=== PATIENT | male | born 1950 | race Caucasian/White ===

== ENCOUNTER 2018-07-04 01:05 | Outpatient (CLI) | payer MEDICARE ==
[2018-07-04] VITALS (7 sets, daily range): BP systolic 96–116; BP diastolic 58–81; Ht 172.7 cm; Wt 90.7 kg
[~2018-07-04] VITALS: Ht 172.7 cm; Wt 90.7 kg
--- NOTE | ~2018-07-04 | DS ---
PATIENT:CHEL CULLEN :54 MEDICAL RECORD: [id number] DISCHARGE SUMMARY ADMISSION DATE: 07/04/18 DISCHARGE DATE: DATE OF ADMISSION: 07/04/2018. DATE OF DISCHARGE: 07/05/2018. ADMISSION DIAGNOSES: His automatic defibrillator went off 6-7 times with history of CHF, coronary artery disease, and arrhythmias. HOSPITAL COURSE: The patient presented to the Emergency Room. Cardiology consulted. Upon review of his EKG and findings, underwent cardiac catheterization with stent placement. With his arrhythmias, he was monitored overnight, maintained in sinus rhythm, cleared for discharge by cardiology. The patient was discharged to home in significantly improved condition. DISCHARGE MEDICATIONS: Per med rec. PHYSICAL EXAMINATION: VITAL SIGNS: On discharge, temperature 97.7, blood pressure is 121/83, heart rate 81, respirations 20, O2 sats 95% room air. GENERAL: Alert and oriented, no present distress. Anxious to go home. HEART: Regular rate and rhythm. LUNGS: Clear. ABDOMEN: Soft. EXTREMITIES: Present times 4. NEUROLOGIC: Intact. SKIN: Warm and dry. No rash. DISCHARGE INSTRUCTIONS: The patient will follow up with Dr. Velez in 10 days. Will follow up with cardiology. See chart for further details. TRANSINT:[id number] Voice Confirmation ID: [id number] DOCUMENT ID: [id number] AWILDA WAGNER DO at 1614 CC: [id number] DICTATION DATE: 07/05/18 1006 POLICE CAPTAIN SENIOR: 07/05/18 1023 ADM IN [id number] [place] [address]
--- NOTE | ~2018-07-04 | HEMODYNAMI ---
PATIENT:CHEL CULLEN MEDICAL RECORD: [id number] : 54 LOCATION:[facility] D.2116 ADMISSION DATE: 07/04/18 Generatedon:07/04/201810:54 Patient name: CHEL CULLEN Patient #: [id number] SSN: : 1950 Date of study: 07/04/2018 Page: Of Hemodynamic Procedure Report Patient Data Patient Demographics Procedure consent was obtained First Name: CHEL Gender: Male Last Name: SUBHASH : 1950 Patient #: [id number] Age: 67 year(s) Race: Unknown Additional ID: [id number] Contact details [address]: [address] [place] [address] State: [place] City: [place] Zip code: [address] Past Medical History Allergies Allergen Reaction Date Comments Reported Other allergy 07/04/2018 spironolactone, ipratropium Admission Admission Data Admission Date: 07/04/2018 Admission Time: 4:31 Admit Source: Other Room #: D.2116 Lab Results Lab Result Date: 07/04/2018 Lab Result Time: 2:42 Biochemistry Name Units Result Min Max BUN mg/dl 15 --(--*-)-- 7 18 Creatinine mg/dl 1.5 --(----)-* 0.6 1.3 CBC Name Units Result Min Max Hematocrit % 45.2 --(-*--)-- 42 54 Hemoglobin g/dl 16.1 --(--*-)-- 13.5 17.5 Procedure Procedure Types Cath Procedure Diagnostic Procedure LHC LHC w/Coronaries w/Grafts Sedation Charges Moderate Sedation up to 30 minutes PCI Procedure Coronary Stent Coronary Stent Initial Procedure Description Procedure Date Procedure Date: 07/04/2018 Procedure Start Time: 10:07 Procedure End Time: 10:42 Procedure Staff Name Function Reji Li MD Performing Physician Rosemary Paul RT Monitor Aaron Hernandez RN Nurse Bailee Drew RN Nurse Khurram Copeland RT Scrub Ariel Samano RT [employer] Procedure Data Cath Procedure Fluoroscopy Diagnostic fluoroscopy Total fluoroscopy Time: 6.5 time: 6.5 min min Diagnostic fluoroscopy Total fluoroscopy dose: dose: 1331 mGy 1331 mGy Contrast Material Contrast Material Type Amount (ml) Isovue 300 141 Entry Location Entry Primary Successful Side Size Upsize Upsize Entry Closure Succes sful Closure Location (Fr) 1 (Fr) 2 (Fr) Remarks Device Remarks Femoral Right 5 Fr 6 Fr Exoseal artery Short Estimated blood loss: 10 ml Diagnostic catheters Device Type Used For End Catheter Placement MULTIPACK JL 4.0 5Fr Procedure catheter DIAGNOSTIC AR MOD 5Fr Procedure Catheter ([id number]) DIAGNOSTIC IM 5Fr catheter ([id number]) MULTIPACK Pigtail 5 Fr Procedure catheter MULTIPACK 3DRC 5Fr Procedure catheter Procedure Complications No complications Procedure Medications Medication Administration Route Dosage 0.9% NaCl I.V. 100 ml/hr Oxygen etCO2 Nasal cannula 2 l/min Heparin Flush Bag added to field 2 bags (1000units/500ml NS) Lidocaine 2% added to field 20 Versed I.V. 1 mg Fentanyl I.V. 50 mcg Fentanyl I.V. 50 mcg Heparin Bolus I.V. 9000 units Hemodynamics Rest HGB: 16.1 (g/dl) Heart Rate: 95 (bpm) Pressure Samples Time Site Value (mmHg) Purpose Heart Use Rate(bpm) 10:21 LV 127/12,16 Snapshot 97 10:23 AO 114/75(91) Pullback 93 10:23 LV 117/15,21 Pullback 93 Gradients Valve Time Site 1 Site 2 Mean SEP/DFP Peak To Heart Use (mmHg) (sec/min) Peak Rate (mmHg) (bpm) Aortic 10:22 LV AO 95 Aortic 10:23 LV AO 92 Aortic 10:23 LV AO 6 18 3 93 117/15,21 114/75(91) Calculations Valve P-P Mean Valve Index Valve Source Name Gradient Area Flow (cm2) Aortic 3 6 3 6 Snapshots Pre Cath Intra NCS Post Cath Vital Signs Time Heart Resp SPO2 etCO2 NIBP (mmHg) Rhythm Pain Sedation Rate (ipm) (%) (mmHg) Status Level (bpm) 9:58:52 96 20 93 3.7 132/86(106) Paced 0 (11) 10(A) , No pain 10:03:30 94 19 91 28.6 117/79(92) Paced 0 (11) 10(A) , No pain 10:08:05 85 22 91 30.1 118/82(97) Paced 0 (11) 9(A) , No pain 10:12:39 93 20 93 31.6 126/83(100) Paced 0 (11) 9(A) , No pain 10:17:13 93 19 91 32.4 127/84(99) Paced 0 (11) 9(A) , No pain 10:21:52 94 17 93 29.3 127/79(101) Paced 0 (11) 9(A) , No pain 10:26:31 94 19 92 31.6 124/76(92) Paced 0 (11) 9(A) , No pain 10:31:05 97 20 91 30.1 122/77(94) Paced 0 (11) 9(A) , No pain 10:35:39 84 21 92 30.1 123/78(95) Paced 0 (11) 10(A) , No pain 10:40:14 96 22 92 30.1 129/83(99) Paced 0 (11) 10(A) , No pain Medications Time Medication Route Dose Verified Delivered Reason Notes Effectiveness by by 9:57:32 0.9% NaCl I.V. 100 Reji Bailee used for ml/hr Guillermo Drew forensics team director 9:57:42 Oxygen etCO2 2 Reji Bailee used for Nasal l/min Guillermo Drew procedure cannula RN 9:57:51 Heparin Flush added 2 Reji Bailee used for Bag to bags Guillermo reina (1000units/500ml field RN NS) 9:58:02 Lidocaine 2% added 20ml Reji Bailee used for to vial Guillermo Drew procedure field RN 10:00:50 Versed I.V. 1 mg Reji Buffie for sedation Guillermo Hernandez RN 10:00:56 Fentanyl I.V. 50 Reji Buffie for sedation mcg Guillermo Hernandez RN 10:07:39 Fentanyl I.V. 50 Reji Buffie for sedation mcg Guillermo Hernandez RN 10:32:48 Heparin Bolus I.V. 9000 Reji Bailee for units Guillermo Drew anticoagulation patent litigation associate Log Time Note 9:38:59 Informed consent obtained and on chart 9:39:03 Admit Source: Other 9:39:41 Diagnostic Cath status Elective 9:39:46 Ariel Samano RT(R) sent for patient. Start room use. 9:41:05 Time tracking: Regular hours (M-F 7:00 - 5:00) 9:41:16 Plan of Care:Hemodynamics will remain stable., Cardiac rhythm will remain stable., Comfort level will be maintained., Respiratory function will remain adequate., Patient/ family verbilizes understanding of procedure., Procedure tolerated without complication., Recovers from procedure without complications.. 9:42:28 H&P Date Dictated: 07/04/2018 Within 30 days and on chart.. 9:43:12 Lab Result : Hemoglobin 16.1 g/dl 9:43:12 Lab Result : Hematocrit 45.2 % 9:43:12 Lab Result : BUN 15 mg/dl 9:43:12 Lab Result : Creatinine 1.5 mg/dl 9:50:24 Patient received from Med II to CCL 1 Alert and oriented. Tansferred to table in Supine position. 9:50:28 Warm blankets applied, and bhavani hugger turned on for patient comfort. 9:50:28 Correct patient and procedure confirmed by team. 9:50:29 ECG and BP/O2 sat monitors applied to patient. 9:50:30 Pre-procedure instructions explained to patient. 9:50:30 Pre-op teaching completed and patient verbalized understanding. 9:50:39 Family in patients room. 9:50:41 Patient NPO since Midnight. 9:51:04 Patient allergic to Other allergyspironolactone, ipratropium 9:51:11 IV patent on arrival in left antecubital with 0.9% NaCl at O. 9:57:32 0.9% NaCl 100 ml/hr I.V. was administered by Bailee Drew RN; used for procedure; 9:57:42 Oxygen 2 l/min etCO2 Nasal cannula was administered by Bailee Drew RN; used for procedure; 9:57:51 Heparin Flush Bag (1000units/500ml NS) 2 bags added to field was administered by Bailee Drew RN; used for procedure; 9:58:02 Lidocaine 2% 20ml vial added to field was administered by Bailee Drew RN; used for procedure; 9:58:07 Vital chart was started 9:59:10 Baseline sample Acquired. 9:59:21 Rhythm: paced 9:59:22 Full Disclosure recording started 9:59:56 Is patient on blood thinner?Yes 10:00:00 ACC The patient was administered the following blood thiners within the last 24 hours: ACCPlavix 10:00:01 Is the patient allergic to Iodine/contrast media? No. 10:00:02 Patient diabetic? Yes. 10:00:03 If diabetic: On Metformin? No 10:00:06 Previous problem with sedation/anesthesia? No ? 10:00:06 Snore? Yes 10:00:07 Sleep apnea? Yes 10:00:08 Deviated septum? No 10:00:09 Opens mouth fully? Yes 10:00:09 Sticks out tongue? Yes 10:00:11 Airway obstruction? No ? 10:00:14 Dentures? Yes OUT 10:00:17 Pre procedure: right dorsailis pedis pulse 2+ Normal; easily identifiable; not easily obliterated 10:00:19 Patient pain scale 0/10 ?. 10:00:21 Lab results completed and on chart. 10:00:23 Right groin area was prepped with chlora-prep and draped in sterile fashion 10:00:24 Alarms reviewed by R. N. 10:00:25 Sharps counted by scrub and verified by R.N. 10:00:27 --------ALL STOP TIME OUT------ 10:00:27 Final Timeout: patient, procedure, and site verified with staff and physician. All members of the team are in agreement. 10:00:29 Right groin site verified by team. 10:00:32 Physical assessment completed. ASA score P 2 - A patient with mild systemic disease as per Reji Li MD. 10:00:35 Sedation plan: IV Moderate Sedation Medication:Versed, Fentanyl 10:00:44 Use device set Femoral Dx 10:00:46 ACIST Syringe (92149) opened to sterile field. 10:00:47 Bag Decanter (2002S) opened to sterile field. 10:00:48 ACIST Hand Control (89000) opened to sterile field. 10:00:49 ACIST Manifold (85293) opened to sterile field. 10:00:50 Versed 1 mg I.V. was administered by Aaron Hernandez RN; for sedation; 10:00:50 Tegaderm 4 x 4 (1626W) opened to sterile field. 10:00:51 Medline Cath Pack ([id number]) opened to sterile field. 10:00:52 DIAGNOSTIC WIRE .035 260cm J wire (533759) opened to sterile field. 10:00:53 DIAGNOSTIC Multipack 5Fr catheter set (OZ6414) opened to sterile field. 10:00:55 SHEATH Prelude 5Fr 0.035 (EFT-9Q-87-035) opened to sterile field. 10:00:56 Fentanyl 50 mcg I.V. was administered by Aaron Hernandez RN; for sedation; 10:06:52 Zero performed for pressure channel P1 10:07:26 Procedure started. 10:07:39 Fentanyl 50 mcg I.V. was administered by Aaron Hernandez RN; for sedation; 10:07:39 Local anesthetic to right femoral artery with Lidocaine 2% by Reji Li MD.INITIAL ACCESS ONLY 10:09:51 A 5 Fr sheath was inserted into the Right Femoral artery 10:10:38 A MULTIPACK JL 4.0 5Fr catheter was advanced over the wire and used for Procedure. 10:12:49 LCA angiography performed. 10:12:56 Catheter exchanged over wire. 10:14:01 A DIAGNOSTIC AR MOD 5Fr Catheter ([id number]) was advanced over the wire and used for Procedure. 10:14:37 RCA angiography performed. 10:14:54 SVG to RCA occluded. 10:15:22 SVG to Circ angiography performed. 10:16:56 Catheter exchanged over wire. 10:17:59 A DIAGNOSTIC IM 5Fr catheter ([id number]) was advanced over the wire and used for . 10:19:09 TESFAYE to LAD angiography performed. 10:19:31 Catheter exchanged over wire. 10:20:08 A MULTIPACK Pigtail 5 Fr catheter was advanced over the wire and used for Procedure. 10:20:25 STOPCOCK 3-Way Large Bore (Q01073) opened to sterile field. 10:20:36 LV gram done using BASHIR 10:20:38 Injector settings: Ml/sec: 10, Volume: 20, 10:21:21 LV hemodynamics recorded. 10:21:42 EF : 15 % 10:23:23 Catheter exchanged over wire. 10:23:51 A MULTIPACK 3DRC 5Fr catheter was advanced over the wire and used for Procedure. 10:27:33 RCA angiography performed. 10:27:37 Catheter exchanged over wire. 10:28:08 SHEATH 6FR [place] (SJS896) opened to sterile field. 10:28:08 BMW 300cm [place] 2 J wire ([id number]) opened to sterile field. 10:28:09 INFLATOR Merit BasixCompak (HI0408) opened to sterile field. 10:28:09 TUBING High Pressure Extension Tubing (Guillermo) ([id number]) opened to sterile field. 10:28:28 Sheath upsized to a 6 Fr Short. 10:29:10 GUIDE 6FR XBLAD 3.5 catheter ([id number]) opened to sterile field. 10:30:40 6 Fr XBLAD 3.5 guide catheter was inserted over the wire 10:32:48 Heparin Bolus 9000 units I.V. was administered by Bailee Drew RN; for anticoagulation; 10:33:30 BMW 300 wire advanced. 10:34:34 Wire advanced across lesion. 10:38:02 Place stent Inflation Number: 1 A INTEGRITY OTW 3.5 X 30 stent ([id number]) was prepped and advanced across the Prox CX. The stent was deployed at 14 UDAY for 0:10 (min:sec). 10:38:36 Stent catheter was removed intact over wire. 10:38:37 Wire removed. 10:38:37 Guide catheter removed. 10:39:03 EXOSEAL 6Fr (EX600) opened to sterile field. 10:40:45 Sheath removed intact; hemostasis achieved with Exoseal to the Right Femoral artery. 10:40:48 Procedure ended.(Physican Out) 10:40:59 Fluoroscopy time 06.50 minutes. 10:41:02 Fluoroscopy dose: 1331 mGy 10:41:02 Flurop Dose total: 1331 10:41:05 Contrast amount:Isovue 300 141ml. 10:41:07 Sharps counted by scrub and verified by R.N. 10:41:10 Post-op/insertion site Right Femoral artery dressed using a 4 x 4 and Tegaderm. 10:41:13 Post-procedure physical assessment completed. ASA score P 2 - A patient with mild systemic disease as per Reji Li MD. 10:41:15 Post procedure rhythm: paced 10:41:17 Estimated blood loss: 10 ml 10:41:19 Post procedure instruction explained to patient.Patient verbalizes understanding. 10:41:20 Patient needs reinforcement of post procedure teaching. 10:41:54 Procedure type changed to Cath procedure, Diagnostic procedure, LHC, LHC w/Coronaries w/Grafts, Sedation Charges, Moderate Sedation up to 30 minutes, PCI procedure, Coronary Stent, Coronary Stent Initial 10:42:23 Procedure and supply charges have been captured, reviewed, submitted and are correct. 10:42:26 Procedure Complication : No complications 10:42:28 Vital chart was stopped 10:42:28 See physician's report for complete and final results. 10:42:30 Report given to Med II. 10:42:33 Patient transfered to Med II with Bed. 10:42:35 Procedure ended. 10:42:35 Full Disclosure recording stopped 10:42:40 End room use (Document Last) 10:53:21 FEMSTOP Gold (W30050) opened to sterile field. 10:54:00 Femstop placed over the right femoral artery at 150\ mmHg. Hemostasis achieved. Intervention Summary Intervention Notes Time ActionType Lesion and Equipment Action# Pressure Duration Attributes Used 10:38:02 Place stent Prox CX INTEGRITY 1 14 00:10 OTW 3.5 X 30 stent ([id number]) Device Usage Item Name Manufacture Quantity Catalog Number Hospital Part Current M inimal Lot# / Charge Number Stock Stock Serial# Code ACIST Syringe Acist 1 05220 431292 104188 689938 2 0 (86138) Medical Systems Inc Bag Decanter Microtek 1 2001S 119393 27119 489824 5 () Medical Inc. ACIST Hand Acist 1 48676 567451 984682 194057 5 Control (14573) [employer] Systems Inc ACIST Manifold Acist 1 72210 062209 570214 431572 5 (74179) Medical Systems Inc Tegaderm 4 x 4 3M 1 1626W 314631 321297 260189 5 (1626W) Medline Cath Cardinal 1 [id number] 582028 21273 365899 5 Playdemic ([id number]) DIAGNOSTIC WIRE [facility] [place] 1 114583 393568 789725 426722 3 0 .035 260cm J wire (002702) DIAGNOSTIC Cardinal 1 LW4926 658308 64335 481687 3 0 Multipack 5Fr Health catheter set (SV8875) SHEATH Prelude Merit 1 ZOE-2X-01-035 575111 157626 183174 5 5Fr 0.035 Medical (XDP-1N-82-035) MULTIPACK JL Cardinal 1 050253 5 4.0 5Fr Health catheter DIAGNOSTIC AR Cardinal 1 [id number] 390233 506293 136166 1 5 MOD 5Fr Health Catheter (612660A) DIAGNOSTIC IM Cardinal 1 [id number] 749478 803787 266038 5 5Fr catheter Health (742822W) MULTIPACK Cardinal 1 158408 5 Pigtail 5 Fr Health catheter STOPCOCK 3-Way Cook Medical 1 J48454 959429 4107 861400 5 Large Bore (H55160) MULTIPACK 3DRC Cardinal 1 368061 5 5Fr catheter Health SHEATH 6FR Terumo 1 FLX931 552155 449541 916820 4 0 [place] (TYD914) BMW 300cm Bearden 1 [id number] 513285 796153 092475 5 [place] 2 J Vascular wire (1304167S) INFLATOR Merit Merit 1 UC3121 905758 117909 417476 1 5 BasixCompak Medical (BE2399) TUBING High Merit 1 BG1990R 571812 84013 432994 1 0 Pressure Medical Extension Tubing (Li) (SJ2489W) GUIDE 6FR XBLAD Cardinal 1 [id number] 023809 885095 397094 1 0 3.5 catheter Health (69914970) INTEGRITY OTW Medtronic 1 [id number] 755839 954581 6 [id number] 3.5 X 30 stent ([id number]) EXOSEAL 6Fr Cardinal 1 EX600 351842 821452 063045 1 0 (EX600) Health FEMSTOP Gold [facility] [place] 1 T24537 257591 008948 641902 5 (I28983) Signature Audit [place] Stage Time Signature Unsigned Intra-Procedure 07/04/2018 Rosemary Paul 10:54:37 AM RT(R) Signatures Monitor : Rosemary Paul Signature : RT Date : Time : [facility] [address] [place] [address]
[2018-07-04] MEDS ORDERED: SYMBICORT 16010.2 GM (01:15)
[2018-07-04] MEDS ORDERED: ALBUTEROL SULF8.5 GM (01:15)
[2018-07-04] MEDS ORDERED: MEXITIL 150 MG150 MG PO (01:16)
[2018-07-04] MEDS ORDERED: TRELEGY ELLIPTA (01:21)
[2018-07-04] MEDS ORDERED: RANEXA500 MG PO (01:21)
[2018-07-04] MEDS ORDERED: PROTONIX40 MG PO (01:22)
[2018-07-04] MEDS ORDERED: LIPITOR80 MG PO (01:22)
[2018-07-04] MEDS ORDERED: ENTRESTO 24 MG1 EACH PO (01:22)
[2018-07-04] MEDS ORDERED: PLAVIX75 MG PO (01:22)
[2018-07-04] MEDS ORDERED: DESERYL50 M2 PO (01:23)
[2018-07-04] MEDS ORDERED: DEMADEX20 MG PO (01:23)
[2018-07-04] MEDS ORDERED: KLOR-CON M2020 MEQ PO (01:23)
[2018-07-04] MEDS ORDERED: FENOFIBRATE160 MG PO (01:24)
[2018-07-04] MEDS ORDERED: TOPROL XL25 MG PO (01:24)
[2018-07-04] MEDS ORDERED: PROSCAR5 MG PO (01:24)
[2018-07-04 02:58] LABS: BASOPHILS 0.3 % (0-2); EOSINOPHILS 1.3 % (0-7); HEMATOCRIT 45.2 % (42.0-54.0); HEMOGLOBIN 16.1 g/dL (13.5-17.5); IMMATURE GRANULOCYTES 0.4 % (0-5); LYMPHOCYTES 6.7 % (15-50); MCH 28.4 pg (26.0-34.0); MCHC 35.6 g/dL (31.0-37.0); MCV 79.7 fL (80.0-100.0); MEAN PLATELET VOLUME 9.4 fL (7.4-10.4); MONOCYTES 5.3 % (2-11); PLATELET COUNT 138 10x3/uL (130-400); RBC 5.67 10x6/uL (4.20-6.10); RDW 15.6 % (11.5-14.5); WBC 11.5 10x3/uL (4.8-10.8)
[2018-07-04 03:09] LABS: APTT 24.8 SECONDS (22.8-39.4); PROTIME 13.8 SECONDS (11.6-15.0)
[2018-07-04 03:12] LABS: ALBUMIN 3.6 g/dL (3.4-5.0); ALKALINE PHOSPHATASE 77 U/L (46-116); ALT (SGPT) 27 U/L (10-68); BILIRUBIN - TOTAL 0.51 mg/dL (0.2-1.3); CALC OSMOLALITY 281 mosm/kg (275-300); CALCIUM 9.3 mg/dL (8.5-10.1); CHLORIDE - SERUM 101 mmol/L (98-107); CREATININE - SERUM 1.5 mg/dL (0.6-1.3); GLUCOSE 152 mg/dL (74-106); POTASSIUM - SERUM 3.5 mmol/L (3.5-5.1); PROTEIN - SERUM 7.7 g/dL (6.4-8.2); SODIUM 139 mmol/L (136-145); UREA NITROGEN 15 mg/dL (7-18); eGFR NON AFRICAN AMERICAN 50 mL/min (90-120)
[2018-07-04 03:17] LABS: D-DIMER-QUANTITATIVE < 0.27 ug/mLFEU (0.20-0.54)
[2018-07-04 03:30] LABS: CKMB 2.8 U/L (0.0-3.6); CREATINE KINASE 128 UL (21-232); MAGNESIUM - SERUM 2.2 mg/dL (1.8-2.4)
[2018-07-04 03:32] LABS: TROPONIN-I 0.871 ng/mL (0.000-0.060)
[2018-07-04] MEDS ORDERED: MAG-OXIDE400 MG PO (05:16)
[2018-07-04] MEDS ORDERED: CENTRUM MEN'S1 EACH PO (05:16)
[2018-07-04] MEDS ORDERED: FERROUS SULFAT325 MG PO (05:17)
[2018-07-04] MEDS ORDERED: HUMALOG 30100 UNITS/ SC (05:51)
[2018-07-04 08:37] LABS: BASOPHILS 0.5 % (0-2); EOSINOPHILS 2.3 % (0-7); HEMATOCRIT 44.9 % (42.0-54.0); HEMOGLOBIN 15.8 g/dL (13.5-17.5); IMMATURE GRANULOCYTES 0.4 % (0-5); LYMPHOCYTES 13.7 % (15-50); MCH 28.2 pg (26.0-34.0); MCHC 35.2 g/dL (31.0-37.0); MEAN PLATELET VOLUME 9.7 fL (7.4-10.4); MONOCYTES 8.3 % (2-11); NEUTROPHILS 74.8 % (40-80); PLATELET COUNT 133 10x3/uL (130-400); RBC 5.61 10x6/uL (4.20-6.10); RDW 15.9 % (11.5-14.5)
[2018-07-04 09:01] LABS: WBC 8.4 10x3/uL (4.8-10.8)
[2018-07-04 09:07] LABS: CALCIUM 9.8 mg/dL (8.5-10.1); CARBON DIOXIDE 29.8 mmol/L (21.0-32.0); CREATININE - SERUM 1.5 mg/dL (0.6-1.3); POTASSIUM - SERUM 3.8 mmol/L (3.5-5.1); TROPONIN-I 1.668 ng/mL (0.000-0.060)
[2018-07-04 16:32] LABS: CKMB 2.6 U/L (0.0-3.6); CREATINE KINASE 214 UL (21-232)
[2018-07-04 16:35] LABS: TROPONIN-I 1.935 ng/mL (0.000-0.060)
[2018-07-04 20:46] LABS: CKMB 3.5 U/L (0.0-3.6); CREATINE KINASE 208 UL (21-232)
[2018-07-05] VITALS: BP 91/61
[2018-07-05 04:00] VITALS: BP 172/105
[2018-07-05 04:51] LABS: BASOPHILS 0.5 % (0-2); EOSINOPHILS 4.2 % (0-7); HEMATOCRIT 43.2 % (42.0-54.0); HEMOGLOBIN 14.9 g/dL (13.5-17.5); IMMATURE GRANULOCYTES 0.1 % (0-5); LYMPHOCYTES 23.7 % (15-50); MCH 28.1 pg (26.0-34.0); MCHC 34.5 g/dL (31.0-37.0); MCV 81.4 fL (80.0-100.0); MEAN PLATELET VOLUME 9.2 fL (7.4-10.4); MONOCYTES 8.5 % (2-11); PLATELET COUNT 147 10x3/uL (130-400); RBC 5.31 10x6/uL (4.20-6.10); RDW 16.3 % (11.5-14.5); WBC 7.3 10x3/uL (4.8-10.8)
[2018-07-05 05:30] LABS: ALBUMIN 3.1 g/dL (3.4-5.0); BILIRUBIN - TOTAL 0.32 mg/dL (0.2-1.3); CALCIUM 8.7 mg/dL (8.5-10.1); CARBON DIOXIDE 29.2 mmol/L (21.0-32.0); CREATININE - SERUM 1.5 mg/dL (0.6-1.3); MAGNESIUM - SERUM 2.4 mg/dL (1.8-2.4); PHOSPHOROUS 3.2 mg/dL (2.5-4.9); POTASSIUM - SERUM 4.2 mmol/L (3.5-5.1); PROTEIN - SERUM 6.8 g/dL (6.4-8.2); THYROID STIMULATING HORMONE 1.34 uIU/mL (0.36-3.74)
[2018-07-05 07:50] VITALS: BP 121/83
[2018-07-05 11:23] VITALS: BP 114/78
== END 2018-07-05 17:16 | disposition home or self-care (01) ==
LOC: OBSVTIME → D.OPS 01:05 → D.ER 01:05 → D.M2 04:31 → OBSVTIME 04:31 → D.ER 04:31 → D.M2 04:31 → D.ER 04:52 → EDSTATUS 11:30 → D.M2 07-05 17:16 → D.OPS 07-05 17:16
PROVIDERS: Family Medicine; Internal Medicine Cardiovascular Disease
DX: I25.10 Atherosclerotic heart disease of native coronary artery without angina pectoris (principal); I50.9 Heart failure, unspecified; I25.5 Ischemic cardiomyopathy; I47.2 Ventricular tachycardia; E11.40 Type 2 diabetes mellitus with diabetic neuropathy, unspecified; J44.9 Chronic obstructive pulmonary disease, unspecified; I48.0 Paroxysmal atrial fibrillation; F32.9 Major depressive disorder, single episode, unspecified; Z87.891 Personal history of nicotine dependence; Z95.810 Presence of automatic (implantable) cardiac defibrillator

== ENCOUNTER 2018-07-10 23:40 | Observation (INO) | payer MEDICARE ==
[~2018-07-10] VITALS: Ht 172.7 cm; Wt 91.6 kg
--- NOTE | ~2018-07-10 | HP ---
PATIENT: CARLOS ANG MEDICAL RECORD: [id number] ACCOUNT: [id number] LOCATION:[address] : 54 ADMISSION DATE: 07/11/18 PCP: No PCP HISTORY AND PHYSICAL EXAMINATION DIAGNOSES: 1. Ischemic cardiomyopathy. 2. Ventricular tachycardia. 3. ICD discharge. 4. Congestive heart failure, chronic systolic dysfunction. 5. Coronary artery disease. 6. Recent PTCA and stent. 7. Status post coronary bypass graft surgery. 8. Smoking history. 9. Chronic obstructive pulmonary disease. HISTORY OF PRESENT ILLNESS: Mr. Ang has a history of ischemic cardiomyopathy, recently had multiple ICD discharges, underwent PTCA and stent of the mashpee circumflex that had a closed graft to this. He did well until last night, had another ICD discharge. His troponin is elevated. He was placed on Cordarone. He has had no further ICD discharges. He was previously on Toprol and mexiletine. REVIEW OF SYSTEMS: The patient reports easy bruising but reports no swollen glands. The patient reports no fever, no night sweats, no significant weight gain, no significant weight loss. No significant exercise tolerance. The patient reports no dry eyes, no irritation, no vision change. Patient reports no difficulty hearing and no ear pain. Patient reports no frequent nose bleeds or nose and sinus problems. Patient reports on arm pain on exertion. No shortness of breath while lying down. No history of heart murmur. Patient reports no cough, no wheezing or coughing up blood. Patient reports no abdominal pain, no vomiting. Normal appetite. No diarrhea and not vomiting blood. No nausea and no constipation. Patient reports no incontinence. No difficulty urinating. No hematuria. No increased frequency. Patient reports no muscle aches. No weakness, no arthralgias, no back pain. No swelling of the extremities. Patient reports no abnormal mole, no jaundice, no rashes. Reports no loss of consciousness. No weakness and no numbness. No seizures, dizziness, or headaches. The patient reports no depression, no sleep disturbance, feeling safe in a relationship and no alcohol abuse. Patient reports on fatigue. Reports no runny nose or sinus pressure. No itching, no hives, and no frequent sneezing. PHYSICAL EXAMINATION: GENERAL APPEARANCE: Well-nourished, well-developed, appears stated age. Level of distress, comfortable. PSYCHIATRIC: Mental status, alert, normal affect. Orientation, oriented to time, place and person. EYES: Lids and conjunctiva, noninjected. No discharge, no pallor. ENT: Lips, teeth, gums, normal dentition. Oropharynx, no cyanosis, no pallor. NECK: Carotid arteries, bilateral normal upstroke, no bruits, no thrills. JUGULAR VEINS: No jugular venous pressure or distention. CERVICAL LYMPH NODES: Nontender, nonenlarged. THYROID: Not enlarged. Nontender. No nodules. LUNGS: Respiratory effort, unlabored. CHEST: Normal curvature. No thoracic deformity. No chest wall tenderness. HISTORY AND PHYSICAL [id number] SUBHASH,CARLOS Percussion, resonant. Auscultation, clear. No wheezes, no rales, no rhonchi. CARDIOVASCULAR: Precordial exam, nondisplaced. No heaves or pericardial thrills. Rate and rhythm, regular. Heart sounds, normal S1, normal S2. No S3, no gallop, no rub. Systolic murmur, not heard. Diastolic murmur, not heard. EXTREMITIES: No cyanosis, no edema. Peripheral pulses, full and equal in all extremities, except as noted. No bruits appreciated. ABDOMEN: Soft, nondistended. Normal aorta. No bruit. Nontender. No masses. Liver, nontender, no hepatomegaly. Spleen, nontender, no splenomegaly. MUSCULOSKELETAL: No joint tenderness. No joint swelling. No erythema. NEUROLOGICAL: Normal gait, normal strength, normal tone. SKIN: Warm and dry. OVERALL IMPRESSION: ICD discharge with elevated troponin. We will relook to ensure patency of the previously placed stent. He has responded to Cordarone. We will discontinue the mexiletine and Toprol and place him on Cordarone for his antiarrhythmic as well. TRANSINT:[id number] Voice Confirmation ID: [id number] DOCUMENT ID: [id number] CHANTALE STRICKLAND MD at 0924 CC: [id number] DICTATION DATE: 07/11/18836 TELEPHONE AD TAKER: 07/11/18845 DIS IN 07/12/18 [id number] [place] [address]
--- NOTE | ~2018-07-10 | HEMODYNAMI ---
PATIENT:CARLOS CULLEN MEDICAL RECORD: [id number] : 54 [facility] ADMISSION DATE: 07/11/18 Generatedon:07/11/201815:50 Patient name: CARLOS CULLEN Patient #: [id number] SSN: DO B: 1950 Date of study: 07/11/2018 Page: Of Hemodynamic Procedure Report Patient Data Patient Demographics Procedure consent was obtained First Name: CARLOS Gender: Male Last Name: SUBHASH : 1950 Patient #: [id number] Age: 67 year(s) Race: Unknown Additional ID: [id number] Contact details Address: [address] [place] [address] State: [place] City: [place] Zip code: [address] Past Medical History Allergies Allergen Reaction Date Comments Reported Other allergy 07/04/2018 spironolactone, ipratropium Other allergy 07/11/2018 Spironolactone, IPRATROPIUM Admission Admission Data Admission Date: 07/11/2018 Admission Time: 2:53 Admit Source: Other Room #: D.2119 Lab Results Lab Result Date: 07/11/2018 Lab Result Time: 0:00 Biochemistry Name Units Result Min Max BUN mg/dl 15 --(--*-)-- 7 18 Creatinine mg/dl 1.3 --(---*)-- 0.6 1.3 CBC Name Units Result Min Max Hemoglobin g/dl 14.6 --(-*--)-- 13.5 17.5 Procedure Procedure Types Cath Procedure Diagnostic Procedure LHC LHC w/Coronaries w/Grafts Procedure Description Procedure Date Procedure Date: 07/11/2018 Procedure Start Time: 15:35 Procedure End Time: 15:46 Procedure Staff Name Function Dereje Sanders MD Performing Physician Rosemary Paul RT Monitor Khurram Copeland RT Scrub Aaron Hernandez RN Nurse Bailee Drew RN Nurse Ariel Samano RT Auto Air Conditioning Installer Procedure Data Cath Procedure Fluoroscopy Diagnostic fluoroscopy Total fluoroscopy Time: 1 time: 1 min min Diagnostic fluoroscopy Total fluoroscopy dose: 252 dose: 252 mGy mGy Contrast Material Contrast Material Type Amount (ml) Isovue 300 44 Entry Location Entry Primary Successful Side Size Upsize Upsize Entry Closure Succes sful Closure Location (Fr) 1 (Fr) 2 (Fr) Remarks Device Remarks Femoral Right 5 Fr Exoseal artery Estimated blood loss: 5 ml Diagnostic catheters Device Type Used For End Catheter Placement MULTIPACK Pigtail 5 Fr Procedure catheter MULTIPACK JL 4.0 5Fr Procedure catheter MULTIPACK 3DRC 5Fr Procedure catheter DIAGNOSTIC AR2 MOD 5 Fr Procedure catheter ([id number]) Procedure Complications No complications Procedure Medications Medication Administration Route Dosage Versed I.V. 1 mg Fentanyl I.V. 50 mcg Lidocaine 2% added to field 20 Heparin Flush Bag added to field 2 bags (1000units/500ml NS) 0.9% NaCl I.V. 100 ml/hr Versed I.V. 1 mg Fentanyl I.V. 50 mcg Oxygen etCO2 Nasal cannula 2 l/min Versed I.V. 0.5 mg Fentanyl I.V. 25 mcg Hemodynamics Rest HGB: 14.6 (g/dl) Heart Rate: 80 (bpm) Snapshots Pre Cath Intra NCS Post Cath Vital Signs Time Heart Resp SPO2 etCO2 NIBP Rhythm Pain Sedation Rate (ipm) (%) (mmHg) (mmHg) Status Level (bpm) 15:16:16 81 25 93 27.8 101/69(88) Paced 0 (11) 10(A) , No pain 15:20:22 65 22 94 27.8 98/71(80) Paced 0 (11) 10(A) , No pain 15:24:26 78 14 92 42 101/70(77) Paced 0 (11) 10(A) , No pain 15:28:32 81 22 93 23.3 95/69(75) Paced 0 (11) 10(A) , No pain 15:32:37 80 20 94 18.8 91/63(76) Paced 0 (11) 10(A) , No pain 15:36:39 79 16 94 21 95/67(80) Paced 0 (11) 10(A) , No pain 15:40:43 80 17 92 18 89/67(80) Paced 0 (11) 9(A) , No pain 15:44:47 79 20 93 10.5 92/62(78) Paced 0 (11) 9(A) , No pain 15:48:52 79 15 93 31.5 99/70(84) Paced 0 (11) 10(A) , No pain Medications Time Medication Route Dose Verified Delivered Reason Notes Eff ectiveness by by 15:16:50 Oxygen etCO2 2 Dereje Buffie used for Nasal l/min Marilyn Hernandez RN procedure cannula 15:34:31 Versed I.V. 1 mg Dereje Buffie for Marilyn Hernandez RN sedation 15:34:36 Fentanyl I.V. 50 Dereje Buffie for mcg Marilyn Hernandez RN sedation 15:38:24 Lidocaine 2% added 20ml Dereje Dereje for local to vial Marilyn Sanders MD anesthetic field 15:38:31 Heparin Flush added 2 Dereje Dereje used for Bag to bags Marilyn Sanders MD procedure (1000units/500ml field NS) 15:38:43 Versed I.V. 1 mg Dereje Buffie for Marilyn Hernandez RN sedation 15:38:47 Fentanyl I.V. 50 Dereje Guyie for mcg Marilyn Hernandez RN sedation 15:38:47 0.9% NaCl I.V. 100 Dereje Buffie Per ml/hr Marilyn Hernandez RN physician 15:41:13 Versed I.V. 0.5 Dereje Buffie for mg Marilyn Hernandez RN sedation 15:41:19 Fentanyl I.V. 25 Dereje Buffie for mcg Marilyn Hernandez RN sedation Procedure Log Time Note 14:40:15 Ariel Samano RT(R) sent for patient. Start room use. 15:00:49 Informed consent obtained and on chart 15:00:53 Admit Source: Other 15:01:13 Diagnostic Cath status Elective 15:01:32 Time tracking: Regular hours (M-F 7:00 - 5:00) 15:01:35 Plan of Care:Hemodynamics will remain stable., Cardiac rhythm will remain stable., Comfort level will be maintained., Respiratory function will remain adequate., Patient/ family verbilizes understanding of procedure., Procedure tolerated without complication., Recovers from procedure without complications.. 15:01:48 H&P Date Dictated: 07/10/2018 Within 30 days and on chart.. 15:02:00 Procedure type changed to Cath procedure, Diagnostic procedure, LHC, LHC w/Coronaries w/Grafts 15:09:08 Patient received from Med II to CCL 1 Alert and oriented. Tansferred to table in Supine position. 15:09:09 Warm blankets applied, and bhavani hugger turned on for patient comfort. 15:09:09 Correct patient and procedure confirmed by team. 15:09:10 ECG and BP/O2 sat monitors applied to patient. 15:09:11 Pre-procedure instructions explained to patient. 15::12 Pre-op teaching completed and patient verbalized understanding. 15:09:12 Family in patients room. 15:09:14 Patient NPO since Midnight. 15:15:12 Vital chart was started 15:16:50 Oxygen 2 l/min etCO2 Nasal cannula was administered by Aaron Hernandez RN; used for procedure; 15:22:37 Baseline sample Acquired. 15::42 Rhythm: paced 15:22:43 Full Disclosure recording started 15:23:23 Patient allergic to Other allergySpironolactone, IPRATROPIUM 15:23:27 Is patient on blood thinner?Yes 15:23:29 ACC The patient was administered the following blood thiners within the last 24 hours: ACCPlavix 15:23:32 Patient diabetic? No. 15:23:35 Previous problem with sedation/anesthesia? No ? 15:23:37 Snore? Yes 15:23:38 Sleep apnea? Yes 15:23:40 Deviated septum? No 15:23:40 Opens mouth fully? Yes 15:23:41 Sticks out tongue? Yes 15:23:43 Airway obstruction? No ? 15:23:50 Dentures? No OUT 15:24:01 Pre procedure: right dorsailis pedis pulse 2+ Normal; easily identifiable; not easily obliterated 15:24:04 Patient pain scale 0/10 ?. 15:24:38 IV patent on arrival in right antecubital with 0.9% NaCl at [facility]. 15:25:25 Lab Result : BUN 15 mg/dl 15:25:25 Lab Result : Creatinine 1.3 mg/dl 15:25:25 Lab Result : Hemoglobin 14.6 g/dl 15:25:28 Lab results completed and on chart. 15:25:32 Right groin area was prepped with chlora-prep and draped in sterile fashion 15:25:32 Alarms reviewed by R. N. 15:25:33 Sharps counted by scrub and verified by R.N. 15:25:36 Use device set Femoral Dx 15:25:37 ACIST Syringe (69612) opened to sterile field. 15:25:38 Bag Decanter (2002S) opened to sterile field. 15:25:42 ACIST Hand Control (95050) opened to sterile field. 15:25:43 ACIST Manifold (25712) opened to sterile field. 15:26:40 Tegaderm 4 x 4 (1626W) opened to sterile field. 15:26:51 Medline Cath Pack ([id number]) opened to sterile field. 15:26:52 DIAGNOSTIC WIRE .035 260cm J wire (522805) opened to sterile field. 15:26:53 DIAGNOSTIC Multipack 5Fr catheter set (MG0344) opened to sterile field. 15:26:55 SHEATH Prelude 5Fr 0.035 (VLS-0J-75-035) opened to sterile field. 15:33:26 Physician arrived 15:33: --------ALL STOP TIME OUT------ 15:33:27 Final Timeout: patient, procedure, and site verified with staff and physician. All members of the team are in agreement. 15:33:31 Right groin site verified by team. 15:33:55 Physical assessment completed. ASA score P 2 - A patient with mild systemic disease as per Dereje Sanders MD. 15:34:01 Sedation plan: IV Moderate Sedation Medication:Versed, Fentanyl 15:34:28 Zero performed for pressure channel P1 15:34:31 Versed 1 mg I.V. was administered by Aaron Hernandez RN; for sedation; 15:34:36 Fentanyl 50 mcg I.V. was administered by Aaron Hernandez RN; for sedation; 15:35:44 Procedure started. 15:35:49 Local anesthetic to right femoral artery with Lidocaine 2% by Dereje Sanders MD.INITIAL ACCESS ONLY 15:36:49 A 5 Fr sheath was inserted into the Right Femoral artery 15:37:32 A MULTIPACK Pigtail 5 Fr catheter was advanced over the wire and used for Procedure. 15:38:03 LV gram done using BASHIR 15:38:05 Injector settings: Ml/sec: 10, Volume: 20, 15:38:24 Lidocaine 2% 20ml vial added to field was administered by Dereje Sandres MD; for local anesthetic; 15:38:31 Heparin Flush Bag (1000units/500ml NS) 2 bags added to field was administered by Dereje Sanders MD; used for procedure; 15:38:36 EF : 15 % 15:38:38 Catheter removed. 15:38:43 Versed 1 mg I.V. was administered by Aaron Hernandez RN; for sedation; 15:38:47 Fentanyl 50 mcg I.V. was administered by Aaron Hernandez RN; for sedation; 15:38:47 0.9% NaCl 100 ml/hr I.V. was administered by Aaron Hernandez RN; Per physician; 15:38:55 A MULTIPACK JL 4.0 5Fr catheter was advanced over the wire and used for Procedure. 15:39:44 LCA angiography performed. 15:39:56 Catheter removed. 15:40:22 A MULTIPACK 3DRC 5Fr catheter was advanced over the wire and used for Procedure. 15:40:52 TESFAYE to LAD angiography performed. 15:40:58 Catheter removed. 15:41:13 Versed 0.5 mg I.V. was administered by Aaron Hernandez RN; for sedation; 15:41:18 A DIAGNOSTIC AR2 MOD 5 Fr catheter ([id number]) was advanced over the wire and used for Procedure. 15:41:19 Fentanyl 25 mcg I.V. was administered by Aaron Henrandez RN; for sedation; 15:42:12 SVG to LAD angiography performed. 15:42:19 Catheter removed. 15:42:23 EXOSEAL 5Fr (EX500) opened to sterile field. 15:42:36 Sheath removed intact; hemostasis achieved with Exoseal to the Right Femoral artery. 15:43:05 Procedure ended.(Physican Out) 15:45:09 Fluoroscopy time 01.00 minutes. 15:45:13 Flurop Dose total: 252 15:45:13 Fluoroscopy dose: 252 mGy 15:45:16 Contrast amount:Isovue 300 44ml. 15:45:18 Sharps counted by scrub and verified by R.N. 15:45:20 Post-op/insertion site Right Femoral artery dressed using a 4 x 4 and Tegaderm. 15:45:25 Post right femoral artery:stable, soft, clean and dry 15:45:43 Post-procedure physical assessment completed. ASA score P 2 - A patient with mild systemic disease as per Dereje Sanders MD. 15:45:45 Post procedure rhythm: paced 15:45:48 Estimated blood loss: 5 ml 15:45:49 Post procedure instruction explained to patient.Patient verbalizes understanding. 15:45:49 Patient needs reinforcement of post procedure teaching. 15:46:18 Procedure and supply charges have been captured, reviewed, submitted and are correct. 15:46:23 Procedure Complication : No complications 15:46:25 Vital chart was stopped 15:46:26 See physician's report for complete and final results. 15:46:28 Report given to PCU. 15:46:31 Patient transfered to PCU with Bed. 15:46:32 Procedure ended. 15:46:32 Full Disclosure recording stopped 15:46:35 End room use (Document Last) 15:48:01 Vital chart was started 15:50:03 Vital chart was stopped Device Usage Item Name Manufacture Quantity Catalog Number Hospital Part Current M inimal Lot# / Charge Number Stock Stock Serial# Code ACIST Syringe Acist 1 41715 [id number] 593528 509852 2 0 (79916) [employer] Inc Bag Decanter Microtek 1 2002S 893903 53167 642936 5 (2001S) Medical Inc. ACIST Hand Acist 1 16282 735788 491233 316058 5 Control (28552) Medical Systems Inc ACIST Manifold Acist 1 14977 484877 746497 300738 5 (95880) Medical Systems Inc Tegaderm 4 x 4 3M 1 1626W 628962 333629 284378 5 (1626W) Medline Cath Cardinal 1 [id number] 679717 92509 136569 5 Pack Health ([id number]) DIAGNOSTIC WIRE [facility] [place] 1 928673 548691 157670 464855 3 0 .035 260cm J wire (541175) DIAGNOSTIC Cardinal 1 CG9903 954048 79637 654173 3 0 Multipack 5Fr Health catheter set (CN8041) SHEATH Prelude Merit 1 YUN-7A-99-035 986648 736818 141743 5 5Fr 0.035 Medical (GAP-9R-84-035) MULTIPACK Cardinal 1 [id number] 5 Pigtail 5 Fr Health catheter MULTIPACK JL Cardinal 1 [id number] 5 4.0 5Fr Health catheter MULTIPACK 3DRC Cardinal 1 181847 5 5Fr catheter Health DIAGNOSTIC AR2 Cardinal 1 [id number] 628361 531715 340181 2 0 MOD 5 Fr Health catheter ([id number]) EXOSEAL 5Fr Cardinal 1 EX500 092257 074939 456154 1 0 (EX500) Health Signature Audit Wallace Stage Time Signature Unsigned Intra-Procedure 07/11/2018 Rosemary Paul 3:50:00 PM RT(R) Signatures Monitor : Rosemary Paul Signature : RT Date : Time : [address] [address]
--- NOTE | ~2018-07-10 | OP ---
PATIENT NAME: CARLOS CULLEN MEDICAL RECORD: [id number] :54 LOCATION:D.M2 D.2119 ADMISSION DATE:07/11/18 SURGEON: CHANTALE TSRICKLAND MD DATE OF OPERATION: 07/11/2018 DATE OF SERVICE: 07/11/2018 PROCEDURES: 1. Left heart catheterization. 2. Selective coronary angiography. 3. Vein graft angiography. 4. TESFAYE angiography. 5. Left ventriculogram. INDICATION: Ventricular tachycardia, elevated troponin, coronary artery disease, cardiomyopathy. PROCEDURE IN DETAIL: After informed consent was obtained and after a detailed explanation of risks, benefits as well as alternative therapies, the patient elected to proceed with angiogram and angioplasty. The right femoral area was prepped and draped in normal sterile fashion. Right femoral artery was cannulated via modified Seldinger technique with placement of 6-Spanish sheath. All catheters exchanged through this sheath. FINDINGS: The left ventriculogram was performed in standard 30-degree BASHIR view reveals global hypokinesis throughout all segments. Overall ejection fraction estimated at 15%. SELECTIVE CORONARY ANGIOGRAPHY: 1. Left main is with no significant angiographic disease. 2. Left anterior descending is totally occluded. 3. Vein graft to the distal LAD is widely patent. Distal LAD is widely patent. 4. Left circumflex has a previously placed stent. This is widely patent. 5. Right coronary is totally occluded. Vein graft to the right coronary is totally occluded. OVERALL IMPRESSION: Wide patency of the previously placed stent and vein graft to the left anterior descending, unchanged from previous angiography. Continue medical management of the ventricular tachycardia. TRANSINT:[id number] Voice Confirmation ID: [id number] DOCUMENT ID: [id number] CHANTALE STRICKLAND MD at 0924 CC: [id number] DICTATION DATE: 07/11/18 1547 NUT FORMER: 07/11/18 1607 DIS IN 07/12/18 [place] [address]
--- NOTE | ~2018-07-10 | MORECARE ---
CASE MANAGEMENT DISCHARGE SUMMARY PATIENT: CARLOS CULLEN UNIT: [id number] ADM DATE: 07/11/18 AGE: 67 : 54 SEX: M ROOM/BED: D.2119 AUTHOR: JOSHUA FRANKLIN PHYSICIAN: REFERRING PHYSICIAN: CHANTALE STRICKLAND MD DATE OF SERVICE: 07/15/18 Discharge Plan Patient Name: CARLOS CULLEN Facility: [facility]:[place] : 1950 Planned Disposition: Home Anticipated Discharge Date: 07/12/18 Discharge Date: 07/12/2018 Expected LOS: 1 Initial Reviewer: [email or web address] Initial Review Date: 07/15/2018 Generated: 07/15/18 9:50 am Coverage Notice Reviewer: [email or web address] Boaz Sapp Notice Issued Date-Time: 07/11/2018 14:05 Notice Type: Medicare Outpatient Observation Notice Notice Delivered To: Patient Relationship to Patient: Self Charge Attendant Name: Delivery Method: HAND - Hand Delivered Stefani Days: Prior Verbal Notification: Recipient Understood Notice: Yes Recipient Signature: Yes Med Rec Note Co-signed by Attending: Coverage Notice Comment: Patient Name: CARLOS CULLEN Page [phone] at 0850 All edits/amendments must be made on the electronic document DICTATION DATE: 07/15/18 0850 MOTOR VEHICLE FIELD REPRESENTATIVE: BEAN 07/15/18 0850 RPT#: [id number] DC DATE:07/12/18 STATUS: DIS IN [facility] [address] [place] [address] END OF REPORT
--- NOTE | ~2018-07-10 | DS ---
PATIENT:CARLOS ANG :54 MEDICAL RECORD: [id number] DISCHARGE SUMMARY ADMISSION DATE: 07/11/18 DISCHARGE DATE: 07/12/18 DATE OF DISCHARGE: 07/12/2018 DISCHARGE DIAGNOSES: 1. Ventricular tachycardia. 2. Implantable cardioverter-defibrillator. 3. Ischemic cardiomyopathy. 4. Coronary artery disease. 5. Congestive heart failure, chronic systolic dysfunction. HOSPITAL COURSE: Mr. Ang presents after an ICD discharge, underwent cardiac catheterization revealing no significant new coronary artery disease, was previously on mexiletine and metoprolol. He was changed to Cordarone. He had no further ventricular tachycardia, discharged home on Cordarone 200 mg b.i.d. Follow up with [facility] within a month. TRANSINT:[id number] Voice Confirmation ID: [id number] DOCUMENT ID: [id number] CHANTALE STRICKLAND MD at 0924 CC: [id number] DICTATION DATE: 07/12/18 0945 RN MED SURG: 07/12/18 2159 DIS IN 07/12/18 [place] [address] [place] [address]
[~2018-07-10 23:40] MED LIST: ALBUTEROL SULF8.5 GM; CENTRUM MEN'S1 EACH PO; DEMADEX20 MG PO; DESERYL50 M2 PO; ENTRESTO 24 MG1 EACH PO; FENOFIBRATE160 MG PO; FERROUS SULFAT325 MG PO; HUMALOG 30100 UNITS/ SC; KLOR-CON M2020 MEQ PO; LIPITOR80 MG PO; MAG-OXIDE400 MG PO; MEXITIL 150 MG150 MG PO; PLAVIX75 MG PO; PROSCAR5 MG PO; PROTONIX40 MG PO; RANEXA500 MG PO; SYMBICORT 16010.2 GM; TOPROL XL25 MG PO; TRELEGY ELLIPTA
[2018-07-11] VITALS (7 sets, daily range): BP systolic 98–119; BP diastolic 63–83
[2018-07-11 01:01] LABS: BASOPHILS 0.5 % (0-2); EOSINOPHILS 2.7 % (0-7); HEMATOCRIT 44.6 % (42.0-54.0); HEMOGLOBIN 15.6 g/dL (13.5-17.5); IMMATURE GRANULOCYTES 0.3 % (0-5); LYMPHOCYTES 17.7 % (15-50); MCH 28.2 pg (26.0-34.0); MCV 80.7 fL (80.0-100.0); MEAN PLATELET VOLUME 8.7 fL (7.4-10.4); MONOCYTES 8.8 % (2-11); PLATELET COUNT 143 10x3/uL (130-400); RBC 5.53 10x6/uL (4.20-6.10); RDW 16.6 % (11.5-14.5); WBC 6.6 10x3/uL (4.8-10.8)
[2018-07-11 01:10] LABS: INR 1.03 (0.85-1.17); PROTIME 13.1 SECONDS (11.6-15.0)
[2018-07-11 01:12] LABS: D-DIMER-QUANTITATIVE < 0.27 ug/mLFEU (0.20-0.54)
[2018-07-11 01:14] LABS: ALBUMIN 3.7 g/dL (3.4-5.0); ALKALINE PHOSPHATASE 87 U/L (46-116); ALT (SGPT) 32 U/L (10-68); BILIRUBIN - TOTAL 0.33 mg/dL (0.2-1.3); CALC OSMOLALITY 291 mosm/kg (275-300); CALCIUM 9.4 mg/dL (8.5-10.1); CARBON DIOXIDE 29.8 mmol/L (21.0-32.0); CHLORIDE - SERUM 100 mmol/L (98-107); CREATININE - SERUM 1.3 mg/dL (0.6-1.3); POTASSIUM - SERUM 3.6 mmol/L (3.5-5.1); PROTEIN - SERUM 7.8 g/dL (6.4-8.2); SODIUM 140 mmol/L (136-145); UREA NITROGEN 16 mg/dL (7-18); eGFR NON AFRICAN AMERICAN 59 mL/min (90-120)
[2018-07-11 01:15] LABS: GLUCOSE 308 mg/dL (74-106)
[2018-07-11 01:29] LABS: CKMB 2.1 U/L (0.0-3.6); CREATINE KINASE 86 UL (21-232); MAGNESIUM - SERUM 2.1 mg/dL (1.8-2.4)
[2018-07-11 01:33] LABS: TROPONIN-I 1.229 ng/mL (0.000-0.060)
[2018-07-11 06:53] LABS: BASOPHILS 0.4 % (0-2); EOSINOPHILS 3.7 % (0-7); HEMATOCRIT 42.5 % (42.0-54.0); HEMOGLOBIN 14.6 g/dL (13.5-17.5); IMMATURE GRANULOCYTES 0.3 % (0-5); LYMPHOCYTES 24.5 % (15-50); MCH 27.8 pg (26.0-34.0); MCHC 34.4 g/dL (31.0-37.0); MCV 80.8 fL (80.0-100.0); MEAN PLATELET VOLUME 9.1 fL (7.4-10.4); MONOCYTES 7.8 % (2-11); NEUTROPHILS 63.3 % (40-80); PLATELET COUNT 154 10x3/uL (130-400); RBC 5.26 10x6/uL (4.20-6.10); RDW 16.6 % (11.5-14.5); WBC 6.8 10x3/uL (4.8-10.8)
[2018-07-11 07:29] LABS: ANION GAP 12.8 mmol/L (8-16); CALCIUM 9.5 mg/dL (8.5-10.1); CARBON DIOXIDE 26.9 mmol/L (21.0-32.0); CREATININE - SERUM 1.3 mg/dL (0.6-1.3)
[2018-07-11 07:30] LABS: POTASSIUM - SERUM 3.7 mmol/L (3.5-5.1); TROPONIN-I 1.162 ng/mL (0.000-0.060)
[2018-07-12 02:38] VITALS: BP 138/87
[2018-07-12 06:07] VITALS: BP 99/69
[2018-07-12 08:00] VITALS: BP 100/63; BP 118/61
[2018-07-12] MEDS ORDERED: PACERONE200 MG PO (10:49)
[2018-07-12 10:54] VITALS: Ht 172.7 cm; Wt 91.6 kg
== END 2018-07-12 18:10 | disposition home or self-care (01) ==
LOC: D.ER 23:40 → D.M2 07-11 02:53 → OBSVTIME 07-11 02:53 → D.M2 07-12 18:10
PROVIDERS: Family Medicine
DX: I47.2 Ventricular tachycardia (principal); I25.10 Atherosclerotic heart disease of native coronary artery without angina pectoris; Z95.1 Presence of aortocoronary bypass graft; Z95.5 Presence of coronary angioplasty implant and graft; Z87.891 Personal history of nicotine dependence; I25.5 Ischemic cardiomyopathy; J44.9 Chronic obstructive pulmonary disease, unspecified; I50.22 Chronic systolic (congestive) heart failure; R79.89 Other specified abnormal findings of blood chemistry

== ENCOUNTER → 2018-07-24 13:46 | Outpatient (CLI) | payer MEDICARE ==
[2018-07-12 10:54] VITALS: BMI 30.7
[~2018-07-24 13:46] MED LIST changes: +AMIODARONE HCL200 MG PO; +COREG6.25 MG PO; +PACERONE200 MG PO
== END | disposition home or self-care (01) ==
LOC: D.RT 13:46
DX: J44.9 Chronic obstructive pulmonary disease, unspecified (principal)

== ENCOUNTER 2018-07-26 07:41 | Inpatient (IN) | payer MEDICARE ==
[~2018-07-26] VITALS: Ht 172.7 cm; Wt 89.2 kg
--- NOTE | ~2018-07-26 | MORECARE ---
CASE MANAGEMENT DISCHARGE SUMMARY PATIENT: CARLOS CULLEN UNIT: [id number] ADM DATE: 07/27/18 AGE: 67 : 54 SEX: M ROOM/BED: D.2116 AUTHOR: JOSHUA FRANKLIN PHYSICIAN: REFERRING PHYSICIAN: LIZETH JOSHI DO DATE OF SERVICE: 07/30/18 Discharge Plan Patient Name: CARLOS CULLEN Facility: [facility]:[place] : 1950 Planned Disposition: Home Anticipated Discharge Date: 07/30/18 Discharge Date: Expected LOS: 3 Initial Reviewer: [email or web address] Initial Review Date: 07/26/2018 Generated: 07/30/18 10:09 am Comments DCP- Discharge Planning Updated by [email or web address]: Sherif Green on 07/30/18 8:[address] Patient Name: CARLOS CULLEN Encounter No: [id number] : 1950 Primary Insurance: MEDICARE A & B Anticipated DC Date: 07-30-2018 Planned Disposition: Home DCP follow-up note: CM RECEIVED DISCHARGE ORDER, MET WITH PT IN ROOM TO DISCUSS DISCHARGE NEEDS AND PLANNING. CM DISCUSSED AVAILABILITY OF HOME HEALTH, REHAB SERVICES AND MEDICAL EQUIPMENT. CM REVIEWED MEDICAL CHART, THE DOCTOR LEFT NO ORDERS FOR HOME SERVICES, PT HAS NO CORRECTION NEEDS THAT CM IDENTIFIED. PT DENIES DISCHARGE NEEDS AT THIS TIME, PT REPORTS HAVING NO TROUBLE WITH AMBULATION OR BALANCE, NEEDS NO WOUND CARE, HAS NO PROBLEMS WITH KEEPING UP WITH MEDICATIONS; PT REPORTS HAVING FOLLOW UP APPOINTMENTS WITH DR. CAMACHO, DR. GANDHI WELL THE NEW APPOINTMENTS BEING MADE TODAY WITH DR. STRICKLAND AND DR. JOSHI. FAMILY TO TRANSPORT HOME AT DISCHARGE AND IT MAY BE LATER THIS AFTERNOON WHEN ONE OF HIS CHILDREN GET OFF FROM WORK. IMPORTANT MESSAGE FROM MEDICARE PROVIDED AND EXPLAINED. GRADES 1 THRU 6 VISITING TEACHER NURSE NOTIFIED. Sherif Green, CASE MANAGEMENT DCP- Discharge Planning Updated by [email or web address]: Elsi Brody on 07/28/18 6:[address] 1800 CM MET WITH THE PATIENT AT THE BEDSIDE. HE WAS SITTING OOB IN HIS CHAIR. HE LIVES WITH HIS SON, CARLOS CULLEN II AND HIS DAUGHTER IN LAW, LESLI CULLEN. THERE ARE NO STEPS TO ENTER THE HOUSE BUT HE DESCENDS 12 STEPS TO GO TO HIS BEDROOM. HE HAS HOME OXYGEN AND BIPAP WITH [facility]. PRIMARY MD - DR JOSHI PULMONARY- DR GANDHI CARDIOLOGY DR CAMACHO, [facility] AND DR CEE AT [facility] GI - DR [facility]- [facility] HIS DTR IN LAW IS EMERGENCY CONTACT SHE WORKS CLOSE AT GI OFFICE NEAR [place]. CONTACT PHONE # [phone]. HIS SON WORKS IN [employer] AND LEAVES EARLY IN AM. DISCUSSED PERSONAL EMERGENCY CALL SYSTEM. HE AND HIS SON HAVE DISCUSSED AND ARE INTERESTED. HE IS NOT RECEIVING HOME HEALTH BUT FEELS AT DISCHARGE IT MAY BE A GOOD IDEA! REPORTS HE HAD A STENT PLACED 3 WEEKS AGO. HE STATES HE ONLY HAS 10% ? EF. STATES HE HAD BEEN ON A HEART TRANSPLANT LIST PRIOR TO RELOCATING TO [place] March OF THIS YEAR. PATIENT'S FAMILY WILL PROVIDE TRANSPORTATION TO HOME AT DISCHARGE. CM ADVISED WHEN HE IS READY FOR DISCHARGE CM WILL VISIT TO DISCUSS DISCHARGE NEEDS. EMERGENCY CALL SYSTEM AND HOME HEALTH NOTED. HE HAS HAD RECENT MEDICATION CHANGES AND CHANGES W/ HIS PACEMAKER. PATIENT HAD PACEMAKER AND DEFIBRILLATOR. CM TO FOLLOW TO ASSIST IS APPROPRIATE. FEELS HE MAYBE DISCHARGED ON SUNDAY. DCPIA - Discharge Planning Initial Assessment Updated by [email or web address]: Elsi Brody on 07/28/18 6:55 pm * Is the patient Alert and Oriented? Yes * How many steps to enter\exit or inside your home? none * PCP DR JOSHI * Pharmacy [facility] * Preadmission Environment Home with Family * ADLs Independent * Equipment BIPAP * Other Equipment BIPAP, OXYGEN AT NIGHT AT 3/L WITH BIPAP * List name and contact numbers for known caregivers / representatives who currently or will assist patient after discharge: LESLI CULLEN- DTR IN LAW- [phone] * Verbal permission to speak to the caregivers and representatives has been obtained from the patient. No * Community resources currently utilized None * Please name any agencies selected above. N/A * Additional services required to return to the preadmission environment? Yes * Can the patient safely return to the preadmission environment? Yes * Has this patient been hospitalized within the prior 30 days at any hospital? Yes Coverage Notice Reviewer: [email or web address] - Dagmar Raymond Notice Issued Date-Time: 07/27/2018 10:00 Notice Type: Medicare Outpatient Observation Notice Notice Delivered To: Patient Relationship to Patient: Self Appliance Service Technician Name: Delivery Method: HAND - Hand Delivered Stefani Days: Prior Verbal Notification: Recipient Understood Notice: Yes Recipient Signature: Yes Med Rec Note Co-signed by Attending: Coverage Notice Comment: Reviewer: [email or web address] - Sherif Green Notice Issued Date-Time: 07/30/2018 8:45 Notice Type: IM Discharge Notice Notice Delivered To: Patient Relationship to Patient: Appliance Service Technician Name: Delivery Method: HAND - Hand Delivered Stefani Days: Prior Verbal Notification: Recipient Understood Notice: Yes Recipient Signature: Yes Med Rec Note Co-signed by Attending: Coverage Notice Comment: Last DP export: 07/28/18 6:16 Patient Name: CARLOS CULLEN Page [phone] at 0910 All edits/amendments must be made on the electronic document DICTATION DATE: 07/30/18908 SENIOR STAFF ACCOUNTANT: BEAN 07/30/18908 RPT#: [id number] DC DATE: STATUS: ADM IN [facility] [address] [place] [address] END OF REPORT
--- NOTE | ~2018-07-26 | MORECARE ---
CASE MANAGEMENT DISCHARGE SUMMARY PATIENT: CARLOS CULLEN UNIT: [id number] ADM DATE: 07/27/18 AGE: 67 : 52 SEX: M ROOM/BED: D.2116 AUTHOR: NOEMI,DOC PHYSICIAN: REFERRING PHYSICIAN: LIZETH JOSHI DO DATE OF SERVICE: 07/28/18 Discharge Plan Patient Name: CARLOS CULLEN Facility: [facility]:[place] : 1950 Planned Disposition: Home Health Service Anticipated Discharge Date: Discharge Date: Expected LOS: Initial Reviewer: [email or web address] Initial Review Date: 07/26/2018 Generated: 07/28/18 8:16 pm Comments DCP- Discharge Planning Updated by [id number]: Elsi Brody on 07/28/18 6:[address] 1800 CM MET WITH THE PATIENT AT THE BEDSIDE. HE WAS SITTING OOB IN HIS CHAIR. HE LIVES WITH HIS SON, CARLOS CULLEN II AND HIS DAUGHTER IN LAW, LESLI CULLEN. THERE ARE NO STEPS TO ENTER THE HOUSE BUT HE DESCENDS 12 STEPS TO GO TO HIS BEDROOM. HE HAS HOME OXYGEN AND BIPAP WITH [facility]. PRIMARY MD - DR JOSHI PULMONARY- DR GANDHI CARDIOLOGY DR CAMACHO[facility] AND DR CEE AT [facility] - [facility]- [facility] HIS DTR IN LAW IS EMERGENCY CONTACT SHE WORKS CLOSE AT GI OFFICE [place]. CONTACT PHONE # [phone]. HIS SON WORKS IN [place] AND LEAVES EARLY IN AM. DISCUSSED PERSONAL EMERGENCY CALL SYSTEM. HE AND HIS SON HAVE DISCUSSED AND ARE INTERESTED. HE IS NOT RECEIVING HOME HEALTH BUT FEELS AT DISCHARGE IT MAY BE A GOOD IDEA! REPORTS HE HAD A STENT PLACED 3 WEEKS AGO. HE STATES HE ONLY HAS 10% ? EF. STATES HE HAD BEEN ON A HEART TRANSPLANT LIST [facility] PATIENT'S FAMILY WILL PROVIDE TRANSPORTATION TO HOME AT DISCHARGE. CM ADVISED WHEN HE IS READY FOR DISCHARGE CM WILL VISIT TO DISCUSS DISCHARGE NEEDS. EMERGENCY CALL SYSTEM AND HOME HEALTH NOTED. HE HAS HAD RECENT MEDICATION CHANGES AND CHANGES W/ HIS PACEMAKER. PATIENT HAD PACEMAKER AND DEFIBRILLATOR. CM TO FOLLOW TO ASSIST IS APPROPRIATE. FEELS HE MAYBE DISCHARGED ON SUNDAY. DCPIA - Discharge Planning Initial Assessment Updated by [id number]: Elsi Brody on 07/28/18 6:55 pm * Is the patient Alert and Oriented? Yes * How many steps to enter\exit or inside your home? none * PCP DR JOSHI * Pharmacy [facility] * Preadmission Environment Home with Family * ADLs Independent * Equipment BIPAP * Other Equipment BIPAP, OXYGEN AT NIGHT AT 3/L WITH BIPAP * List name and contact numbers for known caregivers / representatives who currently or will assist patient after discharge: LESLI CULLEN- DTR IN LAW- [phone] * Verbal permission to speak to the caregivers and representatives has been obtained from the patient. No * Community resources currently utilized None * Please name any agencies selected above. N/A * Additional services required to return to the preadmission environment? Yes * Can the patient safely return to the preadmission environment? Yes * Has this patient been hospitalized within the prior 30 days at any hospital? Yes Coverage Notice Reviewer: [email or web address] Boaz Raymond Notice Issued Date-Time: 07/27/2018 10:00 Notice Type: Medicare Outpatient Observation Notice Notice Delivered To: Patient Relationship to Patient: Self Durability Engineer Name: Delivery Method: HAND - Hand Delivered Stefani Days: Prior Verbal Notification: Recipient Understood Notice: Yes Recipient Signature: Yes Med Rec Note Co-signed by Attending: Coverage Notice Comment: Last DP export: 07/28/18 5:58 Patient Name: CARLOS CULLEN Page 36011 at 1916 All edits/amendments must be made on the electronic document DICTATION DATE: 07/28/181915 COMPUTER REPAIR ENGINEER: BEAN 07/28/181915 RPT#: [id number] DC DATE: STATUS: ADM IN [facility] [address] [facility] [place] [address] END OF REPORT
--- NOTE | ~2018-07-26 | MORECARE ---
CASE MANAGEMENT DISCHARGE SUMMARY PATIENT: CARLOS CULLEN UNIT: [id number] ADM DATE: 07/27/18 AGE: 67 : 52 SEX: M ROOM/BED: D.2116 AUTHOR: JOSHUA FRANKLIN PHYSICIAN: REFERRING PHYSICIAN: LIZETH JOSHI DO DATE OF SERVICE: 07/28/18 Discharge Plan Patient Name: CARLOS CULLEN Facility: [facility]:[place] : 1950 Planned Disposition: Home Health Service Anticipated Discharge Date: Discharge Date: Expected LOS: Initial Reviewer: [email or web address] Initial Review Date: 07/26/2018 Generated: 07/28/18 7:58 pm DCPIA - Discharge Planning Initial Assessment Updated by [email or web address]: Elsi Brody on 07/28/18 6:55 pm * Is the patient Alert and Oriented? Yes * How many steps to enter\exit or inside your home? none * PCP DR JOSHI * Pharmacy [facility] * Preadmission Environment Home with Family * ADLs Independent * Equipment BIPAP * Other Equipment BIPAP, OXYGEN AT NIGHT AT 3/L WITH BIPAP * List name and contact numbers for known caregivers / representatives who currently or will assist patient after discharge: LESLI CULLEN- DTR IN LAW- [phone] * Verbal permission to speak to the caregivers and representatives has been obtained from the patient. No * Community resources currently utilized None * Please name any agencies selected above. N/A * Additional services required to return to the preadmission environment? Yes * Can the patient safely return to the preadmission environment? Yes * Has this patient been hospitalized within the prior 30 days at any hospital? Yes Coverage Notice Reviewer: [id number] Boaz Raymond Notice Issued Date-Time: 07/27/2018 10:00 Notice Type: Medicare Outpatient Observation Notice Notice Delivered To: Patient Relationship to Patient: Self Clinical Nursing Intern Name: Delivery Method: HAND - Hand Delivered Stefani Days: Prior Verbal Notification: Recipient Understood Notice: Yes Recipient Signature: Yes Med Rec Note Co-signed by Attending: Coverage Notice Comment: Patient Name: CARLOS CULLEN Page 33413 at 1858 All edits/amendments must be made on the electronic document DICTATION DATE: 07/28/181856 CHEMICAL TANK WORKER: BEAN 07/28/181856 RPT#: [id number] DC DATE: STATUS: ADM IN [facility] [address] [place] [address] END OF REPORT
--- NOTE | ~2018-07-26 | CN ---
PATIENT NAME:CARLOS CULLEN MEDICAL RECORD: [id number] : 54 LOCATION:D. D.2116 ADMIT DATE: 07/26/18 ACCOUNT: [id number] CONSULTING PHYSICIAN: CHANTALE STRICKLAND MD REFERRING PHYSICIAN: LIZETH JOSHI DO DATE OF CONSULTATION: 07/26/2018 CARDIOLOGY CONSULTATION DIAGNOSES: 1. Tachycardia. 2. Palpitations. 3. Coronary artery disease. 4. Previous bypass surgery. 5. Recent PTCA and stent. 6. Cardiomyopathy. 7. Insulin-dependent diabetes. 8. Sick sinus syndrome. 9. Status post pacemaker. HISTORY OF PRESENT ILLNESS: This is a gentleman, who presents with palpitations. He is found to have a heart rate in the 120s. He was recently placed on Cordarone, and his metoprolol was discontinued. It appears to be a sinus tachycardia in the 120s. His Cordarone is 200 mg b.i.d. He is on no other AV blocking medications. Previously, he was on metoprolol. He is as well on Entresto, Aldactone, and Demadex. PHYSICAL EXAMINATION: GENERAL APPEARANCE: Well-nourished, well-developed, appears stated age. Level of distress, comfortable. PSYCHIATRIC: Mental status, alert, normal affect. Orientation, oriented to time, place and person. EYES: Lids and conjunctiva, noninjected. No discharge, no pallor. ENT: Lips, teeth, gums, normal dentition. Oropharynx, no cyanosis, no pallor. NECK: Carotid arteries, bilateral normal upstroke, no bruits, no thrills. JUGULAR VEINS: No jugular venous pressure or distention. CERVICAL LYMPH NODES: Nontender, nonenlarged. THYROID: Not enlarged. Nontender. No nodules. LUNGS: Respiratory effort, unlabored. CHEST: Normal curvature. No thoracic deformity. No chest wall tenderness. Percussion, resonant. Auscultation, clear. No wheezes, no rales, no rhonchi. CARDIOVASCULAR: Precordial exam, nondisplaced. No heaves or pericardial thrills. Rate and rhythm, regular. Heart sounds, normal S1, normal S2. No S3, no gallop, no rub. Systolic murmur, not heard. Diastolic murmur, not heard. EXTREMITIES: No cyanosis, no edema. Peripheral pulses, full and equal in all extremities, except as noted. No bruits appreciated. ABDOMEN: Soft, nondistended. Normal aorta. No bruit. Nontender. No masses. Liver, nontender, no hepatomegaly. Spleen, nontender, no splenomegaly. MUSCULOSKELETAL: No joint tenderness. No joint swelling. No erythema. NEUROLOGICAL: Normal gait, normal strength, normal tone. SKIN: Warm and dry. OVERALL IMPRESSION: Tachycardia that appears sinus tachycardia. We will have the pacemaker interrogated to confirm this. Would place the Cordarone on hold, decreasing this to 200 mg every day and would add a beta-madelyn, most likely CONSULT REPORT [id number] CARLOS CULLEN. We will hold the Entresto now to see how his blood pressure does with the Coreg. Further care depends upon the results with this. TRANSINT:[id number] Voice Confirmation ID: [id number] DOCUMENT ID: [id number] CHANTALE STRICKLAND MD at 1914 CC: [id number] DICTATION DATE: 07/26/18913 RETAIL PHARMACIST: 07/26/18920 ADM IN [facility] [address] [place] [id number]
--- NOTE | ~2018-07-26 | HP ---
PATIENT: CARLOS CULLEN MEDICAL RECORD: [id number] ACCOUNT: [id number] LOCATION:[address] : [birth year] ADMISSION DATE: 07/26/18 PCP: LIZETH JOSHI DO HISTORY AND PHYSICAL EXAMINATION HISTORY OF PRESENT ILLNESS: A 67-year-old male who presents to the Emergency Room with rapid heart rate. PAST MEDICAL HISTORY: He denies chest pain, denies shortness of breath, was concerned with his past history of heart rate in the 130s. PAST MEDICAL HISTORY: Significant for previous CA, pacemaker defibrillator, prior stents, angioplasty, coronary artery bypass graft, atrial fibrillation, history of COPD, pneumonia. He is on BiPAP and CPAP, history of colon cancer, depression, and remote history of GI bleed. REPORTED MEDICATIONS: Ranexa 500 mg p.o. q.12 hours, Entresto b.i.d., Plavix 75 mg daily, Protonix 40 mg daily, Demadex 40 mg daily, potassium chloride 40 mEq b.i.d., trazodone 50 mg at bedtime, Proscar 5 mg daily, fenofibrate 160 mg daily, atorvastatin 80 mg at bedtime, Mag-Ox 400 mg b.i.d., insulin, Feosol. DIAGNOSTIC DATA: The patient has ischemic cardiomyopathy with ejection fraction of 15% per cardiology records. He was seen in the ER by cardiology. Pacemaker was interrogated. Adjustments made. Medications change made as per report. REVIEW OF SYSTEMS: GENERAL: No acute change in weight or appetite. HEENT: No cephalgia, visual changes, tinnitus, epistaxis, or dysphagia. CARDIOVASCULAR: Tachycardia as above. PULMONARY: Denies hemoptysis, denies shortness of breath. GASTROINTESTINAL: Denies hematemesis, hematochezia or melena. GENITOURINARY: Denies dysuria. MUSCULOSKELETAL: No acute changes. ENDOCRINE: Insulin-dependent diabetes. PHYSICAL EXAMINATION: VITAL SIGNS: Temp 98.1, heart rate presently 67, 130 on admission, blood pressure 109/69, respirations 16, O2 sats 96%. GENERAL: Alert and oriented, no present distress. HEENT: Normocephalic, atraumatic. Eyes: Pupils equal, round, reactive to light and accommodation. Extraocular muscles intact. Conjunctivae not injected. Ears: Canals patent, TMs are intact. Nose: Nares patent without drainage. Throat: No erythema, no exudates. NECK: Supple. No lymphadenopathy, no JVD. HEART: Regular rate and rhythm. LUNGS: Clear to auscultation bilaterally. Breathing is nonlabored. ABDOMEN: Soft, nontender. Bowel sounds all 4 quadrants. EXTREMITIES: Present times 4, no edema. NEUROLOGICAL: Cranial nerves II-XII intact with no focal deficits. SKIN: Warm and dry. No rash. LABORATORY DATA: Glucose 232. PT 13.1, INR is 1.03. CBC: White count 6.4, hemoglobin 16.4, hematocrit 48.3, platelets 169. Chemistry shows a sodium of 139, potassium 4.3, chloride 101, bicarbonate 26.7. Troponin initially elevated at 0.535. ProBNP 507. TSH 5.19. HISTORY AND PHYSICAL [id number] CARLOS CULLEN ASSESSMENT AND PLAN: 1. Sinus tachycardia with a ventricular paced rhythm. Cardiology consulted. Pacemaker interrogated with adjustments, medication adjustments, significant improvement. We will monitor. Chest x-ray showed mild interstitial pulmonary edema. No other significant findings. We will monitor electrolytes. 2. Diabetes. Sliding scale insulin, monitor supportive care. TRANSINT:[id number] Voice Confirmation ID: [id number] DOCUMENT ID: [id number] AWILDA WAGNER DO at 1045 CC: [id number] DICTATION DATE: 07/26/181735 CELERY STRIPPER: 07/26/182032 ADM IN [facility] [address] [place] [address]
[~2018-07-26 07:41] MED LIST changes: -AMIODARONE HCL200 MG PO; -COREG6.25 MG PO
[2018-07-26 08:09] LABS: HEMATOCRIT 48.3 % (42.0-54.0); HEMOGLOBIN 16.4 g/dL (13.5-17.5); LYMPHOCYTES 21.5 % (15-50); MCH 27.9 pg (26.0-34.0); MCV 82.1 fL (80.0-100.0); MEAN PLATELET VOLUME 8.6 fL (7.4-10.4); NEUTROPHILS 69.7 % (40-80); PLATELET COUNT 169 10x3/uL (130-400); RBC 5.88 10x6/uL (4.20-6.10); RDW 18.4 % (11.5-14.5); WBC 6.4 10x3/uL (4.8-10.8)
[2018-07-26 08:42] LABS: ALBUMIN 3.7 g/dL (3.4-5.0); ALKALINE PHOSPHATASE 74 U/L (46-116); ALT (SGPT) 26 U/L (10-68); BILIRUBIN - TOTAL 0.54 mg/dL (0.2-1.3); CALCIUM 9.5 mg/dL (8.5-10.1); CARBON DIOXIDE 26.7 mmol/L (21.0-32.0); CHLORIDE - SERUM 101 mmol/L (98-107); CKMB 1.8 U/L (0.0-3.6); CREATINE KINASE 80 UL (21-232); CREATININE - SERUM 1.6 mg/dL (0.6-1.3); POTASSIUM - SERUM 4.3 mmol/L (3.5-5.1); PRO BNP 507 pg/mL (0-125); PROTEIN - SERUM 7.3 g/dL (6.4-8.2); SODIUM 139 mmol/L (136-145); UREA NITROGEN 16 mg/dL (7-18); eGFR NON AFRICAN AMERICAN 46 mL/min (90-120)
[2018-07-26 08:43] LABS: CALC OSMOLALITY 295 mosm/kg (275-300)
[2018-07-26 08:44] LABS: GLUCOSE 413 mg/dL (74-106); TROPONIN-I 0.535 ng/mL (0.000-0.060)
[2018-07-26 10:51] LABS: APTT 28.7 SECONDS (22.8-39.4); INR 1.03 (0.85-1.17); PROTIME 13.1 SECONDS (11.6-15.0)
[2018-07-26 11:59] VITALS: BP 90/58
[2018-07-26 15:29] VITALS: BP 82/52
[2018-07-26 15:33] VITALS: BP 109/69; Ht 172.7 cm; Wt 89.2 kg
[2018-07-27] VITALS: BP 91/59
[2018-07-27 04:00] VITALS: BP 115/49
[2018-07-27 05:04] LABS: BASOPHILS 0.5 % (0-2); EOSINOPHILS 4.4 % (0-7); HEMATOCRIT 43.2 % (42.0-54.0); HEMOGLOBIN 15.1 g/dL (13.5-17.5); IMMATURE GRANULOCYTES 0.1 % (0-5); LYMPHOCYTES 19.8 % (15-50); MCH 28.7 pg (26.0-34.0); MCV 82.1 fL (80.0-100.0); MEAN PLATELET VOLUME 9.1 fL (7.4-10.4); MONOCYTES 8.9 % (2-11); NEUTROPHILS 66.3 % (40-80); PLATELET COUNT 136 10x3/uL (130-400); RBC 5.26 10x6/uL (4.20-6.10); RDW 17.6 % (11.5-14.5); WBC 7.5 10x3/uL (4.8-10.8)
[2018-07-27 05:12] LABS: ANION GAP 12.9 mmol/L (8-16); CALCIUM 9.3 mg/dL (8.5-10.1); CREATININE - SERUM 1.4 mg/dL (0.6-1.3); MAGNESIUM - SERUM 2.1 mg/dL (1.8-2.4); PHOSPHOROUS 3.7 mg/dL (2.5-4.9); POTASSIUM - SERUM 3.9 mmol/L (3.5-5.1)
[2018-07-27 08:00] VITALS: BP 106/70
[2018-07-27 10:40] VITALS: BP 119/74
[2018-07-27 14:34] VITALS: BP 104/59
[2018-07-27 20:00] VITALS: BP 96/59
[2018-07-28 00:06] VITALS: BP 106/66
[2018-07-28 04:00] VITALS: BP 102/65
[2018-07-28 05:16] LABS: BASOPHILS 0.7 % (0-2); EOSINOPHILS 4.4 % (0-7); HEMATOCRIT 43.8 % (42.0-54.0); HEMOGLOBIN 15.2 g/dL (13.5-17.5); IMMATURE GRANULOCYTES 0.1 % (0-5); MCH 28.7 pg (26.0-34.0); MCHC 34.7 g/dL (31.0-37.0); MCV 82.6 fL (80.0-100.0); MONOCYTES 9.6 % (2-11); NEUTROPHILS 67.2 % (40-80); PLATELET COUNT 143 10x3/uL (130-400); RDW 17.8 % (11.5-14.5); WBC 7.1 10x3/uL (4.8-10.8)
[2018-07-28 05:32] LABS: ANION GAP 12.7 mmol/L (8-16); CARBON DIOXIDE 26.6 mmol/L (21.0-32.0); CREATININE - SERUM 1.3 mg/dL (0.6-1.3); MAGNESIUM - SERUM 2.1 mg/dL (1.8-2.4); PHOSPHOROUS 3.5 mg/dL (2.5-4.9); POTASSIUM - SERUM 4.3 mmol/L (3.5-5.1)
[2018-07-28 07:53] VITALS: BP 108/65
[2018-07-28 12:02] VITALS: BP 98/66
[2018-07-28 15:35] VITALS: BP 122/71
[2018-07-28 20:19] VITALS: BP 102/65
[2018-07-29] VITALS: BP 100/60
[2018-07-29 04:00] VITALS: BP 92/52
[2018-07-29 04:59] LABS: BASOPHILS 0.7 % (0-2); EOSINOPHILS 5.5 % (0-7); HEMATOCRIT 45.9 % (42.0-54.0); IMMATURE GRANULOCYTES 0.2 % (0-5); LYMPHOCYTES 24.2 % (15-50); MCH 28.9 pg (26.0-34.0); MCHC 34.9 g/dL (31.0-37.0); MCV 82.9 fL (80.0-100.0); MEAN PLATELET VOLUME 9.4 fL (7.4-10.4); MONOCYTES 9.9 % (2-11); NEUTROPHILS 59.5 % (40-80); PLATELET COUNT 141 10x3/uL (130-400); RBC 5.54 10x6/uL (4.20-6.10); RDW 17.8 % (11.5-14.5); WBC 5.8 10x3/uL (4.8-10.8)
[2018-07-29 05:11] LABS: ANION GAP 13.2 mmol/L (8-16); CALCIUM 8.9 mg/dL (8.5-10.1); CARBON DIOXIDE 26.8 mmol/L (21.0-32.0); CREATININE - SERUM 1.3 mg/dL (0.6-1.3)
[2018-07-29 08:15] VITALS: BP 105/63
[2018-07-29 12:29] VITALS: BP 94/57
[2018-07-29 15:49] VITALS: BP 96/56
[2018-07-29 20:27] VITALS: BP 100/61
[2018-07-30] VITALS: BP 88/49
[2018-07-30 05:24] LABS: BASOPHILS 0.3 % (0-2); EOSINOPHILS 4.6 % (0-7); HEMATOCRIT 42.3 % (42.0-54.0); HEMOGLOBIN 14.8 g/dL (13.5-17.5); IMMATURE GRANULOCYTES 0.3 % (0-5); LYMPHOCYTES 20.7 % (15-50); MCH 28.8 pg (26.0-34.0); MCV 82.5 fL (80.0-100.0); MEAN PLATELET VOLUME 9.2 fL (7.4-10.4); NEUTROPHILS 65.1 % (40-80); PLATELET COUNT 124 10x3/uL (130-400); RBC 5.13 10x6/uL (4.20-6.10); RDW 17.5 % (11.5-14.5); WBC 6.1 10x3/uL (4.8-10.8)
[2018-07-30 05:50] LABS: ALBUMIN 3.1 g/dL (3.4-5.0); ANION GAP 12.6 mmol/L (8-16); BILIRUBIN - TOTAL 0.48 mg/dL (0.2-1.3); CALCIUM 9.3 mg/dL (8.5-10.1); CARBON DIOXIDE 27.3 mmol/L (21.0-32.0); CREATININE - SERUM 1.4 mg/dL (0.6-1.3); MAGNESIUM - SERUM 2.1 mg/dL (1.8-2.4); PHOSPHOROUS 3.4 mg/dL (2.5-4.9); POTASSIUM - SERUM 3.9 mmol/L (3.5-5.1); PROTEIN - SERUM 6.6 g/dL (6.4-8.2)
[2018-07-30 05:57] VITALS: BP 93/52
[2018-07-30] MEDS ORDERED: COREG6.25 MG PO (06:48)
[2018-07-30] MEDS ORDERED: AMIODARONE HCL200 MG PO (06:48)
== END 2018-07-30 16:31 | disposition home or self-care (01) | DRG 315 ==
LOC: D.ER 07:41 → D.M2 09:02 → D.EDHOLD 09:02 → OBSVTIME 09:02 → D.M2 09:37
PROVIDERS: Emergency Medicine; Family Medicine
DX: T82.198A Other mechanical complication of other cardiac electronic device, initial encounter (principal); I24.8 Other forms of acute ischemic heart disease; I50.22 Chronic systolic (congestive) heart failure; Y84.8 Other medical procedures as the cause of abnormal reaction of the patient, or of later complication, without mention of misadventure at the time of the procedure; R00.0 Tachycardia, unspecified; I25.10 Atherosclerotic heart disease of native coronary artery without angina pectoris; I25.5 Ischemic cardiomyopathy; E11.9 Type 2 diabetes mellitus without complications; Z79.4 Long term (current) use of insulin; I48.91 Unspecified atrial fibrillation; J44.9 Chronic obstructive pulmonary disease, unspecified; F32.9 Major depressive disorder, single episode, unspecified; Z95.1 Presence of aortocoronary bypass graft; Z95.5 Presence of coronary angioplasty implant and graft

== ENCOUNTER 2018-08-10 09:29 | Observation (INO) | payer MEDICARE ==
[~2018-08-10] VITALS: Ht 172.7 cm; Wt 91.6 kg
--- NOTE | ~2018-08-10 | MORECARE ---
CASE MANAGEMENT DISCHARGE SUMMARY PATIENT: CARLOS CULLEN UNIT: [id number] ADM DATE: 08/10/18 AGE: 67 : 54 SEX: M ROOM/BED: D.7662 AUTHOR: NOEMIDOC PHYSICIAN: REFERRING PHYSICIAN: JENNIFER ROA MD DATE OF SERVICE: 08/12/18 Discharge Plan Patient Name: CARLOS CULLEN Facility: [facility]:[place] : 1950 Planned Disposition: Home Anticipated Discharge Date: 08/11/18 Discharge Date: 08/11/2018 Expected LOS: 1 Initial Reviewer: [email or web address] Initial Review Date: 08/10/2018 Generated: 08/12/18 9:53 am Comments DCP- Discharge Planning Updated by [id number]: Elsi Brody on 08/11/18 5:[address] Patient Name: CARLOS CULLEN Admission Status: ER Accout number: [id number] Admission Date: 08-10-2018 : 1950 Admission Diagnosis: Attending: JENNIFER ROA Current LOS: 1 Anticipated DC Date: 08-11-2018 Planned Disposition: Home Primary Insurance: MEDICARE A & B Discharge Planning Comments: LATE ENTRY 1230 PATIENT FOR DISCHARGE TO HOME. HE DECLINES HOME HEALTH. IS THINKING ABOUT IT. WILL DISCUSS W/ HIS PCP, DR JOSHI. LIVES WITH HIS SON. IS FAILRLY INDEPENDNT IN HIS CARE. HAS SOME ANXIETY ABOUT HIS CARDIAC STATUS. DISCUSSED PERSONAL CALL SYSTEM FOR EMERGENCY. HE STATES HIS SON IS "LOOKING INTO IT". FAMILY WILL PROVIDE TRANSPORTATION TO HOME. CARLOS CULLEN, SON AND LESLI, DAUGHTER IN LAW ASSIST THE PATIENT AT HOME. DAUGHTER IN LAW'S CONTACT PHONE NUMBER IS [phone]. NO STEPS TO ENTER HIS HOME BUT 12 STEPS TO DESCEND TO HIS ROOM. PATIENT VOICED SOME CONCERNS ABOUT OUTSTANDING MEDICAL BILLS. CM OFFERED TO CALL STEPAN SERRANO, HENRY, TO VISIT AND DISCUSS OPTIONS. TC TO [employer] DATA AND SPOKE WITH HENRY. REQUEST INFORMATION AND DISCUSSION REGARDING POSSIBLE MEDICAID SPEND DOWN. SHE STATED SHE WOULD VISIT THE PATIENT TODAY. NO ADDITIONAL CONCERNS VOICED. DISCHARGE IMM EXPLAINED AND SIGNED. COPY TO THE PATIENT AND COPY TO THE CHART. PATIENT HAS HOME OXYGEN THERAPY 3/L PRIMARILY AT NIGHT AND BIPAP WITH [facility]. [employer]: Elsi Brody DCPIA - Discharge Planning Initial Assessment Updated by [id number]: Elsi Brody on 08/11/18 6:04 pm * Is the patient Alert and Oriented? Yes * How many steps to enter\\exit or inside your home? NONE * PCP DR JOSHI * Pharmacy [facility] * Preadmission Environment Home with Family * ADLs Independent * Equipment BIPAP Oxygen * Verbal permission to speak to the caregivers and representatives has been obtained from the patient. No * Community resources currently utilized None * Please name any agencies selected above. NONE- PATIENT HAD DECLINED HOME HEALTH * Additional services required to return to the preadmission environment? No * Can the patient safely return to the preadmission environment? Yes * Has this patient been hospitalized within the prior 30 days at any hospital? Yes Coverage Notice Reviewer: [id number] - Elsi Brody Notice Issued Date-Time: 08/11/2018 12:50 Notice Type: IM Discharge Notice Notice Delivered To: Patient Relationship to Patient: Linux Network Systems Administrator Name: Delivery Method: HAND - Hand Delivered Stefani Days: Prior Verbal Notification: Recipient Understood Notice: Yes Recipient Signature: Yes Med Rec Note Co-signed by Attending: Coverage Notice Comment: LATE ENTRY CM VISITED W/ PATIENT AT THE BEDSIDE. EXPLAINED DISCHARGE IMM. NO QUESTIONS OR CONCERNS. SIGNATURE OBTAINED. COPY TO THE PATIENT AND COPY TO THE CHART. Last DP export: 08/11/18 5:24 Patient Name: CARLOS CULLEN Page [id number] at 0853 All edits/amendments must be made on the electronic document DICTATION DATE: 08/12/18852 PICKLER HELPER: BEAN 08/12/18 0853 RPT#: [id number] DC DATE:08/11/18 STATUS: DIS IN [facility] [address] [place] [address] END OF REPORT
--- NOTE | ~2018-08-10 | CN ---
PATIENT NAME:CARLOS CULLEN MEDICAL RECORD: [id number] : 54 LOCATION:DPina D.2114 ADMIT DATE: 08/10/18 ACCOUNT: [id number] CONSULTING PHYSICIAN: CARLOS CRAWFORD MD REFERRING PHYSICIAN: JENNIFER ROA MD DATE OF CONSULTATION: 08/11/2018 HISTORY: A 67-year-old gentleman with known history of coronary artery disease, severe ischemic cardiomyopathy, status post stenting last month. Revisualization since that time showed patent stents and no progression with continued ischemic cardiomyopathy. He had a sense of unease yesterday, some breathlessness, vague chest pain. Cardiac enzymes were elevated; however, this appeared to be his baseline. He is attempting to walk more these days. No grace orthopnea, PND, or evidence of acute decompensation. He is on appropriate medications for underlying ischemic cardiomyopathy. We are asked to see him concerning his cardiovascular status. PAST MEDICAL HISTORY: Includes; 1. History of hypertension. 2. Hyperlipidemia. 3. Cardiac dysrhythmias. 4. Chronic renal insufficiency. 5. Diabetes mellitus. MEDICATIONS: Include insulin per scale, Protonix 40 daily, Demadex 40 mg p.o. daily, trazodone 50 mg at bedtime, carvedilol 6.25 daily, amiodarone 200 mg p.o. daily, fenofibrate 160 mg daily, atorvastatin 80 daily, Entresto / one p.o. b.i.d., Ranexa 500 q. 12, and Plavix 75 daily. ALLERGIES: ALDACTONE AND ATROVENT. SOCIAL HISTORY: Nonsmoker and nondrinker. He is able to care of all his ADLs. No set exercise program. REVIEW OF SYSTEMS: The patient reports easy bruising but reports no swollen glands. The patient reports no fever, no night sweats, no significant weight gain, no significant weight loss. No significant exercise tolerance. The patient reports no dry eyes, no irritation, no vision change. Patient reports no difficulty hearing and no ear pain. Patient reports no frequent nose bleeds or nose and sinus problems. Patient reports on arm pain on exertion. No shortness of breath while lying down. No history of heart murmur. Patient reports no cough, no wheezing or coughing up blood. Patient reports no abdominal pain, no vomiting. Normal appetite. No diarrhea and not vomiting blood. No nausea and no constipation. Patient reports no incontinence. No difficulty urinating. No hematuria. No increased frequency. Patient reports no muscle aches. No weakness, no arthralgias, no back pain. No swelling of the extremities. Patient reports no abnormal mole, no jaundice, no rashes. Reports no loss of consciousness. No weakness and no numbness. No seizures, dizziness, or headaches. The patient reports no depression, no sleep disturbance, feeling safe in a relationship and no alcohol abuse. Patient reports on fatigue. Reports no runny nose or sinus pressure. No itching, no hives, and no frequent sneezing. PHYSICAL EXAMINATION: GENERAL: Pleasant gentleman, in no acute distress, alert and oriented. CONSULT REPORT [id number] CARLOS CULLEN VITAL SIGNS: Blood pressure 98/57. Pulse 67 and regular. HEENT: Normocephalic and atraumatic. NECK: No JVD or bruit. HEART: Regular. S3 gallop is noted. II/ systolic ejection murmur. LUNGS: Good air excursion. ABDOMEN: Soft and nontender. EXTREMITIES: Pulses 2+ with no edema. NEUROLOGIC: Grossly intact. DIAGNOSTIC DATA: ECG is without acute change. IMPRESSION: Difficult to fully ascertain symptomology. Certainly, no evidence of failure decompensation nor evidence of acute ischemia on appropriate medications. No contraindication to discharge from my standpoint. TRANSINT:[id number] Voice Confirmation ID: [id number] DOCUMENT ID: [id number] CARLOS CRAWFORD MD at 1150 CC: [id number] DICTATION DATE: 08/11/18955 APPLICATION DEVELOPMENT TEAM LEAD: 08/11/18 1320 DIS IN 08/11/18 [facility] [address] [place] [address]
--- NOTE | ~2018-08-10 | MORECARE ---
CASE MANAGEMENT DISCHARGE SUMMARY PATIENT: CARLOS CULLEN UNIT: [id number] ADM DATE: 08/10/18 AGE: 67 : 54 SEX: M ROOM/BED: D.2114 AUTHOR: JOSHUA FRANKLIN PHYSICIAN: REFERRING PHYSICIAN: JENNIFER ROA MD DATE OF SERVICE: 08/11/18 Discharge Plan Patient Name: CARLOS CULLEN [facility] [facility] 1950 Planned Disposition: Home Anticipated Discharge Date: 08/11/18 Discharge Date: 08/11/2018 Expected LOS: 1 Initial Reviewer: [email or web address] Initial Review Date: 08/10/2018 Generated: 08/11/18 6:59 pm Patient Name: CARLOS CULLEN Page [id number] at 1758 All edits/amendments must be made on the electronic document DICTATION DATE: 08/11/181757 CHEMICAL PROCESS OPERATOR: BEAN 08/11/181757 RPT#: [id number] DC DATE:08/11/18 STATUS: DIS IN [facility] [address] [place] [address] END OF REPORT
--- NOTE | ~2018-08-10 | MORECARE ---
CASE MANAGEMENT DISCHARGE SUMMARY PATIENT: CARLOS CULLEN UNIT: [id number] ADM DATE: 08/10/18 AGE: 67 : 54 SEX: M ROOM/BED: D.0146 AUTHOR: NOEMIDOC PHYSICIAN: REFERRING PHYSICIAN: JENNIFER ROA MD DATE OF SERVICE: 08/11/18 Discharge Plan Patient Name: CARLOS CULLEN Facility: [facility]:[place] : 1950 Planned Disposition: Home Anticipated Discharge Date: 08/11/18 Discharge Date: 08/11/2018 Expected LOS: 1 Initial Reviewer: [email or web address] Initial Review Date: 08/10/2018 Generated: 08/11/18 7:24 pm Comments DCP- Discharge Planning Updated by [id number]: Elsi Brody on 08/11/18 5:[address] Patient Name: CARLOS CULLEN Admission Status: ER Accout number: [id number] Admission Date: 08-10-2018 : 1950 Admission Diagnosis: Attending: JENNIFER ROA Current LOS: 1 Anticipated DC Date: 08-11-2018 Planned Disposition: Home Primary Insurance: MEDICARE A & B Discharge Planning Comments: LATE ENTRY 1230 PATIENT FOR DISCHARGE TO HOME. HE DECLINES HOME HEALTH. IS THINKING ABOUT IT. WILL DISCUSS W/ HIS PCP, DR JOSHI. LIVES WITH HIS SON. IS FAILRLY INDEPENDNT IN HIS CARE. HAS SOME ANXIETY ABOUT HIS CARDIAC STATUS. DISCUSSED PERSONAL CALL SYSTEM FOR EMERGENCY. HE STATES HIS SON IS "LOOKING INTO IT". FAMILY WILL PROVIDE TRANSPORTATION TO HOME. CARLOS CULLEN, SON AND LESLI, DAUGHTER IN LAW ASSIST THE PATIENT AT HOME. DAUGHTER IN LAW'S CONTACT PHONE NUMBER IS [phone]. NO STEPS TO ENTER HIS HOME BUT 12 STEPS TO DESCEND TO HIS ROOM. PATIENT VOICED SOME CONCERNS ABOUT OUTSTANDING MEDICAL BILLS. CM OFFERED TO CALL STEPAN SERRANO, HENRY, TO VISIT AND DISCUSS OPTIONS. TC TO [employer] DATA AND SPOKE WITH HENRY. REQUEST INFORMATION AND DISCUSSION REGARDING POSSIBLE MEDICAID SPEND DOWN. SHE STATED SHE WOULD VISIT THE PATIENT TODAY. NO ADDITIONAL CONCERNS VOICED. DISCHARGE IMM EXPLAINED AND SIGNED. COPY TO THE PATIENT AND COPY TO THE CHART. PATIENT HAS HOME OXYGEN THERAPY 3/L PRIMARILY AT NIGHT AND BIPAP WITH [facility]. Cinder Crusher Operator: Elsi Brody DCPIA - Discharge Planning Initial Assessment Updated by [email or web address]: Elsi Brody on 08/11/18 6:04 pm * Is the patient Alert and Oriented? Yes * How many steps to enter\\exit or inside your home? NONE * PCP DR JOSHI * Pharmacy [facility] * Preadmission Environment Home with Family * ADLs Independent * Equipment BIPAP Oxygen * Verbal permission to speak to the caregivers and representatives has been obtained from the patient. No * Community resources currently utilized None * Please name any agencies selected above. NONE- PATIENT HAD DECLINED HOME HEALTH * Additional services required to return to the preadmission environment? No * Can the patient safely return to the preadmission environment? Yes * Has this patient been hospitalized within the prior 30 days at any hospital? Yes Last DP export: 08/11/18 5:05 Patient Name: CARLOS CULLEN Page [id number] at 1824 All edits/amendments must be made on the electronic document DICTATION DATE: 08/11/181822 BULWARK CARPENTER: BEAN 08/11/181822 RPT#: [id number] DC DATE:08/11/18 STATUS: DIS IN [facility] [address] [place] [address] END OF REPORT
--- NOTE | ~2018-08-10 | MORECARE ---
CASE MANAGEMENT DISCHARGE SUMMARY PATIENT: CARLOS CULLEN UNIT: [id number] ADM DATE: 08/10/18 AGE: 67 : 52 SEX: M ROOM/BED: D.2114 AUTHOR: JOSHUA FRANKLIN PHYSICIAN: REFERRING PHYSICIAN: JENNIFER ROA MD DATE OF SERVICE: 08/11/18 Discharge Plan Patient Name: CARLOS CULLEN [facility] [facility] 1950 Planned Disposition: Home Anticipated Discharge Date: 08/11/18 Discharge Date: 08/11/2018 Expected LOS: 1 Initial Reviewer: [email or web address] Initial Review Date: 08/10/2018 Generated: 08/11/18 7:05 pm DCPIA - Discharge Planning Initial Assessment Updated by [email or web address]: Elsi Brody on 08/11/18 6:04 pm * Is the patient Alert and Oriented? Yes * How many steps to enter\exit or inside your home? NONE * PCP DR JOSHI * Pharmacy [facility] * Preadmission Environment Home with Family * ADLs Independent * Equipment BIPAP Oxygen * Verbal permission to speak to the caregivers and representatives has been obtained from the patient. No * Community resources currently utilized None * Please name any agencies selected above. NONE- PATIENT HAD DECLINED HOME HEALTH * Additional services required to return to the preadmission environment? No * Can the patient safely return to the preadmission environment? Yes * Has this patient been hospitalized within the prior 30 days at any hospital? Yes Last DP export: 08/11/18 4:59 Patient Name: CARLOS CULLEN Page 50774 at 1805 All edits/amendments must be made on the electronic document DICTATION DATE: 08/11/181804 LUMBER STACKER: BEAN 08/11/181804 RPT#: [id number] DC DATE:08/11/18 STATUS: DIS IN [facility] [address] [place] [address] END OF REPORT
--- NOTE | ~2018-08-10 | MORECARE ---
CASE MANAGEMENT DISCHARGE SUMMARY PATIENT: CARLOS CULLEN UNIT: [id number] ADM DATE: 08/10/18 AGE: 67 : 52 SEX: M ROOM/BED: D.5189 AUTHOR: NOEMIDOC PHYSICIAN: REFERRING PHYSICIAN: JENNIFER ROA MD DATE OF SERVICE: 08/12/18 Discharge Plan Patient Name: CARLOS CULLEN Facility: [facility]:[place] : 1950 Planned Disposition: Home Anticipated Discharge Date: 08/11/18 Discharge Date: 08/11/2018 Expected LOS: 1 Initial Reviewer: [email or web address] Initial Review Date: 08/10/2018 Generated: 08/12/18 10:00 am Comments DCP- Discharge Planning Updated by [email or web address]: Elsi Brody on 08/11/18 5:[address] Patient Name: CARLOS CULLEN Admission Status: ER Accout number: [id number] Admission Date: 08-10-2018 : 1950 Admission Diagnosis: Attending: JENNIFER ROA Current LOS: 1 Anticipated DC Date: 08-11-2018 Planned Disposition: Home Primary Insurance: MEDICARE A & B Discharge Planning Comments: LATE ENTRY 1230 PATIENT FOR DISCHARGE TO HOME. HE DECLINES HOME HEALTH. IS THINKING ABOUT IT. WILL DISCUSS W/ HIS PCP, DR JOSHI. LIVES WITH HIS SON. IS FAILRLY INDEPENDNT IN HIS CARE. HAS SOME ANXIETY ABOUT HIS CARDIAC STATUS. DISCUSSED PERSONAL CALL SYSTEM FOR EMERGENCY. HE STATES HIS SON IS "LOOKING INTO IT". FAMILY WILL PROVIDE TRANSPORTATION TO HOME. CARLOS CULLEN, SON AND LESLI, DAUGHTER IN LAW ASSIST THE PATIENT AT HOME. DAUGHTER IN LAW'S CONTACT PHONE NUMBER IS [phone]. NO STEPS TO ENTER HIS HOME BUT 12 STEPS TO DESCEND TO HIS ROOM. PATIENT VOICED SOME CONCERNS ABOUT OUTSTANDING MEDICAL BILLS. CM OFFERED TO CALL STEPAN SERRANO, HENRY, TO VISIT AND DISCUSS OPTIONS. TC TO [employer] AND SPOKE WITH HENRY. REQUEST INFORMATION AND DISCUSSION REGARDING POSSIBLE MEDICAID SPEND DOWN. SHE STATED SHE WOULD VISIT THE PATIENT TODAY. NO ADDITIONAL CONCERNS VOICED. DISCHARGE IMM EXPLAINED AND SIGNED. COPY TO THE PATIENT AND COPY TO THE CHART. PATIENT HAS HOME OXYGEN THERAPY 3/L PRIMARILY AT NIGHT AND BIPAP WITH [facility]. Semiconductor Wafers Etcher Stripper: Elsi Brody DCPIA - Discharge Planning Initial Assessment Updated by [id number]: Elsi Brody on 08/11/18 6:04 pm * Is the patient Alert and Oriented? Yes * How many steps to enter\\exit or inside your home? NONE * PCP DR JOSHI * Pharmacy [facility] * Preadmission Environment Home with Family * ADLs Independent * Equipment BIPAP Oxygen * Verbal permission to speak to the caregivers and representatives has been obtained from the patient. No * Community resources currently utilized None * Please name any agencies selected above. NONE- PATIENT HAD DECLINED HOME HEALTH * Additional services required to return to the preadmission environment? No * Can the patient safely return to the preadmission environment? Yes * Has this patient been hospitalized within the prior 30 days at any hospital? Yes Coverage Notice Reviewer: [id number] - Elsi Brody Notice Issued Date-Time: 08/11/2018 12:50 Notice Type: IM Discharge Notice Notice Delivered To: Patient Relationship to Patient: Scarfing Machine Operator Name: Delivery Method: HAND - Hand Delivered Stefani Days: Prior Verbal Notification: Recipient Understood Notice: Yes Recipient Signature: Yes Med Rec Note Co-signed by Attending: Coverage Notice Comment: LATE ENTRY CM VISITED W/ PATIENT AT THE BEDSIDE. EXPLAINED DISCHARGE IMM. NO QUESTIONS OR CONCERNS. SIGNATURE OBTAINED. COPY TO THE PATIENT AND COPY TO THE CHART. Last DP export: 08/12/18 7:53 Patient Name: CARLOS CULLEN Page [phone] at 0901 All edits/amendments must be made on the electronic document DICTATION DATE: 08/12/18899 PAYROLL MANAGER: BEAN 08/12/18899 RPT#: [id number] DC DATE:08/11/18 STATUS: DIS IN [facility] [address] [place] [address] END OF REPORT
[~2018-08-10 09:29] MED LIST changes: +AMIODARONE HCL200 MG PO; +COREG6.25 MG PO
[2018-08-10 10:10] LABS: BASOPHILS 0.7 % (0-2); EOSINOPHILS 5.1 % (0-7); HEMATOCRIT 47.8 % (42.0-54.0); HEMOGLOBIN 16.5 g/dL (13.5-17.5); IMMATURE GRANULOCYTES 0.4 % (0-5); LYMPHOCYTES 22.9 % (15-50); MCH 29.6 pg (26.0-34.0); MCHC 34.5 g/dL (31.0-37.0); MCV 85.8 fL (80.0-100.0); MEAN PLATELET VOLUME 8.8 fL (7.4-10.4); MONOCYTES 7.3 % (2-11); NEUTROPHILS 63.6 % (40-80); PLATELET COUNT 137 10x3/uL (130-400); RBC 5.57 10x6/uL (4.20-6.10); RDW 18.2 % (11.5-14.5); WBC 7.1 10x3/uL (4.8-10.8)
[2018-08-10 10:21] LABS: APTT 24.9 SECONDS (22.8-39.4); INR 1.08 (0.85-1.17); PROTIME 13.6 SECONDS (11.6-15.0)
[2018-08-10 10:23] LABS: ALBUMIN 3.9 g/dL (3.4-5.0); ALKALINE PHOSPHATASE 74 U/L (46-116); ALT (SGPT) 33 U/L (10-68); BILIRUBIN - TOTAL 0.71 mg/dL (0.2-1.3); CALC OSMOLALITY 290 mosm/kg (275-300); CALCIUM 8.9 mg/dL (8.5-10.1); CARBON DIOXIDE 27.5 mmol/L (21.0-32.0); CHLORIDE - SERUM 102 mmol/L (98-107); CREATININE - SERUM 1.4 mg/dL (0.6-1.3); D-DIMER-QUANTITATIVE 0.32 ug/mLFEU (0.20-0.54); GLUCOSE 278 mg/dL (74-106); POTASSIUM - SERUM 4.5 mmol/L (3.5-5.1); SODIUM 139 mmol/L (136-145); UREA NITROGEN 21 mg/dL (7-18); eGFR NON AFRICAN AMERICAN 54 mL/min (90-120)
[2018-08-10 10:30] VITALS: BP 118/77
[2018-08-10 10:39] LABS: CKMB 2.3 U/L (0.0-3.6); CREATINE KINASE 122 UL (21-232); PRO BNP 550 pg/mL (0-125)
[2018-08-10 10:43] LABS: TROPONIN-I 0.533 ng/mL (0.000-0.060)
[2018-08-10 11:49] VITALS: BP 115/71
[2018-08-10 12:37] VITALS: BP 115/77; BMI 30.7
[2018-08-10 14:09] LABS: T4 THYROXIN - FREE 1.05 ng/dL (0.76-1.46); THYROID STIMULATING HORMONE 6.56 uIU/mL (0.36-3.74)
[2018-08-10 14:21] VITALS: Ht 172.7 cm; Wt 91.6 kg
[2018-08-10 15:38] VITALS: BP 100/64
[2018-08-10 19:02] LABS: APPEARANCE CLEAR (CLEAR); BILIRUBIN NEGATIVE (NEGATIVE); COLOR YELLOW (YELLOW); GLUCOSE 1000 mg/dL (NEGATIVE); KETONE NEGATIVE (NEGATIVE); NITRITE NEGATIVE (NEGATIVE); PROTEIN NEGATIVE (NEGATIVE); SPECIFIC GRAVITY 1.015 (1.005-1.020); UROBILINOGEN NORMAL (NORMAL); WHITE CELLS - URINE NSEEN /hpf (0-5)
[2018-08-10 19:03] LABS: BACTERIA NONE SEEN /hpf (NONE SEEN); EPITHELIAL CELLS NSEEN /hpf (0-5); RED CELLS - URINE RARE /hpf (0-5)
[2018-08-10 20:30] VITALS: BP 111/71
[2018-08-11 00:30] VITALS: BP 97/63
[2018-08-11 04:30] VITALS: BP 100/58
[2018-08-11 05:56] LABS: BASOPHILS 0.4 % (0-2); EOSINOPHILS 4.6 % (0-7); HEMATOCRIT 41.6 % (42.0-54.0); HEMOGLOBIN 14.2 g/dL (13.5-17.5); IMMATURE GRANULOCYTES 0.1 % (0-5); LYMPHOCYTES 25.2 % (15-50); MCH 28.9 pg (26.0-34.0); MCHC 34.1 g/dL (31.0-37.0); MCV 84.7 fL (80.0-100.0); MEAN PLATELET VOLUME 9.4 fL (7.4-10.4); MONOCYTES 7.6 % (2-11); NEUTROPHILS 62.1 % (40-80); PLATELET COUNT 130 10x3/uL (130-400); RBC 4.91 10x6/uL (4.20-6.10); RDW 18.3 % (11.5-14.5); WBC 6.7 10x3/uL (4.8-10.8)
[2018-08-11 06:10] LABS: ANION GAP 11.7 mmol/L (8-16); CALCIUM 8.1 mg/dL (8.5-10.1); CARBON DIOXIDE 26.9 mmol/L (21.0-32.0); CREATININE - SERUM 1.3 mg/dL (0.6-1.3); POTASSIUM - SERUM 3.6 mmol/L (3.5-5.1)
[2018-08-11 07:59] VITALS: BP 98/57
== END 2018-08-11 13:43 | disposition home or self-care (01) ==
LOC: D.ER 09:29 → OBSVTIME 11:04 → D.EDHOLD 11:04 → D.M2 11:04
PROVIDERS: Family Medicine; Internal Medicine Nephrology
DX: I25.5 Ischemic cardiomyopathy (principal); I13.0 Hypertensive heart and chronic kidney disease with heart failure and stage 1 through stage 4 chronic kidney disease, or unspecified chronic kidney disease; I50.9 Heart failure, unspecified; N18.9 Chronic kidney disease, unspecified; E11.22 Type 2 diabetes mellitus with diabetic chronic kidney disease; E78.5 Hyperlipidemia, unspecified; K21.9 Gastro-esophageal reflux disease without esophagitis; J44.9 Chronic obstructive pulmonary disease, unspecified; N17.9 Acute kidney failure, unspecified; Z95.0 Presence of cardiac pacemaker; I25.10 Atherosclerotic heart disease of native coronary artery without angina pectoris; Z95.1 Presence of aortocoronary bypass graft; Z95.5 Presence of coronary angioplasty implant and graft

== ENCOUNTER 2018-09-06 09:30 | Emergency (ER) | payer MEDICARE ==
[~2018-09-06] VITALS: Ht 172.7 cm; Wt 93.6 kg
[2018-09-06 10:47] LABS: BASOPHILS 0.7 % (0-2); EOSINOPHILS 4.3 % (0-7); HEMATOCRIT 44.7 % (42.0-54.0); HEMOGLOBIN 15.6 g/dL (13.5-17.5); IMMATURE GRANULOCYTES 0.2 % (0-5); LYMPHOCYTES 19.8 % (15-50); MCH 31.1 pg (26.0-34.0); MCHC 34.9 g/dL (31.0-37.0); MCV 89.2 fL (80.0-100.0); MEAN PLATELET VOLUME 8.9 fL (7.4-10.4); MONOCYTES 8.2 % (2-11); NEUTROPHILS 66.8 % (40-80); PLATELET COUNT 119 10x3/uL (130-400); RBC 5.01 10x6/uL (4.20-6.10); RDW 16.7 % (11.5-14.5); WBC 6.1 10x3/uL (4.8-10.8)
[2018-09-06 11:01] LABS: ALBUMIN 3.7 g/dL (3.4-5.0); BILIRUBIN - TOTAL 0.49 mg/dL (0.2-1.3); CALCIUM 9.2 mg/dL (8.5-10.1); CARBON DIOXIDE 31.9 mmol/L (21.0-32.0); CREATININE - SERUM 1.4 mg/dL (0.6-1.3); POTASSIUM - SERUM 3.9 mmol/L (3.5-5.1); PROTEIN - SERUM 7.6 g/dL (6.4-8.2)
[2018-09-06 11:22] LABS: TROPONIN-I 0.368 ng/mL (0.000-0.060)
[2018-09-06 11:58] VITALS: Ht 172.7 cm; Wt 93.6 kg
[2018-09-06 14:15] VITALS: BP 123/85
== END 2018-09-06 14:15 | disposition home or self-care (01) ==
LOC: D.ER 09:30
PROVIDERS: Emergency Medicine
DX: R06.02 Shortness of breath (principal); I25.810 Atherosclerosis of coronary artery bypass graft(s) without angina pectoris; J44.9 Chronic obstructive pulmonary disease, unspecified; E11.9 Type 2 diabetes mellitus without complications; R00.2 Palpitations; R42 Dizziness and giddiness; R07.81 Pleurodynia; Z85.038 Personal history of other malignant neoplasm of large intestine; Z85.048 Personal history of other malignant neoplasm of rectum, rectosigmoid junction, and anus; Z95.0 Presence of cardiac pacemaker

== ENCOUNTER 2018-09-08 19:51 | Inpatient (IN) | payer MEDICARE ==
[~2018-09-08] VITALS: Ht 172.7 cm; Wt 91.9 kg
--- NOTE | ~2018-09-08 | CN ---
PATIENT NAME:CARLOS ANG MEDICAL RECORD: [id number] : 54 LOCATION:D. D.2135 ADMIT DATE: 09/09/18 ACCOUNT: [id number] CONSULTING PHYSICIAN: JUANY WATKINS MD REFERRING PHYSICIAN: VALDO JOSHI DO DATE OF CONSULTATION: 09/09/2018 CONSULT REQUESTING PHYSICIAN: Valdo Joshi DO REASON FOR CONSULTATION: Acute exacerbation of COPD, congestive heart failure. HISTORY OF PRESENT ILLNESS: Mr. Ang is a 67-year-old gentleman. He has a progressive shortness of breath for the last few days. He has a 3 pillow orthopnea and PND. The patient is sleeping almost in sitting position. He came into the ER, found out he has elevated troponin. The proBNP was mildly elevated. He feels like he has flash, the cough is productive with white yellow color sputum production. REVIEW OF SYSTEMS: As in history of present illness. PAST MEDICAL HISTORY: 1. Congestive heart failure with ischemic cardiomyopathy with the EF 15% to 20%. 2. Status post defibrillator placement. 3. Coronary artery disease, status post stent placed angioplasty and CABG. 4. COPD. 5. History of colon resection. PAST SURGICAL HISTORY: 1. Colon resection. 2. Cataract surgery. 3. CABG. 4. Status post pacemaker and defibrillator placement. 5. Surgery for GI bleed. ALLERGIES: HE IS ALLERGIC TO: 1. IPRATROPIUM CAUSING TACHYCARDIA. 2. SPIRONOLACTONE. MEDICATIONS: On [employer] was reviewed. PERSONAL AND SOCIAL HISTORY: The patient is an ex-smoker. He is a nondrinker. FAMILY HISTORY: Noncontributory. PHYSICAL EXAMINATION: GENERAL: Now, the patient lying comfortably in bed. He is not in acute distress. VITAL SIGNS: Blood pressure is 99/63, pulse is 70, respiration is 18, temperature 98.2, SpO2 is 97% on 3 liters nasal cannula. HEENT: Conjunctivae are pink. Sclerae are not icteric. NECK: Supple, no JVD. CHEST: There is a wheeze on forceful expiration. Basal crackles. HEART: Rhythm regular, grade II/ systolic murmur. ABDOMEN: Soft, bowel sounds present. No hepatosplenomegaly. CONSULT REPORT [id number] CARLOS ANG RECTAL: Deferred. EXTREMITIES: No cyanosis, no clubbing, no pedal edema. SKIN: Warm, normal turgor. CENTRAL NERVOUS SYSTEM: The patient is awake and alert. There are no obvious cranial nerve abnormality. The gait was not tested. LABORATORY DATA: CBC: The WBC is 6.5, hemoglobin 15.5, hematocrit is 32, hematocrit is 44.5, the platelet count 122. Chemistry: Sodium 141, potassium is 4, BUN is 13, creatinine 1.4. ABG: The pH is 7.40, pCO2 is 41.5, the pO2 is 71, bicarbonate 26.2. IMPRESSION: 1. Acute hypoxic respiratory failure. 2. Acute exacerbation of COPD. 3. Tracheobronchitis. 4. CHF with chronic systolic dysfunction due to ischemic cardiomyopathy with EF 15% to 20%. 5. Elevated cardiac enzymes, rule out acute coronary syndrome. 6. Ex-smoker. RECOMMENDATION: 1. Xopenex nebulizer. 2. Start on Tudorza, though THE PATIENT HAS ALLERGY TO IPRATROPIUM WITH TACHYCARDIA. 3. Methylprednisolone IV. 4. Brovana, budesonide nebulizer. 5. Supplemental oxygen. 6. Lasix. 7. Followup labs and chest radiograph. 8. Dr. Li has already been consulted. Dr. Joshi, thank you for involving me in the care of Mr. Ang. TRANSINT:[id number] Voice Confirmation ID: [id number] DOCUMENT ID: [id number] JUANY WATKINS MD at 1339 CC: [id number] DICTATION DATE: 09/09/18 1415 DIRECTOR OF TRAUMA: 09/09/18 1544 [place] [address]
--- NOTE | ~2018-09-08 | MORECARE ---
CASE MANAGEMENT DISCHARGE SUMMARY PATIENT: CARLOS CULLEN UNIT: [id number] ADM DATE: 09/09/18 AGE: 67 : 54 SEX: M ROOM/BED: D.2134 AUTHOR: NOEMIDOC PHYSICIAN: REFERRING PHYSICIAN: LIZETH JOSHI DO DATE OF SERVICE: 09/12/18 Discharge Plan Patient Name: CARLOS CULLEN Facility: [facility]:[place] : 1950 Planned Disposition: Home Anticipated Discharge Date: 09/12/18 Discharge Date: Expected LOS: 3 Initial Reviewer: [email or web address] Initial Review Date: 09/11/2018 Generated: 09/12/18 12:30 pm Comments DCP- Discharge Planning Updated by [email or web address]: Sherif Green on 09/11/18 4:[address] Patient Name: CARLOS CULLEN Admission Status: ER Accout number: [id number] Admission Date: 09-09-2018 : 1950 Admission Diagnosis:DYSPNEA, UNSPECIFIED Attending: Lizeth Joshi Current LOS: 2 Anticipated DC Date: 09-12-2018 Planned Disposition: Home Primary Insurance: MEDICARE A & B Discharge Planning Comments: CM MET WITH PT IN ROOM TO DISCUSS DISCHARGE PLANNING AND NEEDS. PT REPORTS LIVING AT HOME INDEPENDENTLY WITH HIS ADULT SON. PT HAS BIPAP, NEBULIZER, HOME / PORTABLE OXYGEN PROVIDED BY [facility]. PT HAS NO OUTSIDE SERVICES ASSISTING IN THE HOME. PT HAS NO STEPS TO GET INTO THE HOME AND HAS 12 STEPS DESCENDING TO HIS ROOM. CM DISCUSSED AVAILABILITY OF HOME HEALTH, REHAB SERVICES AND MEDICAL EQUIPMENT. PT DENIES DISCHARGE NEEDS AND DECLINES HOME HEALTH SERVICES. PT REPORTS HIS SON WILL PICK HIM UP FOR DISCHARGE HOME. IMPORTANT MESSAGE FROM MEDICARE PROVIDED AND EXPLAINED. PT PLANS TO DISCHARGE HOME, HAS NO ANTICIPATED DISCHARGE NEEDS AT THIS TIME. CM TO FOLLOW AND ASSIST IF NEEDED. Tar Roofer: Sherif Green DCPIA - Discharge Planning Initial Assessment Updated by [id number]: Sherif Green on 09/11/18 4:58 pm * Is the patient Alert and Oriented? Yes * How many steps to enter\exit or inside your home? NONE * PCP DR. JOSHI * Pharmacy [facility] * Preadmission Environment Home with Family * ADLs Independent * Equipment BIPAP Nebulizer Oxygen * Other Equipment HOME AND PORTABLE OXYGEN [facility] - PROVIDER * List name and contact numbers for known caregivers / representatives who currently or will assist patient after discharge: CARLOS CULLEN II, SON, * Verbal permission to speak to the caregivers and representatives has been obtained from the patient. N/A * Community resources currently utilized None * Please name any agencies selected above. NONE * Additional services required to return to the preadmission environment? No * Can the patient safely return to the preadmission environment? Yes * Has this patient been hospitalized within the prior 30 days at any hospital? Yes Coverage Notice Reviewer: [id number] Boaz Green Notice Issued Date-Time: 09/11/2018 11:35 Notice Type: IM Discharge Notice Notice Delivered To: Patient Relationship to Patient: Lease Analyst Name: Delivery Method: HAND - Hand Delivered Stefani Days: Prior Verbal Notification: Recipient Understood Notice: Yes Recipient Signature: Yes Med Rec Note Co-signed by Attending: Coverage Notice Comment: Last DP export: 09/11/18 4:07 Patient Name: CARLOS CULLEN Page [id number] at 1130 All edits/amendments must be made on the electronic document DICTATION DATE: 09/12/18 1130 BALLOON SELLER: BEAN 09/12/18 1130 RPT#: [id number] DC DATE: STATUS: ADM IN [facility] [address] [place] [address] END OF REPORT
--- NOTE | ~2018-09-08 | MORECARE ---
CASE MANAGEMENT DISCHARGE SUMMARY PATIENT: CARLOS CULLEN UNIT: [id number] ADM DATE: 09/09/18 AGE: 67 : 54 SEX: M ROOM/BED: D.2134 AUTHOR: NOEMIDOC PHYSICIAN: REFERRING PHYSICIAN: LIZETH JOSHI DO DATE OF SERVICE: 09/11/18 Discharge Plan Patient Name: CARLOS CULLEN Facility: [facility]:[place] : 1950 Planned Disposition: Home Anticipated Discharge Date: 09/12/18 Discharge Date: Expected LOS: 3 Initial Reviewer: [id number] Initial Review Date: 09/11/2018 Generated: 09/11/18 6:07 pm Comments DCP- Discharge Planning Updated by [id number]: Sherif Green on 09/11/18 4:[address] Patient Name: CARLOS CULLEN Admission Status: ER Accout number: [id number] Admission Date: 09-09-2018 : 1950 Admission Diagnosis:DYSPNEA, UNSPECIFIED Attending: Lizeth Joshi Current LOS: 2 Anticipated DC Date: 09-12-2018 Planned Disposition: Home Primary Insurance: MEDICARE A & B Discharge Planning Comments: CM MET WITH PT IN ROOM TO DISCUSS DISCHARGE PLANNING AND NEEDS. PT REPORTS LIVING AT HOME INDEPENDENTLY WITH HIS ADULT SON. PT HAS BIPAP, NEBULIZER, HOME / PORTABLE OXYGEN PROVIDED BY [facility]. PT HAS NO OUTSIDE SERVICES ASSISTING IN THE HOME. PT HAS NO STEPS TO GET INTO THE HOME AND HAS 12 STEPS DESCENDING TO HIS ROOM. CM DISCUSSED AVAILABILITY OF HOME HEALTH, REHAB SERVICES AND MEDICAL EQUIPMENT. PT DENIES DISCHARGE NEEDS AND DECLINES HOME HEALTH SERVICES. PT REPORTS HIS SON WILL PICK HIM UP FOR DISCHARGE HOME. IMPORTANT MESSAGE FROM MEDICARE PROVIDED AND EXPLAINED. PT PLANS TO DISCHARGE HOME, HAS NO ANTICIPATED DISCHARGE NEEDS AT THIS TIME. CM TO FOLLOW AND ASSIST IF NEEDED. Information Systems Security Manager: Sherif Green DCPIA - Discharge Planning Initial Assessment Updated by [email or web address]: Sherif Green on 09/11/18 4:58 pm * Is the patient Alert and Oriented? Yes * How many steps to enter\exit or inside your home? NONE * PCP DR. JOSHI * Pharmacy [facility] * Preadmission Environment Home with Family * ADLs Independent * Equipment BIPAP Nebulizer Oxygen * Other Equipment HOME AND PORTABLE OXYGEN [facility] - PROVIDER * List name and contact numbers for known caregivers / representatives who currently or will assist patient after discharge: CARLOS CULLEN II, SON, * Verbal permission to speak to the caregivers and representatives has been obtained from the patient. N/A * Community resources currently utilized None * Please name any agencies selected above. NONE * Additional services required to return to the preadmission environment? No * Can the patient safely return to the preadmission environment? Yes * Has this patient been hospitalized within the prior 30 days at any hospital? Yes Coverage Notice Reviewer: [email or web address] Boaz Green Notice Issued Date-Time: 09/11/2018 11:35 Notice Type: IM Discharge Notice Notice Delivered To: Patient Relationship to Patient: Political Theory Professor Name: Delivery Method: HAND - Hand Delivered Stefani Days: Prior Verbal Notification: Recipient Understood Notice: Yes Recipient Signature: Yes Med Rec Note Co-signed by Attending: Coverage Notice Comment: Patient Name: CARLOS CULLEN Page [id number] at 1707 All edits/amendments must be made on the electronic document DICTATION DATE: 09/11/181706 TEXTILE FINISHER: BEAN 09/11/181706 RPT#: [id number] DC DATE: STATUS: ADM IN [facility] [address] [place] [address] END OF REPORT
[2018-09-08 20:19] VITALS: BP 123/77
[2018-09-08 20:37] LABS: BASOPHILS 0.5 % (0-2); EOSINOPHILS 3.4 % (0-7); HEMATOCRIT 44.5 % (42.0-54.0); HEMOGLOBIN 15.5 g/dL (13.5-17.5); IMMATURE GRANULOCYTES 0.2 % (0-5); LYMPHOCYTES 19.8 % (15-50); MCH 31.1 pg (26.0-34.0); MCHC 34.8 g/dL (31.0-37.0); MCV 89.2 fL (80.0-100.0); MEAN PLATELET VOLUME 8.7 fL (7.4-10.4); MONOCYTES 9.1 % (2-11); PLATELET COUNT 122 10x3/uL (130-400); RBC 4.99 10x6/uL (4.20-6.10); RDW 16.7 % (11.5-14.5); WBC 6.5 10x3/uL (4.8-10.8)
[2018-09-08 20:47] LABS: INR 1.17 (0.85-1.17); PROTIME 14.4 SECONDS (11.6-15.0)
[2018-09-08 20:52] LABS: ALBUMIN 3.7 g/dL (3.4-5.0); ALKALINE PHOSPHATASE 71 U/L (46-116); ALT (SGPT) 33 U/L (10-68); BILIRUBIN - TOTAL 0.34 mg/dL (0.2-1.3); CALCIUM 8.4 mg/dL (8.5-10.1); CARBON DIOXIDE 26.6 mmol/L (21.0-32.0); CHLORIDE - SERUM 103 mmol/L (98-107); CREATININE - SERUM 1.4 mg/dL (0.6-1.3); PROTEIN - SERUM 7.5 g/dL (6.4-8.2); SODIUM 141 mmol/L (136-145); UREA NITROGEN 13 mg/dL (7-18); eGFR NON AFRICAN AMERICAN 54 mL/min (90-120)
[2018-09-08 21:00] VITALS: BP 110/72
[2018-09-08 21:07] LABS: CKMB 1.5 U/L (0.0-3.6); CREATINE KINASE 81 UL (21-232); MAGNESIUM - SERUM 2.3 mg/dL (1.8-2.4); PRO BNP 536 pg/mL (0-125)
[2018-09-08 21:10] LABS: CALC OSMOLALITY 291 mosm/kg (275-300); GLUCOSE 304 mg/dL (74-106)
[2018-09-08 21:11] LABS: TROPONIN-I 0.358 ng/mL (0.000-0.060)
[2018-09-08 21:30] VITALS: BP 101/62
[2018-09-08 22:00] VITALS: BP 101/62
[2018-09-08 22:53] VITALS: BP 109/64; BMI 30.9
[2018-09-08] MEDS ORDERED: AMIODARONE HCL200 MG PO (23:06)
[2018-09-09] VITALS: BP 109/64
[2018-09-09 04:00] VITALS: BP 99/63
[2018-09-09 08:55] VITALS: BP 110/70
[2018-09-09 13:46] VITALS: BP 109/75
[2018-09-09 17:36] VITALS: BP 116/72
[2018-09-09 20:00] VITALS: BP 117/65
[2018-09-10] VITALS: BP 112/62
[2018-09-10 04:00] VITALS: BP 104/66
[2018-09-10 05:01] LABS: BASOPHILS 0 % (0-2); EOSINOPHILS 0 % (0-7); HEMATOCRIT 41.1 % (42.0-54.0); HEMOGLOBIN 14.3 g/dL (13.5-17.5); IMMATURE GRANULOCYTES 0.3 % (0-5); LYMPHOCYTES 6.6 % (15-50); MCH 30.8 pg (26.0-34.0); MCHC 34.8 g/dL (31.0-37.0); MCV 88.4 fL (80.0-100.0); MEAN PLATELET VOLUME 9.6 fL (7.4-10.4); MONOCYTES 2.3 % (2-11); NEUTROPHILS 90.8 % (40-80); PLATELET COUNT 139 10x3/uL (130-400); RBC 4.65 10x6/uL (4.20-6.10); RDW 16.2 % (11.5-14.5)
[2018-09-10 05:08] LABS: WBC 10.1 10x3/uL (4.8-10.8)
[2018-09-10 05:24] LABS: ALBUMIN 3.1 g/dL (3.4-5.0); ANION GAP 14.6 mmol/L (8-16); BILIRUBIN - TOTAL 0.38 mg/dL (0.2-1.3); CALCIUM 8.6 mg/dL (8.5-10.1); CARBON DIOXIDE 25.8 mmol/L (21.0-32.0); CREATININE - SERUM 1.5 mg/dL (0.6-1.3); MAGNESIUM - SERUM 2.6 mg/dL (1.8-2.4); PHOSPHOROUS 3.3 mg/dL (2.5-4.9); POTASSIUM - SERUM 4.4 mmol/L (3.5-5.1); PROTEIN - SERUM 6.7 g/dL (6.4-8.2)
[2018-09-10 07:45] VITALS: BP 105/61
[2018-09-10 12:16] VITALS: BP 114/72
[2018-09-10 13:06] VITALS: Ht 172.7 cm; Wt 91.9 kg
[2018-09-10 16:25] VITALS: BP 120/65
[2018-09-10 20:00] VITALS: BP 110/68
[2018-09-11] VITALS: BP 96/55
[2018-09-11 05:03] LABS: BASOPHILS 0.1 % (0-2); EOSINOPHILS 0 % (0-7); HEMATOCRIT 41.4 % (42.0-54.0); HEMOGLOBIN 14.4 g/dL (13.5-17.5); IMMATURE GRANULOCYTES 0.4 % (0-5); LYMPHOCYTES 4.7 % (15-50); MCH 30.6 pg (26.0-34.0); MCHC 34.8 g/dL (31.0-37.0); MCV 87.9 fL (80.0-100.0); MEAN PLATELET VOLUME 9.9 fL (7.4-10.4); MONOCYTES 4.1 % (2-11); NEUTROPHILS 90.7 % (40-80); PLATELET COUNT 149 10x3/uL (130-400); RBC 4.71 10x6/uL (4.20-6.10); RDW 16.6 % (11.5-14.5)
[2018-09-11 05:14] LABS: WBC 13.6 10x3/uL (4.8-10.8)
[2018-09-11 05:24] LABS: ALBUMIN 3.1 g/dL (3.4-5.0); ANION GAP 11.7 mmol/L (8-16); BILIRUBIN - TOTAL 0.37 mg/dL (0.2-1.3); CALCIUM 8.1 mg/dL (8.5-10.1); CARBON DIOXIDE 28.5 mmol/L (21.0-32.0); CREATININE - SERUM 1.4 mg/dL (0.6-1.3); MAGNESIUM - SERUM 2.4 mg/dL (1.8-2.4); PHOSPHOROUS 3.2 mg/dL (2.5-4.9); POTASSIUM - SERUM 4.2 mmol/L (3.5-5.1); PROTEIN - SERUM 6.6 g/dL (6.4-8.2)
[2018-09-11 05:30] VITALS: BP 88/54
[2018-09-11 07:52] VITALS: BP 116/59
[2018-09-11 11:30] VITALS: BP 97/60
[2018-09-11 15:54] VITALS: BP 91/51
[2018-09-11 20:00] VITALS: BP 113/66
[2018-09-12] VITALS: BP 98/55
[2018-09-12 04:00] VITALS: BP 92/59
[2018-09-12 04:08] LABS: BASOPHILS 0 % (0-2); EOSINOPHILS 0.1 % (0-7); HEMATOCRIT 42.4 % (42.0-54.0); HEMOGLOBIN 14.8 g/dL (13.5-17.5); IMMATURE GRANULOCYTES 0.4 % (0-5); LYMPHOCYTES 9.4 % (15-50); MCH 30.6 pg (26.0-34.0); MCHC 34.9 g/dL (31.0-37.0); MCV 87.6 fL (80.0-100.0); MEAN PLATELET VOLUME 9.2 fL (7.4-10.4); MONOCYTES 8.9 % (2-11); NEUTROPHILS 81.2 % (40-80); PLATELET COUNT 143 10x3/uL (130-400); RBC 4.84 10x6/uL (4.20-6.10); RDW 16.3 % (11.5-14.5); WBC 12.9 10x3/uL (4.8-10.8)
[2018-09-12 04:43] LABS: ALBUMIN 3.1 g/dL (3.4-5.0); ANION GAP 11.6 mmol/L (8-16); BILIRUBIN - TOTAL 0.31 mg/dL (0.2-1.3); CALCIUM 8.4 mg/dL (8.5-10.1); CARBON DIOXIDE 32.1 mmol/L (21.0-32.0); CREATININE - SERUM 1.4 mg/dL (0.6-1.3); MAGNESIUM - SERUM 2.6 mg/dL (1.8-2.4); PHOSPHOROUS 2.9 mg/dL (2.5-4.9); POTASSIUM - SERUM 3.7 mmol/L (3.5-5.1); PROTEIN - SERUM 6.5 g/dL (6.4-8.2)
[2018-09-12] MEDS ORDERED: STERAPRED DS 1210 MG PO (07:07)
[2018-09-12] MEDS ORDERED: OMNICEF300 MG PO (07:07)
[2018-09-12] MEDS ORDERED: DEMADEX20 MG PO (07:07)
[2018-09-12 07:53] VITALS: BP 96/58
[2018-09-12 11:41] VITALS: BP 101/62
[2018-09-12 15:02] VITALS: BP 114/68
== END 2018-09-12 17:29 | disposition home or self-care (01) | DRG 193 ==
LOC: D.ER 19:51 → D.M2 21:34 → OBSVTIME 21:34 → D.M2 21:34
PROVIDERS: Family Medicine
DX: J18.9 Pneumonia, unspecified organism (principal); J96.01 Acute respiratory failure with hypoxia; J44.1 Chronic obstructive pulmonary disease with (acute) exacerbation; I50.22 Chronic systolic (congestive) heart failure; J44.0 Chronic obstructive pulmonary disease with (acute) lower respiratory infection; J98.11 Atelectasis; I11.0 Hypertensive heart disease with heart failure; I25.5 Ischemic cardiomyopathy; I25.10 Atherosclerotic heart disease of native coronary artery without angina pectoris; E11.9 Type 2 diabetes mellitus without complications; I50.84 End stage heart failure; J40 Bronchitis, not specified as acute or chronic; Z95.1 Presence of aortocoronary bypass graft; Z87.891 Personal history of nicotine dependence

== ENCOUNTER 2018-09-24 21:54 | Inpatient (IN) | payer MEDICARE ==
[~2018-09-24] VITALS: Ht 172.7 cm; Wt 95.5 kg
--- NOTE | ~2018-09-24 | HEMODYNAMI ---
PATIENT:CARLOS CULLEN MEDICAL RECORD: [id number] : 54 LOCATION:[facility] D.2120 ADMISSION DATE: 09/25/18 Generatedon:09/25/201812:08 Patient name: CARLOS CULLEN Patient #: [id number] SSN: DO B: 1950 Date of study: 09/25/2018 Page: Of Hemodynamic Procedure Report Patient Data Patient Demographics Procedure consent was obtained First Name: CARLOS Gender: Male Last Name: SUBHASH : 1950 Patient #: [id number] Age: 67 year(s) Race: Unknown Additional ID: [id number] Contact details [address]: [address] [place] [address] State: [place] City: [place] Zip code: [address] Past Medical History Allergies Allergen Reaction Date Comments Reported Other allergy 07/04/2018 spironolactone, ipratropium Other allergy 07/11/2018 Spironolactone, IPRATROPIUM Admission Admission Data Admission Date: 09/25/2018 Admission Time: 1:50 Room #: D.2120 Height (in.): 67.72 BSA: 2.08 (m2) Height (cm.): 172 BMI: 32.11 (kg/m2) Weight (lbs.): 209.44 Weight (kg.): 95 Lab Results Lab Result Date: 09/25/2018 Lab Result Time: 0:00 Biochemistry Name Units Result Min Max BUN mg/dl 23 --(----)-* 7 18 Creatinine mg/dl 1.6 --(----)-* 0.6 1.3 CBC Name Units Result Min Max Hemoglobin g/dl 16.8 --(---*)-- 13.5 17.5 Procedure Procedure Types Cath Procedure Diagnostic Procedure LHC LHC w/Coronaries w/Grafts FFR/IVUS Intra-Coronary IVUS Initial PCI Procedure Coronary Stent Coronary Stent Initial Procedure Description Procedure Date Procedure Date: 09/25/2018 Procedure Start Time: 11:49 Procedure End Time: 12:04 Procedure Staff Name Function Nathalie Lozaur RT Monitor Reggie Pham RN Nurse Shanti Pierce RT Scrub Dereje Sanders MD Performing Physician Procedure Data Cath Procedure Fluoroscopy Diagnostic fluoroscopy Total fluoroscopy Time: 3.6 time: 3.6 min min Diagnostic fluoroscopy Total fluoroscopy dose: 945 dose: 945 mGy mGy Contrast Material Contrast Material Type Amount (ml) Isovue 300 87 Entry Location Entry Primary Successful Side Size Upsize Upsize Entry Closure Succes sful Closure Location (Fr) 1 (Fr) 2 (Fr) Remarks Device Remarks Femoral Right 5 Fr 6 Fr Exoseal artery Short Estimated blood loss: 10 ml Diagnostic catheters Device Type Used For End Catheter Placement MULTIPACK Pigtail 5 Fr Procedure catheter MULTIPACK JL 4.0 5Fr Procedure catheter MULTIPACK 3DRC 5Fr Procedure catheter Procedure Complications No complications Procedure Medications Medication Administration Route Dosage 0.9% NaCl I.V. 100 ml/hr Oxygen etCO2 Nasal cannula 2 l/min Heparin Flush Bag added to field 2 bags (1000units/500ml NS) Lidocaine 2% added to field 20 Versed I.V. 1 mg Fentanyl I.V. 50 mcg Versed I.V. 1 mg Fentanyl I.V. 50 mcg Heparin Bolus I.V. 4000 units Hemodynamics Rest BSA: 2.08 (m2) HGB: 16.8 (g/dl) O2 Consumption: Estimated: 282.88 (ml/min) O2 Co nsumption indexed: Estimated:136 (ml/min/m) Snapshots Pre Cath Intra NCS Post Cath Vital Signs Time Heart Resp SPO2 etCO2 NIBP (mmHg) Rhythm Pain Sedation Rate (ipm) (%) (mmHg) Status Level (bpm) 11:12:30 69 23 96 29.3 127/84(104) Paced 0 (11) 10(A) , No pain 11:16:38 70 20 96 29.3 127/81(98) Paced 0 (11) 10(A) , No pain 11:20:46 68 19 96 21.8 115/82(94) Paced 0 (11) 10(A) , No pain 11:24:52 68 29 92 36.8 119/76(91) Paced 0 (11) 10(A) , No pain 11:28:59 70 21 94 30.1 116/77(90) Paced 0 (11) 10(A) , No pain 11:33:05 69 15 92 37.6 118/75(93) Paced 0 (11) 10(A) , No pain 11:37:11 68 38 94 27.1 114/79(97) Paced 0 (11) 10(A) , No pain 11:41:15 70 23 93 32.4 111/79(92) Paced 0 (11) 10(A) , No pain 11:45:19 58 22 93 30.8 116/77(97) Paced 0 (11) 10(A) , No pain 11:49:24 69 18 94 34.6 109/78(92) Paced 0 (11) 10(A) , No pain 11:53:28 69 17 91 36.8 112/73(87) Paced 0 (11) 9(A) , No pain 11:57:34 70 16 92 23.3 107/70(88) Paced 0 (11) 9(A) , No pain 12:01:38 69 18 92 21.8 109/75(85) Paced 0 (11) 10(A) , No pain Medications Time Medication Route Dose Verified Delivered Reason Notes Effectiveness by by 11:22:14 0.9% NaCl I.V. 100 Reggie Reggie Per physician ml/hr Vero Pham RN RN 11:22:24 Oxygen etCO2 2 Reggie Reggie Per physician Nasal l/min Vero Pham cannula RN RN 11:22:36 Heparin Flush added 2 Reggie Reggie used for Bag to bags Vero Pham procedure (1000units/500ml field ALVES RN NS) 11:22:46 Lidocaine 2% added 20ml Reggie Reggie for local to vial Vero Pham anesthetic field ALVES RN 11:43:52 Versed I.V. 1 mg Reggie Reggie for sedation Vero Pham RN RN 11:44:02 Fentanyl I.V. 50 Reggie Reggie for sedation mcg Vero Pham RN RN 11:49:36 Versed I.V. 1 mg Reggie Reggie for sedation Vero Pham RN RN 11:49:42 Fentanyl I.V. 50 Reggie Reggie for sedation mcg Vero Pham RN RN 12:00:42 Heparin Bolus I.V. 4000 Reggie Reggie for units Vero demarco RN digital media intern Log Time Note 10:52:58 Patient Height : 67.72 inches 10:53:01 Patient Weight : 209.44 lbs 10:54:13 Lab Result : Hemoglobin 16.8 g/dl 10:54:13 Lab Result : Creatinine 1.6 mg/dl 10:54:13 Lab Result : BUN 23 mg/dl 10:54:54 Diagnostic Cath status Elective 10:54:55 Reggie Pham RN sent for patient. Start room use. 10:54:57 Time tracking: Regular hours (M-F 7:00 - 5:00) 10:55:02 Plan of Care:Hemodynamics will remain stable., Cardiac rhythm will remain stable., Comfort level will be maintained., Respiratory function will remain adequate., Patient/ family verbilizes understanding of procedure., Procedure tolerated without complication., Recovers from procedure without complications.. 10:56:01 Patient received from Med II to CCL 2 Alert and oriented. Tansferred to table in Supine position. 11:03:53 Warm blankets applied, and bhavani hugger turned on for patient comfort. 11:03:53 Correct patient and procedure confirmed by team. 11:03:54 Signed procedure consent form obtained from patient. 11:03:55 ECG and BP/O2 sat monitors applied to patient. 11:03:56 Baseline sample Acquired. 11:03:56 Vital chart was started 11:04:11 H&P Date Dictated: 09/25/2018 New H&P dictated by physician.. 11:04:12 Pre-procedure instructions explained to patient. 11:04:12 Pre-op teaching completed and patient verbalized understanding. 11:04:14 Family unavailable. 11:04:16 Patient NPO since Midnight. 11:04:18 Is the patient allergic to Iodine/contrast media? No. 11:04:19 Was the patient premedicated? No 11:04:20 Is patient on blood thinner?Yes 11:04:23 ACC The patient was administered the following blood thiners within the last 24 hours: ACCPlavix 11:04:25 Patient diabetic? Yes. 11:04:26 If diabetic: On Metformin? No 11:04:28 Previous problem with sedation/anesthesia? No ? 11:04:30 Snore? Yes 11:04:30 Sleep apnea? Yes 11:04:31 Deviated septum? No 11:04:32 Opens mouth fully? Yes 11:04:33 Sticks out tongue? Yes 11:04:37 Airway obstruction? Yes copd 11:04:40 Dentures? No ? 11:04:43 Pre procedure: right dorsailis pedis pulse 2+ Normal; easily identifiable; not easily obliterated 11:04:45 Pre procedure: left dorsailis pedis pulse 2+ Normal; easily identifiable; not easily obliterated 11:04:47 Patient pain scale 0/10 ?. 11:04:55 IV patent on arrival in left hand with 0.9% NaCl at [facility]. 11:04:57 Lab results completed and on chart. 11:05:01 Right groin area was prepped with chlora-prep and draped in sterile fashion 11:05: Alarms reviewed by R. N. 11:05: Sharps counted by scrub and verified by R.N. 11:22:14 0.9% NaCl 100 ml/hr I.V. was administered by Reggie Pham RN; Per physician; 11:22:24 Oxygen 2 l/min etCO2 Nasal cannula was administered by Reggie Pham RN; Per physician; 11:22:36 Heparin Flush Bag (1000units/500ml NS) 2 bags added to field was administered by Reggie Pham RN; used for procedure; 11::46 Lidocaine 2% 20ml vial added to field was administered by Reggie Pham RN; for local anesthetic; 11:43:02 Physician arrived 11:43:03 --------ALL STOP TIME OUT------ 11:43:04 Final Timeout: patient, procedure, and site verified with staff and physician. All members of the team are in agreement. 11:43:06 Right groin site verified by team. 11:43:11 Physical assessment completed. ASA score P 2 - A patient with mild systemic disease as per Dereje Sanders MD. 11:43:15 Sedation plan: IV Moderate Sedation Medication:Versed, Fentanyl 11:43:34 Zero performed for pressure channel P1 11:43:52 Versed 1 mg I.V. was administered by Reggie Pham RN; for sedation; 44:02 Fentanyl 50 mcg I.V. was administered by Reggie Pham RN; for sedation; 11:48:56 Use device set Femoral Dx 11:48:57 ACIST Syringe (16193) opened to sterile field. 11:48:57 Bag Decanter (2002S) opened to sterile field. 11:48:58 Medline Cath Pack ([id number]) opened to sterile field. 11:48:58 DIAGNOSTIC WIRE .035 260cm J wire (951172) opened to sterile field. 11:49:00 ACIST Hand Control (95362) opened to sterile field. 11:49:00 ACIST Manifold (21979) opened to sterile field. 11:49:01 DIAGNOSTIC Multipack 5Fr catheter set (VQ6041) opened to sterile field. 11:49:02 Tegaderm 4 x 4 (1626W) opened to sterile field. 11:49:04 SHEATH 5FR Colon (UEW239) opened to sterile field. 11:49:08 Procedure started. 11:49:08 Full Disclosure recording started 11:49:12 Local anesthetic to right femoral artery with Lidocaine 2% by Dereje Sanders MD.INITIAL ACCESS ONLY 11:49:33 A 5 Fr sheath was inserted into the Right Femoral artery 11:49:36 Versed 1 mg I.V. was administered by Reggie Pham RN; for sedation; 11:49:42 Fentanyl 50 mcg I.V. was administered by Reggie Pham RN; for sedation; 11:49:44 A MULTIPACK Pigtail 5 Fr catheter was advanced over the wire and used for Procedure. 11:50:52 LV angiography performed. 11:51:06 EF : 20 % 11:51:11 Catheter removed. 11:51:18 A MULTIPACK JL 4.0 5Fr catheter was advanced over the wire and used for Procedure. 11:52:46 LCA angiography performed. 11:52:49 Catheter removed. 11:53:28 A MULTIPACK 3DRC 5Fr catheter was advanced over the wire and used for Procedure. 11:54:32 RCA angiography performed. 11:54:35 SVG angiography performed. 11:54:37 TESFAYE to LAD angiography performed. 11:54:49 SHEATH 6FR Colon (XGQ742) opened to sterile field. 11:54:54 Proceeding to intervention. 11:55:05 Sheath upsized to a 6 Fr Short. 11:55:10 INFLATOR Merit BasixCompak (ZB9048) opened to sterile field. 11:55:10 Palmetto [place] IVUS Catheter (20600O) opened to sterile field. 11:55:36 GUIDE 6FR XBLAD 4.0 catheter ([id number]) opened to sterile field. 11:55:51 6 Fr XBLAD4 guide catheter was inserted over the wire 11:56:00 choice pt ex wire advanced. 11:56:11 CHOICE PT Extra Support 182cm wire ([id number]) opened to sterile field. 11:56:22 Wire advanced across lesion. 11:56:31 IVUS catheter advanced over wire. 11:59:47 IVUS catheter removed over wire. 12:00:42 Heparin Bolus 4000 units I.V. was administered by Reggie Pham RN; for anticoagulation; 12:01:45 Place stent Inflation Number: 1 A INTEGRITY 4.0 x 18 stent ([id number]) was prepped and advanced across the Prox LAD. The stent was deployed at 15 UDAY for 0:10 (min:sec). 12:02:18 EXOSEAL 6Fr (EX600) opened to sterile field. 12:02:29 Wire removed. 12:02:29 Guide catheter removed. 12:02:39 Sheath removed intact; hemostasis achieved with Exoseal to the Right Femoral artery. 12:02:42 Procedure ended.(Physican Out) 12:03:23 Fluoroscopy time 03.60 minutes. 12:03:31 Fluoroscopy dose: 945 mGy 12:03:31 Flurop Dose total: 945 12:03:37 Contrast amount:Isovue 300 87ml. 12:03:40 Sharps counted by scrub and verified by R.N. 12:03:42 Insertion/operative site no bleeding no hematoma. 12:03:44 Post Procedure Pulses reassessed and unchanged 12:03:51 Post-procedure physical assessment completed. ASA score P 2 - A patient with mild systemic disease as per Dereje Sanders MD. 12:03:55 Post procedure rhythm: sinus rhythm 12:03:59 Estimated blood loss: 10 ml 12:04:01 Post procedure instruction explained to patient.Patient verbalizes understanding. 12:04:26 Procedure type changed to Cath procedure, Diagnostic procedure, LHC, LHC w/Coronaries w/Grafts, FFR/IVUS, Intra-Coronary IVUS Initial, PCI procedure, Coronary Stent, Coronary Stent Initial 12:04:28 Procedure and supply charges have been captured, reviewed, submitted and are correct. 12:04:44 Procedure Complication : No complications 12:04:47 Vital chart was stopped 12:04:49 See physician's report for complete and final results. 12:04:50 Report given to Pre/Post Procedure Room. 12:04:52 Patient transfered to Pre/Post Procedure Room with Stretcher. 12:04:54 Procedure ended. 12:04:54 Full Disclosure recording stopped 12:05:04 End room use (Document Last) 12:07:31 ACC-PCI Only Patient was given prescriptions, or instructed by Dereje Sanders MD to start/continue the following medications upon discharge: Plavix Intervention Summary Intervention Notes Time ActionType Lesion and Equipment Action# Pressure Duration Attributes Used 12:01:45 Place stent Prox LAD INTEGRITY 1 15 00:10 4.0 x 18 stent ([id number]) Device Usage Item Name Manufacture Quantity Catalog Number Hospital Part Current Mini mal Lot# / Charge Number Stock Stock Serial# Code ACIST Acist 1 79740 354302 425307 240567 20 Syringe Medical (46824) Systems Inc Bag Decanter Microtek 1 2001S 810006 69343 284129 5 (2001S) Medical Inc. Medline Cath Medline 1 [id number] 884062 72449 472624 5 Pack ([id number]) DIAGNOSTIC [place] 1 421303 882821 064364 822261 30 WIRE .035 260cm J wire (997122) ACIST Hand Acist 1 51531 955129 332638 684417 5 Control Medical (75829) Systems Inc ACIST Acist 1 23867 205147 345544 204710 5 Manifold Medical (79698) Systems Inc DIAGNOSTIC Cardinal 1 [id number] 180034 35688 719614 30 Multipack Health 5Fr catheter set (DZ9027) Tegaderm 4 x 3M 1 1626W 990619 489823 096706 5 4 (1626W) SHEATH 5FR Terumo 1 WVJ855 129525 550483 611801 5 Colon (EQF536) MULTIPACK Cardinal 1 821151 5 Pigtail 5 Fr Health catheter MULTIPACK JL Cardinal 1 106306 5 4.0 5Fr Health catheter MULTIPACK Cardinal 1 242884 5 3DRC 5Fr Health catheter SHEATH 6FR Terumo 1 DZV619 249304 566434 840602 40 Colon (PGK511) INFLATOR Merit 1 GF5572 096628 285018 988425 15 [facility] Medical BasixCompak (BT5565) Palmetto Palmetto 1 78583R 600756 115053 977186 8 [place]ag[place] IVUS Catheter (21502V) GUIDE 6FR Cardinal 1 [id number] 178934 574813 968306 3 XBLAD 4.0 Health catheter ([id number]) CHOICE PT [place] 1 [id number] 701452 574277 107772 5 Extra Scientific Support 182cm wire ([id number]) INTEGRITY Medtronic 1 [id number] 471587 125102 113411 5 [id number] 4.0 x 18 stent ([id number]) EXOSEAL 6Fr Cardinal 1 EX600 922613 833031 221041 10 (EX600) Health Signature Audit [place] Stage Time Signature Unsigned Intra-Procedure 09/25/2018 Nathalie Verdin 12:08:18 PM RT(R) Signatures Monitor : Nathalie Verdin Signature : RT Date : Time : [place] [address] [place] [address]
[~2018-09-24 21:54] MED LIST changes: +OMNICEF300 MG PO; +STERAPRED DS 1210 MG PO
[2018-09-24 22:50] LABS: BASOPHILS 0.1 % (0-2); EOSINOPHILS 0.7 % (0-7); HEMATOCRIT 47.4 % (42.0-54.0); HEMOGLOBIN 16.8 g/dL (13.5-17.5); IMMATURE GRANULOCYTES 1.7 % (0-5); LYMPHOCYTES 16.5 % (15-50); MCH 31.2 pg (26.0-34.0); MCHC 35.4 g/dL (31.0-37.0); MCV 88.1 fL (80.0-100.0); MEAN PLATELET VOLUME 9.2 fL (7.4-10.4); MONOCYTES 7.6 % (2-11); NEUTROPHILS 73.4 % (40-80); RBC 5.38 10x6/uL (4.20-6.10); RDW 16.1 % (11.5-14.5); WBC 13.8 10x3/uL (4.8-10.8)
[2018-09-24 22:52] LABS: PLATELET COUNT 112 10x3/uL (130-400)
[2018-09-24 22:58] LABS: ALBUMIN 3.4 g/dL (3.4-5.0); ALKALINE PHOSPHATASE 81 U/L (46-116); ALT (SGPT) 49 U/L (10-68); BILIRUBIN - TOTAL 0.52 mg/dL (0.2-1.3); CALC OSMOLALITY 284 mosm/kg (275-300); CALCIUM 8.8 mg/dL (8.5-10.1); CARBON DIOXIDE 27.8 mmol/L (21.0-32.0); CHLORIDE - SERUM 104 mmol/L (98-107); CREATININE - SERUM 1.6 mg/dL (0.6-1.3); GLUCOSE 131 mg/dL (74-106); POTASSIUM - SERUM 3.5 mmol/L (3.5-5.1); SODIUM 140 mmol/L (136-145); UREA NITROGEN 23 mg/dL (7-18); eGFR NON AFRICAN AMERICAN 46 mL/min (90-120)
[2018-09-24 23:29] LABS: CKMB 4.2 U/L (0.0-3.6); CREATINE KINASE 80 UL (21-232); PRO BNP 1383 pg/mL (0-125)
[2018-09-24 23:32] LABS: TROPONIN-I 0.366 ng/mL (0.000-0.060)
[2018-09-24 23:47] VITALS: BP 127/80
[2018-09-25] VITALS (7 sets, daily range): BP systolic 115–144; BP diastolic 42–90; Ht 172.7 cm; Wt 95.5 kg
[2018-09-25] MEDS ORDERED: BAYER CHEWABLE81 MG PO (03:28)
[2018-09-25] MEDS ORDERED: VICTOZA0.6 MG/0.1 SQ (03:29)
[2018-09-25 08:40] LABS: CKMB 4.2 U/L (0.0-3.6); CREATINE KINASE 63 UL (21-232)
[2018-09-25 08:43] LABS: TROPONIN-I 0.458 ng/mL (0.000-0.060)
[2018-09-25] MEDS ORDERED: TRESIBA FL100 UNIT/1 SC (09:43)
[2018-09-25 09:47] LABS: BASOPHILS 0.1 % (0-2); EOSINOPHILS 1.4 % (0-7); HEMATOCRIT 45.9 % (42.0-54.0); HEMOGLOBIN 16.1 g/dL (13.5-17.5); IMMATURE GRANULOCYTES 1.4 % (0-5); MCH 31.2 pg (26.0-34.0); MCHC 35.1 g/dL (31.0-37.0); MEAN PLATELET VOLUME 9.2 fL (7.4-10.4); NEUTROPHILS 80.1 % (40-80); PLATELET COUNT 102 10x3/uL (130-400); RBC 5.16 10x6/uL (4.20-6.10); RDW 16.4 % (11.5-14.5); WBC 12.3 10x3/uL (4.8-10.8)
[2018-09-25 09:59] LABS: ANION GAP 15.3 mmol/L (8-16); CALCIUM 8.5 mg/dL (8.5-10.1); CARBON DIOXIDE 26.6 mmol/L (21.0-32.0); CREATININE - SERUM 1.4 mg/dL (0.6-1.3); POTASSIUM - SERUM 3.9 mmol/L (3.5-5.1)
[2018-09-25 14:33] LABS: CKMB 4.7 U/L (0.0-3.6); CREATINE KINASE 59 UL (21-232)
[2018-09-25 14:43] LABS: TROPONIN-I 0.384 ng/mL (0.000-0.060)
[2018-09-25 19:24] LABS: CKMB 3.9 U/L (0.0-3.6); CREATINE KINASE 53 UL (21-232)
[2018-09-25 19:26] LABS: TROPONIN-I 0.389 ng/mL (0.000-0.060)
[2018-09-26 02:01] VITALS: BP 92/48
[2018-09-26 04:02] LABS: BASOPHILS 0.1 % (0-2); EOSINOPHILS 1.7 % (0-7); HEMATOCRIT 42.7 % (42.0-54.0); HEMOGLOBIN 14.8 g/dL (13.5-17.5); IMMATURE GRANULOCYTES 1.4 % (0-5); LYMPHOCYTES 22.9 % (15-50); MCH 30.8 pg (26.0-34.0); MCHC 34.7 g/dL (31.0-37.0); MEAN PLATELET VOLUME 8.5 fL (7.4-10.4); MONOCYTES 7.2 % (2-11); NEUTROPHILS 66.7 % (40-80); PLATELET COUNT 82 10x3/uL (130-400); RDW 16.3 % (11.5-14.5)
[2018-09-26 04:18] LABS: WBC 8.7 10x3/uL (4.8-10.8)
[2018-09-26 04:36] LABS: PLATELET ESTIMATE DECREASED
[2018-09-26 04:48] LABS: CALCIUM 7.7 mg/dL (8.5-10.1); CARBON DIOXIDE 30.6 mmol/L (21.0-32.0); CHLORIDE - SERUM 105 mmol/L (98-107); CKMB 3.9 U/L (0.0-3.6); CREATINE KINASE 50 UL (21-232); CREATININE - SERUM 1.2 mg/dL (0.6-1.3); MAGNESIUM - SERUM 2.1 mg/dL (1.8-2.4); PRO BNP 834 pg/mL (0-125); SODIUM 143 mmol/L (136-145); UREA NITROGEN 23 mg/dL (7-18); eGFR NON AFRICAN AMERICAN 64 mL/min (90-120)
[2018-09-26 04:56] LABS: CALC OSMOLALITY 286 mosm/kg (275-300); GLUCOSE 62 mg/dL (74-106); TROPONIN-I 0.695 ng/mL (0.000-0.060)
[2018-09-26 05:42] VITALS: BP 94/62
[2018-09-26 07:43] VITALS: BP 88/62
--- NOTE | 2018-09-26 14:57 | OP ---
PATIENT NAME: CARLOS CULLEN MEDICAL RECORD: [id number] :54 LOCATION:D.M2 D.0 ADMISSION DATE:09/25/18 SURGEON: CHANTALE STRICKLAND MD DATE OF OPERATION: 09/25/2018 PROCEDURES: 1. PTCA and stent, left circumflex. 2. Intravascular ultrasound. 3. Left heart catheterization. 4. Selective coronary angiography. 5. Vein graft angiography. INDICATION: Unstable angina. PROCEDURE IN DETAIL: After informed consent was obtained with detailed description of risks and benefits as well as alternative therapies, the patient elected to proceed with angiogram and angioplasty. The right femoral area was prepped and draped in normal sterile fashion. The right femoral artery was cannulated via modified Seldinger technique with the placement of 6-[place] Island[place] sheath. All catheters were exchanged through this sheath. FINDINGS: Left ventriculogram performed in standard 30-degree BASHIR view reveals global hypokinesis throughout all segments. Overall ejection fraction in 15% to 20% range. SELECTIVE CORONARY ANGIOGRAPHY: 1. Left main is with no significant angiographic disease. 2. Left anterior descending has moderate irregularities, but no flow-limiting stenosis. 3. Left circumflex has previously placed stents. Intravascular ultrasound reveals that between the 2 stents, there is 74% stenosis. 4. Right coronary is totally occluded. 5. Vein graft to what appears to be diagonal is widely patent. The distal diagonal is small, diffusely diseased, and widely patent. PTCA AND STENT OF THE CIRCUMFLEX: The stent used was 4.0 x 18-mm Integrity. Result was 0% residual stenosis. OVERALL IMPRESSION: Successful PTCA and stent of the left circumflex, going from 74% initial stenosis confirmed by intravascular ultrasound to 0% residual stenosis. TRANSINT:[id number] Voice Confirmation ID: [id number] DOCUMENT ID: [id number] CHANTALE STRICKLAND MD at 1453 CC: [id number] DICTATION DATE: 09/25/18 1204 CARAMEL CUTTER HAND: 09/25/18 1231 [place] [address]
[2018-09-26 15:21] VITALS: BP 89/51
--- NOTE | 2018-09-26 16:34 | MORECARE ---
CASE MANAGEMENT DISCHARGE SUMMARY PATIENT: CARLOS CULLEN UNIT: [id number] ADM DATE: 09/25/18 AGE: 67 : 54 SEX: M ROOM/BED: D.2120 AUTHOR: JOSHUA FRANKLIN PHYSICIAN: REFERRING PHYSICIAN: LIZETH JOSHI DO DATE OF SERVICE: 09/26/18 Discharge Plan Patient Name: CARLOS CULLEN [facility] [facility] 1950 [facility] Disposition[facility] Anticipated Discharge Date: 09/27/18 Discharge Date: Expected LOS: 2 Initial Reviewer: [email or web address] Initial Review Date: 09/26/2018 Generated: 09/26/18 5:34 pm DCPIA - Discharge Planning Initial Assessment Updated by MYRTLE: Sherif Green on 09/26/18 4:28 pm * Is the patient Alert and Oriented? Yes * How many steps to enter\exit or inside your home? NONE * PCP DR JOSHI * Pharmacy [facility] * Preadmission Environment Home with Family * ADLs Independent * Equipment BIPAP Nebulizer Oxygen * Other Equipment HOME AND PORTABLE OXYGEN [facility] - PROVIDER * List name and contact numbers for known caregivers / representatives who currently or will assist patient after discharge: CARLOS CULLEN, SON, * Verbal permission to speak to the caregivers and representatives has been obtained from the patient. N/A * Community resources currently utilized None * Please name any agencies selected above. NONE * Additional services required to return to the preadmission environment? No * Can the patient safely return to the preadmission environment? Yes * Has this patient been hospitalized within the prior 30 days at any hospital? Yes External Providers External Provider: [facility] Next Contact Date: 09/27/2018 Service Request Date: Service Type: Resolution: Reviewer: Comments: External Provider: [facility] Next Contact Date: 09/26/2018 Service Request Date: Service Type: Resolution: Reviewer: Comments: Coverage Notice Reviewer: [email or web address] Boaz Green Notice Issued Date-Time: 09/26/2018 11:40 Notice Type: IM Discharge Notice Notice Delivered To: Patient Relationship to Patient: Business Solutions Analyst Name: Delivery Method: HAND - Hand Delivered Stefani Days: Prior Verbal Notification: Recipient Understood Notice: Yes Recipient Signature: Yes Med Rec Note Co-signed by Attending: Coverage Notice Comment: Reviewer: [email or web address] - Sherif Green Notice Issued Date-Time: 09/26/2018 11:40 Notice Type: Patient Choice Letter Notice Delivered To: Patient Relationship to Patient: Business Solutions Analyst Name: Delivery Method: HAND - Hand Delivered Stefani Days: Prior Verbal Notification: Recipient Understood Notice: Yes Recipient Signature: Yes Med Rec Note Co-signed by Attending: Coverage Notice Comment: [facility] Patient Name: CARLOS CULLEN Page [phone] at 1634 All edits/amendments must be made on the electronic document DICTATION DATE: 09/26/181632 FRUIT RANCHER: BEAN 09/26/18 163 RPT#: [id number] DC DATE: STATUS: ADM IN [facility] [address] [place] [address] END OF REPORT
--- NOTE | 2018-09-26 16:43 | MORECARE ---
CASE MANAGEMENT DISCHARGE SUMMARY PATIENT: CARLOS CULLEN UNIT: [id number] ADM DATE: 09/25/18 AGE: 67 : 52 SEX: M ROOM/BED: D.4990 AUTHOR: JOSHUA FRANKLIN PHYSICIAN: REFERRING PHYSICIAN: LIZETH JOSHI DO DATE OF SERVICE: 09/26/18 Discharge Plan Patient Name: CARLOS CULLEN Facility: [facility]:[place] : 1950 Planned Disposition: Care Home Facility Anticipated Discharge Date: 09/27/18 Discharge Date: Expected LOS: 2 Initial Reviewer: [id number] Initial Review Date: 09/26/2018 Generated: 09/26/18 5:43 pm Comments DCP- Discharge Planning Updated by [id number]: Sherif Green on 09/26/18 3:[address] Patient Name: CARLOS CULLEN Admission Status: ER Accout number: [id number] Admission Date: 09-25-2018 : 1950 Admission Diagnosis: Attending: Lizeth Joshi Current LOS: 1 Anticipated DC Date: 09-27-2018 Planned Disposition: Care Home Facility Primary Insurance: MEDICARE A & B PLANNED EXTERNAL PROVIDER: [facility] OR [facility], MEDICARE REHAB BED Discharge Planning Comments: CM RECEIVED ORDER FOR SHORT TERM REHAB PLACEMENT AND PLACEMENT OPTIONS. CM MET WITH PT IN ROOM TO DISCUSS DISCHARGE PLANNING AND NEEDS. PT REPORTS LIVING AT HOME INDEPENDENTLY WITH HIS ADULT SON, BUT IS LOOKING FOR A PLACE OF HIS OWN. PT REPORTS THAT HE FEELS THAT HE HAS BEEN A LOT FOR HIS FAMILY TO DEAL WITH, COMING IN AND OUT OF THE HOSPITAL AND FEELS THEY NEED A BREAK FROM HIM. PT HAS BIPAP, NEBULIZER, HOME AND PORTABLE OXGYEN FROM [facility]. PT HAS NO OUTSIDE SERVICES ASSISTING IN THE HOME. CM DISCUSSED AVAILABILITY OF HOME HEALTH, REHAB SERVICES AND MEDICAL EQUIPMENT. PT WOULD LIKE REHAB PLACEMENT AT EITHER [facility] OR [facility]. CHOICE SIGNED. PT REPORTS HE HAS AN APPOINTMENT WITHIN THE WEEK TO LOOK AT AN APARTMENT FOR HIMSELF. CM DISCUSSED INDEPENDENT AND ASSISTED LIVING APARTMENTS. PT REPORTS HE RECEIVES LONGTERM OF $1100 PER MONTH AND HE HAS HIS OWN BILLS TO PAY AND CANNOT AFFORD ASSISTED OR INDEPENDENT LIVING APARTMENTS. CM PROVIDED PT WITH FREE PLACEMENT REFERRAL SOURCE NUMBER FOR "A PLACE FOR MOM." PT STATES HE MAY CALL THEM FOR ASSISTANCE. IF DECLINED FOR REHAB, PT REPORTS HE CAN RETURN TO HIS SON'S HOME UNTIL HE FINDS OTHER ARRAGEMENTS. IMPORTANT MESSAGE FROM MEDICARE PROVIDED AND EXPLAINED. WHILE SENDING REFERRAL TO [facility] AT [phone] AND [facility] AT [phone], CM REVIEWED OCCUPATIONAL THERAPY EVALUATION THAT REPORTS PT IS WALKING INDEPENDENTLY WITHOUT ASSISTIVE DEVICE TO AND FROM THE [facility] ON THE FIRST FLOOR OF THE HOSPITAL. OCCUPATIONAL THERAPY RECOMMENDS "HOME" AT DISCHARGE. CM WAITING REHAB ADMISSION SCREENINGS FROM [facility] AND [facility]. CM NOTED THAT OCCUPATIONAL THERAPY EVALUATION RECOMMENDED "HOME" AT DISCHARGE. CM TO CONTINUE TO FOLLOW AND ASSIST NEEDED. Laundry Clerk: Sherif Green DCPIA - Discharge Planning Initial Assessment Updated by [id number]: Sherif Green on 09/26/18 4:28 pm * Is the patient Alert and Oriented? Yes * How many steps to enter\\exit or inside your home? NONE * PCP DR JOSHI * Pharmacy [facility] * Preadmission Environment Home with Family * ADLs Independent * Equipment BIPAP Nebulizer Oxygen * Other Equipment HOME AND PORTABLE OXYGEN [facility] - PROVIDER * List name and contact numbers for known caregivers / representatives who currently or will assist patient after discharge: CARLOS CULLEN, SON, * Verbal permission to speak to the caregivers and representatives has been obtained from the patient. N/A * Community resources currently utilized None * Please name any agencies selected above. NONE * Additional services required to return to the preadmission environment? No * Can the patient safely return to the preadmission environment? Yes * Has this patient been hospitalized within the prior 30 days at any hospital? Yes Coverage Notice Reviewer: [id number] Boaz Green Notice Issued Date-Time: 09/26/2018 11:40 Notice Type: IM Discharge Notice Notice Delivered To: Patient Relationship to Patient: Highway Research Engineer Name: Delivery Method: HAND - Hand Delivered Stefani Days: Prior Verbal Notification: Recipient Understood Notice: Yes Recipient Signature: Yes Med Rec Note Co-signed by Attending: Coverage Notice Comment: Reviewer: [id number] Green Notice Issued Date-Time: 09/26/2018 11:40 Notice Type: Patient Choice Letter Notice Delivered To: Patient Relationship to Patient: Highway Research Engineer Name: Delivery Method: HAND - Hand Delivered Stefani Days: Prior Verbal Notification: Recipient Understood Notice: Yes Recipient Signature: Yes Med Rec Note Co-signed by Attending: Coverage Notice Comment: [facility] Last DP export: 09/26/18 3:34 Patient Name: CARLOS CULLEN Page 28660 at 1643 All edits/amendments must be made on the electronic document DICTATION DATE: 09/26/181642 TUBING MILL OPERATOR: BEAN 09/26/181642 RPT#: [id number] DC DATE: STATUS: ADM IN [facility] [address] [place] [address] END OF REPORT
[2018-09-26 20:00] VITALS: BP 103/70
[2018-09-27] VITALS: BP 93/60
[2018-09-27 05:23] VITALS: BP 87/48
[2018-09-27 06:34] LABS: BASOPHILS 0.1 % (0-2); EOSINOPHILS 1.8 % (0-7); HEMATOCRIT 41.9 % (42.0-54.0); HEMOGLOBIN 14.3 g/dL (13.5-17.5); IMMATURE GRANULOCYTES 1.5 % (0-5); LYMPHOCYTES 17.2 % (15-50); MCH 30.6 pg (26.0-34.0); MCHC 34.1 g/dL (31.0-37.0); MCV 89.5 fL (80.0-100.0); MEAN PLATELET VOLUME 8.9 fL (7.4-10.4); MONOCYTES 7.1 % (2-11); NEUTROPHILS 72.3 % (40-80); PLATELET COUNT 81 10x3/uL (130-400); RBC 4.68 10x6/uL (4.20-6.10); RDW 16.6 % (11.5-14.5)
[2018-09-27 06:45] LABS: ALBUMIN 2.7 g/dL (3.4-5.0); ANION GAP 12.6 mmol/L (8-16); BILIRUBIN - TOTAL 0.46 mg/dL (0.2-1.3); CALCIUM 8.2 mg/dL (8.5-10.1); CARBON DIOXIDE 26.4 mmol/L (21.0-32.0); CREATININE - SERUM 1.2 mg/dL (0.6-1.3); MAGNESIUM - SERUM 2.3 mg/dL (1.8-2.4); PROTEIN - SERUM 5.8 g/dL (6.4-8.2)
[2018-09-27 08:33] VITALS: BP 114/70
[2018-09-27 12:05] VITALS: BP 84/54
--- NOTE | 2018-09-27 15:40 | MORECARE ---
CASE MANAGEMENT DISCHARGE SUMMARY PATIENT: CARLOS CULLEN UNIT: [id number] ADM DATE: 09/25/18 AGE: 67 : 52 SEX: M ROOM/BED: D.2625 AUTHOR: JOSHUA FRANKLIN PHYSICIAN: REFERRING PHYSICIAN: LIZETH JOSHI DO DATE OF SERVICE: 09/27/18 Discharge Plan Patient Name: CARLOS CULLEN Facility: [facility]:[place] : 1950 Planned Disposition: Halfway Facility Anticipated Discharge Date: 09/28/18 Discharge Date: Expected LOS: 3 Initial Reviewer: [id number] Initial Review Date: 09/26/2018 Generated: 09/27/18 4:40 pm Comments DCP- Discharge Planning Updated by [id number]: Sherif Green on 09/26/18 3:[address] Patient Name: CARLOS CULLEN Admission Status: ER Accout number: [id number] Admission Date: 09-25-2018 : 1950 Admission Diagnosis: Attending: Lizeth Joshi Current LOS: 1 Anticipated DC Date: 09-27-2018 Planned Disposition: Halfway Facility Primary Insurance: MEDICARE A & B PLANNED EXTERNAL PROVIDER: [facility] OR [facility], MEDICARE REHAB BED Discharge Planning Comments: CM RECEIVED ORDER FOR SHORT TERM REHAB PLACEMENT AND PLACEMENT OPTIONS. CM MET WITH PT IN ROOM TO DISCUSS DISCHARGE PLANNING AND NEEDS. PT REPORTS LIVING AT HOME INDEPENDENTLY WITH HIS ADULT SON, BUT IS LOOKING FOR A PLACE OF HIS OWN. PT REPORTS THAT HE FEELS THAT HE HAS BEEN A LOT FOR HIS FAMILY TO DEAL WITH, COMING IN AND OUT OF THE HOSPITAL AND FEELS THEY NEED A BREAK FROM HIM. PT HAS BIPAP, NEBULIZER, HOME AND PORTABLE OXGYEN FROM [facility]. PT HAS NO OUTSIDE SERVICES ASSISTING IN THE HOME. CM DISCUSSED AVAILABILITY OF HOME HEALTH, REHAB SERVICES AND MEDICAL EQUIPMENT. PT WOULD LIKE REHAB PLACEMENT AT EITHER [facility] OR [facility]. CHOICE SIGNED. PT REPORTS HE HAS AN APPOINTMENT WITHIN THE WEEK TO LOOK AT AN APARTMENT FOR HIMSELF. CM DISCUSSED INDEPENDENT AND ASSISTED LIVING APARTMENTS. PT REPORTS HE RECEIVES NURSING HOME OF $1100 PER MONTH AND HE HAS HIS OWN BILLS TO PAY AND CANNOT AFFORD ASSISTED OR INDEPENDENT LIVING APARTMENTS. CM PROVIDED PT WITH FREE PLACEMENT REFERRAL SOURCE NUMBER FOR "A PLACE FOR MOM." PT STATES HE MAY CALL THEM FOR ASSISTANCE. IF DECLINED FOR REHAB, PT REPORTS HE CAN RETURN TO HIS SON'S HOME UNTIL HE FINDS OTHER ARRAGEMENTS. IMPORTANT MESSAGE FROM MEDICARE PROVIDED AND EXPLAINED. WHILE SENDING REFERRAL TO THE [facility] AT [phone] AND [facility] AT [phone], CM REVIEWED OCCUPATIONAL THERAPY EVALUATION THAT REPORTS PT IS WALKING INDEPENDENTLY WITHOUT ASSISTIVE DEVICE TO AND FROM THE [facility] ON THE FIRST FLOOR OF THE HOSPITAL. OCCUPATIONAL THERAPY RECOMMENDS "HOME" AT DISCHARGE. CM WAITING REHAB ADMISSION SCREENINGS FROM [facility] AND [facility]. CM NOTED THAT OCCUPATIONAL THERAPY EVALUATION RECOMMENDED "HOME" AT DISCHARGE. CM TO CONTINUE TO FOLLOW AND ASSIST NEEDED. Car Stereo Installer: Sherif Green DCPIA - Discharge Planning Initial Assessment Updated by [id number]: Sherif Green on 09/26/18 4:28 pm * Is the patient Alert and Oriented? Yes * How many steps to enter\\exit or inside your home? NONE * PCP DR JOSHI * Pharmacy [facility] * Preadmission Environment Home with Family * ADLs Independent * Equipment BIPAP Nebulizer Oxygen * Other Equipment HOME AND PORTABLE OXYGEN [facility] - PROVIDER * List name and contact numbers for known caregivers / representatives who currently or will assist patient after discharge: CARLOS CULLEN, SON, * Verbal permission to speak to the caregivers and representatives has been obtained from the patient. N/A * Community resources currently utilized None * Please name any agencies selected above. NONE * Additional services required to return to the preadmission environment? No * Can the patient safely return to the preadmission environment? Yes * Has this patient been hospitalized within the prior 30 days at any hospital? Yes Coverage Notice Reviewer: [id number] Boaz Green Notice Issued Date-Time: 09/26/2018 11:40 Notice Type: IM Discharge Notice Notice Delivered To: Patient Relationship to Patient: Budget Director Name: Delivery Method: HAND - Hand Delivered Stefani Days: Prior Verbal Notification: Recipient Understood Notice: Yes Recipient Signature: Yes Med Rec Note Co-signed by Attending: Coverage Notice Comment: Reviewer: [id number] Green Notice Issued Date-Time: 09/26/2018 11:40 Notice Type: Patient Choice Letter Notice Delivered To: Patient Relationship to Patient: Budget Director Name: Delivery Method: HAND - Hand Delivered Stefani Days: Prior Verbal Notification: Recipient Understood Notice: Yes Recipient Signature: Yes Med Rec Note Co-signed by Attending: Coverage Notice Comment: [facility] Last DP export: 09/26/18 3:43 Patient Name: CARLOS CULLEN Page [id number] at 1540 All edits/amendments must be made on the electronic document DICTATION DATE: 09/27/181538 DECK ENGINE OPERATOR: BEAN 09/27/181538 RPT#: [id number] DC DATE: STATUS: ADM IN [facility] [address] [place] [address] END OF REPORT
[2018-09-27 15:52] VITALS: BP 115/61
--- NOTE | 2018-09-27 16:00 | MORECARE ---
CASE MANAGEMENT DISCHARGE SUMMARY PATIENT: CARLOS CULLEN UNIT: [id number] ADM DATE: 09/25/18 AGE: 67 : 52 SEX: M ROOM/BED: D.1560 AUTHOR: JOSHUA FRANKLIN PHYSICIAN: REFERRING PHYSICIAN: VALDO JOSHI DO DATE OF SERVICE: 09/27/18 Discharge Plan Patient Name: CARLOS CULLEN Facility: [facility]:[place] : 1950 Planned Disposition: [facility]cc Facility Anticipated Discharge Date: 09/28/18 Discharge Date: Expected LOS: 3 Initial Reviewer: [id number] Initial Review Date: 09/26/2018 Generated: 09/27/18 5:00 pm Comments DCP- Discharge Planning Updated by [id number]: Sherif Green on 09/27/18 2:[address] Patient Name: CARLOS CULLEN Encounter No: [id number] : 1950 Primary Insurance: MEDICARE A & B Anticipated DC Date: 09-28-2018 Planned Disposition: [facility] Facility External Planned Provider: [facility], MEDICARE REHAB BED DCP follow-up note: CM RECEIVED MESSAGE FROM MARISABEL OF [facility], [facility] WILL ACCEPT TOMORROW, 09-28-18 FOR REHAB. MARISABEL IS UNSURE IF PT WILL GO TO [place] OR [facility] AT THIS TIME. PT NOTIFIED AND IN AGREEMENT WITH DISCHARGE TO [facility] FOR REHAB TOMORROW. CM CALLED DR. JOSHI'S OFFICE, NOTIFIED ARIEL OF [facility] ACCEPTANCE FOR REHAB TOMORROW. FOR DISCHARGE TO REHAB ON 09-28-18, FOR DISCHARGE TO [facility] NURSING AND REHAB, FAX DISCHARGE INFORMATION TO [facility] AT [phone]; NURSE REPORT TO BE CALLED TO [facility] AT [phone]. [facility] TO ARRANGE VAN TRANSPORATION.. CHRIS Higginbotham DCP- Discharge Planning Updated by [id number]: Sherif Green on 09/26/18 3:[address] Patient Name: CARLOS CULLEN Admission Status: ER Accout number: [id number] Admission Date: 09-25-2018 : 1950 Admission Diagnosis: Attending: Valdo Joshi Current LOS: 1 Anticipated DC Date: 09-27-2018 Planned Disposition: [facility] Facility Primary Insurance: MEDICARE A & B PLANNED EXTERNAL PROVIDER: [facility] OR [facility], MEDICARE REHAB BED Discharge Planning Comments: CM RECEIVED ORDER FOR SHORT TERM REHAB PLACEMENT AND PLACEMENT OPTIONS. CM MET WITH PT IN ROOM TO DISCUSS DISCHARGE PLANNING AND NEEDS. PT REPORTS LIVING AT HOME INDEPENDENTLY WITH HIS ADULT SON, BUT IS LOOKING FOR A PLACE OF HIS OWN. PT REPORTS THAT HE FEELS THAT HE HAS BEEN A LOT FOR HIS FAMILY TO DEAL WITH, COMING IN AND OUT OF THE HOSPITAL AND FEELS THEY NEED A BREAK FROM HIM. PT HAS BIPAP, NEBULIZER, HOME AND PORTABLE OXGYEN FROM [employer]. PT HAS NO OUTSIDE SERVICES ASSISTING IN THE HOME. CM DISCUSSED AVAILABILITY OF HOME HEALTH, REHAB SERVICES AND MEDICAL EQUIPMENT. PT WOULD LIKE REHAB PLACEMENT AT EITHER [facility] OR [facility]. CHOICE SIGNED. PT REPORTS HE HAS AN APPOINTMENT WITHIN THE WEEK TO LOOK AT AN APARTMENT FOR HIMSELF. CM DISCUSSED INDEPENDENT AND ASSISTED LIVING APARTMENTS. PT REPORTS HE RECEIVES RESIDENTIAL OF $1100 PER MONTH AND HE HAS HIS OWN BILLS TO PAY AND CANNOT AFFORD ASSISTED OR INDEPENDENT LIVING APARTMENTS. CM PROVIDED PT WITH FREE PLACEMENT REFERRAL SOURCE NUMBER FOR "A PLACE FOR MOM." PT STATES HE MAY CALL THEM FOR ASSISTANCE. IF DECLINED FOR REHAB, PT REPORTS HE CAN RETURN TO HIS SON'S HOME UNTIL HE FINDS OTHER ARRAGEMENTS. IMPORTANT MESSAGE FROM MEDICARE PROVIDED AND EXPLAINED. WHILE SENDING REFERRAL TO [facility] AT [phone] AND [facility] AT [phone], CM REVIEWED OCCUPATIONAL THERAPY EVALUATION THAT REPORTS PT IS WALKING INDEPENDENTLY WITHOUT ASSISTIVE DEVICE TO AND FROM THE [facility] ON THE FIRST FLOOR OF THE HOSPITAL. OCCUPATIONAL THERAPY RECOMMENDS "HOME" AT DISCHARGE. CM WAITING REHAB ADMISSION SCREENINGS FROM [facility] AND [facility]. CM NOTED THAT OCCUPATIONAL THERAPY EVALUATION RECOMMENDED "HOME" AT DISCHARGE. CM TO CONTINUE TO FOLLOW AND ASSIST NEEDED. Digital Service Engineer: Sherif Green DCPIA - Discharge Planning Initial Assessment Updated by [id number]: Sherif Green on 09/26/18 4:28 pm * Is the patient Alert and Oriented? Yes * How many steps to enter\\exit or inside your home? NONE * PCP DR JOSHI * Pharmacy [facility] * Preadmission Environment Home with Family * ADLs Independent * Equipment BIPAP Nebulizer Oxygen * Other Equipment HOME AND PORTABLE OXYGEN [facility] - PROVIDER * List name and contact numbers for known caregivers / representatives who currently or will assist patient after discharge: CARLOS CULLEN, SON, * Verbal permission to speak to the caregivers and representatives has been obtained from the patient. N/A * Community resources currently utilized None * Please name any agencies selected above. NONE * Additional services required to return to the preadmission environment? No * Can the patient safely return to the preadmission environment? Yes * Has this patient been hospitalized within the prior 30 days at any hospital? Yes Coverage Notice Reviewer: [id number] Green Notice Issued Date-Time: 09/26/2018 11:40 Notice Type: IM Discharge Notice Notice Delivered To: Patient Relationship to Patient: Physician Gynecologist Name: Delivery Method: HAND - Hand Delivered Stefani Days: Prior Verbal Notification: Recipient Understood Notice: Yes Recipient Signature: Yes Med Rec Note Co-signed by Attending: Coverage Notice Comment: Reviewer: [id number] Green Notice Issued Date-Time: 09/26/2018 11:40 Notice Type: Patient Choice Letter Notice Delivered To: Patient Relationship to Patient: Physician Gynecologist Name: Delivery Method: HAND - Hand Delivered Stefani Days: Prior Verbal Notification: Recipient Understood Notice: Yes Recipient Signature: Yes Med Rec Note Co-signed by Attending: Coverage Notice Comment: [facility] Last DP export: 09/27/18 2:40 Patient Name: CARLOS CULLEN Page [id number] at 1600 All edits/amendments must be made on the electronic document DICTATION DATE: 09/27/18 1600 HAIRSPRING STUDDER: BEAN 09/27/18 1600 RPT#: [id number] DC DATE: STATUS: ADM IN [facility] [address] [place] [address] END OF REPORT
--- NOTE | 2018-09-27 17:09 | MORECARE ---
CASE MANAGEMENT DISCHARGE SUMMARY PATIENT: CARLOS CULLEN UNIT: [id number] ADM DATE: 09/25/18 AGE: 67 : [birth year] SEX: M ROOM/BED: D.7410 AUTHOR: JOSHUA FRANKLIN PHYSICIAN: REFERRING PHYSICIAN: VALDO JOSHI DO DATE OF SERVICE: 09/27/18 Discharge Plan Patient Name: CARLOS CULLEN Facility: [facility]:[place] : 1950 Planned Disposition: Care Home Facility Anticipated Discharge Date: 09/28/18 Discharge Date: Expected LOS: 3 Initial Reviewer: [id number] Initial Review Date: 09/26/2018 Generated: 09/27/18 6:09 pm Comments DCP- Discharge Planning Updated by [id number]: Sherif Green on 09/27/18 4:[address] Patient Name: CARLOS CULLEN Encounter No: [id number] : 1950 Primary Insurance: MEDICARE A & B Anticipated DC Date: 09-28-2018 Planned Disposition: Care Home Facility External Planned Provider: [facility]; MEDICARE REHAB BED DCP follow-up note: CM RECEIVED MESSAGE FOR NURSE TO CONTACT [facility] WHEN DISCHARGE ORDERS ARE RECEIVED ON 09-28-18 FOR REPORT AND TRANSPORTATION ARRANGEMENTS. FOR DISCHARGE, FAX DISCHARGE INFORMATION TO THE [facility], , NURSE REPORT TO BE CALLED TO [facility] AT [phone]. [facility] TO ARRANGE VAN TRANSPORT. CHRIS Higginbotham DCP- Discharge Planning Updated by [id number]: Sherif Green on 09/27/18 2:[address] Patient Name: CARLOS CULLEN Encounter No: [id number] : 1950 Primary Insurance: MEDICARE A & B Anticipated DC Date: 09-28-2018 Planned Disposition: Care Home Facility External Planned Provider: [facility], MEDICARE REHAB BED DCP follow-up note: CM RECEIVED MESSAGE FROM MARISABEL OF [facility], [facility] WILL ACCEPT TOMORROW, 09-28-18 FOR REHAB. MARISABEL IS UNSURE IF PT WILL GO TO [place] OR [facility] AT THIS TIME. PT NOTIFIED AND IN AGREEMENT WITH DISCHARGE TO [facility] FOR REHAB TOMORROW. CM CALLED DR. JOSHI'S OFFICE, NOTIFIED ARIEL OF THE [facility] ACCEPTANCE FOR REHAB TOMORROW. FOR DISCHARGE TO REHAB ON 09-28-18, FOR DISCHARGE TO [facility], FAX DISCHARGE INFORMATION TO [facility] AT [phone]; NURSE REPORT TO BE CALLED TO [facility] AT [phone]. [facility] TO ARRANGE VAN TRANSPORATION.. Sherif Green, CASE MANAGEMENT DCP- Discharge Planning Updated by [id number]: Sherif Green on 09/26/18 3:[address] Patient Name: CARLOS CULLEN Admission Status: ER Accout number: [id number] Admission Date: 09-25-2018 : 1950 Admission Diagnosis: Attending: Valdo Joshi Current LOS: 1 Anticipated DC Date: 09-27-2018 Planned Disposition: Care Home Facility Primary Insurance: MEDICARE A & B PLANNED EXTERNAL PROVIDER: [facility] OR [facility], MEDICARE REHAB BED Discharge Planning Comments: CM RECEIVED ORDER FOR SHORT TERM REHAB PLACEMENT AND PLACEMENT OPTIONS. CM MET WITH PT IN ROOM TO DISCUSS DISCHARGE PLANNING AND NEEDS. PT REPORTS LIVING AT HOME INDEPENDENTLY WITH HIS ADULT SON, BUT IS LOOKING FOR A PLACE OF HIS OWN. PT REPORTS THAT HE FEELS THAT HE HAS BEEN A LOT FOR HIS FAMILY TO DEAL WITH, COMING IN AND OUT OF THE HOSPITAL AND FEELS THEY NEED A BREAK FROM HIM. PT HAS BIPAP, NEBULIZER, HOME AND PORTABLE OXGYEN FROM [employer]. PT HAS NO OUTSIDE SERVICES ASSISTING IN THE HOME. CM DISCUSSED AVAILABILITY OF HOME HEALTH, REHAB SERVICES AND MEDICAL EQUIPMENT. PT WOULD LIKE REHAB PLACEMENT AT EITHER [facility] OR [facility]. CHOICE SIGNED. PT REPORTS HE HAS AN APPOINTMENT WITHIN THE WEEK TO LOOK AT AN APARTMENT FOR HIMSELF. CM DISCUSSED INDEPENDENT AND ASSISTED LIVING APARTMENTS. PT REPORTS HE RECEIVES FDC OF $1100 PER MONTH AND HE HAS HIS OWN BILLS TO PAY AND CANNOT AFFORD ASSISTED OR INDEPENDENT LIVING APARTMENTS. CM PROVIDED PT WITH FREE PLACEMENT REFERRAL SOURCE NUMBER FOR "A PLACE FOR MOM." PT STATES HE MAY CALL THEM FOR ASSISTANCE. IF DECLINED FOR REHAB, PT REPORTS HE CAN RETURN TO HIS SON'S HOME UNTIL HE FINDS OTHER ARRAGEMENTS. IMPORTANT MESSAGE FROM MEDICARE PROVIDED AND EXPLAINED. WHILE SENDING REFERRAL TO [facility] AT [phone] AND [facility] AT [phone], CM REVIEWED OCCUPATIONAL THERAPY EVALUATION THAT REPORTS PT IS WALKING INDEPENDENTLY WITHOUT ASSISTIVE DEVICE TO AND FROM THE [facility] ON THE FIRST FLOOR OF THE HOSPITAL. OCCUPATIONAL THERAPY RECOMMENDS "HOME" AT DISCHARGE. CM WAITING REHAB ADMISSION SCREENINGS FROM [facility] AND [facility]. CM NOTED THAT OCCUPATIONAL THERAPY EVALUATION RECOMMENDED "HOME" AT DISCHARGE. CM TO CONTINUE TO FOLLOW AND ASSIST NEEDED. Can Runner: Sherif Norma DCPIA - Discharge Planning Initial Assessment Updated by [id number]: Sherif Green on 09/26/18 4:28 pm * Is the patient Alert and Oriented? Yes * How many steps to enter\\exit or inside your home? NONE * PCP DR JOSHI * Pharmacy [facility] * Preadmission Environment Home with Family * ADLs Independent * Equipment BIPAP Nebulizer Oxygen * Other Equipment HOME AND PORTABLE OXYGEN [facility] - PROVIDER * List name and contact numbers for known caregivers / representatives who currently or will assist patient after discharge: CARLOS CULLEN, SON, * Verbal permission to speak to the caregivers and representatives has been obtained from the patient. N/A * Community resources currently utilized None * Please name any agencies selected above. NONE * Additional services required to return to the preadmission environment? No * Can the patient safely return to the preadmission environment? Yes * Has this patient been hospitalized within the prior 30 days at any hospital? Yes Coverage Notice Reviewer: [id number] Boaz Green Notice Issued Date-Time: 09/26/2018 11:40 Notice Type: IM Discharge Notice Notice Delivered To: Patient Relationship to Patient: Pepper Cutter Name: Delivery Method: HAND - Hand Delivered Stefani Days: Prior Verbal Notification: Recipient Understood Notice: Yes Recipient Signature: Yes Med Rec Note Co-signed by Attending: Coverage Notice Comment: Reviewer: [id number] Boaz Green Notice Issued Date-Time: 09/26/2018 11:40 Notice Type: Patient Choice Letter Notice Delivered To: Patient Relationship to Patient: Pepper Cutter Name: Delivery Method: HAND - Hand Delivered Stefani Days: Prior Verbal Notification: Recipient Understood Notice: Yes Recipient Signature: Yes Med Rec Note Co-signed by Attending: Coverage Notice Comment: [facility] OR [facility] Last DP export: 09/27/18 3:00 Patient Name: CARLOS CULLEN Page 46070 at 1709 All edits/amendments must be made on the electronic document DICTATION DATE: 09/27/181707 ARCHITECTURAL ASSOCIATE: BEAN 09/27/181707 RPT#: [id number] DC DATE: STATUS: ADM IN [facility] [address] [place] [address] END OF REPORT
[2018-09-27 20:50] VITALS: BP 114/63
[2018-09-28 01:30] VITALS: BP 103/58
[2018-09-28 06:14] VITALS: BP 89/52
[2018-09-28 10:19] VITALS: BP 102/66
--- NOTE | 2018-09-30 10:38 | MORECARE ---
CASE MANAGEMENT DISCHARGE SUMMARY PATIENT: CARLOS CULLEN UNIT: [id number] ADM DATE: 09/25/18 AGE: 67 : [birth year] SEX: M ROOM/BED: D.2120 AUTHOR: JOSHUA FRANKLIN PHYSICIAN: REFERRING PHYSICIAN: VALDO JOSHI DO DATE OF SERVICE: 09/30/18 Discharge Plan Patient Name: CARLOS CULLEN Facility: [facility]:[place] : 1950 Planned Disposition: Assisted Facility Anticipated Discharge Date: 09/28/18 Discharge Date: 09/28/2018 Expected LOS: 3 Initial Reviewer: [email or web address] Initial Review Date: 09/26/2018 Generated: 09/30/18 11:38 am Comments DCP- Discharge Planning Updated by [email or web address]: Sherif Green on 09/27/18 4:[address] Patient Name: CARLOS CULLEN Encounter No: [id number] : 1950 Primary Insurance: MEDICARE A & B Anticipated DC Date: 09-28-2018 Planned Disposition: Assisted Facility External Planned Provider: [facility]; [facility]ICARE REHAB [facility] DCP follow-up note: CM RECEIVED MESSAGE FOR NURSE TO CONTACT [facility] WHEN DISCHARGE ORDERS ARE RECEIVED ON 09-28-18 FOR REPORT AND TRANSPORTATION ARRANGEMENTS. FOR DISCHARGE, FAX DISCHARGE INFORMATION TO THE [facility], , NURSE REPORT TO BE CALLED TO [facility] AT [phone]. [facility] TO ARRANGE VAN TRANSPORT. CHRIS Higginbotham DCP- Discharge Planning Updated by [id number]: Sherif Green on 09/27/18 2:[address] Patient Name: CARLOS CULLEN Encounter No: [id number] : 1950 Primary Insurance: MEDICARE A & B Anticipated DC Date: 09-28-2018 Planned Disposition: Assisted Facility External Planned Provider: [facility], MEDICARE REHAB BED DCP follow-up note: CM RECEIVED MESSAGE FROM MARISABEL OF [facility], [facility] WILL ACCEPT TOMORROW, 09-28-18 FOR REHAB. MARISABEL IS UNSURE IF PT WILL GO TO [facility] AT THIS TIME. PT NOTIFIED AND IN AGREEMENT WITH DISCHARGE TO [facility] FOR REHAB TOMORROW. CM CALLED DR. JOSHI'S OFFICE, NOTIFIED ARIEL OF THE [facility] ACCEPTANCE FOR REHAB TOMORROW. FOR DISCHARGE TO REHAB ON 09-28-18, FOR DISCHARGE TO [facility], FAX DISCHARGE INFORMATION TO THE [facility] AT [phone]; NURSE REPORT TO BE CALLED TO [facility] AT [phone]. [facility] TO ARRANGE VAN TRANSPORATION.. Sherif Green, CASE MANAGEMENT DCP- Discharge Planning Updated by [id number]: Sherif Green on 09/26/18 3:[address] Patient Name: CARLOS CULLEN Admission Status: ER Accout number: [id number] Admission Date: 09-25-2018 : 1950 Admission Diagnosis: Attending: Valdo Joshi Current LOS: 1 Anticipated DC Date: 09-27-2018 Planned Disposition: Assisted Facility Primary Insurance: MEDICARE A & B PLANNED EXTERNAL PROVIDER: [facility] OR [facility], MEDICARE REHAB BED Discharge Planning Comments: CM RECEIVED ORDER FOR SHORT TERM REHAB PLACEMENT AND PLACEMENT OPTIONS. CM MET WITH PT IN ROOM TO DISCUSS DISCHARGE PLANNING AND NEEDS. PT REPORTS LIVING AT HOME INDEPENDENTLY WITH HIS ADULT SON, BUT IS LOOKING FOR A PLACE OF HIS OWN. PT REPORTS THAT HE FEELS THAT HE HAS BEEN A LOT FOR HIS FAMILY TO DEAL WITH, COMING IN AND OUT OF THE HOSPITAL AND FEELS THEY NEED A BREAK FROM HIM. PT HAS BIPAP, NEBULIZER, HOME AND PORTABLE OXGYEN FROM [employer]. PT HAS NO OUTSIDE SERVICES ASSISTING IN THE HOME. CM DISCUSSED AVAILABILITY OF HOME HEALTH, REHAB SERVICES AND MEDICAL EQUIPMENT. PT WOULD LIKE REHAB PLACEMENT AT EITHER [facility] OR [facility]. CHOICE SIGNED. PT REPORTS HE HAS AN APPOINTMENT WITHIN THE WEEK TO LOOK AT AN APARTMENT FOR HIMSELF. CM DISCUSSED INDEPENDENT AND ASSISTED LIVING APARTMENTS. PT REPORTS HE RECEIVES SENIOR LIVING OF $1100 PER MONTH AND HE HAS HIS OWN BILLS TO PAY AND CANNOT AFFORD ASSISTED OR INDEPENDENT LIVING APARTMENTS. CM PROVIDED PT WITH FREE PLACEMENT REFERRAL SOURCE NUMBER FOR "[facility]." PT STATES HE MAY CALL THEM FOR ASSISTANCE. IF DECLINED FOR REHAB, PT REPORTS HE CAN RETURN TO HIS SON'S HOME UNTIL HE FINDS OTHER ARRAGEMENTS. IMPORTANT MESSAGE FROM MEDICARE PROVIDED AND EXPLAINED. WHILE SENDING REFERRAL TO [facility] AT [phone] AND [facility] AT [phone], CM REVIEWED OCCUPATIONAL THERAPY EVALUATION THAT REPORTS PT IS WALKING INDEPENDENTLY WITHOUT ASSISTIVE DEVICE TO AND FROM THE [facility] ON THE FIRST FLOOR OF THE HOSPITAL. OCCUPATIONAL THERAPY RECOMMENDS "HOME" AT DISCHARGE. CM WAITING REHAB ADMISSION SCREENINGS FROM [facility] AND [facility]. CM NOTED THAT OCCUPATIONAL THERAPY EVALUATION RECOMMENDED "HOME" AT DISCHARGE. CM TO CONTINUE TO FOLLOW AND ASSIST NEEDED. Criminal Justice Professor: Sherif Green DCPIA - Discharge Planning Initial Assessment Updated by [id number]: Sherif Green on 09/26/18 4:28 pm * Is the patient Alert and Oriented? Yes * How many steps to enter\\exit or inside your home? NONE * PCP DR JOSHI * Pharmacy [facility] * Preadmission Environment Home with Family * ADLs Independent * Equipment BIPAP Nebulizer Oxygen * Other Equipment HOME AND PORTABLE OXYGEN [employer] - PROVIDER * List name and contact numbers for known caregivers / representatives who currently or will assist patient after discharge: CARLOS CULLEN, SON, * Verbal permission to speak to the caregivers and representatives has been obtained from the patient. N/A * Community resources currently utilized None * Please name any agencies selected above. NONE * Additional services required to return to the preadmission environment? No * Can the patient safely return to the preadmission environment? Yes * Has this patient been hospitalized within the prior 30 days at any hospital? Yes Coverage Notice Reviewer: [id number] Boaz rGeen Notice Issued Date-Time: 09/26/2018 11:40 Notice Type: IM Discharge Notice Notice Delivered To: Patient Relationship to Patient: Supervisor Paper Products Name: Delivery Method: HAND - Hand Delivered Stefani Days: Prior Verbal Notification: Recipient Understood Notice: Yes Recipient Signature: Yes Med Rec Note Co-signed by Attending: Coverage Notice Comment: Reviewer: [email or web address] Boaz Green Notice Issued Date-Time: 09/26/2018 11:40 Notice Type: Patient Choice Letter Notice Delivered To: Patient Relationship to Patient: Supervisor Paper Products Name: Delivery Method: HAND - Hand Delivered Stefani Days: Prior Verbal Notification: Recipient Understood Notice: Yes Recipient Signature: Yes Med Rec Note Co-signed by Attending: Coverage Notice Comment: [facility] OR [facility] Last DP export: 09/27/18 4:09 Patient Name: CARLOS CULLEN Page [phone] at 1038 All edits/amendments must be made on the electronic document DICTATION DATE: 09/30/18 1037 SALVAGE DIVER: BEAN 09/30/18 1037 RPT#: [id number] DC DATE:09/28/18 STATUS: DIS IN [facility] [address] [place] [address] END OF REPORT
== END 2018-09-28 10:47 | DRG 249 ==
LOC: D.ER 21:54 → D.M3 09-25 01:50 → D.EDHOLD 09-25 01:50 → D.M2 09-25 01:50 → D.M3 09-25 02:52 → D.M2 09-25 10:52
PROVIDERS: Family Medicine; Internal Medicine Interventional Cardiology; ADMIT Family Medicine
PROC: 4A023N7 Measurement of Cardiac Sampling and Pressure, Left Heart, Percutaneous Approach (ICD-10-PCS; 2018-09-25)
PROC: B2111ZZ Fluoroscopy of Multiple Coronary Arteries using Low Osmolar Contrast (ICD-10-PCS; 2018-09-25)
PROC: B2151ZZ Fluoroscopy of Left Heart using Low Osmolar Contrast (ICD-10-PCS; 2018-09-25)
PROC: B2131ZZ Fluoroscopy of Multiple Coronary Artery Bypass Grafts using Low Osmolar Contrast (ICD-10-PCS; 2018-09-25)
PROC: 02703DZ Dilation of Coronary Artery, One Artery with Intraluminal Device, Percutaneous Approach (ICD-10-PCS; principal; 2018-09-25 10:54)
PROC: B240ZZ3 Ultrasonography of Single Coronary Artery, Intravascular (ICD-10-PCS; 2018-09-25 10:54)
DX: I25.110 Atherosclerotic heart disease of native coronary artery with unstable angina pectoris (principal); I50.22 Chronic systolic (congestive) heart failure; J44.9 Chronic obstructive pulmonary disease, unspecified; E11.9 Type 2 diabetes mellitus without complications; I25.5 Ischemic cardiomyopathy; Z87.891 Personal history of nicotine dependence

== ENCOUNTER 2018-10-05 18:49 | Emergency (ER) | payer MEDICARE ==
[~2018-10-05] VITALS: Ht 172.7 cm; Wt 95.0 kg
[~2018-10-05 18:49] MED LIST changes: +BAYER CHEWABLE81 MG PO; +TRESIBA FL100 UNIT/1 SC; +VICTOZA0.6 MG/0.1 SQ
[2018-10-05 18:59] VITALS: Ht 172.7 cm; Wt 95.0 kg
[2018-10-05 19:49] LABS: BASOPHILS 0.2 % (0-2); EOSINOPHILS 3.8 % (0-7); HEMATOCRIT 41.7 % (42.0-54.0); HEMOGLOBIN 14.3 g/dL (13.5-17.5); IMMATURE GRANULOCYTES 0.3 % (0-5); MCH 30.8 pg (26.0-34.0); MCHC 34.3 g/dL (31.0-37.0); MCV 89.7 fL (80.0-100.0); MEAN PLATELET VOLUME 8.3 fL (7.4-10.4); MONOCYTES 8.4 % (2-11); NEUTROPHILS 73.3 % (40-80); RBC 4.65 10x6/uL (4.20-6.10); RDW 15.6 % (11.5-14.5); WBC 6.3 10x3/uL (4.8-10.8)
[2018-10-05 19:51] LABS: PLATELET COUNT 133 10x3/uL (130-400)
[2018-10-05 20:13] LABS: ALBUMIN 3.1 g/dL (3.4-5.0); ALKALINE PHOSPHATASE 63 U/L (46-116); ALT (SGPT) 36 U/L (10-68); BILIRUBIN - TOTAL 0.51 mg/dL (0.2-1.3); CALC OSMOLALITY 280 mosm/kg (275-300); CARBON DIOXIDE 29.5 mmol/L (21.0-32.0); CHLORIDE - SERUM 102 mmol/L (98-107); CREATININE - SERUM 1.6 mg/dL (0.6-1.3); GLUCOSE 137 mg/dL (74-106); POTASSIUM - SERUM 3.9 mmol/L (3.5-5.1); PROTEIN - SERUM 7.4 g/dL (6.4-8.2); SODIUM 140 mmol/L (136-145); UREA NITROGEN 12 mg/dL (7-18); eGFR NON AFRICAN AMERICAN 46 mL/min (90-120)
[2018-10-05 20:18] LABS: CKMB 1.3 U/L (0.0-3.6); CREATINE KINASE 65 UL (21-232); MAGNESIUM - SERUM 2.2 mg/dL (1.8-2.4)
[2018-10-05 20:19] LABS: TROPONIN-I 0.381 ng/mL (0.000-0.060)
[2018-10-05 22:26] VITALS: BP 152/79
== END 2018-10-05 22:28 | disposition home or self-care (01) ==
LOC: D.ER 18:49
PROVIDERS: Family Medicine
DX: R53.1 Weakness (principal); I25.10 Atherosclerotic heart disease of native coronary artery without angina pectoris; R19.7 Diarrhea, unspecified; N28.9 Disorder of kidney and ureter, unspecified

== ENCOUNTER 2018-10-07 20:36 | Observation (INO) | payer MEDICARE ==
[~2018-10-07] VITALS: Ht 172.7 cm; Wt 95.0 kg
[2018-10-07 21:29] LABS: BASOPHILS 0.3 % (0-2); EOSINOPHILS 4.9 % (0-7); HEMATOCRIT 39.1 % (42.0-54.0); HEMOGLOBIN 13.5 g/dL (13.5-17.5); IMMATURE GRANULOCYTES 0.3 % (0-5); LYMPHOCYTES 20.8 % (15-50); MCH 30.5 pg (26.0-34.0); MCHC 34.5 g/dL (31.0-37.0); MCV 88.5 fL (80.0-100.0); MEAN PLATELET VOLUME 8.3 fL (7.4-10.4); MONOCYTES 9.5 % (2-11); NEUTROPHILS 64.2 % (40-80); PLATELET COUNT 154 10x3/uL (130-400); RBC 4.42 10x6/uL (4.20-6.10); RDW 15.1 % (11.5-14.5); WBC 5.9 10x3/uL (4.8-10.8)
[2018-10-07 21:47] LABS: ANION GAP 14.7 mmol/L (8-16); BILIRUBIN - TOTAL 0.37 mg/dL (0.2-1.3); CALCIUM 8.7 mg/dL (8.5-10.1); CARBON DIOXIDE 28.4 mmol/L (21.0-32.0); CREATININE - SERUM 1.5 mg/dL (0.6-1.3); POTASSIUM - SERUM 4.1 mmol/L (3.5-5.1); PROTEIN - SERUM 7.2 g/dL (6.4-8.2)
[2018-10-07 22:09] LABS: TROPONIN-I 0.33 ng/mL (0.000-0.060)
[2018-10-07 22:22] LABS: APPEARANCE CLEAR (CLEAR); COLOR YELLOW (YELLOW)
[2018-10-07 22:23] LABS: BILIRUBIN NEGATIVE (NEGATIVE); GLUCOSE NEGATIVE (NEGATIVE); KETONE NEGATIVE (NEGATIVE); NITRITE NEGATIVE (NEGATIVE); PROTEIN 1+ mg/dL (NEGATIVE); RED CELLS - URINE NONE SEEN /hpf (0-5); SPECIFIC GRAVITY 1.015 (1.005-1.020); UROBILINOGEN NORMAL (NORMAL); WHITE CELLS - URINE NSEEN /hpf (0-5)
[2018-10-07 23:40] VITALS: BP 123/77
[2018-10-08] VITALS (7 sets, daily range): BP systolic 90–131; BP diastolic 48–79; Ht 172.7 cm; Wt 95.0 kg
[2018-10-08 04:58] LABS: BASOPHILS 0.4 % (0-2); EOSINOPHILS 5.2 % (0-7); IMMATURE GRANULOCYTES 0.5 % (0-5); LYMPHOCYTES 23.3 % (15-50); MCH 30.3 pg (26.0-34.0); MCHC 34.2 g/dL (31.0-37.0); MCV 88.6 fL (80.0-100.0); MEAN PLATELET VOLUME 8.7 fL (7.4-10.4); MONOCYTES 11.9 % (2-11); NEUTROPHILS 58.7 % (40-80); PLATELET COUNT 168 10x3/uL (130-400); RBC 4.29 10x6/uL (4.20-6.10); RDW 15.1 % (11.5-14.5); WBC 5.6 10x3/uL (4.8-10.8)
[2018-10-08 05:34] LABS: ANION GAP 12.3 mmol/L (8-16); CALCIUM 8.5 mg/dL (8.5-10.1); CARBON DIOXIDE 27.3 mmol/L (21.0-32.0); CREATININE - SERUM 1.5 mg/dL (0.6-1.3); POTASSIUM - SERUM 3.6 mmol/L (3.5-5.1)
[2018-10-08 05:45] LABS: TROPONIN-I 0.351 ng/mL (0.000-0.060)
[2018-10-08 09:47] LABS: CKMB 1.4 U/L (0.0-3.6); CREATINE KINASE 72 UL (21-232)
[2018-10-08 15:02] LABS: CKMB 1.3 U/L (0.0-3.6); CREATINE KINASE 55 UL (21-232)
[2018-10-08 15:07] LABS: TROPONIN-I 0.331 ng/mL (0.000-0.060)
[2018-10-08 19:44] LABS: CKMB 1.3 U/L (0.0-3.6); CREATINE KINASE 58 UL (21-232)
[2018-10-08 19:59] LABS: TROPONIN-I 0.348 ng/mL (0.000-0.060)
[2018-10-09] VITALS: BP 98/51
[2018-10-09 04:00] VITALS: BP 105/64
[2018-10-09 05:47] LABS: BASOPHILS 0.9 % (0-2); HEMOGLOBIN 12.8 g/dL (13.5-17.5); IMMATURE GRANULOCYTES 0.4 % (0-5); LYMPHOCYTES 22.8 % (15-50); MCH 30.3 pg (26.0-34.0); MCHC 33.7 g/dL (31.0-37.0); MCV 89.8 fL (80.0-100.0); MEAN PLATELET VOLUME 8.4 fL (7.4-10.4); MONOCYTES 13.1 % (2-11); NEUTROPHILS 57.8 % (40-80); PLATELET COUNT 190 10x3/uL (130-400); RBC 4.23 10x6/uL (4.20-6.10); RDW 15.1 % (11.5-14.5); WBC 5.7 10x3/uL (4.8-10.8)
[2018-10-09 06:14] LABS: ALBUMIN 2.7 g/dL (3.4-5.0); ANION GAP 14.3 mmol/L (8-16); BILIRUBIN - TOTAL 0.38 mg/dL (0.2-1.3); CALCIUM 8.1 mg/dL (8.5-10.1); CARBON DIOXIDE 26.4 mmol/L (21.0-32.0); CREATININE - SERUM 1.4 mg/dL (0.6-1.3); MAGNESIUM - SERUM 2.2 mg/dL (1.8-2.4); PHOSPHOROUS 2.7 mg/dL (2.5-4.9); POTASSIUM - SERUM 3.7 mmol/L (3.5-5.1); PROTEIN - SERUM 6.8 g/dL (6.4-8.2)
[2018-10-09] MEDS ORDERED: RANEXA1000 MG PO (06:52)
[2018-10-09 07:00] VITALS: BP 103/64
[2018-10-09 11:00] VITALS: BP 87/55
--- NOTE | 2018-10-09 11:18 | MORECARE ---
CASE MANAGEMENT DISCHARGE SUMMARY PATIENT: CARLOS CULLEN UNIT: [id number] ADM DATE: 10/07/18 AGE: 67 : 54 SEX: M ROOM/BED: D.2116 AUTHOR: JOSHUA FRANKLIN PHYSICIAN: REFERRING PHYSICIAN: LIZETH JOSHI DO DATE OF SERVICE: 10/09/18 Discharge Plan Patient Name: CARLOS CULLEN Facility: [facility]:[place] : 1950 Planned Disposition: Residential Facility Anticipated Discharge Date: 10/09/18 Discharge Date: Expected LOS: 2 Initial Reviewer: [email or web address] Initial Review Date: 10/09/2018 Generated: 10/09/18 12:18 pm Comments DCP- Discharge Planning Updated by [email or web address]: Sherif Green on 10/09/18 10:[address] Patient Name: CARLOS CULLEN Encounter No: [id number] : 1950 Primary Insurance: MEDICARE A & B Anticipated DC Date: 10-09-2018 Planned Disposition: Residential Facility External Planned Provider: [facility]; MEDICARE REHAB BED DISCHARGE PLANNING NOTE: Discharge orders and hospital observation information faxed to [facility] via [employer] at [phone]. CM notified Jennifer via phone at [phone]. Patient notified and in agreement with discharge back to [facility]. NURSE REPORT TO BE CALLED TO THE [facility] AT [phone]. PT TO TRANSPORT VIA LONG TERM VAN. CHRIS Higginbotham DCPIA - Discharge Planning Initial Assessment Updated by [email or web address]: Sherif Green on 10/09/18 11:14 am * Preadmission Environment Residential Facility * Facility Name [facility] * ADLs Partial Dependent * Partial ADLs (Assistance needed) Ambulation Bathing Medication Management Transfers * Equipment Other * Other Equipment ALL MEDICAL EQUIPMENT PROVIDED BY FACILITY External Providers External Provider: [facility] [place] Next Contact Date: 10/09/2018 Service Request Date: Service Type: Resolution: Reviewer: Comments: Coverage Notice Reviewer: [id number] Boaz Sapp Notice Issued Date-Time: 10/08/2018 16:02 Notice Type: Medicare Outpatient Observation Notice Notice Delivered To: Patient Relationship to Patient: Self Fruit Picker Name: Delivery Method: HAND - Hand Delivered Stefani Days: Prior Verbal Notification: Recipient Understood Notice: Yes Recipient Signature: Yes Med Rec Note Co-signed by Attending: Coverage Notice Comment: Patient Name: CARLOS CULLEN Page [phone] at 1118 All edits/amendments must be made on the electronic document DICTATION DATE: 10/09/181117 EQUIPMENT MECHANIC SPECIALIST: BEAN 10/09/181117 RPT#: [id number] DC DATE: STATUS: ADM IN [facility] [address] [place] [address] END OF REPORT
[2018-10-09 12:04] VITALS: BP 94/58
== END 2018-10-09 12:32 | disposition home or self-care (01) ==
LOC: D.ER 20:36 → D.EDHOLD 23:20 → OBSVTIME 23:20 → D.M2 10-08 00:20
PROVIDERS: Family Medicine; ADMIT Family Medicine
DX: R07.9 Chest pain, unspecified (principal); I25.10 Atherosclerotic heart disease of native coronary artery without angina pectoris; Z95.1 Presence of aortocoronary bypass graft; Z95.5 Presence of coronary angioplasty implant and graft; Z87.891 Personal history of nicotine dependence; I25.5 Ischemic cardiomyopathy; I11.0 Hypertensive heart disease with heart failure; I50.22 Chronic systolic (congestive) heart failure; E11.9 Type 2 diabetes mellitus without complications; E78.5 Hyperlipidemia, unspecified; J44.9 Chronic obstructive pulmonary disease, unspecified; R79.89 Other specified abnormal findings of blood chemistry

== ENCOUNTER 2018-10-13 22:41 | Emergency (ER) | payer MEDICARE ==
[~2018-10-13] VITALS: Ht 172.7 cm; Wt 93.2 kg
[~2018-10-13 22:41] MED LIST changes: +RANEXA1000 MG PO
[2018-10-13 22:43] VITALS: Ht 172.7 cm; Wt 93.2 kg
[2018-10-13 23:20] LABS: BASOPHILS 0.5 % (0-2); HEMATOCRIT 43.5 % (42.0-54.0); HEMOGLOBIN 15.2 g/dL (13.5-17.5); IMMATURE GRANULOCYTES 0.8 % (0-5); LYMPHOCYTES 21.8 % (15-50); MCH 30.9 pg (26.0-34.0); MCHC 34.9 g/dL (31.0-37.0); MCV 88.4 fL (80.0-100.0); MEAN PLATELET VOLUME 8.5 fL (7.4-10.4); MONOCYTES 8.9 % (2-11); PLATELET COUNT 227 10x3/uL (130-400); RBC 4.92 10x6/uL (4.20-6.10); RDW 14.9 % (11.5-14.5); WBC 6.1 10x3/uL (4.8-10.8)
[2018-10-13 23:25] LABS: APTT 30.1 SECONDS (22.8-39.4); INR 1.2 (0.85-1.17); PROTIME 14.6 SECONDS (11.6-15.0)
[2018-10-13 23:29] LABS: ALBUMIN 3.5 g/dL (3.4-5.0); ALKALINE PHOSPHATASE 60 U/L (46-116); ALT (SGPT) 36 U/L (10-68); BILIRUBIN - TOTAL 0.52 mg/dL (0.2-1.3); CALC OSMOLALITY 284 mosm/kg (275-300); CALCIUM 9.9 mg/dL (8.5-10.1); CARBON DIOXIDE 31.4 mmol/L (21.0-32.0); CHLORIDE - SERUM 103 mmol/L (98-107); CREATININE - SERUM 1.5 mg/dL (0.6-1.3); GLUCOSE 120 mg/dL (74-106); POTASSIUM - SERUM 3.9 mmol/L (3.5-5.1); PROTEIN - SERUM 8.1 g/dL (6.4-8.2); SODIUM 143 mmol/L (136-145); UREA NITROGEN 11 mg/dL (7-18); eGFR NON AFRICAN AMERICAN 50 mL/min (90-120)
[2018-10-13 23:44] LABS: CKMB 1.5 U/L (0.0-3.6); CREATINE KINASE 67 UL (21-232); MAGNESIUM - SERUM 2.2 mg/dL (1.8-2.4); PRO BNP 752 pg/mL (0-125)
[2018-10-13 23:45] LABS: TROPONIN-I 0.364 ng/mL (0.000-0.060)
[2018-10-14 03:02] VITALS: BP 101/74
== END 2018-10-14 03:03 ==
LOC: D.ER 22:41
PROVIDERS: Family Medicine
DX: R79.89 Other specified abnormal findings of blood chemistry (principal); T82.9XXA Unspecified complication of cardiac and vascular prosthetic device, implant and graft, initial encounter; R51 Headache; E11.9 Type 2 diabetes mellitus without complications; J44.9 Chronic obstructive pulmonary disease, unspecified; I25.10 Atherosclerotic heart disease of native coronary artery without angina pectoris; I42.9 Cardiomyopathy, unspecified

== ENCOUNTER 2018-11-23 16:11 | Inpatient (IN) | payer MEDICARE ==
[~2018-11-23] VITALS: Ht 172.7 cm; Wt 91.8 kg
[2018-11-23 17:46] LABS: BASOPHILS 0.9 % (0-2); EOSINOPHILS 4.7 % (0-7); HEMATOCRIT 44.5 % (42.0-54.0); IMMATURE GRANULOCYTES 0.3 % (0-5); LYMPHOCYTES 20.3 % (15-50); MCH 30.3 pg (26.0-34.0); MCHC 33.7 g/dL (31.0-37.0); MCV 89.9 fL (80.0-100.0); MONOCYTES 5.6 % (2-11); NEUTROPHILS 68.2 % (40-80); RBC 4.95 10x6/uL (4.20-6.10); RDW 15.7 % (11.5-14.5); WBC 5.8 10x3/uL (4.8-10.8)
[2018-11-23 17:48] LABS: PLATELET COUNT 106 10x3/uL (130-400)
[2018-11-23 18:08] LABS: ALBUMIN 3.6 g/dL (3.4-5.0); ALKALINE PHOSPHATASE 87 U/L (46-116); ALT (SGPT) 52 U/L (10-68); BILIRUBIN - TOTAL 0.52 mg/dL (0.2-1.3); CALC OSMOLALITY 297 mosm/kg (275-300); CALCIUM 8.5 mg/dL (8.5-10.1); CARBON DIOXIDE 27.7 mmol/L (21.0-32.0); CHLORIDE - SERUM 103 mmol/L (98-107); CREATININE - SERUM 1.4 mg/dL (0.6-1.3); POTASSIUM - SERUM 3.8 mmol/L (3.5-5.1); PROTEIN - SERUM 7.4 g/dL (6.4-8.2); SODIUM 142 mmol/L (136-145); UREA NITROGEN 16 mg/dL (7-18); eGFR NON AFRICAN AMERICAN 54 mL/min (90-120)
[2018-11-23 18:12] LABS: GLUCOSE 349 mg/dL (74-106)
[2018-11-23 18:24] LABS: CKMB 6.1 U/L (0.0-3.6); CREATINE KINASE 155 UL (21-232); PRO BNP 582 pg/mL (0-125)
[2018-11-23 18:28] LABS: APTT 26.1 SECONDS (22.8-39.4); INR 1.15 (0.85-1.17); PROTIME 14.2 SECONDS (11.6-15.0)
[2018-11-23 20:00] VITALS: BP 119/75
--- NOTE | 2018-11-23 21:25 | NUR ---
RECEIVED FROM ER VIA WC. ALERT/ORIENTED X4. AMBULATES WITH SLOW STEADY GAIT. IV IN L HAND INTACT SL. ORIENTED TO ROOM AND CALL LIGHT.
--- NOTE | 2018-11-23 23:05 | NUR ---
CHECKED BS AT 160. REFUSED INSULIN STATING "MY BLOOD SUGAR WILL KEEP GOING DOWN FROM INSULIN I TOOK TODAY". TELEMETRY SHOWS 69 PACED. REQUESTED A SANDWICH.
[2018-11-23 23:19] LABS: CKMB 4.5 U/L (0.0-3.6); CREATINE KINASE 161 UL (21-232)
[2018-11-23 23:20] LABS: TROPONIN-I 0.545 ng/mL (0.000-0.060)
[2018-11-24] VITALS (7 sets, daily range): BP systolic 93–129; BP diastolic 58–75; BMI 30.7
--- NOTE | 2018-11-24 03:00 | NUR ---
DID EKG PER ORDER.
--- NOTE | 2018-11-24 05:50 | NUR ---
CHECKED BS AT 317. WOULD ONLY ACCEPT 6 UNITS OF HUMULIN R. STATING 8 UNITS WILL MAKE HIS BLOOD SUGAR DROP TO FAST.
[2018-11-24 06:02] LABS: BASOPHILS 0.1 % (0-2); EOSINOPHILS 0.1 % (0-7); HEMATOCRIT 43.7 % (42.0-54.0); HEMOGLOBIN 14.9 g/dL (13.5-17.5); IMMATURE GRANULOCYTES 0.2 % (0-5); MCH 30.4 pg (26.0-34.0); MCHC 34.1 g/dL (31.0-37.0); MCV 89.2 fL (80.0-100.0); MEAN PLATELET VOLUME 8.3 fL (7.4-10.4); MONOCYTES 0.4 % (2-11); NEUTROPHILS 92.2 % (40-80); RDW 15.6 % (11.5-14.5)
[2018-11-24 06:13] LABS: PLATELET COUNT 128 10x3/uL (130-400)
[2018-11-24 06:55] LABS: ALBUMIN 3.5 g/dL (3.4-5.0); ALKALINE PHOSPHATASE 90 U/L (46-116); ALT (SGPT) 52 U/L (10-68); BILIRUBIN - TOTAL 0.44 mg/dL (0.2-1.3); CALCIUM 8.7 mg/dL (8.5-10.1); CARBON DIOXIDE 22.4 mmol/L (21.0-32.0); CHLORIDE - SERUM 102 mmol/L (98-107); CKMB 3.8 U/L (0.0-3.6); CREATINE KINASE 132 UL (21-232); GLUCOSE 357 mg/dL (74-106); POTASSIUM - SERUM 3.9 mmol/L (3.5-5.1); PROTEIN - SERUM 7.5 g/dL (6.4-8.2); SODIUM 138 mmol/L (136-145)
[2018-11-24 06:58] LABS: CALC OSMOLALITY 292 mosm/kg (275-300); CREATININE - SERUM 1.8 mg/dL (0.6-1.3); TROPONIN-I 0.478 ng/mL (0.000-0.060); UREA NITROGEN 21 mg/dL (7-18); eGFR NON AFRICAN AMERICAN 40 mL/min (90-120)
--- NOTE | 2018-11-24 07:30 | NUR ---
A/A/OX4. NO REQUESTS AT PRESENT TIME AND DENIES ANY PAIN OR DISCOMFORT. ASSESSMENT COMPLETED. SL INTACT WITHOUT REDNESS OR EDEMA. BED IN LOW POSITION WITH SIDERAILS UP X 2 AND CALL LIGHT IN REACH. WILL CONTINUE POC.
[2018-11-24 09:23] LABS: CKMB 3.6 U/L (0.0-3.6); CREATINE KINASE 136 UL (21-232)
[2018-11-24 09:25] LABS: TROPONIN-I 0.456 ng/mL (0.000-0.060)
--- NOTE | 2018-11-24 16:30 | NUR ---
FSBS READING 433. K ALDO GARCIA HERE AND NOTIFIED. SAID TO JUST GIVE SLIDING SCALE DOSE AND DONE.
--- NOTE | 2018-11-24 18:10 | NUR ---
RN ROUNDING DONE AND I AGREE WITH ASSESSMENT FROM GIO LOYA LPN.
--- NOTE | 2018-11-24 18:29 | NUR ---
PT DECLINES SCDS HE SITS UP ON SIDE OF BED A LOT AND GOES TO BR AD KRISTY.
--- NOTE | 2018-11-24 19:20 | NUR ---
SITTING ON SIDE OF BED. REQUESTED RAZORS/SHAVING CREAM TO SHAVE AND WANTS TO TAKE A SHOWER. WRAPPED L WRIST IV WITH LG GLOVE/TAPE. TELEMETRY SHOWS 69 PACED. NO OTHER NEEDS VOICED.
--- NOTE | 2018-11-24 21:15 | NUR ---
ADMIN SCHED PO MEDS WITH SIPS OF WATER SWALLOWING WITHOUT DIFFICULTY. AZITHROMYCIN INFUSING TO L WRIST IV. DENIES ANY NEEDS OR DISCOMFORTS.
[2018-11-25] VITALS: BP 106/62
--- NOTE | 2018-11-25 00:30 | NUR ---
RESTING ON RIGHT SIDE WITH EYES CLOSED. RR 18 EVEN U/L. 02 AT 2L/NC.
[2018-11-25 04:00] VITALS: BP 94/50
[2018-11-25 05:05] LABS: BASOPHILS 0 % (0-2); EOSINOPHILS 0 % (0-7); HEMATOCRIT 39.3 % (42.0-54.0); HEMOGLOBIN 13.2 g/dL (13.5-17.5); IMMATURE GRANULOCYTES 0.1 % (0-5); LYMPHOCYTES 6.5 % (15-50); MCH 29.9 pg (26.0-34.0); MCHC 33.6 g/dL (31.0-37.0); MCV 88.9 fL (80.0-100.0); MEAN PLATELET VOLUME 8.8 fL (7.4-10.4); MONOCYTES 2.3 % (2-11); NEUTROPHILS 91.1 % (40-80); PLATELET COUNT 109 10x3/uL (130-400); RBC 4.42 10x6/uL (4.20-6.10); RDW 15.9 % (11.5-14.5)
[2018-11-25 05:12] LABS: WBC 11.3 10x3/uL (4.8-10.8)
[2018-11-25 05:23] LABS: ALBUMIN 3.2 g/dL (3.4-5.0); ANION GAP 17.1 mmol/L (8-16); BILIRUBIN - TOTAL 0.38 mg/dL (0.2-1.3); CALCIUM 8.8 mg/dL (8.5-10.1); CARBON DIOXIDE 23.4 mmol/L (21.0-32.0); CREATININE - SERUM 1.5 mg/dL (0.6-1.3); MAGNESIUM - SERUM 2.1 mg/dL (1.8-2.4); PROTEIN - SERUM 6.7 g/dL (6.4-8.2)
[2018-11-25 05:24] LABS: POTASSIUM - SERUM 4.5 mmol/L (3.5-5.1)
--- NOTE | 2018-11-25 06:15 | NUR ---
REFUSED PROTONIX. STATING HE WILL TAKE IT WITH THE 9:00 MEDS. WILL INFORM DAY NURSE. ADMIN HUMULIN R 8 UNITS FOR BS 317. DENIES ANY OTHER NEEDS.
[2018-11-25 08:32] VITALS: BP 113/66
[2018-11-25] MEDS ORDERED: PLAVIX75 MG PO (08:38)
--- NOTE | 2018-11-25 09:28 | NUR ---
PT UP IN [place] AMBULATING WITH THERAPY. PT DENIES ANY CURRENT PAIN OR NEEDS. WILL CTM.
--- NOTE | 2018-11-25 11:46 | NUR ---
PTS BLOOD SUGAR REMAINS HIGH HOWEVER HE DIDNT LET ME GIVE HIM THE ORDERED 28 UNITS PER SS HE STATES HE WILL DROP SO I PROVIDED HIM WITH 20UNITS HE ALLOWED. PT IS RUNNING HIGHER THAN USUAL BUT STATES HE TAKES A LONG ACTING INSULIN AT HOME HOWEVER WE CANT GET THAT MEDICATION. WILL SEE IF FAMILY CAN BRING OR DISCUSS WITH PRIMARY ABOUT STARTING OUR LONG ACTING OPTION. PT VOICED THANKS AND DENIES ANY CURRENT PAIN OR NEEDS. CL IN REACH, BED IN LOWEST, SIDE RAILS X2. WILL CTM.
[2018-11-25 12:52] VITALS: BP 115/48
[2018-11-25 15:43] VITALS: BP 111/65
--- NOTE | 2018-11-25 16:27 | NUR ---
FSBS READING STILL VERY HIGH @474. PT REFUSING INSULIN UNTIL RECHECKED VIA SERUM. STAT ORDER OBTAINED AND PLACED AND WILL TREAT OFF RESULTS. PT VERY SKEPTICAL AND SKIDISH TO OUR TREATMENT AND GUIDELINES WILL CONTINUE WITH TEACHING AND DOING WHAT HE WILL ALLOW OF US.
--- NOTE | 2018-11-25 17:25 | NUR ---
SERUM GLUCOSE RESULTED CRITICAL HIGH IN THE 500S. PT STILL REFUSING FULL DOSE OF HIS SS INSULIN. PT WOULD ONLY TAKE 25 UNITS SO I DID PROVIDE HIM WITH THAT. DID DISCUSS WITH AND RESTARTED HIS LONG ACTING INSULIN SO HOPEFULLY THAT'LL HELP HOWEVER PT GOES TO THE VENDING MACHINES AND PRETTY MUCH ORDERS AND DOES WHATEVER HE WANTS DESPITE TEACHING. PT ALSO NOW REFUSING HIS 1700 COREG. PT STATES "NO WAY, NO MA'AM, I CANT TAKE IT THIS SOON I TOOK IT AT 0900 AND I NEED TO TAKE IT AT 2100" ALSO PROVIDED PT WITH TEACHING AND EXPLAINED ITS SUPPOSED TO BE WITH MEALS AND HE STATES HE WILL HAVE A SNACK WITH IT AND TAKE IT AT 2100. WILL DISCUSS WITH PRIMARY AND SEE IF THEY WANT TO SCHEDULE DIFFERENT.
--- NOTE | 2018-11-25 19:25 | NUR ---
SITTING ON SIDE OF BED IN FRONT OF BEDSIDE TABLE. DENIES PAIN OR ANY NEEDS. HAS 02 AT 2L/NC. RR 18 EVEN U/L WHILE SITTING. IV IN L WRIST INTACT SL. TELEMETRY SHOWS 71 PACED. HAS CL IN REACH.
[2018-11-25 20:00] VITALS: BP 117/71
--- NOTE | 2018-11-25 22:30 | NUR ---
VERY IRRITABLE, ANGRY. INSISTING ON TAKING HIS VICTOZA INSULIN AT NIGHT INSTEAD OF IN THE MORNING. STATING HE TAKES HIS VICTOZA, LANTUS AND HUMULIN R INSULINS AT NIGHT TOGETHER. HIS BS WAS 483. HE WOULD ONLY ACCEPT 20 UNITS OF HUMULIN R INSTEAD OF THE SLIDING SCALE 28 UNITS.
[2018-11-26] VITALS: BP 98/65
--- NOTE | 2018-11-26 00:30 | NUR ---
LEFT WRIST IV LEAKING. REMOVED AND RESITED 20G IV IN RIGHT HAND.
[2018-11-26 04:00] VITALS: BP 98/50
[2018-11-26 05:24] LABS: BASOPHILS 0 % (0-2); EOSINOPHILS 0 % (0-7); HEMATOCRIT 39.7 % (42.0-54.0); HEMOGLOBIN 13.6 g/dL (13.5-17.5); IMMATURE GRANULOCYTES 0.3 % (0-5); LYMPHOCYTES 3.7 % (15-50); MCH 30.2 pg (26.0-34.0); MCHC 34.3 g/dL (31.0-37.0); MCV 88.2 fL (80.0-100.0); MEAN PLATELET VOLUME 8.7 fL (7.4-10.4); MONOCYTES 6.3 % (2-11); NEUTROPHILS 89.7 % (40-80); PLATELET COUNT 107 10x3/uL (130-400); RDW 15.8 % (11.5-14.5)
[2018-11-26 06:02] LABS: ALBUMIN 3.3 g/dL (3.4-5.0); ANION GAP 13.4 mmol/L (8-16); BILIRUBIN - TOTAL 0.27 mg/dL (0.2-1.3); CALCIUM 8.7 mg/dL (8.5-10.1); CARBON DIOXIDE 27.9 mmol/L (21.0-32.0); CREATININE - SERUM 1.5 mg/dL (0.6-1.3); MAGNESIUM - SERUM 2.3 mg/dL (1.8-2.4); POTASSIUM - SERUM 4.3 mmol/L (3.5-5.1); PROTEIN - SERUM 6.5 g/dL (6.4-8.2)
--- NOTE | 2018-11-26 07:34 | NUR ---
SITTING ON SIDE OF BED. ADMIN LANTUS 60 UNITS FOR BS 274 AND WOULD ONLY ACCEPT 6 UNITS OF HUMULIN R. REFUSED PROTONIX UNTIL 9 A.M.
[2018-11-26 09:06] VITALS: BP 95/57
--- NOTE | 2018-11-26 09:13 | NUR ---
PT SITTING UP ON SIDE OF BED, DENIES PAIN AT THIS TIME. VITALS STABLE. TOOK MEDICAITON WITHOUT DIFFICULTY. IV TO R HAND SL. NO EDEMA NOTED. PACED ON TELE. 2L O2 VIA NC. AUDIBLE WHEEZES NOTED. NO FURTHER CONCERNS AT THIS TIME. BED LOWERED AND LOCKED. CL IN REACH. WILL CPOC.
--- NOTE | 2018-11-26 11:18 | CN ---
PATIENT NAME:CARLOS CULLEN MEDICAL RECORD: [id number] : 54 LOCATION:D.M2 D.2139 ADMIT DATE: 11/23/18 ACCOUNT: [id number] CONSULTING PHYSICIAN: CHANTALE STRICKLAND MD REFERRING PHYSICIAN: REMIGIO JERRY MD DATE OF CONSULTATION: 11/24/2018 DIAGNOSES: 1. Rectal bleeding. 2. History of colon cancer. 3. Cardiomyopathy. 4. Coronary artery disease. 5. Previous percutaneous transluminal coronary angioplasty stent. 6. Congestive heart failure, chronic systolic dysfunction. 7. Hypertension. 8. Paroxysmal atrial fibrillation. 9. Status post Bi-V ICD. HISTORY OF PRESENT ILLNESS: This is a gentleman well known to us who has a history of atrial fibrillation and dysrhythmias, which are controlled on amiodarone. He did not come in with any cardiac complaints. He came in with recurrent blood in his stool. He has a history of a partial colon resection for colon cancer in the distant past at another institution. His troponin is mildly elevated. Last cardiac intervention was in August. At that time, he had a bare metal stent. He is still on aspirin and Plavix. PHYSICAL EXAMINATION: GENERAL APPEARANCE: Well-nourished, well-developed, appears stated age. Level of distress, comfortable. PSYCHIATRIC: Mental status, alert, normal affect. Orientation, oriented to time, place and person. EYES: Lids and conjunctiva, noninjected. No discharge, no pallor. ENT: Lips, teeth, gums, normal dentition. Oropharynx, no cyanosis, no pallor. NECK: Carotid arteries, bilateral normal upstroke, no bruits, no thrills. JUGULAR VEINS: No jugular venous pressure or distention. CERVICAL LYMPH NODES: Nontender, nonenlarged. THYROID: Not enlarged. Nontender. No nodules. LUNGS: Respiratory effort, unlabored. CHEST: Normal curvature. No thoracic deformity. No chest wall tenderness. Percussion, resonant. Auscultation, clear. No wheezes, no rales, no rhonchi. CARDIOVASCULAR: Precordial exam, nondisplaced. No heaves or pericardial thrills. Rate and rhythm, regular. Heart sounds, normal S1, normal S2. No S3, no gallop, no rub. Systolic murmur, not heard. Diastolic murmur, not heard. EXTREMITIES: No cyanosis, no edema. Peripheral pulses, full and equal in all extremities, except as noted. No bruits appreciated. ABDOMEN: Soft, nondistended. Normal aorta. No bruit. Nontender. No masses. Liver, nontender, no hepatomegaly. Spleen, nontender, no splenomegaly. MUSCULOSKELETAL: No joint tenderness. No joint swelling. No erythema. NEUROLOGICAL: Normal gait, normal strength, normal tone. SKIN: Warm and dry. OVERALL IMPRESSION: 1. Gastrointestinal bleeding. At this time, he will need a GI evaluation for this, but his hemoglobin is stable at 14.9 and hemodynamically he is stable. 2. Congestive heart failure and cardiomyopathy. He is well compensated at this CONSULT REPORT [id number] CARLOS CULLEN. He has no significant pulmonary edema, on the Coreg and Entresto. He has class 1 symptomatology from a heart failure standpoint with his poor ejection fraction. This is at his baseline. 3. Atrial fibrillation. He maintains in sinus rhythm on amiodarone. No changes are needed in that standpoint. 4. Stable from a cardiac standpoint, no other cardiac workup treatment is necessary. Only continue his current cardiac medications and be evaluated by GI. TRANSINT:[id number] Voice Confirmation ID: [id number] DOCUMENT ID: [id number] CHANTALE STRICKLAND MD at 1118 CC: [id number] DICTATION DATE: 11/24/18 0954 VARIETY SAW OPERATOR: 11/24/18 1022 ADM IN [facility] [address] [place] [address]
--- NOTE | 2018-11-26 11:19 | EC ---
PATIENT:CARLOS CULLEN DATE OF SERVICE: 11/23/18 SEX: M MEDICAL RECORD: [id number] DATE OF : [birth year] LOCATION:D.M2 D.213 AGE OF PATIENT: 68 ADMISSION DATE: 11/23/18 REFERRING PHYSICIAN: INTERPRETING PHYSICIAN: CHANTALE SANDERS MD ECHOCARDIOGRAM REPORT ECHO CHARGES 4 ECHO COMPLETE Date: 11/25/18 CLINICAL DIAGNOSIS: DYSPNEA ECHOCARDIOGRAPHIC MEASUREMENTS (adult normal given) AC root (d.<3.7cm) 3.9 cm LV Septum d (<1.2 cm> 0.9 cm Valve Excursion 1.9 cm LV Septum (systole) 1.2 cm Left Atria (s.<4.0cm> 4.6 cm LVPW d(<1.2cm) 1.1 cm RV (d.<2.3cm) 4.4 cm LVPW (sytole) 1.7 cm LV diastole(<5.6CM) 6.5 cm MV E-F(>70mm/sec) cm LV systole 5.9 cm LVOT Diameter 1.9 cm MV exc.(>10mm) cm Est.ejection fraction (50-75%) % DOPPLER: LVIT cm/sec A 42 cm/sec E 82 cm/sec LA cm/sec RVSP 45.4 mmHg LVOT 91 cm/sec AOP1/2T m/s Asc. Ao 110 cm/sec RVOT 65 cm/sec RA cm/sec PA 64 cm/sec AV Gradient Peak 4.9 mmHg AV Mean 2.8 mmHg AV Area 2.7 cm MV Gradient Peak 3.8 mmHg MV Mean 1.7 mmHg MV Area cm COMMENTS: Supervisor Customer Services: Tiff MARCIALIRASEMA JUAN DIEGO Tile Shader: Wendie Sanders TAPE# PACS Pericardial Effusion N DATE OF SERVICE: 11/25/2018 ECHOCARDIOGRAM DATE OF SERVICE: 11/25/2018 FINDINGS: 1. Left ventricular chamber size is mildly dilated. Left ventricular systolic function is markedly reduced, overall ejection fraction of 20%. 2. Left atrium is enlarged at 4.6 cm. Right atrium and rapid ventricular ECHOCARDIOGRAM REPORT [id number] CARLOS CULLEN chamber sizes are as well [id number] dilated. 3. Valvular structures have normal structure and motion. 4. Doppler education reveals moderate mitral regurgitation, severe tricuspid regurgitation, no other valvular insufficiency or stenosis. Pulmonary systolic pressure is estimated at 45 mmHg. 5. No evidence of pericardial effusion or left ventricular thrombus. TRANSINT:[id number] Voice Confirmation ID: [id number] DOCUMENT ID: [id number] CHANTALE SANDERS MD at 1119 CC: [id number] DICTATION DATE: 11/25/18 1600 VP BIOLOGY: 11/25/18 1702 ADM IN [facility] [address] [place] [id number]
[2018-11-26 12:49] VITALS: BP 98/65
[2018-11-26 16:59] VITALS: BP 105/63
--- NOTE | 2018-11-26 17:06 | NUR ---
REVIEWED AND AGREE WITH ASSESMENT.
--- NOTE | 2018-11-26 19:40 | NUR ---
RESUMING CARE. PT SITTING UP ON THE SIDE OF THE BED A&O , O2 ON AT 2L , NO C/O PAIN OR DISTRESS CL IN REACH WILL CONT TO MONITOR
[2018-11-26 20:00] VITALS: BP 90/53
--- NOTE | 2018-11-27 03:07 | NUR ---
RESTING QUITELY IN BED RESP UNLABORED NO APPARENT DISTRESS CALL LIGHT IN REACH
[2018-11-27 04:00] VITALS: BP 138/98
[2018-11-27 06:43] LABS: BASOPHILS 0 % (0-2); EOSINOPHILS 0.1 % (0-7); HEMATOCRIT 38.8 % (42.0-54.0); HEMOGLOBIN 13.2 g/dL (13.5-17.5); IMMATURE GRANULOCYTES 0.4 % (0-5); LYMPHOCYTES 9.7 % (15-50); MCV 88.2 fL (80.0-100.0); MEAN PLATELET VOLUME 9.5 fL (7.4-10.4); MONOCYTES 9.6 % (2-11); NEUTROPHILS 80.2 % (40-80); PLATELET COUNT 112 10x3/uL (130-400); RDW 16.1 % (11.5-14.5); WBC 10.5 10x3/uL (4.8-10.8)
[2018-11-27 06:44] LABS: ANION GAP 10.6 mmol/L (8-16); BILIRUBIN - TOTAL 0.28 mg/dL (0.2-1.3); CALCIUM 8.2 mg/dL (8.5-10.1); CARBON DIOXIDE 31.1 mmol/L (21.0-32.0); CREATININE - SERUM 1.2 mg/dL (0.6-1.3); MAGNESIUM - SERUM 2.5 mg/dL (1.8-2.4); POTASSIUM - SERUM 3.7 mmol/L (3.5-5.1); PROTEIN - SERUM 6.1 g/dL (6.4-8.2)
--- NOTE | 2018-11-27 08:05 | NUR ---
PT SITTING UP ON SIDE OF BED WITH BEDSIDE TABLE. DENIES PAIN AT THIS TIME. IV TO R HAND SL. 2L 02 VIA NC. A/O X 4. UP AB KRISTY. PACED. NO EDEMA NOTED. NO FURTHER CONCERNS AT THIS TIME. BED LOWERED AND LOCKED. CL IN REACH. WILL CPOC.
--- NOTE | 2018-11-27 08:10 | NUR ---
BREAKFAST SERVED. PT SITTING AT SIDE OF BED EATING BREAKFAST. DENIES FURTHER CONCERNS AT THIS TIME.
[2018-11-27 08:57] VITALS: BP 103/64
--- NOTE | 2018-11-27 10:37 | NUR ---
REVIEWED AND AGREE WITH ASSESMENT.
[2018-11-27 13:54] VITALS: Ht 172.7 cm; Wt 91.8 kg
[2018-11-27 15:30] VITALS: BP 101/64
--- NOTE | 2018-11-27 19:40 | NUR ---
RESUMING CARE. PT SITTING ON SIDE OF BED A&O X4 ,O2 ON AT 2L BREATH SOUNDS EVEN , RT HAND IV SL , NO C/O PAIN OT DISTRESS AT THIS TIME CL IN REACH WILL CONT TO MONITOR
[2018-11-27 20:00] VITALS: BP 138/67
[2018-11-28] VITALS: BP 115/63
[2018-11-28 04:00] VITALS: BP 102/54
[2018-11-28 06:01] LABS: BASOPHILS 0 % (0-2); EOSINOPHILS 0.5 % (0-7); HEMATOCRIT 40.6 % (42.0-54.0); IMMATURE GRANULOCYTES 0.7 % (0-5); LYMPHOCYTES 12.5 % (15-50); MCH 30.3 pg (26.0-34.0); MCHC 34.5 g/dL (31.0-37.0); MCV 87.9 fL (80.0-100.0); MEAN PLATELET VOLUME 8.8 fL (7.4-10.4); MONOCYTES 9.5 % (2-11); NEUTROPHILS 76.8 % (40-80); PLATELET COUNT 116 10x3/uL (130-400); RBC 4.62 10x6/uL (4.20-6.10); RDW 15.7 % (11.5-14.5); WBC 11.5 10x3/uL (4.8-10.8)
[2018-11-28 06:24] LABS: ALBUMIN 3.1 g/dL (3.4-5.0); ANION GAP 10.2 mmol/L (8-16); BILIRUBIN - TOTAL 0.38 mg/dL (0.2-1.3); CALCIUM 8.4 mg/dL (8.5-10.1); CARBON DIOXIDE 32.3 mmol/L (21.0-32.0); CREATININE - SERUM 1.2 mg/dL (0.6-1.3); MAGNESIUM - SERUM 2.5 mg/dL (1.8-2.4); POTASSIUM - SERUM 3.5 mmol/L (3.5-5.1); PROTEIN - SERUM 6.2 g/dL (6.4-8.2)
[2018-11-28 09:21] VITALS: BP 112/68
[2018-11-28 11:59] VITALS: BP 108/70
--- NOTE | 2018-11-28 16:33 | NUR ---
I have reviewed this patient and I concur with the Shift Assessment completed by the Licensed Practical Nurse today this shift.
[2018-11-28 17:31] VITALS: BP 106/85
[2018-11-28 20:00] VITALS: BP 108/72
[2018-11-29] VITALS: BP 99/57
[2018-11-29 04:00] VITALS: BP 96/58
[2018-11-29 07:00] LABS: BASOPHILS 0.1 % (0-2); EOSINOPHILS 0.5 % (0-7); HEMATOCRIT 44.8 % (42.0-54.0); HEMOGLOBIN 15.1 g/dL (13.5-17.5); IMMATURE GRANULOCYTES 1.6 % (0-5); LYMPHOCYTES 11.2 % (15-50); MCH 29.7 pg (26.0-34.0); MCHC 33.7 g/dL (31.0-37.0); MEAN PLATELET VOLUME 8.6 fL (7.4-10.4); MONOCYTES 9.4 % (2-11); NEUTROPHILS 77.2 % (40-80); PLATELET COUNT 131 10x3/uL (130-400); RBC 5.09 10x6/uL (4.20-6.10); RDW 15.9 % (11.5-14.5); WBC 14.3 10x3/uL (4.8-10.8)
[2018-11-29 07:24] LABS: ALBUMIN 3.2 g/dL (3.4-5.0); ANION GAP 13.8 mmol/L (8-16); BILIRUBIN - TOTAL 0.56 mg/dL (0.2-1.3); CALCIUM 8.7 mg/dL (8.5-10.1); CARBON DIOXIDE 28.8 mmol/L (21.0-32.0); CREATININE - SERUM 1.3 mg/dL (0.6-1.3); MAGNESIUM - SERUM 2.5 mg/dL (1.8-2.4); POTASSIUM - SERUM 3.6 mmol/L (3.5-5.1); PROTEIN - SERUM 6.7 g/dL (6.4-8.2)
--- NOTE | 2018-11-29 07:36 | NUR ---
REPORT RECEIVED. WILL CONTINUE WITH POC. PT CURRENTLY SITTING UP IN CHAIR. PT IS AAO AND UP AD KRISTY. RR EVEN AND UNLABORED ON 2L 02. R.HAND PIV IS SALINE LOCKED. NO S/S OF DISTRESS NOTED. PT DENIES ANY NEEDS AT THIS TIME. WILL CTM.
[2018-11-29 08:27] VITALS: BP 101/54
--- NOTE | 2018-11-29 11:07 | NUR ---
Nutrition follow-up: Visited with pt during rounds. Pt happy with meals; po intake continues to be good labs reviewed Wt: 202# RDN following.
[2018-11-29 11:50] VITALS: BP 105/68
[2018-11-29] MEDS ORDERED: DEMADEX20 MG PO (12:49)
--- NOTE | 2018-11-29 17:24 | NUR ---
REVIEWED AND AGREE WITH PT ASSESSMENT. WILL CPOC.
--- NOTE | 2018-11-29 17:24 | MORECARE ---
CASE MANAGEMENT DISCHARGE SUMMARY PATIENT: CARLOS CULLEN UNIT: [id number] ADM DATE: 11/23/18 AGE: 68 : 52 SEX: M ROOM/BED: D.2139 AUTHOR: NOEMIDOC PHYSICIAN: REFERRING PHYSICIAN: REMIGIO JERRY MD DATE OF SERVICE: 11/29/18 Discharge Plan Patient Name: CARLOS CULLEN Facility: [facility]:[place] : 1950 Planned Disposition: Home Anticipated Discharge Date: 11/29/18 Discharge Date: Expected LOS: 6 Initial Reviewer: [email or web address] Initial Review Date: 11/29/2018 Generated: 11/29/18 6:23 pm Comments DCP- Discharge Planning Updated by [id number]: Sherif Green on 11/29/18 4:[address] Patient Name: CARLOS CULLEN Admission Status: ER Accout number: [id number] Admission Date: 11-23-2018 : 1950 Admission Diagnosis:HEMORRHAGE OF ANUS AND RECTUM Attending: REMIGIO MOLINA Current LOS: 6 Anticipated DC Date: 11-29-2018 Planned Disposition: Home Primary Insurance: MEDICARE A & B Discharge Planning Comments: CM MET WITH PT IN ROOM TO DISCUSS DISCHARGE PLANNING AND NEEDS. PT REPORTS LIVING AT HOME INDEPENDENTLY WITH ADULT SON AND DAUGHER IN LAW. PT HAS BIPAP AND NIGHT TIME OXYGEN FROM [facility]. PT HAS NO OUTSIDE SERVICES ASSISTING IN THE HOME. CM DISCUSSED AVAILABILITY OF HOME HEALTH, REHAB SERVICES AND MEDICAL EQUIPMENT. PT DENIES DISCHARGE NEEDS, REPORTS HIS SON WILL PICK HIM UP FOR DISCHARGE HOME. IMPORTANT MESSAGE FROM MEDICARE PROVIDED AND EXPLAINED. SENIOR LABORATORY TECHNICIAN NURSE NOTIFIED. Straightening Press Operator Helper: Sherif Green DCPIA - Discharge Planning Initial Assessment Updated by [id number]: Sherif Green on 11/29/18 5:22 pm * Is the patient Alert and Oriented? Yes * How many steps to enter\exit or inside your home? 0-O / 10-I * PCP DR. JOSHI * Pharmacy [facility] * Preadmission Environment Home with Family * ADLs Independent * Equipment BIPAP Oxygen * Other Equipment OXYGEN AT NIGHT ONLY [facility] - MEDICAL EQUIPMENT PROVIDER * List name and contact numbers for known caregivers / representatives who currently or will assist patient after discharge: CARLOS CULLEN, * Verbal permission to speak to the caregivers and representatives has been obtained from the patient. N/A * Community resources currently utilized None * Please name any agencies selected above. NONE * Additional services required to return to the preadmission environment? No * Can the patient safely return to the preadmission environment? Yes * Has this patient been hospitalized within the prior 30 days at any hospital? No Coverage Notice Reviewer: [id number] Boaz Green Notice Issued Date-Time: 11/29/2018 11:00 Notice Type: IM Discharge Notice Notice Delivered To: Patient Relationship to Patient: Editor In Chief Name: Delivery Method: HAND - Hand Delivered Stefani Days: Prior Verbal Notification: Recipient Understood Notice: Yes Recipient Signature: Yes Med Rec Note Co-signed by Attending: Coverage Notice Comment: Patient Name: CARLOS CULLEN Page 30951 at 1724 All edits/amendments must be made on the electronic document DICTATION DATE: 11/29/181722 COPYWRITER: BEAN 11/29/181722 RPT#: [id number] DC DATE: STATUS: ADM IN [facility] [address] [place] [address] END OF REPORT
== END 2018-11-29 17:27 | disposition home or self-care (01) | DRG 377 ==
LOC: D.ER 16:11 → D.M2 20:22 → D.EDHOLD 20:22 → D.M2 20:41
PROVIDERS: Family Medicine; ADMIT Family Medicine Adult Medicine; ATTEND Family Medicine Adult Medicine
DX: K62.5 Hemorrhage of anus and rectum (principal); J96.21 Acute and chronic respiratory failure with hypoxia; I50.22 Chronic systolic (congestive) heart failure; N17.9 Acute kidney failure, unspecified; I25.110 Atherosclerotic heart disease of native coronary artery with unstable angina pectoris; I24.8 Other forms of acute ischemic heart disease; I11.0 Hypertensive heart disease with heart failure; I48.0 Paroxysmal atrial fibrillation; I25.5 Ischemic cardiomyopathy; E78.5 Hyperlipidemia, unspecified; J44.9 Chronic obstructive pulmonary disease, unspecified; N40.0 Benign prostatic hyperplasia without lower urinary tract symptoms; E11.65 Type 2 diabetes mellitus with hyperglycemia; D69.6 Thrombocytopenia, unspecified; Z85.038 Personal history of other malignant neoplasm of large intestine; I08.1 Rheumatic disorders of both mitral and tricuspid valves

== ENCOUNTER 2018-12-05 07:37 | Observation (INO) | payer MEDICARE ==
[~2018-12-05] VITALS: Ht 172.7 cm; Wt 99.3 kg
--- NOTE | ~2018-12-05 | HEMODYNAMI ---
PATIENT:CARLOS CULLEN MEDICAL RECORD: [id number] : 54 LOCATION:[facility] D.2120 ADMISSION DATE: 12/05/18 Generatedon:12/06/201814:42 Patient name: CARLOS CULLEN Patient #: [id number] SSN: DO B: 1950 Date of study: 12/06/2018 Page: Of Hemodynamic Procedure Report Patient Data Patient Demographics Procedure consent was obtained First Name: CARLOS Gender: Male Last Name: SUBHASH : 1950 Patient #: [id number] Age: 68 year(s) Race: Unknown Additional ID: [id number] Contact details [address]: [address] [place] [address] State: [place] City: [place] Zip code: [address] Past Medical History Allergies Allergen Reaction Date Comments Reported Other allergy 07/04/2018 spironolactone, ipratropium Other allergy 07/11/2018 Spironolactone, IPRATROPIUM Admission Admission Data Admission Date: 12/05/2018 Admission Time: 15:20 Arrival Date: 12/05/2018 Arrival Time: 15:20 Admit Source: Other Insurance Payor: Medicare Room #: D.2120 Lab Results Lab Result Date: 12/06/2018 Lab Result Time: 0:00 Biochemistry Name Units Result Min Max BUN mg/dl 20 --(----)*- 7 18 Creatinine mg/dl 1.4 --(----)*- 0.6 1.3 CBC Name Units Result Min Max Hemoglobin g/dl 15.1 --(-*--)-- 13.5 17.5 Procedure Procedure Types Cath Procedure Diagnostic Procedure [facility] w/Coronaries FFR/IVUS Intra-Coronary IVUS Initial PCI Procedure Coronary Stent Coronary Stent Initial Procedure Description Procedure Date Procedure Date: 12/06/2018 Procedure Start Time: 14:27 Procedure End Time: 14:41 Procedure Staff Name Function Dereje Sanders MD Performing Physician Dillan Zelaya RT Monitor Shanti Pierce RT Scrub Bailee Drew RN Nurse Procedure Data Cath Procedure Fluoroscopy Diagnostic fluoroscopy Total fluoroscopy Time: 3 time: 3 min min Diagnostic fluoroscopy Total fluoroscopy dose: 579 dose: 579 mGy mGy Contrast Material Contrast Material Type Amount (ml) Isovue 300 60 Entry Location Entry Primary Successful Side Size Upsize Upsize Entry Closure Succes sful Closure Location (Fr) 1 (Fr) 2 (Fr) Remarks Device Remarks Femoral Right 5 Fr 6 Fr Exoseal artery Short Diagnostic catheters Device Type Used For End Catheter Placement MULTIPACK Pigtail 5 Fr LV Angiography catheter MULTIPACK JL 4.0 5Fr Left Coronary catheter Angiography MULTIPACK 3DRC 5Fr Right Coronary catheter Angiography Procedure Complications No complications Procedure Medications Medication Administration Route Dosage 0.9% NaCl I.V. 100 ml/hr Oxygen etCO2 Nasal cannula 2 l/min Lidocaine 2% added to field 20 Heparin Flush Bag added to field 2 bags (1000units/500ml NS) Versed I.V. 2 mg Fentanyl I.V. 50 mcg Versed I.V. 2 mg Fentanyl I.V. 50 mcg Heparin Bolus I.V. 4000 units Hemodynamics Rest HGB: 15.1 (g/dl) Heart Rate: 60 (bpm) Snapshots Pre Cath Intra NCS Post Cath Vital Signs Time Heart Resp SPO2 etCO2 NIBP Rhythm Pain Sedation Rate (ipm) (%) (mmHg) (mmHg) Status Level (bpm) 13:56:21 70 21 98 15.6 114/85(95) Paced 0 (11) 10(A) , No pain 14:00:29 68 21 97 19.6 114/80(99) Paced 0 (11) 10(A) , No pain 14:04:36 69 26 96 18.9 112/86(99) Paced 0 (11) 10(A) , No pain 14:08:47 69 22 98 16.4 109/76(91) Paced 0 (11) 10(A) , No pain 14:12:56 57 19 98 20.8 103/73(90) Paced 0 (11) 10(A) , No pain 14:17:00 69 18 97 14.9 100/79(85) Paced 0 (11) 10(A) , No pain 14:21:06 68 15 98 30.5 103/69(87) Paced 0 (11) 10(A) , No pain 14:25:12 69 16 96 38 104/75(95) Paced 0 (11) 10(A) , No pain 14:29:19 69 16 98 34.3 108/67(89) Paced 0 (11) 9(A) , No pain 14:33:25 69 17 97 31.3 116/77(98) Paced 0 (11) 9(A) , No pain 14:37:35 70 17 96 33.5 114/79(96) Paced 0 (11) 10(A) , No pain 14:41:45 69 17 96 14.1 105/75(95) Paced 0 (11) 9(A) , No pain Medications Time Medication Route Dose Verified Delivered Reason Notes Effectiveness by by 13:55:29 0.9% NaCl I.V. 100 Dereje Bailee used for ml/hr Marilyn Drew educational programming director 13:55:38 Oxygen etCO2 2 Dereje Bailee used for Nasal l/min Marilyn Drew procedure cannula RN 13:55:43 Lidocaine 2% added 20ml Dereje Bailee used for to vial Marilyn Drew procedure field RN 13:55:47 Heparin Flush added 2 Dereje Bailee used for Bag to bags Marilyn Drew procedure (1000units/500ml field RN NS) 14:21:56 Versed I.V. 2 mg Dereje Bailee for sedation Marilyn Drew RN 14:22:03 Fentanyl I.V. 50 Dereje Bailee for sedation mcg Marilyn Drew RN 14:27:22 Versed I.V. 2 mg Dereje Bailee for sedation Marilyn Drew RN 14:27:45 Fentanyl I.V. 50 Dereje Baliee for sedation mcg Marilyn Drew RN 14:38:24 Heparin Bolus I.V. 4000 Dereje Bailee for verif ied units Marilyn Drew anticoagulation with Dr. LONG Sanders Procedure Log Time Note 13:26:40 Diagnostic Cath Status : Elective 13:28:14 Lab Result : Hemoglobin 15.1 g/dl 13:28:14 Lab Result : Creatinine 1.4 mg/dl 13:28:14 Lab Result : BUN 20 mg/dl 13:28:51 Admit Source: Other 13:30:17 Insurance Payor : Medicare 13:30:21 Arrival Date: 12/05/2018 3:20:00 PM 13:39:18 Dillan Zelaya RT(R) sent for patient. Start room use. 13:55:13 Time tracking: Regular hours (M-F 7:00 - 5:00) 13:55:18 Plan of Care:Hemodynamics will remain stable., Cardiac rhythm will remain stable., Comfort level will be maintained., Respiratory function will remain adequate., Patient/ family verbilizes understanding of procedure., Procedure tolerated without complication., Recovers from procedure without complications.. 13:55:20 Vital chart was started 13:55:25 Patient received from Med II to CCL 1 Alert and oriented. Tansferred to table in Supine position. 13:55:26 Warm blankets applied, and bhavani hugger turned on for patient comfort. 13:55:27 Correct patient and procedure confirmed by team. 13:55:28 Signed procedure consent form obtained from patient. 13:55:29 0.9% NaCl 100 ml/hr I.V. was administered by Bailee Drew RN; used for procedure; 13:55:29 ECG and BP/O2 sat monitors applied to patient. 13:55:32 Baseline sample Acquired. 13:55:35 Rhythm: paced 13:55:38 Oxygen 2 l/min etCO2 Nasal cannula was administered by Bailee Drew RN; used for procedure; 13:55:38 Full Disclosure recording started 13:55:42 H&P Date Dictated: 12/06/2018 New H&P dictated by physician.. 13:55:43 Lidocaine 2% 20ml vial added to field was administered by Bailee Drew RN; used for procedure; 13:55:44 Pre-procedure instructions explained to patient. 13:55:44 Pre-op teaching completed and patient verbalized understanding. 13:55:47 Heparin Flush Bag (1000units/500ml NS) 2 bags added to field was administered by Bailee Drew RN; used for procedure; 13:55:47 Family unavailable. 13:55:48 Patient NPO since Midnight. 13:55:50 Is the patient allergic to Iodine/contrast media? No. 13:55:51 Was the patient premedicated? No 13:55:52 Is patient on blood thinner?Yes 13:55:55 ACC The patient was administered the following blood thiners within the last 24 hours: ACCPlavix 13:56:16 Patient diabetic? Yes. 13:56:25 If diabetic: On Metformin? No 13:56:28 Previous problem with sedation/anesthesia? No ? 13:56:33 Snore? Yes 13:56:34 Sleep apnea? Yes 13:56:35 Deviated septum? No 13:56:36 Opens mouth fully? Yes 13:56:37 Sticks out tongue? Yes 13:56:41 Airway obstruction? No ? 13:56:45 Dentures? No ? 13:56:50 Pre procedure: right dorsailis pedis pulse 1+ Palpable, but thready & weak; easily obliterated 13:56:59 Pre procedure: left dorsailis pedis pulse 1+ Palpable, but thready & weak; easily obliterated 13:57:02 Patient pain scale 0/10 ?. 13:57:11 IV patent on arrival in left forearm with 0.9% NaCl at [facility]. 13:57:14 Lab results completed and on chart. 13:57:19 Right groin area was prepped with chlora-prep and draped in sterile fashion 13:57:20 Alarms reviewed by R. N. 13:57:20 Sharps counted by scrub and verified by R.N. 14:21:08 Physician arrived 14:21:09 --------ALL STOP TIME OUT------ 14:21:09 Final Timeout: patient, procedure, and site verified with staff and physician. All members of the team are in agreement. 14:21:11 Right groin site verified by team. 14:21:16 Maximum allowable Isovue 300 dose 300ml. Physician notified. (300ml for normal creatinines. For patients with creatinine of 1.7 or higher multiply weight(kg) x 5 divided by creatinine.) 14:21:20 Fire Safety Assessment: A--An alcohol-based skin anteseptic being used preoperatively., C--Open oxygen or nitrous oxide is being used., D--An ESU, laser, or fiber-optic light is being used. 14:21:27 Physical assessment completed. ASA score P 2 - A patient with mild systemic disease as per Dereje Sanders MD. 14:21:31 Sedation plan: IV Moderate Sedation Medication:Versed, Fentanyl 14:21:36 Zero performed for pressure channel P1 14:21:46 Use device set Femoral Dx 14:21:47 ACIST Syringe (75552) opened to sterile field. 14:21:48 Bag Decanter (2002S) opened to sterile field. 14:21:49 Medline Cath Pack ([id number]) opened to sterile field. 14:21:49 DIAGNOSTIC WIRE .035 260cm J wire (407498) opened to sterile field. 14:21:50 ACIST Hand Control (32291) opened to sterile field. 14:21:51 ACIST Manifold (38373) opened to sterile field. 14:21:51 DIAGNOSTIC Multipack 5Fr catheter set (EB4356) opened to sterile field. 14:21:53 Tegaderm 4 x 4 (1626W) opened to sterile field. 14:21:54 SHEATH 5FR Huntington (JXI819) opened to sterile field. 14:21:56 Versed 2 mg I.V. was administered by Bailee Drew RN; for sedation; 14:22:03 Fentanyl 50 mcg I.V. was administered by Bailee Drew RN; for sedation; 14:27:15 Procedure started. 14:27:22 Versed 2 mg I.V. was administered by Bailee Drew RN; for sedation; 14:27:45 Fentanyl 50 mcg I.V. was administered by Bailee Drew RN; for sedation; 14:27:52 Local anesthetic to right femoral artery with Lidocaine 2% by Dereje Sanders MD.INITIAL ACCESS ONLY 14:28:12 A 5 Fr sheath was inserted into the Right Femoral artery 14:28:20 A MULTIPACK Pigtail 5 Fr catheter was advanced over the wire and used for LV Angiography. 14:30:30 LV angiography performed. 14:30:32 LV gram done using BASHIR 14:30:41 EF : 20 % 14:30:42 Catheter removed. 14:30:47 A MULTIPACK JL 4.0 5Fr catheter was advanced over the wire and used for Left Coronary Angiography. 14:30:51 LCA angiography performed. 14:30:52 Catheter removed. 14:31:00 A MULTIPACK 3DRC 5Fr catheter was advanced over the wire and used for Right Coronary Angiography. 14:31:05 RCA angiography performed. 14:31:06 Catheter removed. 14:31:27 SHEATH 6FR Huntington (WYY164) opened to sterile field. 14:31:27 CHOICE PT Extra Support 182cm wire ([id number]) opened to sterile field. 14:31:27 INFLATOR Merit BasixCompak (IP4140) opened to sterile field. 14:31:35 GUIDE 6FR XBLAD 3.5 catheter ([id number]) opened to sterile field. 14:32:05 Sheath upsized to a 6 Fr Short. 14:32:16 6 Fr XBLAD 3.5 guide catheter was inserted over the wire 14:32:21 CPTES wire advanced. 14:32:23 FFR/IVUS 14:32:24 IVUS catheter advanced over wire. 14:32:26 IVUS pass to Circ lesion performed. 14:33:20 Clio [place] Eagley[place] IVUS Catheter (40698V) opened to sterile field. 14:33:32 Procedure type changed to Cath procedure, Diagnostic procedure, LHC, LHC w/Coronaries, FFR/IVUS, Intra-Coronary IVUS Initial, PCI procedure, Coronary Stent, Coronary Stent Initial 14:36:52 IVUS catheter removed over wire. 14:38:24 Heparin Bolus 4000 units I.V. was administered by Bailee Drew RN; for anticoagulation; verified with Dr. Sanders 14:39:15 Place stent Inflation Number: 1 A INTEGRITY RX 4.0 x 15 stent ([id number]) was prepped and advanced across the Mid CX. The stent was deployed at 17 UDAY for 0:23 (min:sec). 14:39:24 Inflation number: 2 The stent balloon was then re-inflated across the Mid CX to 15 UDAY for 0:08 (min:sec). 14:39:32 Stent catheter was removed intact over wire. 14:39:32 Wire removed. 14:39:34 Guide catheter removed. 14:40:15 EXOSEAL 6Fr (EX600) opened to sterile field. 14:40:27 Sheath removed intact; hemostasis achieved with Exoseal to the Right Femoral artery. 14:40:29 Procedure ended.(Physican Out) 14:40:33 Fluoroscopy time 03.00 minutes. 14:40:38 Flurop Dose total: 579 14:40:38 Fluoroscopy dose: 579 mGy 14:40:45 Contrast amount:Isovue 300 60ml. 14:40:47 Sharps counted by scrub and verified by R.N. 14:40:59 Insertion/operative site no bleeding no hematoma. 14:41:02 Post-op/insertion site Right Femoral artery dressed using a 4 x 4 and Tegaderm. 14:41:05 Post right femoral artery:stable 14:41:07 Post Procedure Pulses reassessed and unchanged 14:41:09 Post procedure: right dorsailis pedis pulse 2+ Normal; easily identifiable; not easily obliterated. 14:41:12 Post procedure rhythm: sinus rhythm 14:41:13 Post procedure instruction explained to patient.Patient verbalizes understanding. 14:41:14 Procedure and supply charges have been captured, reviewed, submitted and are correct. 14:41:30 Procedure Complication : No complications 14:41:32 Vital chart was stopped 14:41:33 See physician's report for complete and final results. 14:41:34 Report given to PCU. 14:41:38 Patient transfered to PCU with Bed. 14:41:40 Procedure ended. 14:41:40 Full Disclosure recording stopped 14:41:43 End room use (Document Last) Intervention Summary Intervention Notes Time ActionType Lesion and Equipment Action# Pressure Duration Attributes Used 14:39:15 Place stent Mid CX INTEGRITY RX 1 17 00:23 4.0 x 15 stent ([id number]) 14:39:24 Reinflate Mid CX INTEGRITY RX 2 15 00:08 stent 4.0 x 15 balloon stent ([id number]) Device Usage Item Name Manufacture Quantity Catalog Number Hospital Part Current [facility] Lot# / Charge Number Stock Stock Serial# Code ACIST Acist 1 74287 363557 272891 240818 20 Syringe Medical (55295) Systems Inc Bag Decanter Microtek 1 2001S 454798 89101 077202 5 () Medical Inc. Medline Cath Medline 1 [id number] 287599 98700 786405 5 Pack ([id number]) DIAGNOSTIC [facility] [place] 1 959158 885187 365060 919924 30 WIRE .035 260cm J wire (107922) ACIST Hand Acist 1 75519 746464 237531 190094 5 Control Medical (80894) Systems Inc ACIST Acist 1 09525 846046 911115 704091 5 Manifold Medical (96617) Systems Inc DIAGNOSTIC Cardinal 1 TB8553 186495 39933 843037 30 Multipack Health 5Fr catheter set (WD4030) Tegaderm 4 x 3M 1 1626W 103522 929437 366571 5 4 (1626W) SHEATH 5FR Terumo 1 CQL782 648242 844980 935494 5 Huntington (HRH565) MULTIPACK Cardinal 1 886418 5 Pigtail 5 Fr Health catheter MULTIPACK JL Cardinal 1 246791 5 4.0 5Fr Health catheter MULTIPACK Cardinal 1 854062 5 3DRC 5Fr Health catheter SHEATH 6FR Terumo 1 EZY422 118892 609331 087630 40 Huntington (OIL118) CHOICE PT [place] 1 [id number] 988202 293157 650363 5 Extra Scientific Support 182cm wire ([id number]) INFLATOR Merit 1 ME1386 871624 467541 274491 15 [facility] Medical BasixCompak (HF0933) GUIDE 6FR Cardinal 1 [id number] 785439 591003 247893 10 XBLAD 3.5 Health catheter (95892228) Clio Clio 1 75971Z 256773 420828 750578 8 [place] IVUS Catheter (95803J) INTEGRITY RX Medtronic 1 [id number] 200110 920288 802203 5 [id number] 4.0 x 15 stent ([id number]) EXOSEAL 6Fr Cardinal 1 EX600 289768 731039 882141 10 (EX600) Health Signature Audit Ramona Stage Time Signature Unsigned Intra-Procedure 12/06/2018 Dillan Zelaya RT(R) 2:42:15 PM Signatures Monitor : Dillan Zelaya RT Signature : Date : Time : [facility] [address] [place] [address]
[2018-12-05 08:06] LABS: BASOPHILS 0.1 % (0-2); EOSINOPHILS 2.3 % (0-7); HEMATOCRIT 44.8 % (42.0-54.0); HEMOGLOBIN 15.1 g/dL (13.5-17.5); IMMATURE GRANULOCYTES 1.6 % (0-5); LYMPHOCYTES 17.9 % (15-50); MCH 30.3 pg (26.0-34.0); MCHC 33.7 g/dL (31.0-37.0); MCV 89.8 fL (80.0-100.0); MEAN PLATELET VOLUME 8.8 fL (7.4-10.4); MONOCYTES 7.2 % (2-11); NEUTROPHILS 70.9 % (40-80); PLATELET COUNT 111 10x3/uL (130-400); RBC 4.99 10x6/uL (4.20-6.10); RDW 16.2 % (11.5-14.5); WBC 9.5 10x3/uL (4.8-10.8)
[2018-12-05 08:29] LABS: ALBUMIN 3.6 g/dL (3.4-5.0); ALKALINE PHOSPHATASE 78 U/L (46-116); ALT (SGPT) 48 U/L (10-68); BILIRUBIN - TOTAL 0.43 mg/dL (0.2-1.3); CALC OSMOLALITY 296 mosm/kg (275-300); CALCIUM 9.3 mg/dL (8.5-10.1); CARBON DIOXIDE 32.2 mmol/L (21.0-32.0); CHLORIDE - SERUM 107 mmol/L (98-107); CREATININE - SERUM 1.4 mg/dL (0.6-1.3); GLUCOSE 127 mg/dL (74-106); POTASSIUM - SERUM 4.4 mmol/L (3.5-5.1); PROTEIN - SERUM 7.3 g/dL (6.4-8.2); SODIUM 147 mmol/L (136-145); UREA NITROGEN 20 mg/dL (7-18); eGFR NON AFRICAN AMERICAN 54 mL/min (90-120)
[2018-12-05 08:37] VITALS: BP 110/70
[2018-12-05 08:43] LABS: CKMB 2.6 U/L (0.0-3.6); CREATINE KINASE 86 UL (21-232); PRO BNP 738 pg/mL (0-125)
[2018-12-05 10:06] VITALS: BP 116/77
[2018-12-05 11:23] VITALS: BP 117/77
--- NOTE | 2018-12-05 11:54 | HP ---
PATIENT: CARLOS ANG MEDICAL RECORD: [id number] ACCOUNT: [id number] LOCATION:[facility].E15- : 54 ADMISSION DATE: 12/05/18 PCP: LIZETH JOSHI DO HISTORY AND PHYSICAL EXAMINATION ADMITTING DIAGNOSES: 1. Unstable angina. 2. Elevated troponin. 3. History of gastrointestinal bleed. 4. Status post hemicolectomy, colon cancer. 5. Coronary artery disease. 6. Previous PTCA and stent. 7. Cardiomyopathy. 8. Congestive heart failure, chronic systolic dysfunction. 9. Hypertension. 10. Paroxysmal atrial fibrillation. 11. Insulin-dependent diabetes. HISTORY OF PRESENT ILLNESS: Mr. Ang presents with recurrent chest pain. He presented last month with chest pain. His last cardiac intervention was in August. His troponin was elevated then, troponin is still elevated now. We did not intervene on him last month secondary to a history of GI bleeding, but his hemoglobin has been stable now since October. In fact, it is increased at 15.1 from the last admission he has. His troponin is still elevated. He continues to have episodes of chest pain. PHYSICAL EXAMINATION: GENERAL APPEARANCE: Well-nourished, well-developed, appears stated age. Level of distress, comfortable. PSYCHIATRIC: Mental status, alert, normal affect. Orientation, oriented to time, place and person. EYES: Lids and conjunctiva, noninjected. No discharge, no pallor. ENT: Lips, teeth, gums, normal dentition. Oropharynx, no cyanosis, no pallor. NECK: Carotid arteries, bilateral normal upstroke, no bruits, no thrills. JUGULAR VEINS: No jugular venous pressure or distention. CERVICAL LYMPH NODES: Nontender, nonenlarged. THYROID: Not enlarged. Nontender. No nodules. LUNGS: Respiratory effort, unlabored. CHEST: Normal curvature. No thoracic deformity. No chest wall tenderness. Percussion, resonant. Auscultation, clear. No wheezes, no rales, no rhonchi. CARDIOVASCULAR: Precordial exam, nondisplaced. No heaves or pericardial thrills. Rate and rhythm, regular. Heart sounds, normal S1, normal S2. No S3, no gallop, no rub. Systolic murmur, not heard. Diastolic murmur, not heard. EXTREMITIES: No cyanosis, no edema. Peripheral pulses, full and equal in all extremities, except as noted. No bruits appreciated. ABDOMEN: Soft, nondistended. Normal aorta. No bruit. Nontender. No masses. Liver, nontender, no hepatomegaly. Spleen, nontender, no splenomegaly. MUSCULOSKELETAL: No joint tenderness. No joint swelling. No erythema. NEUROLOGICAL: Normal gait, normal strength, normal tone. SKIN: Warm and dry. OVERALL IMPRESSION: Recurrent chest pain. He is on aspirin and Plavix. Troponin is stable and GI bleed is stable. At this time, we will admit him and plan for cardiac catheterization in the a.m. HISTORY AND PHYSICAL [id number] CARLOS ANG TRANSINT:[id number] Voice Confirmation ID: [id number] DOCUMENT ID: [id number] CHANTALE STRICKLAND MD at 1154 CC: [id number] DICTATION DATE: 12/05/18909 FINGERNAIL SCULPTURER: 12/05/18 09 REG [facility] [address] [place] [address]
--- NOTE | 2018-12-05 15:25 | NUR ---
TRANSFER FROM ER BY W/C. RAINERINTED TO ROOM. CALL LIGHT IN REACH. WILL CONT. PLAN OF CARE.
[2018-12-05] MEDS ORDERED: NOVOLOG100 UNIT/1 SC (15:29)
[2018-12-05] MEDS ORDERED: RANEXA500 MG PO (15:30)
[2018-12-05] MEDS ORDERED: VICTOZA0.6 MG/0.1 SQ (15:33)
[2018-12-05] MEDS ORDERED: NIASPAN500 MG PO (15:35)
[2018-12-05] MEDS ORDERED: LIPITOR40 MG PO (15:37)
[2018-12-05 15:49] VITALS: BP 131/67; BMI 30.7
--- NOTE | 2018-12-05 19:30 | NUR ---
PT AMBULATING IN [place], GAIT STEADY.
[2018-12-05 20:00] VITALS: BP 114/72
[2018-12-06] VITALS: BP 124/75
[2018-12-06 04:00] VITALS: BP 100/62
--- NOTE | 2018-12-06 07:17 | NUR ---
REPORT RECEIVED. WILL CONTINUE WITH POC. PT CURRENTLY SITTING ON EDGE OF BED. CALL LIGHT W/I REACH. PT IS AAO AND UP AD KRISTY. PT IS NPO FOR POSSIBLE CATH TODAY. RR EVEN AND UNLABORED ON 2L 02. L.FOR PIV IS SALINE LOCKED. NO S/S OF DISTRESS NOTED. WILL CTM.
[2018-12-06 09:11] VITALS: BP 103/61
--- NOTE | 2018-12-06 10:44 | NUR ---
I have reviewed this patient and I concur with the Shift Assessment completed by the Licensed Practical Nurse today this shift.
[2018-12-06 11:42] VITALS: BP 96/57
[2018-12-06 12:17] VITALS: Ht 172.7 cm; Wt 99.3 kg
--- NOTE | 2018-12-06 13:51 | NUR ---
PREOP MEDICATIONS ADMINISTERED. PT TRANSFERED TO ACID CHANGER. WILL CTM.
--- NOTE | 2018-12-06 15:19 | NUR ---
PT RETURNED FROM CLIENT EXECUTIVE. PERIPHERAL PULSES EVEN AND BILATERAL. TELEMETRY PLACED ON AND PT RUNNING PACED AT 71. RR EVEN AND UNLABORED ON 2L 02. NS INFUSING @200ML/HR VIA L.FOR PIV. NO S/S OF HEMATOMA PRESENT. WILL CTM.
--- NOTE | 2018-12-06 17:38 | NUR ---
WHEN PT RECEIVED DINNER, HE DEMANDED THAT HE BE PUT IN REVERSE [place] SO THAT HE COULD EAT EVEN THOUGH HE IS IN A BED THAT DOES NOT HAVE THAT FUNCTION. AFTER INSTRUCTING THE PATIENT OF THE RISK OF HEMORRHAGING, THE PATIENT BECAME VERY ANGRY AND DEMANDED TO SEE SOMEONE ELSE. I INFORMED THE CHARGE NURSE SAMMI. THE RIGHT FEMORAL CATH SITE IS C/D/I WITH NO S/S OF HEMATOMA. WILL CTM.
--- NOTE | 2018-12-06 18:05 | NUR ---
PT CURRENTLY LYING SUPINE. CALL LIGHT W/I REACH. RR EVEN AND UNLABORED ON 2L 02. PT IS AAO AND DENIES ANY NEEDS. CHARGE NURSE SAMMI ELEVATED HEAD TO 20 DEGREES SO THAT PT COULD EAT DINNER. NO S/S OF HEMATOMA PRESENT. PERIPHERAL PULSES EVEN AND BILATERAL. WILL PASS REPORT AND CONTINUE WITH POC.
[2018-12-06 19:58] VITALS: BP 98/60
--- NOTE | 2018-12-06 20:19 | NUR ---
INITIAL ROUNDS AND ASSESSMENT COMPLETED. SEE ASSESSMENT. MONITOR AND CPOC.
--- NOTE | 2018-12-06 22:40 | NUR ---
BED TIME MEDS GIVEN. PT VERY ANGRY. SAYING OTHER PATIENTS ARE GETTING PREFERENTIAL TREATMENT OVER HIM. YELLING AT THIS NURSE SAYING HE HAS SEEN HER GO INTO EVERY OTHER ROOM AND TAKE CARE OF EVERY ONE ELSE, BUT NEVER ONCE EVEN LOOKED TO SEE IF HE NEEDED SOMETHING. PT POINTED OUT THAT HE HAD HIS CALL LIGHT ON AND NURSE ACKNOWLEDGED SHE KNEW IT WAS ON AND HAD TOLD SAND CUTTER OPERATOR'S THAT MEDS WERE BEING TAKEN TO THAT ROOM SO NURSE WOULD SEE WHAT PATIENT NEEDED. PT UPSET WITH THIS NURSE, UPSET THAT HIS MEDS HAVE BEEN ON HOLD SINCE HE CAME INTO THE HOSPITAL. PROVIDED HIS BEDTIME MEDS. FSBS 132, NO SLIDING SCALE REQUIRED. PROVIDED CLEAN GOWN AND SHEET AT PATIENT REQUEST. RIGHT GROING ASSESSED. SOFT/NO SWELLING, VERY LIGHT BRUISING NOTED. GOOD PEDAL PULSE. DRESSING C/D/I. PT SAYING HE WANTS TO TURN THIS NURSE IN FOR NOT PROVIDING APPROPRIATE CARE TO HIM. PROVIDED PT WITH REQUESTED SNACK. ALSO NOTIFIED BODY SHOP TECHNICIAN, CROW, AND SHE IS CURRENTLY IN ROOM TALKING WITH PATIENT.
[2018-12-06 23:35] VITALS: BP 133/77
[2018-12-07 05:10] VITALS: BP 91/45
--- NOTE | 2018-12-07 07:30 | NUR ---
RECEIVED PT SITTING IN CHAIR AAOX4 RESP UNLABORED SKIN W/D COLOR WNL PT DENIES ANY PAIN OR NEEDS AT THIS TIME
[2018-12-07 08:59] VITALS: BP 108/67
--- NOTE | 2018-12-07 10:15 | NUR ---
REVIEWED DISCHARGE INSTRUCTIONS WITH PT STATES UNDERSTANDING COPY GIVEN DCD SALINE LOCK TO LFA WITH IV CATHETER INTACT SITE FREE OF REDNESS OR EDEMA PT DISCHARGED HOME IN STABLE CONDITION LEFT UNIT VIA W/C WITH ALL PERSONAL BELONGINGS
--- NOTE | 2018-12-09 10:04 | MORECARE ---
CASE MANAGEMENT DISCHARGE SUMMARY PATIENT: CARLOS CULLEN UNIT: [id number] ADM DATE: 12/05/18 AGE: 68 : 52 SEX: M ROOM/BED: D.2120 AUTHOR: JOSHUA FRANKLIN PHYSICIAN: REFERRING PHYSICIAN: CHANTALE STRICKLAND MD DATE OF SERVICE: 12/09/18 Discharge Plan Patient Name: CARLOS CULLEN [facility] [facility] 1950 Planned Disposition: Home Anticipated Discharge Date: 12/07/18 Discharge Date: 12/07/2018 Expected LOS: 2 Initial Reviewer: [email or web address] Initial Review Date: 12/05/2018 Generated: 12/09/18 11:04 am Patient Name: CARLOS CULLEN Page 25420 at 1004 All edits/amendments must be made on the electronic document DICTATION DATE: 12/09/18 1004 HEADER SETUP OPERATOR: BEAN 12/09/18 1004 RPT#: [id number] DC DATE:12/07/18 STATUS: DIS IN [facility] [address] [place] [address] END OF REPORT
--- NOTE | 2018-12-09 10:55 | DS ---
PATIENT:CARLOS ANG :54 MEDICAL RECORD: [id number] DISCHARGE SUMMARY ADMISSION DATE: 12/05/18 DISCHARGE DATE: 12/07/18 DIAGNOSES: 1. Angina. 2. Coronary artery disease. 3. Chronic obstructive pulmonary disease. 4. Smoking history. 5. History of gastrointestinal bleed. 6. Percutaneous transluminal coronary angioplasty stent of the left circumflex this admission. HOSPITAL COURSE: Mr. Ang presents with anginal symptomatology, found to have significant disease of the circumflex, underwent successful PTCA and stent of the circumflex. He is stable from standpoint of gastrointestinal bleed with no further bleeding, stable hemoglobin, was discharged home with the addition of aspirin and Plavix to his medical regimen. Follow up with [facility] in 1 month. TRANSINT:[id number] Voice Confirmation ID: [id number] DOCUMENT ID: [id number] CHANTALE STRICKLAND MD at 1055 CC: [id number] DICTATION DATE: 12/07/18 1025 MEAT SERVICE TEAM MEMBER: 12/08/18 0856 DIS IN 12/07/18 [id number] [place] [address]
--- NOTE | 2018-12-09 10:55 | OP ---
PATIENT NAME: CARLOS CULLEN MEDICAL RECORD: [id number] :54 LOCATION:D.M2 D.2120 ADMISSION DATE:12/05/18 SURGEON: CHANTALE STRICKLAND MD DATE OF OPERATION: 12/06/2018 PROCEDURES: 1. PTCA stent left circumflex. 2. Intravascular ultrasound. 3. Left heart catheterization. 4. Selective coronary angiography. 5. Left ventriculogram. INDICATION: Angina and coronary artery disease. PROCEDURE IN DETAIL: After informed consent was obtained and after a detailed description of risks, benefits as well as alternative therapies, the patient elected to proceed with angiogram and angioplasty. The right femoral area was prepped and draped in normal sterile fashion. Right femoral artery was cannulated via modified Seldinger technique with placement of 6-Polish sheath. All catheters exchanged through this sheath. FINDINGS: Left ventriculogram was performed in standard 30-degree BASHIR view, reveals global hypokinesis throughout all segments. Overall ejection fraction is 20%. SELECTIVE CORONARY ANGIOGRAPHY: 1. Left main is with no significant angiographic disease. 2. Left anterior descending totally occluded proximally. 3. Vein graft to the LAD is widely patent. Distal LAD is widely patent. 4. Left circumflex has previously placed stents. There is greater than 70% in-stent restenosis confirmed by intravascular ultrasound. 5. The right coronary artery is closed. 6. Vein graft to the right coronary artery is closed rhythm. PTCA STENT OF THE LEFT CIRCUMFLEX: The stent used was a 4.0 x 15 mm Integrity. Result was 0% residual stenosis. OVERALL IMPRESSION: Successful percutaneous transluminal angioplasty stent of the left circumflex going from 80% in-stent restenosis to 0% residual. TRANSINT:[id number] Voice Confirmation ID: [id number] DOCUMENT ID: [id number] CHANTALE STRICKLAND MD at 1055 CC: [id number] DICTATION DATE: 12/06/18 1443 SEAM PRESSER: 12/06/18 1947 DIS IN 12/07/18 [id number] [place] [address]
== END 2018-12-07 10:15 | disposition home or self-care (01) ==
LOC: D.OPS 07:37 → D.ER 07:37 → EDSTATUS 10:58 → D.EDHOLD 10:59 → D.M2 15:20 → D.OPS 15:20 → D.M2 15:20 → OBSVTIME 15:21 → D.M2 12-07 10:15
PROVIDERS: Family Medicine; ADMIT Internal Medicine Interventional Cardiology; ATTEND Internal Medicine Interventional Cardiology
DX: I25.110 Atherosclerotic heart disease of native coronary artery with unstable angina pectoris (principal); T82.855A Stenosis of coronary artery stent, initial encounter; Y83.8 Other surgical procedures as the cause of abnormal reaction of the patient, or of later complication, without mention of misadventure at the time of the procedure; J44.9 Chronic obstructive pulmonary disease, unspecified

== ENCOUNTER 2018-12-15 23:53 | Inpatient (IN) | payer MEDICARE ==
[~2018-12-15] VITALS: Ht 172.7 cm; Wt 95.5 kg
[~2018-12-15 23:53] MED LIST changes: +LIPITOR40 MG PO; +NIASPAN500 MG PO; +NOVOLOG100 UNIT/1 SC
[2018-12-16] MEDS ORDERED: ENTRESTO 49 MG1 EACH PO (00:03)
[2018-12-16] MEDS ORDERED: TRAZODONE HCL150 MG PO (00:05)
[2018-12-16 00:14] LABS: BASOPHILS 0.8 % (0-2); EOSINOPHILS 4.2 % (0-7); HEMATOCRIT 42.8 % (42.0-54.0); HEMOGLOBIN 14.4 g/dL (13.5-17.5); IMMATURE GRANULOCYTES 0.5 % (0-5); LYMPHOCYTES 23.2 % (15-50); MCH 30.3 pg (26.0-34.0); MCHC 33.6 g/dL (31.0-37.0); MCV 90.1 fL (80.0-100.0); MEAN PLATELET VOLUME 8.8 fL (7.4-10.4); MONOCYTES 10.3 % (2-11); RBC 4.75 10x6/uL (4.20-6.10); RDW 16.3 % (11.5-14.5); WBC 6.2 10x3/uL (4.8-10.8)
[2018-12-16 00:15] LABS: PLATELET COUNT 143 10x3/uL (130-400)
[2018-12-16 00:26] LABS: APTT 25.8 SECONDS (22.8-39.4); INR 1.06 (0.85-1.17); PROTIME 13.3 SECONDS (11.6-15.0)
[2018-12-16 00:28] LABS: ALBUMIN 3.8 g/dL (3.4-5.0); ALKALINE PHOSPHATASE 83 U/L (46-116); ALT (SGPT) 43 U/L (10-68); BILIRUBIN - TOTAL 0.48 mg/dL (0.2-1.3); CALC OSMOLALITY 286 mosm/kg (275-300); CARBON DIOXIDE 33.7 mmol/L (21.0-32.0); CHLORIDE - SERUM 104 mmol/L (98-107); CREATININE - SERUM 1.7 mg/dL (0.6-1.3); GLUCOSE 139 mg/dL (74-106); POTASSIUM - SERUM 4.1 mmol/L (3.5-5.1); PROTEIN - SERUM 7.7 g/dL (6.4-8.2); SODIUM 141 mmol/L (136-145); UREA NITROGEN 24 mg/dL (7-18); eGFR NON AFRICAN AMERICAN 43 mL/min (90-120)
[2018-12-16 00:29] LABS: D-DIMER-QUANTITATIVE < 0.27 ug/mLFEU (0.20-0.54)
[2018-12-16 00:50] LABS: CKMB 2.6 U/L (0.0-3.6); CREATINE KINASE 115 UL (21-232); PRO BNP 583 pg/mL (0-125)
[2018-12-16 00:51] LABS: TROPONIN-I 0.455 ng/mL (0.000-0.060)
[2018-12-16 01:20] VITALS: BP 115/74; BMI 33.0
--- NOTE | 2018-12-16 01:22 | NUR ---
ADDED PATIENT TO TELE WAIT LIST. NO MONITORS AVAILABLE AT THIS TIME.
[2018-12-16] MEDS ORDERED: DEMADEX20 MG PO (01:34)
[2018-12-16 04:24] VITALS: BP 99/56
[2018-12-16 09:07] VITALS: BP 107/63
[2018-12-16 12:28] VITALS: BP 110/61
[2018-12-16 13:40] VITALS: Ht 172.7 cm; Wt 95.5 kg
--- NOTE | 2018-12-16 14:52 | NUR ---
DR. CAMACHO HERE SEEING PATIENT IN ROOM.
--- NOTE | 2018-12-16 18:24 | NUR ---
RECIEVED FROM MED 3. ALERT AND ORIENTED WT 223. SHORT F BREATH. O2 AT 3 L/M PER NC. TELEMERTY SHOWS PACING AT 74. UP IN BEDSIDE CHAIR. WILL MONITOR
--- NOTE | 2018-12-16 19:12 | NUR ---
RECUIEVED UP SITTING IN SIDE OF BED. ALERT AND ORIENTED X4. UP AD KRISTY. IV TO RIGHT AC SL.. PACEMAKER TO LEFT CHEST. DENIES ANY NEEDS AT THIS TIME.
[2018-12-16 21:23] VITALS: BP 105/62
--- NOTE | 2018-12-16 22:48 | NUR ---
FSBS 461. PROTOCOL LAB TO DRAW BS. ORDER PLACED AND CALLED TO LAB.
[2018-12-17] VITALS (7 sets, daily range): BP systolic 85–121; BP diastolic 49–71
[2018-12-17 06:51] LABS: BASOPHILS 0.2 % (0-2); EOSINOPHILS 0.7 % (0-7); HEMOGLOBIN 13.2 g/dL (13.5-17.5); IMMATURE GRANULOCYTES 0.3 % (0-5); LYMPHOCYTES 14.2 % (15-50); MCH 30.1 pg (26.0-34.0); MCHC 33.8 g/dL (31.0-37.0); MCV 88.8 fL (80.0-100.0); MEAN PLATELET VOLUME 9.4 fL (7.4-10.4); MONOCYTES 8.7 % (2-11); NEUTROPHILS 75.9 % (40-80); PLATELET COUNT 141 10x3/uL (130-400); RBC 4.39 10x6/uL (4.20-6.10); RDW 16.3 % (11.5-14.5)
[2018-12-17 07:05] LABS: WBC 9.9 10x3/uL (4.8-10.8)
--- NOTE | 2018-12-17 07:30 | NUR ---
ASSESSMENT COMPLETED. ALERT AND ORIENTED. RIGHT AC IV WITH DOBUTAMINE 9.1 PER MIN. UP AB KRISTY. TELEMERTY SHOWS PACED RHYTHM. UP ON SIDE OF BED. WILL MONITOR
[2018-12-17 07:34] LABS: CALCIUM 8.9 mg/dL (8.5-10.1); CARBON DIOXIDE 27.2 mmol/L (21.0-32.0); CHLORIDE - SERUM 105 mmol/L (98-107); CKMB 2.5 U/L (0.0-3.6); CREATINE KINASE 69 UL (21-232); CREATININE - SERUM 1.4 mg/dL (0.6-1.3); POTASSIUM - SERUM 3.7 mmol/L (3.5-5.1); SODIUM 142 mmol/L (136-145); UREA NITROGEN 29 mg/dL (7-18); eGFR NON AFRICAN AMERICAN 54 mL/min (90-120)
[2018-12-17 07:36] LABS: CALC OSMOLALITY 288 mosm/kg (275-300); GLUCOSE 105 mg/dL (74-106)
[2018-12-17 07:37] LABS: TROPONIN-I 0.352 ng/mL (0.000-0.060)
--- NOTE | 2018-12-17 15:45 | NUR ---
SITED IV TO RFA USING ASEPTIC TECHNIQUE WITH 22 GA IV CATH X1 STICK PT TOLERATED WELL
--- NOTE | 2018-12-17 16:39 | NUR ---
REFUSED SCD'S PER CONNER/UMBRELLA TIPPER HAND
--- NOTE | 2018-12-17 19:14 | NUR ---
RECIEVED UP IN CHAIR WITH EYES OPEN AND TV ON. ALERT AND ORIENTED X4. IV TO RIGHT FA WITH DOBUTAMINE INFUSING. DENIES ANY NEEDS.
[2018-12-18 05:21] VITALS: BP 102/51
[2018-12-18 05:58] LABS: BASOPHILS 0.7 % (0-2); EOSINOPHILS 3.4 % (0-7); HEMATOCRIT 38.9 % (42.0-54.0); HEMOGLOBIN 12.9 g/dL (13.5-17.5); IMMATURE GRANULOCYTES 0.5 % (0-5); LYMPHOCYTES 26.1 % (15-50); MCH 29.7 pg (26.0-34.0); MCHC 33.2 g/dL (31.0-37.0); MCV 89.4 fL (80.0-100.0); MEAN PLATELET VOLUME 9.2 fL (7.4-10.4); NEUTROPHILS 57.3 % (40-80); PLATELET COUNT 122 10x3/uL (130-400); RBC 4.35 10x6/uL (4.20-6.10); RDW 16.3 % (11.5-14.5)
[2018-12-18 06:01] LABS: WBC 5.8 10x3/uL (4.8-10.8)
[2018-12-18 06:25] LABS: ANION GAP 9.7 mmol/L (8-16); CALCIUM 8.4 mg/dL (8.5-10.1); CARBON DIOXIDE 30.1 mmol/L (21.0-32.0); CREATININE - SERUM 1.2 mg/dL (0.6-1.3); POTASSIUM - SERUM 3.8 mmol/L (3.5-5.1)
--- NOTE | 2018-12-18 07:20 | NUR ---
ASSESSMENTR DONE. DENIES NEEDES
[2018-12-18 08:22] VITALS: BP 121/80
--- NOTE | 2018-12-18 10:37 | NUR ---
I have reviewed this patient and I concur with the Shift Assessment completed by the Licensed Practical Nurse today this shift.
[2018-12-18 12:07] VITALS: BP 137/69
[2018-12-18 15:30] VITALS: BP 114/57
--- NOTE | 2018-12-18 15:32 | MORECARE ---
CASE MANAGEMENT DISCHARGE SUMMARY PATIENT: CARLOS CULLEN UNIT: [id number] ADM DATE: 12/16/18 AGE: 68 : 52 SEX: M ROOM/BED: D.2123 AUTHOR: JOSHUA FRANKLIN PHYSICIAN: REFERRING PHYSICIAN: JENNIFER ROA MD DATE OF SERVICE: 12/18/18 Discharge Plan Patient Name: CARLOS CULLEN [facility] [facility] 1950 Planned Disposition: Home Anticipated Discharge Date: 12/19/18 Discharge Date: Expected LOS: 3 Initial Reviewer: [email or web address] Initial Review Date: 12/18/2018 Generated: 12/18/18 4:32 pm DCPIA - Discharge Planning Initial Assessment Updated by [email or web address]: Sherif Green on 12/18/18 3:28 pm * Is the patient Alert and Oriented? Yes * How many steps to enter\exit or inside your home? 0-0 -I * PCP DR. JOSHI * Pharmacy [facility] ([place]) * Preadmission Environment Home with Family * ADLs Independent * Equipment BIPAP Oxygen * Other Equipment OXYGEN AT NIGHT [facility] - MEDICAL EQUIPMENT PROVIDER * List name and contact numbers for known caregivers / representatives who currently or will assist patient after discharge: CARLOS CULLEN, SON, * Verbal permission to speak to the caregivers and representatives has been obtained from the patient. N/A * Community resources currently utilized None * Please name any agencies selected above. NONE * Additional services required to return to the preadmission environment? No * Can the patient safely return to the preadmission environment? Yes * Has this patient been hospitalized within the prior 30 days at any hospital? Yes Patient Name: CARLOS CULLEN Page 35031 at 1532 All edits/amendments must be made on the electronic document DICTATION DATE: 12/18/181531 WELDER FITTER HELPER: BEAN 12/18/181531 RPT#: [id number] DC DATE: STATUS: ADM IN [facility] [address] [place] [address] END OF REPORT
--- NOTE | 2018-12-18 15:46 | MORECARE ---
CASE MANAGEMENT DISCHARGE SUMMARY PATIENT: CARLOS CULLEN UNIT: [id number] ADM DATE: 12/16/18 AGE: 68 : 52 SEX: M ROOM/BED: D.9206 AUTHOR: NOEMI,DOC PHYSICIAN: REFERRING PHYSICIAN: JENNIFER ROA MD DATE OF SERVICE: 12/18/18 Discharge Plan Patient Name: CARLOS CULLEN Facility: [facility]:[place] : 1950 Planned Disposition: Home Anticipated Discharge Date: 12/19/18 Discharge Date: Expected LOS: 3 Initial Reviewer: [email or web address] Initial Review Date: 12/18/2018 Generated: 12/18/18 4:45 pm Comments DCP- Discharge Planning Updated by [email or web address]: Sherif Green on 12/18/18 2:[address] Patient Name: CARLOS CULLEN Admission Status: ER Accout number: [id number] Admission Date: 12-16-2018 : 1950 Admission Diagnosis:SHORTNESS OF BREATH Attending: JENNIFER ROA Current LOS: 2 Anticipated DC Date: 12-19-2018 Planned Disposition: Home Primary Insurance: MEDICARE A & B Discharge Planning Comments: CM MET WITH PT IN ROOM TO DISCUSS DISCHARGE PLANNING AND NEEDS. PT REPORTS LIVING AT HOME INDEPENDENTLY WITH SON. PT HAS BIPAP AND HOME OXYGEN THAT HE USES AT NIGHT ONLY. PT'S MEDICAL EQUIPMENT PROVIDER IS [facility]. PT HAS NO OUTSIDE SERVICES ASSISTING IN THE HOME. CM DISCUSSED AVAILABILITY OF HOME HEALTH, REHAB SERVICES AND MEDICAL EQUIPMENT. PT DENIES DISCHARGE NEEDS, REPORTS HIS SON WILL PICK HIM UP FOR DISCHARGE HOME. CM ENCOURAGED PT TO ACCEPT HOME HEALTH, PT DENIES NEED AT THIS TIME. IMPORTANT MESSAGE FROM [employer]ARE PROVIDED AND EXPLAINED. PT PLANS TO DISCHARGE HOME WITH SON, DENIES NEEDS; FAMILY TO TRANSPORT HOME AT DISCHARGE. CM TO CONTINUE TO FOLLOW AND ASSIST IF NEEDED. Divider Operator: Sherif Green DCPIA - Discharge Planning Initial Assessment Updated by [email or web address]: Sherif Green on 12/18/18 3:28 pm * Is the patient Alert and Oriented? Yes * How many steps to enter\exit or inside your home? 0-0 10-I * PCP DR. JOSHI * Pharmacy [facility] ([place]) * Preadmission Environment Home with Family * ADLs Independent * Equipment BIPAP Oxygen * Other Equipment OXYGEN AT NIGHT [facility] - MEDICAL EQUIPMENT PROVIDER * List name and contact numbers for known caregivers / representatives who currently or will assist patient after discharge: CARLOS CULLEN, SON, * Verbal permission to speak to the caregivers and representatives has been obtained from the patient. N/A * Community resources currently utilized None * Please name any agencies selected above. NONE * Additional services required to return to the preadmission environment? No * Can the patient safely return to the preadmission environment? Yes * Has this patient been hospitalized within the prior 30 days at any hospital? Yes Coverage Notice Reviewer: [email or web address] Boaz Green Notice Issued Date-Time: 12/18/2018 15:32 Notice Type: IM Discharge Notice Notice Delivered To: Patient Relationship to Patient: Sleeve Sewer Name: Delivery Method: HAND - Hand Delivered Stefani Days: Prior Verbal Notification: Recipient Understood Notice: Yes Recipient Signature: Yes Med Rec Note Co-signed by Attending: Coverage Notice Comment: Last DP export: 12/18/18 2:32 p Patient Name: CARLOS CULLEN Page 25097 at 1546 All edits/amendments must be made on the electronic document DICTATION DATE: 12/18/181544 CUSTOMER PROGRAM SPECIALIST: BEAN 12/18/181544 RPT#: [id number] DC DATE: STATUS: ADM IN [facility] [address] [place] [address] END OF REPORT
--- NOTE | 2018-12-18 17:24 | NUR ---
WITHOUT CHANGES OR DISTRESS NOTED AT THIS TIME. DENIES NEEDS.
--- NOTE | 2018-12-18 20:10 | NUR ---
RECIEVED BEDSIDE REPORT. ROUNDS COMPLETED. VSS, AAOX4. PT SITTING ON THE COUCH AND HAVING EPISODES OF COUGHS. MEDS GIVEN, PT DENIES ANT FURTHER NEEDS FOR COMFORT CARE. WILL CTM. CL IN REACH, BED IN LOW, SR UP X2.
[2018-12-18 20:57] VITALS: BP 116/73
[2018-12-18 23:59] VITALS: BP 120/58
--- NOTE | 2018-12-19 04:44 | NUR ---
PT CURRETNLY RESTING IN BED WITH EYES CLOSE. WILL CTM.
[2018-12-19 05:27] VITALS: BP 129/80
[2018-12-19 06:11] LABS: BASOPHILS 0.3 % (0-2); EOSINOPHILS 4.7 % (0-7); HEMATOCRIT 39.7 % (42.0-54.0); HEMOGLOBIN 13.2 g/dL (13.5-17.5); IMMATURE GRANULOCYTES 0.5 % (0-5); MCH 29.9 pg (26.0-34.0); MCHC 33.2 g/dL (31.0-37.0); MCV 89.8 fL (80.0-100.0); MEAN PLATELET VOLUME 8.3 fL (7.4-10.4); MONOCYTES 11.3 % (2-11); NEUTROPHILS 56.2 % (40-80); PLATELET COUNT 106 10x3/uL (130-400); RBC 4.42 10x6/uL (4.20-6.10); RDW 16.4 % (11.5-14.5); WBC 5.9 10x3/uL (4.8-10.8)
[2018-12-19 06:27] LABS: ANION GAP 9.4 mmol/L (8-16); CALCIUM 8.7 mg/dL (8.5-10.1); CARBON DIOXIDE 32.3 mmol/L (21.0-32.0); CREATININE - SERUM 1.4 mg/dL (0.6-1.3); POTASSIUM - SERUM 3.7 mmol/L (3.5-5.1)
--- NOTE | 2018-12-19 06:47 | NUR ---
PT REFUSED PROTONIX. STATES HE ALWAYS TAKES IT WITH HIS 0900 MEDS.
--- NOTE | 2018-12-19 07:25 | NUR ---
RESTING QUIETLY. NO DISTRESS
--- NOTE | 2018-12-19 07:53 | NUR ---
SLEEPING IN CHAIR .
[2018-12-19 08:43] VITALS: BP 128/78
--- NOTE | 2018-12-19 10:23 | NUR ---
SITTING UP IN CHAIR READING PAPER. MONITOR SHOWS PACED AT 72.
[2018-12-19 12:44] VITALS: BP 134/80
--- NOTE | 2018-12-19 13:25 | NUR ---
Diabetic Cardiac diet with 100% intake past 2 days Weight 220lb today Admit weight 219lb BG 171,[address] following
--- NOTE | 2018-12-19 16:04 | NUR ---
DOBUTAMINE GTT DC ORDERED
[2018-12-19 17:09] VITALS: BP 126/81
--- NOTE | 2018-12-19 19:41 | NUR ---
ROUNDS COMPLETED. VSS, AAOX3, NO S/S OF RR DISTRESS. RR EVEN AND UNLABORED. PT RESTING IN BED WITH EYES OPEN DENIES ANY NEED AT THIS TIME WILL CPOC. CL IN REACH, BED IN LOW, SR UP X2.
[2018-12-19 20:00] VITALS: BP 128/76
[2018-12-20] VITALS: BP 104/67; BP 111/69
--- NOTE | 2018-12-20 | NUR ---
PT CURRENTLY RESTING IN BED. REQUESTED FOR SHERBERT ORANGE ICE CREAM. 2 GIVEN AT THIS TIME WILL CTM. PT CURRENTLY RESTING IN BED.
[2018-12-20 04:00] VITALS: BP 101/61
[2018-12-20 04:53] LABS: BASOPHILS 0.5 % (0-2); IMMATURE GRANULOCYTES 0.8 % (0-5); MCH 29.6 pg (26.0-34.0); MCHC 33.3 g/dL (31.0-37.0); MCV 88.8 fL (80.0-100.0); MEAN PLATELET VOLUME 9.1 fL (7.4-10.4); MONOCYTES 10.5 % (2-11); NEUTROPHILS 57.2 % (40-80); PLATELET COUNT 114 10x3/uL (130-400); RBC 4.39 10x6/uL (4.20-6.10); RDW 16.3 % (11.5-14.5)
[2018-12-20 05:08] LABS: ANION GAP 10.6 mmol/L (8-16); CALCIUM 8.9 mg/dL (8.5-10.1); CARBON DIOXIDE 31.1 mmol/L (21.0-32.0); CREATININE - SERUM 1.3 mg/dL (0.6-1.3); POTASSIUM - SERUM 3.7 mmol/L (3.5-5.1)
--- NOTE | 2018-12-20 06:50 | NUR ---
PT REFUSED PROTONIX, STATES HE ALWAYS TAKES THE MEDS WITH 0900 MEDS. WILL CPOC. CL IN REACH, BED IN LOW SR UP X2.
--- NOTE | 2018-12-20 07:44 | NUR ---
AM ROUNDING DONE WITH PATIENT LAYING IN BED LOOKING AT CELL PHONE, GLASSES ON. DENIES ANY NEEDS AT THIS TIME. LEFT PACEMAKER SEEN, ON HEART MONITOR SHOWING PACED, HR 69. ON ROOM AIR. RIGHT HAND PIV SEEN SALINE LOCK, ORANGE SWAB CAP IN USE.
[2018-12-20 08:17] VITALS: BP 125/85
--- NOTE | 2018-12-20 09:05 | NUR ---
IV RE-SITED TO RIGHT WRIST X 2 STICKS WITH 22 G. RIGHT FA WAS NOT WANTING TO FLUSH WITH NS.
[2018-12-20 12:22] VITALS: BP 131/80
--- NOTE | 2018-12-20 12:34 | NUR ---
COMPLETE BED LINEN CHANGE DONE. AWAITING MORE LINENS SO PATIENT CAN WASH UP. SITTING IN CHAIR WITH LUNCH.
--- NOTE | 2018-12-20 12:58 | NUR ---
WASH CLOTHES AND TOWELS GIVEN TO PATIENT FOR WASHING UP.
--- NOTE | 2018-12-20 15:54 | NUR ---
STILL SITTING IN CHAIR AT THIS TIME. ARTURO NEEDS AT THIS TIME.
[2018-12-20 16:08] VITALS: BP 109/71
--- NOTE | 2018-12-20 16:37 | NUR ---
POC GLUCOSE IS 173, PER SLIDING SCALE REQUIRES 4 U OF INSULIN. PATIENT TAKES 2 U TO RIGHT ARM.
--- NOTE | 2018-12-20 19:30 | NUR ---
RECEIVED REPORT, WILL ASSUME CARE OF PT, SITTING IN CHAIR, DENIES ANY NEED, CALL LIGHT IN REACH, WILL CONTINUE PLAN OF CARE
[2018-12-20 20:00] VITALS: BP 129/80
--- NOTE | 2018-12-20 21:42 | NUR ---
[id number] ONLY WANTS 4 UNITS OF HUMULIN, LANTUS-60. VICTOZA-1.8
--- NOTE | 2018-12-21 00:20 | NUR ---
I have reviewed this patient and I concur with the Shift Assessment completed by the Licensed Practical Nurse today this shift.
--- NOTE | 2018-12-21 01:46 | NUR ---
SLEEPING, NO DISTRESS NOTICE, BED IS LOW, SRX2, CALL LIGHT IN REACH, WILL CONTINUE PLAN OF CARE
[2018-12-21 04:23] VITALS: BP 126/80
[2018-12-21 04:34] LABS: BASOPHILS 0.4 % (0-2); EOSINOPHILS 4.8 % (0-7); HEMATOCRIT 39.5 % (42.0-54.0); HEMOGLOBIN 13.1 g/dL (13.5-17.5); IMMATURE GRANULOCYTES 0.5 % (0-5); LYMPHOCYTES 17.3 % (15-50); MCH 29.8 pg (26.0-34.0); MCHC 33.2 g/dL (31.0-37.0); MEAN PLATELET VOLUME 9.2 fL (7.4-10.4); MONOCYTES 11.3 % (2-11); NEUTROPHILS 65.7 % (40-80); PLATELET COUNT 129 10x3/uL (130-400); RBC 4.39 10x6/uL (4.20-6.10); RDW 16.3 % (11.5-14.5)
[2018-12-21 04:42] LABS: WBC 8.3 10x3/uL (4.8-10.8)
[2018-12-21 04:56] LABS: CALCIUM 9.1 mg/dL (8.5-10.1); CARBON DIOXIDE 30.1 mmol/L (21.0-32.0); CREATININE - SERUM 1.3 mg/dL (0.6-1.3); POTASSIUM - SERUM 4.1 mmol/L (3.5-5.1)
[2018-12-21 09:23] VITALS: BP 132/75
--- NOTE | 2018-12-21 10:08 | NUR ---
ALERT AND ORIENTED. TELEMERTY SHOWS PACED RHYTHM AT 72. RIGHT WRIST SL. O2 AT 2 L/M PER NC. PT IS WHEEZEING THIS MORNING. UP AB KRISTY. DENIES ANY NEEDS. CALL LIGHT IN REACH
[2018-12-21 11:38] VITALS: BP 128/74
[2018-12-21 16:15] VITALS: BP 172/85
--- NOTE | 2018-12-21 19:30 | NUR ---
RECEIVED REPORT, WILL ASSUME CARE OF PT, SLEEPING, NO DISTRESS NOTICED AT THIS TIME, BED IS LOW, SRX2, CALL LIGHT IN REACH, WILL CONTINUE PLAN OF CARE
[2018-12-22 03:00] VITALS: BP 100/60
--- NOTE | 2018-12-22 05:09 | NUR ---
PT REQUESTING BREATHING TREATMENT CALL RT
[2018-12-22 05:13] LABS: BASOPHILS 0.1 % (0-2); EOSINOPHILS 3.4 % (0-7); HEMATOCRIT 37.4 % (42.0-54.0); HEMOGLOBIN 12.4 g/dL (13.5-17.5); IMMATURE GRANULOCYTES 0.4 % (0-5); LYMPHOCYTES 13.5 % (15-50); MCH 29.7 pg (26.0-34.0); MCHC 33.2 g/dL (31.0-37.0); MCV 89.7 fL (80.0-100.0); MEAN PLATELET VOLUME 9.1 fL (7.4-10.4); MONOCYTES 13.2 % (2-11); NEUTROPHILS 69.4 % (40-80); PLATELET COUNT 117 10x3/uL (130-400); RBC 4.17 10x6/uL (4.20-6.10); RDW 16.2 % (11.5-14.5)
--- NOTE | 2018-12-22 05:29 | NUR ---
REQUESTING TO TAKE PROTONIX AT 0900
[2018-12-22 05:48] LABS: ANION GAP 12.7 mmol/L (8-16); BILIRUBIN - TOTAL 0.52 mg/dL (0.2-1.3); CALCIUM 8.4 mg/dL (8.5-10.1); CARBON DIOXIDE 26.2 mmol/L (21.0-32.0); CREATININE - SERUM 1.4 mg/dL (0.6-1.3); POTASSIUM - SERUM 3.9 mmol/L (3.5-5.1); PROTEIN - SERUM 6.3 g/dL (6.4-8.2)
--- NOTE | 2018-12-22 06:12 | NUR ---
I have reviewed this patient and I concur with the Shift Assessment completed by the Licensed Practical Nurse today this shift.
--- NOTE | 2018-12-22 07:40 | NUR ---
ALERT AND ORIENTED. UP IN BEDSIDE CHAIR.TELEMERTY SHOWS SPACED RHYRHM. O2 AT 2 L/M PER NC. UP AB KRISTY. RIGHT WRIST IV WITH DOBUTAIME AT 15. DENIES ANY NEEDS. CALL LIGHT IN REACH
[2018-12-22 09:27] VITALS: BP 103/63
[2018-12-22 11:56] VITALS: BP 98/61
[2018-12-22 15:55] VITALS: BP 93/57
--- NOTE | 2018-12-22 19:35 | NUR ---
RECEIVED REPORT, WILL ASSUME CARE OF PT, SITTING IN CHAIR, DENIES ANY NEEDS AT THIS TIME, CALL LIGHT IN REACH, WILL CONTINUE PLAN OF CARE
[2018-12-22 20:00] VITALS: BP 103/65
--- NOTE | 2018-12-22 21:47 | NUR ---
[id number] REQUESTING 6 UNITS HUMULIN R-1.8 ANGELES-Gerald BERUMEN
[2018-12-23] VITALS (7 sets, daily range): BP systolic 93–111; BP diastolic 56–67
--- NOTE | 2018-12-23 01:32 | NUR ---
I have reviewed this patient and I concur with the Shift Assessment completed by the Licensed Practical Nurse today this shift.
[2018-12-23 05:39] LABS: BASOPHILS 0.3 % (0-2); EOSINOPHILS 5.8 % (0-7); HEMATOCRIT 38.3 % (42.0-54.0); IMMATURE GRANULOCYTES 0.9 % (0-5); LYMPHOCYTES 17.3 % (15-50); MCH 30.1 pg (26.0-34.0); MCHC 33.9 g/dL (31.0-37.0); MCV 88.7 fL (80.0-100.0); MEAN PLATELET VOLUME 9.6 fL (7.4-10.4); MONOCYTES 15.1 % (2-11); NEUTROPHILS 60.6 % (40-80); PLATELET COUNT 152 10x3/uL (130-400); RBC 4.32 10x6/uL (4.20-6.10); RDW 16.4 % (11.5-14.5); WBC 6.4 10x3/uL (4.8-10.8)
[2018-12-23 05:45] LABS: ALBUMIN 3.1 g/dL (3.4-5.0); ANION GAP 12.6 mmol/L (8-16); BILIRUBIN - TOTAL 0.48 mg/dL (0.2-1.3); CALCIUM 8.9 mg/dL (8.5-10.1); CARBON DIOXIDE 26.2 mmol/L (21.0-32.0); CREATININE - SERUM 1.1 mg/dL (0.6-1.3); POTASSIUM - SERUM 3.8 mmol/L (3.5-5.1); PROTEIN - SERUM 6.9 g/dL (6.4-8.2)
--- NOTE | 2018-12-23 05:54 | NUR ---
PT WANTS PROTONIX AT 0900
--- NOTE | 2018-12-23 08:52 | NUR ---
ASSESSMENT DONE. DENIES NEEDS.
--- NOTE | 2018-12-23 09:57 | NUR ---
I have reviewed this patient and I concur with the Shift Assessment completed by the Licensed Practical Nurse today this shift.
--- NOTE | 2018-12-23 18:17 | NUR ---
WITHOUT CHANGES OR DISTRESS NOTED AT THIS TIME. DENIES NEEDS AT THIS TIME.
--- NOTE | 2018-12-23 19:30 | NUR ---
RECEIVED REPORT, WILL ASSUME CARE OF PT, PT SITTING IN CHAIR, DENIES ANY NEEDS AT THIS TIME, WILL CONTINUE PLAN OF CARE
--- NOTE | 2018-12-23 22:00 | NUR ---
[id number]-390-5 UNITS OF HUMULIN R-VICTOZA-[id number]-34 UNITS
--- NOTE | 2018-12-24 00:20 | NUR ---
REQUESTING A BREATHING TREATMENT, NOTIFY RT
[2018-12-24 03:50] VITALS: BP 98/59
[2018-12-24 06:41] LABS: BASOPHILS 0.4 % (0-2); EOSINOPHILS 5.1 % (0-7); HEMATOCRIT 38.6 % (42.0-54.0); HEMOGLOBIN 12.8 g/dL (13.5-17.5); IMMATURE GRANULOCYTES 0.4 % (0-5); LYMPHOCYTES 14.5 % (15-50); MCH 29.6 pg (26.0-34.0); MCHC 33.2 g/dL (31.0-37.0); MCV 89.4 fL (80.0-100.0); MEAN PLATELET VOLUME 8.6 fL (7.4-10.4); MONOCYTES 13.3 % (2-11); NEUTROPHILS 66.3 % (40-80); PLATELET COUNT 150 10x3/uL (130-400); RBC 4.32 10x6/uL (4.20-6.10); RDW 16.3 % (11.5-14.5); WBC 7.1 10x3/uL (4.8-10.8)
[2018-12-24 07:24] LABS: ALBUMIN 3.1 g/dL (3.4-5.0); ANION GAP 11.5 mmol/L (8-16); BILIRUBIN - TOTAL 0.45 mg/dL (0.2-1.3); CALCIUM 8.9 mg/dL (8.5-10.1); CARBON DIOXIDE 28.3 mmol/L (21.0-32.0); CREATININE - SERUM 1.3 mg/dL (0.6-1.3); POTASSIUM - SERUM 3.8 mmol/L (3.5-5.1); PROTEIN - SERUM 6.8 g/dL (6.4-8.2)
[2018-12-24 08:41] VITALS: BP 104/66
--- NOTE | 2018-12-24 09:17 | NUR ---
ASSESSMENT DONE. DENIES NEEDS.
--- NOTE | 2018-12-24 10:11 | NUR ---
I have reviewed this patient and I concur with the Shift Assessment completed by the Licensed Practical Nurse today this shift.
--- NOTE | 2018-12-24 13:20 | NUR ---
Nutrition Follow up: Pt is on an AHA Diabetic diet with 97% average po intake past 3 days Pt reports eating well BG 139, 145, 145 today GI WDP- pt reports he is not constipated Pt has no questions about nutrition at this time RD following per protocol
--- NOTE | 2018-12-24 17:22 | NUR ---
WITHOUT CHANGES OR DISTRESS NOTED AT THIS TIME, DENIES NEEDS.
[2018-12-24 20:00] VITALS: BP 106/59
--- NOTE | 2018-12-24 20:00 | NUR ---
ASSESSMENT COMPLETE. PATIENT HAS NO COMPLAINTS AT THIS TIME.
--- NOTE | 2018-12-24 22:10 | NUR ---
IV IN RIGHT FOREARM LEAKING AND RED. IV WAS REMOVED. TIP INTACT. IV 22G STARTED ON RIGHT HAND ON THIRD ATTEMPT. IV PATENT WITH NO SWELLING, OR REDNESS.
--- NOTE | 2018-12-24 23:38 | NUR ---
PATIENT SITTING IN ARMCHAIR EATING. PATIENT HAS NO COMPLAINTS AT THIS TIME. NO DISTRESS NOTED.
[2018-12-25 00:30] VITALS: BP 103/63; BP 120/65
--- NOTE | 2018-12-25 02:08 | NUR ---
PT LAYING IN BED WATCHING TV. NO COMPLAINTS AT THIS TIME. NO DISTRESS NOTED.
[2018-12-25 04:00] VITALS: BP 103/61
--- NOTE | 2018-12-25 04:03 | NUR ---
PATIENT LAYING IN BED, EYES CLOSED, CHEST RISING AND FALLING.
--- NOTE | 2018-12-25 04:15 | NUR ---
I have reviewed this patient and I concur with the Shift Assessment completed by the Licensed Practical Nurse today this shift.
--- NOTE | 2018-12-25 06:28 | NUR ---
PT FSBS WAS 67. PT WAS GIVEN ORANGE JUICE AND ENIO CRACKERS. WILL MONITOR.
[2018-12-25 06:41] LABS: BASOPHILS 0.3 % (0-2); EOSINOPHILS 4.9 % (0-7); HEMATOCRIT 37.7 % (42.0-54.0); HEMOGLOBIN 12.5 g/dL (13.5-17.5); IMMATURE GRANULOCYTES 0.4 % (0-5); LYMPHOCYTES 9.7 % (15-50); MCH 29.4 pg (26.0-34.0); MCHC 33.2 g/dL (31.0-37.0); MCV 88.7 fL (80.0-100.0); MONOCYTES 18.1 % (2-11); NEUTROPHILS 66.6 % (40-80); PLATELET COUNT 144 10x3/uL (130-400); RBC 4.25 10x6/uL (4.20-6.10); RDW 16.2 % (11.5-14.5); WBC 6.7 10x3/uL (4.8-10.8)
--- NOTE | 2018-12-25 07:01 | NUR ---
PT FSBS AT 66. PT GIVEN 1ML OF GLUCAGEN.
[2018-12-25 07:11] LABS: ANION GAP 11.5 mmol/L (8-16); BILIRUBIN - TOTAL 0.45 mg/dL (0.2-1.3); CALCIUM 8.4 mg/dL (8.5-10.1); CARBON DIOXIDE 28.4 mmol/L (21.0-32.0); CREATININE - SERUM 1.3 mg/dL (0.6-1.3); POTASSIUM - SERUM 3.9 mmol/L (3.5-5.1); PROTEIN - SERUM 6.4 g/dL (6.4-8.2)
[2018-12-25 08:34] VITALS: BP 106/54
--- NOTE | 2018-12-25 09:35 | NUR ---
ASSESSMENT DONE. DENIES NEEDS.
[2018-12-25 11:31] VITALS: BP 118/65
--- NOTE | 2018-12-25 12:28 | NUR ---
I have reviewed this patient and I concur with the Shift Assessment completed by the Licensed Practical Nurse today this shift.
[2018-12-25 16:17] VITALS: BP 103/63
--- NOTE | 2018-12-25 16:53 | NUR ---
WITHOUT CHANGES OR DISTRESS NOTED AT THIS TIME. DENIES NEEDS
--- NOTE | 2018-12-25 19:15 | NUR ---
PT SITTING UP IN CHAIR. AAO UP AD KRISTY. DOBUTAMINE INFUSING ORDERED. PT HAS NO S/S OF DISTRESS. NAME AND DATE PLACED ON BOARD. CALL LIGHT IN REACH. WILL CPOC
[2018-12-25 20:00] VITALS: BP 108/71
[2018-12-26 00:30] VITALS: BP 100/60
--- NOTE | 2018-12-26 01:00 | NUR ---
PT ASLEEP. RESP EVEN AND UNLABORED. 2L O2 NC NO S/S OF DISTRESS. BEDLOW AND CALL LIGHT IN REACH. PT WILL CALL FOR ASSIST WHEN NEEDED. WILL CPOC
--- NOTE | 2018-12-26 04:15 | NUR ---
PT CALLING FOR A GLASS OF WATER. WATER PROVIDED. PT HAS NO S/S OF DISTRESS. BEDLOW AND CALL LIGHT IN REACH. PT WILL CALL FOR ASSIST WHEN NEEDED. WILL CPOC
[2018-12-26 05:00] VITALS: BP 105/69
--- NOTE | 2018-12-26 06:59 | NUR ---
FSBS IS 81 NO INSULIN NEEDED. PT UP AD KRISTY. AAO. WILL CALL FOR ASSIST WHEN NEEDED.
[2018-12-26 07:11] LABS: BASOPHILS 0.4 % (0-2); EOSINOPHILS 2.7 % (0-7); HEMOGLOBIN 13.3 g/dL (13.5-17.5); IMMATURE GRANULOCYTES 0.6 % (0-5); LYMPHOCYTES 11.9 % (15-50); MCH 29.6 pg (26.0-34.0); MCHC 33.3 g/dL (31.0-37.0); MCV 88.9 fL (80.0-100.0); MEAN PLATELET VOLUME 8.7 fL (7.4-10.4); MONOCYTES 13.4 % (2-11); PLATELET COUNT 162 10x3/uL (130-400); RDW 16.3 % (11.5-14.5)
[2018-12-26 07:33] LABS: ALBUMIN 3.3 g/dL (3.4-5.0); ANION GAP 11.7 mmol/L (8-16); BILIRUBIN - TOTAL 0.32 mg/dL (0.2-1.3); CALCIUM 8.8 mg/dL (8.5-10.1); CREATININE - SERUM 1.4 mg/dL (0.6-1.3); POTASSIUM - SERUM 3.7 mmol/L (3.5-5.1); PROTEIN - SERUM 7.1 g/dL (6.4-8.2)
--- NOTE | 2018-12-26 07:35 | NUR ---
ASSESSMENT COMPLETED. ALERT AND ORIENTED.02 AT 2 L/M PER NC.TELEMERTY SHOWS PACED RHYTHM. LEFT HAND IV OF DOBUTAMINE AT 2.5MG MIN. DENIES ANY NEEDS. UP AB KRISTY. WILL MONITOR
[2018-12-26 07:57] LABS: WBC 8.6 10x3/uL (4.8-10.8)
[2018-12-26 08:32] VITALS: BP 98/62
[2018-12-26 12:04] VITALS: BP 92/51
[2018-12-26 16:12] VITALS: BP 108/59
--- NOTE | 2018-12-26 17:37 | NUR ---
I have reviewed this patient and I concur with the Shift Assessment completed by the Licensed Practical Nurse today this shift.
--- NOTE | 2018-12-26 19:22 | NUR ---
PT SITTING UP IN CHAIR. AAO UP AD KRISTY. 2L O2 NC. PT HAS NO S/S OF DISTRESS. NAME AND DATE PLACED ON BOARD. BEDLOW AND CALL LIGHT IN REACH. PT WILL CALL FOR ASSIST WHEN NEEDED. PACEMAKER NOTED. WHEEZES ON EXHALE. COUGH THAT IS PRODUCTIVE AT TIMES. PT STATES REGULAR SPUTUM. NURSE HAS NOT OBSERVED PRODUCTIVE COUGH. WILL CALL FOR ASSIST WHEN NEEDED. WILL CPOC
[2018-12-26 20:00] VITALS: BP 106/57
--- NOTE | 2018-12-26 20:54 | NUR ---
EDUCATION GIVEN ON BUMEX, PRINTED SHEET. FSBS IS 119 LANTUS AND VICTOZA GIVEN ORDERED. NOURISHMENT GIVEN SNACK OFFERED. PT UP IN CHAIR. PT UP TO SHAVE AND WASH UP. PT DENIES ANY NEEDS. WILL CPOC
[2018-12-27 04:00] VITALS: BP 97/62
[2018-12-27 05:47] LABS: BASOPHILS 0.5 % (0-2); HEMATOCRIT 37.3 % (42.0-54.0); HEMOGLOBIN 12.5 g/dL (13.5-17.5); IMMATURE GRANULOCYTES 0.4 % (0-5); LYMPHOCYTES 19.8 % (15-50); MCH 29.4 pg (26.0-34.0); MCHC 33.5 g/dL (31.0-37.0); MCV 87.8 fL (80.0-100.0); MEAN PLATELET VOLUME 8.9 fL (7.4-10.4); MONOCYTES 19.2 % (2-11); NEUTROPHILS 56.1 % (40-80); PLATELET COUNT 145 10x3/uL (130-400); RBC 4.25 10x6/uL (4.20-6.10); RDW 16.3 % (11.5-14.5); WBC 5.5 10x3/uL (4.8-10.8)
[2018-12-27 06:14] LABS: ANION GAP 12.1 mmol/L (8-16); CALCIUM 8.6 mg/dL (8.5-10.1); CARBON DIOXIDE 27.8 mmol/L (21.0-32.0); CREATININE - SERUM 1.5 mg/dL (0.6-1.3); POTASSIUM - SERUM 3.9 mmol/L (3.5-5.1)
--- NOTE | 2018-12-27 06:40 | NUR ---
PT FSBS IS 57 ORANGE JUICE GIVEN TO PT. PT DECLINES ANY OTHER SNACKS OR FOOD. PT WILL CALL FOR ASSIST WHEN NEEDED. WILL CPOC
--- NOTE | 2018-12-27 07:25 | NUR ---
ASSESSMENT COMPLETED. ALERT AND ORIENTED. TELEMERTY SHOWS PACED RHYTHM. UP AB KRISTY. WALKS IN HALLWAY. CALL LIGHT IN REACH IN BEDSIDE CHAIR. WILL MONITOR
[2018-12-27 08:25] VITALS: BP 94/58
[2018-12-27] MEDS ORDERED: BUMEX2 MG PO (10:46)
[2018-12-27] MEDS ORDERED: CHLORTHALIDONE25 MG PO (10:47)
--- NOTE | 2018-12-27 11:44 | MORECARE ---
CASE MANAGEMENT DISCHARGE SUMMARY PATIENT: CARLOS CULLEN UNIT: [id number] ADM DATE: 12/16/18 AGE: 68 : 52 SEX: M ROOM/BED: D.0264 AUTHOR: JOSHUA FRANKLIN PHYSICIAN: REFERRING PHYSICIAN: JENNIFER ROA MD DATE OF SERVICE: 12/27/18 Discharge Plan Patient Name: CARLOS CULLEN Facility: [facility]:[place] : 1950 Planned Disposition: Home Anticipated Discharge Date: 12/19/18 Discharge Date: Expected LOS: 3 Initial Reviewer: [email or web address] Initial Review Date: 12/18/2018 Generated: 12/27/18 12:44 pm Comments DCP- Discharge Planning Updated by [email or web address]: Sherif Green on 12/27/18 10:[address] Patient Name: CARLOS CULLEN Encounter No: [id number] : 1950 Primary Insurance: MEDICARE A & B Anticipated DC Date: 12-19-2018 Planned Disposition: Home DCP follow-up note: CM RECEIVED DISCHARGE ORDER, MET WITH PT IN ROOM TO DISCUSS DICHARGE NEEDS AND PLANNING. PT IMMEDIATELY BECAME UPSET, PLACING HIS CELL PHONE DOWN HARD ON THE BEDSIDE TABLE, DROPPING HIS GLASSES AND STATING "I KNEW SOME KIND OF SHIT LIKE THIS WAS GOING TO HAPPEN." PT STATES THEY CHANGED IS MEDICATIONS UP AND NOW JUST WANT TO SEND HIM HOME WITHOUT KNOWING HOW THE MEDICATIONS WILL WORK AND THEY MAY MAKE HIS BLOOD PRESSURE JUST DROP. CM PROVIDED AND EXPLAINED IMPORTANT MESSAGE FROM MEDICARE. PT IS THINKING OF CALLING MEDICARE, OR MAY JUST GO HOME, HE IS NOT SURE. PT PLANS TO DISCHARGE HOME WITH HIS SON AND DENIES DISCHARGE NEEDS AND AGAIN STATES HE IS UNHAPPY ABOUT DISCHARGE. CM AGAIN POINTED OUT PT'S RIGHT OF APPEAL, ENSURED PT HAD CM AND HOSPITAL CONTACT NUMBER. CM NOTIFIED PROGRAM ENGINEER NURSE AND RN CM HOUSE OF PT'S POSSIBLE APPEAL OF DISCHARGE TODAY. CM TO CONTINUE TO FOLLOW AND ASSIST IF NEEDED. Sherif Green CASE MANAGEMENT DCP- Discharge Planning Updated by [id number]: Sherif Green on 12/18/18 2:[address] Patient Name: CARLOS CULLEN Admission Status: ER Accout number: [id number] Admission Date: 12-16-2018 : 1950 Admission Diagnosis:SHORTNESS OF BREATH Attending: JENNIFER ROA Current LOS: 2 Anticipated DC Date: 12-19-2018 Planned Disposition: Home Primary Insurance: MEDICARE A & B Discharge Planning Comments: CM MET WITH PT IN ROOM TO DISCUSS DISCHARGE PLANNING AND NEEDS. PT REPORTS LIVING AT HOME INDEPENDENTLY WITH SON. PT HAS BIPAP AND HOME OXYGEN THAT HE USES AT NIGHT ONLY. PT'S MEDICAL EQUIPMENT PROVIDER IS [facility]. PT HAS NO OUTSIDE SERVICES ASSISTING IN THE HOME. CM DISCUSSED AVAILABILITY OF HOME HEALTH, REHAB SERVICES AND MEDICAL EQUIPMENT. PT DENIES DISCHARGE NEEDS, REPORTS HIS SON WILL PICK HIM UP FOR DISCHARGE HOME. CM ENCOURAGED PT TO ACCEPT HOME HEALTH, PT DENIES NEED AT THIS TIME. IMPORTANT MESSAGE FROM MEDICARE PROVIDED AND EXPLAINED. PT PLANS TO DISCHARGE HOME WITH SON, DENIES NEEDS; FAMILY TO TRANSPORT HOME AT DISCHARGE. CM TO CONTINUE TO FOLLOW AND ASSIST IF NEEDED. Plastic Cablemaking Machine Operator: Sherif Green DCPIA - Discharge Planning Initial Assessment Updated by [id number]: Sherif Green on 12/18/18 3:28 pm * Is the patient Alert and Oriented? Yes * How many steps to enter\\exit or inside your home? 0-0 10-I * PCP DR. JOSHI * Pharmacy [facility] ([place]) * Preadmission Environment Home with Family * ADLs Independent * Equipment BIPAP Oxygen * Other Equipment OXYGEN AT NIGHT [facility] - MEDICAL EQUIPMENT PROVIDER * List name and contact numbers for known caregivers / representatives who currently or will assist patient after discharge: CARLOS CULLEN, SON, * Verbal permission to speak to the caregivers and representatives has been obtained from the patient. N/A * Community resources currently utilized None * Please name any agencies selected above. NONE * Additional services required to return to the preadmission environment? No * Can the patient safely return to the preadmission environment? Yes * Has this patient been hospitalized within the prior 30 days at any hospital? Yes Coverage Notice Reviewer: [id number] Boaz Green Notice Issued Date-Time: 12/18/2018 15:32 Notice Type: IM Discharge Notice Notice Delivered To: Patient Relationship to Patient: Superintendent Pressure Name: Delivery Method: HAND - Hand Delivered Stefani Days: Prior Verbal Notification: Recipient Understood Notice: Yes Recipient Signature: Yes Med Rec Note Co-signed by Attending: Coverage Notice Comment: Reviewer: [id number] Boaz Green Notice Issued Date-Time: 12/27/2018 11:00 Notice Type: IM Discharge Notice Notice Delivered To: Patient Relationship to Patient: Superintendent Pressure Name: Delivery Method: HAND - Hand Delivered Stefani Days: Prior Verbal Notification: Recipient Understood Notice: Yes Recipient Signature: Yes Med Rec Note Co-signed by Attending: Coverage Notice Comment: Last DP export: 12/18/18 2:46 p Patient Name: CARLOS CULLEN Page 32509 at 1144 All edits/amendments must be made on the electronic document DICTATION DATE: 12/27/18 1144 GEOGRAPHIC ANALYST: BEAN 12/27/18 1144 RPT#: [id number] DC DATE: STATUS: ADM IN [facility] [address] [place] [address] END OF REPORT
[2018-12-27 12:08] VITALS: BP 101/62
--- NOTE | 2018-12-27 12:50 | NUR ---
I have reviewed this patient and I concur with the Shift Assessment completed by the Licensed Practical Nurse today this shift.
--- NOTE | 2018-12-27 13:17 | MORECARE ---
CASE MANAGEMENT DISCHARGE SUMMARY PATIENT: CARLOS CULLEN UNIT: [id number] ADM DATE: 12/16/18 AGE: 68 : 52 SEX: M ROOM/BED: D.8468 AUTHOR: JOSHUA FRANKLIN PHYSICIAN: REFERRING PHYSICIAN: JENNIFER ROA MD DATE OF SERVICE: 12/27/18 Discharge Plan Patient Name: CARLOS CULLEN Facility: [facility]:[place] : 1950 Planned Disposition: Home Anticipated Discharge Date: 12/19/18 Discharge Date: Expected LOS: 3 Initial Reviewer: [id number] Initial Review Date: 12/18/2018 Generated: 12/27/18 2:17 pm Comments DCP- Discharge Planning Updated by [id number]: Lisandra Sapp on 12/27/18 12:[address] PATIENT HAS FILED AN APPEAL TO HIS DISCHARGE WITH MEDICARE. THE DETAILED NOTICE OF DISCHARGE HAS BEEN COMPLETED AND DELIVERED TO THE PATIENT. MEDICAL RECORDS BEING COPIED AND WILL BE FAXED REQUESTED. I HAVE MADE RADHA PRESSLEY WITH DR ROA AWARE OF WHY THE PATIENT IS NOT DISCHARGING WELL THE FLOOR STAFF. WE WILL WAIT [facility]'S DETERMINATION. DCP- Discharge Planning Updated by [id number]: Sherif Green on 12/27/18 10:[address] Patient Name: CARLOS CULLEN Encounter No: [id number] : 1950 Primary Insurance: MEDICARE A & B Anticipated DC Date: 12-19-2018 Planned Disposition: Home DCP follow-up note: CM RECEIVED DISCHARGE ORDER, MET WITH PT IN ROOM TO DISCUSS DICHARGE NEEDS AND PLANNING. PT IMMEDIATELY BECAME UPSET, PLACING HIS CELL PHONE DOWN HARD ON THE BEDSIDE TABLE, DROPPING HIS GLASSES AND STATING "I KNEW SOME KIND OF SHIT LIKE THIS WAS GOING TO HAPPEN." PT STATES THEY CHANGED IS MEDICATIONS UP AND NOW JUST WANT TO SEND HIM HOME WITHOUT KNOWING HOW THE MEDICATIONS WILL WORK AND THEY MAY MAKE HIS BLOOD PRESSURE JUST DROP. CM PROVIDED AND EXPLAINED IMPORTANT MESSAGE FROM MEDICARE. PT IS THINKING OF CALLING MEDICARE, OR MAY JUST GO HOME, HE IS NOT SURE. PT PLANS TO DISCHARGE HOME WITH HIS SON AND DENIES DISCHARGE NEEDS AND AGAIN STATES HE IS UNHAPPY ABOUT DISCHARGE. CM AGAIN POINTED OUT PT'S RIGHT OF APPEAL, ENSURED PT HAD CM AND HOSPITAL CONTACT NUMBER. CM NOTIFIED CARDIAC NURSE PRACTITIONER NURSE AND RN CM HOUSE OF PT'S POSSIBLE APPEAL OF DISCHARGE TODAY. CM TO CONTINUE TO FOLLOW AND ASSIST IF NEEDED. Sherif Green, CASE MANAGEMENT DCP- Discharge Planning Updated by [email or web address]: Sherif Green on 12/18/18 2:[address] Patient Name: CARLOS CULLEN Admission Status: ER Accout number: [id number] Admission Date: 12-16-2018 : 1950 Admission Diagnosis:SHORTNESS OF BREATH Attending: JENNIFER ROA Current LOS: 2 Anticipated DC Date: 12-19-2018 Planned Disposition: Home Primary Insurance: MEDICARE A & B Discharge Planning Comments: CM MET WITH PT IN ROOM TO DISCUSS DISCHARGE PLANNING AND NEEDS. PT REPORTS LIVING AT HOME INDEPENDENTLY WITH SON. PT HAS BIPAP AND HOME OXYGEN THAT HE USES AT NIGHT ONLY. PT'S MEDICAL EQUIPMENT PROVIDER IS [facility]. PT HAS NO OUTSIDE SERVICES ASSISTING IN THE HOME. CM DISCUSSED AVAILABILITY OF HOME HEALTH, REHAB SERVICES AND MEDICAL EQUIPMENT. PT DENIES DISCHARGE NEEDS, REPORTS HIS SON WILL PICK HIM UP FOR DISCHARGE HOME. CM ENCOURAGED PT TO ACCEPT HOME HEALTH, PT DENIES NEED AT THIS TIME. IMPORTANT MESSAGE FROM MEDICARE PROVIDED AND EXPLAINED. PT PLANS TO DISCHARGE HOME WITH SON, DENIES NEEDS; FAMILY TO TRANSPORT HOME AT DISCHARGE. CM TO CONTINUE TO FOLLOW AND ASSIST IF NEEDED. Web Development Instructor: Sherif Green DCPIA - Discharge Planning Initial Assessment Updated by [id number]: Sherif Green on 12/18/18 3:28 pm * Is the patient Alert and Oriented? Yes * How many steps to enter\\exit or inside your home? 0-0 10-I * PCP DR. JOSHI * Pharmacy [facility] ([place]) * Preadmission Environment Home with Family * ADLs Independent * Equipment BIPAP Oxygen * Other Equipment OXYGEN AT NIGHT [facility] - MEDICAL EQUIPMENT PROVIDER * List name and contact numbers for known caregivers / representatives who currently or will assist patient after discharge: CARLOS CULLEN, SON, * Verbal permission to speak to the caregivers and representatives has been obtained from the patient. N/A * Community resources currently utilized None * Please name any agencies selected above. NONE * Additional services required to return to the preadmission environment? No * Can the patient safely return to the preadmission environment? Yes * Has this patient been hospitalized within the prior 30 days at any hospital? Yes Coverage Notice Reviewer: [id number] Boaz Green Notice Issued Date-Time: 12/18/2018 15:32 Notice Type: IM Discharge Notice Notice Delivered To: Patient Relationship to Patient: Offset Lithographic Press Operator Name: Delivery Method: HAND - Hand Delivered Stefani Days: Prior Verbal Notification: Recipient Understood Notice: Yes Recipient Signature: Yes Med Rec Note Co-signed by Attending: Coverage Notice Comment: Reviewer: [id number] Green Notice Issued Date-Time: 12/27/2018 11:00 Notice Type: IM Discharge Notice Notice Delivered To: Patient Relationship to Patient: Offset Lithographic Press Operator Name: Delivery Method: HAND - Hand Delivered Stefani Days: Prior Verbal Notification: Recipient Understood Notice: Yes Recipient Signature: Yes Med Rec Note Co-signed by Attending: Coverage Notice Comment: Last DP export: 12/27/18 10:44 a Patient Name: CARLOS CULLEN Page 25721 at 1317 All edits/amendments must be made on the electronic document DICTATION DATE: 12/27/18 1317 QUALITY CONTROL: BEAN 12/27/18 1317 RPT#: [id number] DC DATE: STATUS: ADM IN [facility] [address] [place] [address] END OF REPORT
[2018-12-27 16:06] VITALS: BP 112/68
--- NOTE | 2018-12-27 18:42 | MORECARE ---
CASE MANAGEMENT DISCHARGE SUMMARY PATIENT: CARLOS CULLEN UNIT: [id number] ADM DATE: 12/16/18 AGE: 68 : 54 SEX: M ROOM/BED: D.5502 AUTHOR: JOSHUA FRANKLIN PHYSICIAN: REFERRING PHYSICIAN: JENNIFER ROA MD DATE OF SERVICE: 12/27/18 Discharge Plan Patient Name: CARLOS CULLEN Facility: [facility]:[place] : 1950 Planned Disposition: Home Anticipated Discharge Date: 12/19/18 Discharge Date: Expected LOS: 3 Initial Reviewer: [id number] Initial Review Date: 12/18/2018 Generated: 12/27/18 7:42 pm Comments DCP- Discharge Planning Updated by [email or web address]: Lisandra Sapp on 12/27/18 12:[address] PATIENT HAS FILED AN APPEAL TO HIS DISCHARGE WITH MEDICARE. THE DETAILED NOTICE OF DISCHARGE HAS BEEN COMPLETED AND DELIVERED TO THE PATIENT. MEDICAL RECORDS BEING COPIED AND WILL BE FAXED REQUESTED. I HAVE MADE RADHA PRESSLEY WITH DR ROA AWARE OF WHY THE PATIENT IS NOT DISCHARGING WELL THE FLOOR STAFF. WE WILL WAIT [facility]'S DETERMINATION. DCP- Discharge Planning Updated by [id number]: Sherif Green on 12/27/18 10:[address] Patient Name: CARLOS CULLEN Encounter No: [id number] : 1950 Primary Insurance: MEDICARE A & B Anticipated DC Date: 12-19-2018 Planned Disposition: Home DCP follow-up note: CM RECEIVED DISCHARGE ORDER, MET WITH PT IN ROOM TO DISCUSS DICHARGE NEEDS AND PLANNING. PT IMMEDIATELY BECAME UPSET, PLACING HIS CELL PHONE DOWN HARD ON THE BEDSIDE TABLE, DROPPING HIS GLASSES AND STATING "I KNEW SOME KIND OF SHIT LIKE THIS WAS GOING TO HAPPEN." PT STATES THEY CHANGED IS MEDICATIONS UP AND NOW JUST WANT TO SEND HIM HOME WITHOUT KNOWING HOW THE MEDICATIONS WILL WORK AND THEY MAY MAKE HIS BLOOD PRESSURE JUST DROP. CM PROVIDED AND EXPLAINED IMPORTANT MESSAGE FROM MEDICARE. PT IS THINKING OF CALLING MEDICARE, OR MAY JUST GO HOME, HE IS NOT SURE. PT PLANS TO DISCHARGE HOME WITH HIS SON AND DENIES DISCHARGE NEEDS AND AGAIN STATES HE IS UNHAPPY ABOUT DISCHARGE. CM AGAIN POINTED OUT PT'S RIGHT OF APPEAL, ENSURED PT HAD CM AND HOSPITAL CONTACT NUMBER. CM NOTIFIED VP CORPORATE PARTNERSHIPS NURSE AND RN CM HOUSE OF PT'S POSSIBLE APPEAL OF DISCHARGE TODAY. CM TO CONTINUE TO FOLLOW AND ASSIST IF NEEDED. Sherif Green, CASE MANAGEMENT DCP- Discharge Planning Updated by [id number]: Sherif Green on 12/18/18 2:[address] Patient Name: CARLOS CULLEN Admission Status: ER Accout number: [id number] Admission Date: 12-16-2018 : 1950 Admission Diagnosis:SHORTNESS OF BREATH Attending: JENNIFER ROA Current LOS: 2 Anticipated DC Date: 12-19-2018 Planned Disposition: Home Primary Insurance: MEDICARE A & B Discharge Planning Comments: CM MET WITH PT IN ROOM TO DISCUSS DISCHARGE PLANNING AND NEEDS. PT REPORTS LIVING AT HOME INDEPENDENTLY WITH SON. PT HAS BIPAP AND HOME OXYGEN THAT HE USES AT NIGHT ONLY. PT'S MEDICAL EQUIPMENT PROVIDER IS [employer]. PT HAS NO OUTSIDE SERVICES ASSISTING IN THE HOME. CM DISCUSSED AVAILABILITY OF HOME HEALTH, REHAB SERVICES AND MEDICAL EQUIPMENT. PT DENIES DISCHARGE NEEDS, REPORTS HIS SON WILL PICK HIM UP FOR DISCHARGE HOME. CM ENCOURAGED PT TO ACCEPT HOME HEALTH, PT DENIES NEED AT THIS TIME. IMPORTANT MESSAGE FROM MEDICARE PROVIDED AND EXPLAINED. PT PLANS TO DISCHARGE HOME WITH SON, DENIES NEEDS; FAMILY TO TRANSPORT HOME AT DISCHARGE. CM TO CONTINUE TO FOLLOW AND ASSIST IF NEEDED. Manager House: Sherif Green DCPIA - Discharge Planning Initial Assessment Updated by [id number]: Sherif Green on 12/18/18 3:28 pm * Is the patient Alert and Oriented? Yes * How many steps to enter\\exit or inside your home? 0-0 10-I * PCP DR. JOSHI * Pharmacy [facility] ([place]) * Preadmission Environment Home with Family * ADLs Independent * Equipment BIPAP Oxygen * Other Equipment OXYGEN AT NIGHT [facility] - MEDICAL EQUIPMENT PROVIDER * List name and contact numbers for known caregivers / representatives who currently or will assist patient after discharge: CARLOS CULLEN, SON, * Verbal permission to speak to the caregivers and representatives has been obtained from the patient. N/A * Community resources currently utilized None * Please name any agencies selected above. NONE * Additional services required to return to the preadmission environment? No * Can the patient safely return to the preadmission environment? Yes * Has this patient been hospitalized within the prior 30 days at any hospital? Yes Coverage Notice Reviewer: [id number] Boaz Green Notice Issued Date-Time: 12/18/2018 15:32 Notice Type: IM Discharge Notice Notice Delivered To: Patient Relationship to Patient: Churner Name: Delivery Method: HAND - Hand Delivered Stefani Days: Prior Verbal Notification: Recipient Understood Notice: Yes Recipient Signature: Yes Med Rec Note Co-signed by Attending: Coverage Notice Comment: Reviewer: [id number] Green Notice Issued Date-Time: 12/27/2018 11:00 Notice Type: IM Discharge Notice Notice Delivered To: Patient Relationship to Patient: Churner Name: Delivery Method: HAND - Hand Delivered Stefani Days: Prior Verbal Notification: Recipient Understood Notice: Yes Recipient Signature: Yes Med Rec Note Co-signed by Attending: Coverage Notice Comment: Last DP export: 12/27/18 12:17 p Patient Name: CARLOS CULLEN Page 21090 at 1842 All edits/amendments must be made on the electronic document DICTATION DATE: 12/27/181841 WAITER/WAITRESS FORMAL: BEAN 12/27/181841 RPT#: [id number] DC DATE: STATUS: ADM IN [facility] [address] [place] [address] END OF REPORT
--- NOTE | 2018-12-27 19:56 | NUR ---
PT SITTING UP IN BEDSIDE CHAIR ALERT AND ORIENTED. RR EVEN AND UNLABORED. PT DENIES ANY NEEDS AT THIS TIME. BED LOW CALL LIGHT WITHIN REACH. WILL CONTINUE TO MONITOR.
[2018-12-27 20:56] VITALS: BP 103/65
--- NOTE | 2018-12-27 23:11 | NUR ---
I have reviewed this patient and I concur with the Shift Assessment completed by the Licensed Practical Nurse today this shift.
[2018-12-28 00:35] VITALS: BP 101/67
[2018-12-28 05:00] VITALS: BP 120/64
[2018-12-28 05:30] LABS: BASOPHILS 0.5 % (0-2); EOSINOPHILS 3.9 % (0-7); HEMATOCRIT 39.5 % (42.0-54.0); HEMOGLOBIN 13.4 g/dL (13.5-17.5); IMMATURE GRANULOCYTES 0.5 % (0-5); MCH 29.6 pg (26.0-34.0); MCHC 33.9 g/dL (31.0-37.0); MCV 87.2 fL (80.0-100.0); MEAN PLATELET VOLUME 8.8 fL (7.4-10.4); MONOCYTES 11.8 % (2-11); NEUTROPHILS 61.3 % (40-80); PLATELET COUNT 145 10x3/uL (130-400); RBC 4.53 10x6/uL (4.20-6.10); RDW 15.9 % (11.5-14.5); WBC 6.1 10x3/uL (4.8-10.8)
[2018-12-28 05:33] LABS: ANION GAP 11.2 mmol/L (8-16); CALCIUM 8.4 mg/dL (8.5-10.1); CARBON DIOXIDE 31.9 mmol/L (21.0-32.0); CREATININE - SERUM 1.5 mg/dL (0.6-1.3)
[2018-12-28 05:36] LABS: POTASSIUM - SERUM 3.1 mmol/L (3.5-5.1)
--- NOTE | 2018-12-28 06:10 | NUR ---
PT ALERT AND ORIENTED SITTING UP IN BEDSIDE CHAIR. NO S/S OF DISTRESS. PT DENIES ANY PAIN OR NEEDS AT THIS TIME.
[2018-12-28 07:40] VITALS: BP 90/55
--- NOTE | 2018-12-28 08:25 | NUR ---
AM ROUNDS COMPLETED. INTRODUCED MYSELF TO PT PRIMARY RN FOR TODAYS SHIFT. SHIFT ASSESSMENT COMPLETED. PT IS A&O SITTING UP IN BEDSIDE CHAIR EATING BREAKFAST. PROVIDED PT WITH ALL HIS MORNING MEDICATIONS ALONG WITH PRN COUGH MEDICATION REQUESTED FOR HACKING COUGH. COUGH IS PRODUCTIVE WITH THICK YELLOW MUCOUS AND PT IS SPITTING IT INTO A CUP AT BEDSIDE. PT APPARENTLY WAS DISCHARGED YESTERDAY BUT APPEALED IT AND STATED HE DIDNT FEEL READY AND WAS SCARED HE WOULD JUST HAVE TO COME BACK UP TO THE HOSPITAL FOR A READMISSION VERY SOON. PT STATES TODAY HE IS FEELING MUCH BETTER AND LUNGS ARE CLEAR OF CRACKLES HOWEVER EXPIRATORY WHEEZING NOTED THROUGHOUT ALL LOBES WHICH PT STATES IS HIS BASELINE AND RR NONLABORED ON RA BUT HE SWEAR 2LNC PRN. PT DENIES ANY CURRENT PAIN OR NEEDS AT THIS TIME. CL IN REACH, WILL CTM.
--- NOTE | 2018-12-28 10:32 | NUR ---
PTS REDRAW POTASSIUM IN NORMAL LIMITS NO FURTHER COVERAGE REQUIRED. WILL CTM.
[2018-12-28 11:35] VITALS: BP 85/51
--- NOTE | 2018-12-28 11:41 | NUR ---
PT JUST TOOK A SHOWER AND STATES IT FELT GREAT AND HE IS FEELING GOOD OVERALL. RR NONLABORED BUT SHOWER DID WEAR HIM OUT SO HE PUT HIS NC @2L BACK IN PLACE. PT SITTING UP IN BEDSIDE CHAIR AND DRESSED HIMSELF. FSBS 128 NO COVERAGE REQUIRED PER SS. NO CURRENT NEEDS AT THIS TIME. WILL CTM.
--- NOTE | 2018-12-28 14:40 | NUR ---
PT SITTING UP IN BEDSIDE CHAIR RESTING QUIETLY. PT STATES HE IS FEELING GOOD AND WANTING TO AMBULATE IN THE [place] SOON. GAIT STABLE. NO CURRENT NEEDS. WILL CTM.
[2018-12-28 15:17] VITALS: BP 86/53
--- NOTE | 2018-12-28 16:39 | NUR ---
FSBS 128 NO COVERAGE REQUIRED PER SS INSULIN. PT SITTING UP IN BEDSIDE CHAIR RESTING QUIETLY WAITING ON DINNER. PROVIDED PT WITH SOME FRESH ORANGE JUICE REQUESTED. NO FURTHER NEEDS. WILL CTM.
[2018-12-28 20:12] VITALS: BP 96/47
--- NOTE | 2018-12-28 21:00 | NUR ---
REPORT RECIEVED AND INITIAL ROUNDS HAVE BEEN MADE. PT UP IN BEDSIDE CHAIR. IRRITABLE AFFECT ABOUT HOW HE PERCIEVES HE IS BEING SENT HOME BEFORE HE IS READY. ALLOWED PT TO VOICE HIS CONCERNS, PROVIDED FEEDBACK. REVIEWED MEDICATIONS THAT HE IS CONCERNED OVER AND ALSO INSTRUCTED ON SAFETY WHEN HE POSITION CHANGES DUE TO HIS NOTED LOW BLOOD PRESSURES. PT ALSO HAS FAMILY ISSUES AND IS FEELING LIKE HE IS NO LONGER WANTED IN HIS SON'S HOME AND PLANS TO TRY AND MOVE BACK TO HIS [place]IGINAL [place]. MONITOR AND CPOC.
--- NOTE | 2018-12-28 23:05 | NUR ---
BEDTIME MEDS GIVEN. FSBS 190. SLIDING SCALE INSULIN GIVEN + SCHEDULED LANTUS AND VICTOZA. MONITOR AND CPOC.
[2018-12-29 00:01] VITALS: BP 97/61
--- NOTE | 2018-12-29 02:13 | NUR ---
PT UP ON SIDE OF BED WITH REPETITIVE COUGHING SPELLS. PROVIDED WITH COUGH SYRUP. WILL MONITOR AND CPOC.
[2018-12-29 04:00] VITALS: BP 107/64
[2018-12-29 05:36] LABS: BASOPHILS 0.5 % (0-2); HEMATOCRIT 39.9 % (42.0-54.0); HEMOGLOBIN 13.4 g/dL (13.5-17.5); IMMATURE GRANULOCYTES 0.5 % (0-5); LYMPHOCYTES 21.7 % (15-50); MCH 29.5 pg (26.0-34.0); MCHC 33.6 g/dL (31.0-37.0); MCV 87.9 fL (80.0-100.0); MEAN PLATELET VOLUME 8.3 fL (7.4-10.4); MONOCYTES 12.2 % (2-11); NEUTROPHILS 62.1 % (40-80); PLATELET COUNT 170 10x3/uL (130-400); RBC 4.54 10x6/uL (4.20-6.10); RDW 15.7 % (11.5-14.5); WBC 6.1 10x3/uL (4.8-10.8)
[2018-12-29 05:49] LABS: CALCIUM 8.5 mg/dL (8.5-10.1); CREATININE - SERUM 1.5 mg/dL (0.6-1.3)
--- NOTE | 2018-12-29 06:10 | NUR ---
GLUCOSE PER LAB 49, PT IS ALERT/ORIENTED AND ASYMPTOMATIC. PROVIDED WITH MILK AND A SNACK.
--- NOTE | 2018-12-29 07:28 | NUR ---
AM ROUNDS COMPLETED. INTRODUCED MYSELF TO PT PRIMARY RN FOR TODAYS SHIFT. PT IS A&O SITTING UP IN HIS BEDSIDE CHAIR AND STATES HE HAD A GOOD NIGHT AND IS FEELING GOOD OVERALL. PT DENIES ANY CURRENT PAIN OR NEEDS. WILL CHECK CHART AND ORDERS AND PULL MORNING MEDICATIONS AND CPOC. NO FURTHER NEEDS AT THIS TIME.
[2018-12-29 08:34] VITALS: BP 100/65
--- NOTE | 2018-12-29 11:10 | NUR ---
FSBS 245. SS STATED FOR 8 UNITS HOWEVER PT WILL ONLY TAKE 6UNITS R/T HIM STATING HE KNOWS HIS LIMITS AND SCARED TO DROP. PT WILL BE DISCHARGED TODAY AND NOW AGREES HE IS READY HE HAS TAKEN HIS NEW MEDICATION AND SEEING HOW IT AFFECTS HIS BP. WILL BEGIN DISCHARGE WORKUP AT THIS TIME. CL IN REACH, NO CURRENT NEEDS. WILL CTM.
[2018-12-29 11:20] VITALS: BP 96/59
--- NOTE | 2018-12-29 12:06 | NUR ---
PT STATES HE SPOKE TO HIS INSURANCE COMPANY YESTERDAY AND THEY HAD TOLD HIM HE HAS TO DISCHARGE TODAY BY NOON. I DISCUSSED WITH PRIMARY AND THEY PUT IN ANOTHER DISCHARGE HOWEVER WE DID NOT RECIEVE ANYTHING FROM INSURANCE A DENIAL OR ACCEPT OF THE APPEAL. PT STATES HE WANTS TO LEAVE NOW AND IS WANTING HIS DISCHARGE PAPERS. DISCHARGE TEACHING PROVIDED AND PAPERS SIGNED. PT VERBALIZED UNDERSTANDING AND DENIES ANY QUESTIONS OR CONCERNS. ALL BELONGINGS COLLECTED AND PT IS EATING LUNCH AND STATES HE WILL CALL FOR HIS TRANSPORTATION. NO FURTHER NEEDS.
--- NOTE | 2018-12-29 12:07 | MORECARE ---
CASE MANAGEMENT DISCHARGE SUMMARY PATIENT: CARLOS CULLEN UNIT: [id number] ADM DATE: 12/16/18 AGE: 68 : 54 SEX: M ROOM/BED: D.2123 AUTHOR: NOEMIDOC PHYSICIAN: REFERRING PHYSICIAN: JENNIFER ROA MD DATE OF SERVICE: 12/29/18 Discharge Plan Patient Name: CARLOS CULLEN Facility: [facility]:[place] : 1950 Planned Disposition: Home Anticipated Discharge Date: 12/19/18 Discharge Date: Expected LOS: 3 Initial Reviewer: [id number] Initial Review Date: 12/18/2018 Generated: 12/29/18 1:07 pm Comments DCP- Discharge Planning Updated by [id number]: Elsi Brody on 12/29/18 11:[address] 1100 CM RECEIVED A TELEPHONE CALL FROM THE NURSING SHALE MINER. SHE STATED THE PATIENT REPORTEDLY HAD RECEIVED A TELEPHONE CALL STATING HE MUST BE DISCHARGED BY 12 NOON. THE SHALE MINER CHECKED THE CASE MANGEMENT FAX FOR NOTIFICATION OF DECISION. NO NOTIFICATION PRESENT. CM CALLED [facility]. AWAITED AN ANSWER ON HOLD. CM LEFT VOICE MAIL WITH REQUESTED INFORMATION TO CONFIRM PATIENT'S REPORTING. 1158- NO CALL AT THIS TIME. DCP- Discharge Planning Updated by [id number]: Lisandra Sapp on 12/27/18 12:[address] PATIENT HAS FILED AN APPEAL TO HIS DISCHARGE WITH MEDICARE. THE DETAILED NOTICE OF DISCHARGE HAS BEEN COMPLETED AND DELIVERED TO THE PATIENT. MEDICAL RECORDS BEING COPIED AND WILL BE FAXED REQUESTED. I HAVE MADE RADHA PRESSLEY WITH DR ROA AWARE OF WHY THE PATIENT IS NOT DISCHARGING WELL THE FLOOR STAFF. WE WILL WAIT [facility]'S DETERMINATION. DCP- Discharge Planning Updated by [id number]: Sherif Green on 12/27/18 10:[address] Patient Name: CARLOS CULLEN Encounter No: [id number] : 1950 Primary Insurance: MEDICARE A & B Anticipated DC Date: 12-19-2018 Planned Disposition: Home DCP follow-up note: CM RECEIVED DISCHARGE ORDER, MET WITH PT IN ROOM TO DISCUSS DICHARGE NEEDS AND PLANNING. PT IMMEDIATELY BECAME UPSET, PLACING HIS CELL PHONE DOWN HARD ON THE BEDSIDE TABLE, DROPPING HIS GLASSES AND STATING "I KNEW SOME KIND OF SHIT LIKE THIS WAS GOING TO HAPPEN." PT STATES THEY CHANGED IS MEDICATIONS UP AND NOW JUST WANT TO SEND HIM HOME WITHOUT KNOWING HOW THE MEDICATIONS WILL WORK AND THEY MAY MAKE HIS BLOOD PRESSURE JUST DROP. CM PROVIDED AND EXPLAINED IMPORTANT MESSAGE FROM MEDICARE. PT IS THINKING OF CALLING MEDICARE, OR MAY JUST GO HOME, HE IS NOT SURE. PT PLANS TO DISCHARGE HOME WITH HIS SON AND DENIES DISCHARGE NEEDS AND AGAIN STATES HE IS UNHAPPY ABOUT DISCHARGE. CM AGAIN POINTED OUT PT'S RIGHT OF APPEAL, ENSURED PT HAD CM AND HOSPITAL CONTACT NUMBER. CM NOTIFIED RAILROAD OPERATOR NURSE AND RN CM HOUSE OF PT'S POSSIBLE APPEAL OF DISCHARGE TODAY. CM TO CONTINUE TO FOLLOW AND ASSIST IF NEEDED. Sherif rGeen, CASE MANAGEMENT DCP- Discharge Planning Updated by [id number]: Sherif Green on 12/18/18 2:[address] Patient Name: CARLOS CULLEN Admission Status: ER Accout number: [id number] Admission Date: 12-16-2018 : 1950 Admission Diagnosis:SHORTNESS OF BREATH Attending: JENNIFER ROA Current LOS: 2 Anticipated DC Date: 12-19-2018 Planned Disposition: Home Primary Insurance: MEDICARE A & B Discharge Planning Comments: CM MET WITH PT IN ROOM TO DISCUSS DISCHARGE PLANNING AND NEEDS. PT REPORTS LIVING AT HOME INDEPENDENTLY WITH SON. PT HAS BIPAP AND HOME OXYGEN THAT HE USES AT NIGHT ONLY. PT'S MEDICAL EQUIPMENT PROVIDER IS [facility]. PT HAS NO OUTSIDE SERVICES ASSISTING IN THE HOME. CM DISCUSSED AVAILABILITY OF HOME HEALTH, REHAB SERVICES AND MEDICAL EQUIPMENT. PT DENIES DISCHARGE NEEDS, REPORTS HIS SON WILL PICK HIM UP FOR DISCHARGE HOME. CM ENCOURAGED PT TO ACCEPT HOME HEALTH, PT DENIES NEED AT THIS TIME. IMPORTANT MESSAGE FROM MEDICARE PROVIDED AND EXPLAINED. PT PLANS TO DISCHARGE HOME WITH SON, DENIES NEEDS; FAMILY TO TRANSPORT HOME AT DISCHARGE. CM TO CONTINUE TO FOLLOW AND ASSIST IF NEEDED. Raimann Machine Operator: Sherif Green DCPIA - Discharge Planning Initial Assessment Updated by [id number]: Sherif Green on 12/18/18 3:28 pm * Is the patient Alert and Oriented? Yes * How many steps to enter\\exit or inside your home? 0-0 / 10-I * PCP DR. JOSHI * Pharmacy [facility] ([place]) * Preadmission Environment Home with Family * ADLs Independent * Equipment BIPAP Oxygen * Other Equipment OXYGEN AT NIGHT [facility] - MEDICAL EQUIPMENT PROVIDER * List name and contact numbers for known caregivers / representatives who currently or will assist patient after discharge: CARLOS CULLEN, SON, * Verbal permission to speak to the caregivers and representatives has been obtained from the patient. N/A * Community resources currently utilized None * Please name any agencies selected above. NONE * Additional services required to return to the preadmission environment? No * Can the patient safely return to the preadmission environment? Yes * Has this patient been hospitalized within the prior 30 days at any hospital? Yes Coverage Notice Reviewer: [id number] Green Notice Issued Date-Time: 12/18/2018 15:32 Notice Type: IM Discharge Notice Notice Delivered To: Patient Relationship to Patient: Tunnel Elastic Operator Lockstitch Name: Delivery Method: HAND - Hand Delivered Stefani Days: Prior Verbal Notification: Recipient Understood Notice: Yes Recipient Signature: Yes Med Rec Note Co-signed by Attending: Coverage Notice Comment: Reviewer: [id number] Green Notice Issued Date-Time: 12/27/2018 11:00 Notice Type: IM Discharge Notice Notice Delivered To: Patient Relationship to Patient: Tunnel Elastic Operator Lockstitch Name: Delivery Method: HAND - Hand Delivered Stefani Days: Prior Verbal Notification: Recipient Understood Notice: Yes Recipient Signature: Yes Med Rec Note Co-signed by Attending: Coverage Notice Comment: Last DP export: 12/27/18 5:42 p Patient Name: CARLOS CULLEN Page 90666 at 1207 All edits/amendments must be made on the electronic document DICTATION DATE: 12/29/18 1206 COMMANDING OFFICER HOMICIDE SQUAD: BEAN 12/29/18 1206 RPT#: [id number] DC DATE: STATUS: ADM IN [facility] [address] [place] [address] END OF REPORT
--- NOTE | 2018-12-29 17:40 | MORECARE ---
CASE MANAGEMENT DISCHARGE SUMMARY PATIENT: CARLOS CULLEN UNIT: [id number] ADM DATE: 12/16/18 AGE: 68 : 54 SEX: M ROOM/BED: D.5439 AUTHOR: NOEMI,DOC PHYSICIAN: REFERRING PHYSICIAN: JENNIFER ROA MD DATE OF SERVICE: 12/29/18 Discharge Plan Patient Name: CARLOS CULLEN Facility: [facility]:[place] : 1950 Planned Disposition: Home Anticipated Discharge Date: 12/19/18 Discharge Date: 12/29/2018 Expected LOS: 3 Initial Reviewer: [id number] Initial Review Date: 12/18/2018 Generated: 12/29/18 6:40 pm Comments DCP- Discharge Planning Updated by [id number]: Elsi Brody on 12/29/18 4:[address] LATE ENTRY- 1248 RECEIVED CALL BACK FROM RENÉ ANAYA. SHE CONFIRMS SHE HAD SPOKEN DIRECTLY TO THE PATIENT AND ADVISED HIM HE MUST BE DISCHARGED BY 12OON JUST THE PATIENT HAD REPORTED. DCP- Discharge Planning Updated by [id number]: Elsi Brody on 12/29/18 11:[address] 1100 CM RECEIVED A TELEPHONE CALL FROM THE NURSING DINKEY DISPATCHER. SHE STATED THE PATIENT REPORTEDLY HAD RECEIVED A TELEPHONE CALL STATING HE MUST BE DISCHARGED BY 12 NOON. THE DINKEY DISPATCHER CHECKED THE CASE MANGEMENT FAX FOR NOTIFICATION OF DECISION. NO NOTIFICATION PRESENT. CM CALLED [facility]. AWAITED AN ANSWER ON HOLD. CM LEFT VOICE MAIL WITH REQUESTED INFORMATION TO CONFIRM PATIENT'S REPORTING. 1158- NO CALL AT THIS TIME. DCP- Discharge Planning Updated by [email or web address]: Lisandra Sapp on 12/27/18 12:[address] PATIENT HAS FILED AN APPEAL TO HIS DISCHARGE WITH MEDICARE. THE DETAILED NOTICE OF DISCHARGE HAS BEEN COMPLETED AND DELIVERED TO THE PATIENT. MEDICAL RECORDS BEING COPIED AND WILL BE FAXED REQUESTED. I HAVE MADE RADHA PRESSLEY WITH DR ROA AWARE OF WHY THE PATIENT IS NOT DISCHARGING WELL THE FLOOR STAFF. WE WILL WAIT [facility] DETERMINATION. DCP- Discharge Planning Updated by [id number]: Sherif Green on 12/27/18 10:[address] Patient Name: CARLOS CULLEN Encounter No: [id number] : 1950 Primary Insurance: MEDICARE A & B Anticipated DC Date: 12-19-2018 Planned Disposition: Home DCP follow-up note: CM RECEIVED DISCHARGE ORDER, MET WITH PT IN ROOM TO DISCUSS DICHARGE NEEDS AND PLANNING. PT IMMEDIATELY BECAME UPSET, PLACING HIS CELL PHONE DOWN HARD ON THE BEDSIDE TABLE, DROPPING HIS GLASSES AND STATING "I KNEW SOME KIND OF SHIT LIKE THIS WAS GOING TO HAPPEN." PT STATES THEY CHANGED IS MEDICATIONS UP AND NOW JUST WANT TO SEND HIM HOME WITHOUT KNOWING HOW THE MEDICATIONS WILL WORK AND THEY MAY MAKE HIS BLOOD PRESSURE JUST DROP. CM PROVIDED AND EXPLAINED IMPORTANT MESSAGE FROM MEDICARE. PT IS THINKING OF CALLING MEDICARE, OR MAY JUST GO HOME, HE IS NOT SURE. PT PLANS TO DISCHARGE HOME WITH HIS SON AND DENIES DISCHARGE NEEDS AND AGAIN STATES HE IS UNHAPPY ABOUT DISCHARGE. CM AGAIN POINTED OUT PT'S RIGHT OF APPEAL, ENSURED PT HAD CM AND HOSPITAL CONTACT NUMBER. CM NOTIFIED CLOTH FINISHER NURSE AND RN CM HOUSE OF PT'S POSSIBLE APPEAL OF DISCHARGE TODAY. CM TO CONTINUE TO FOLLOW AND ASSIST IF NEEDED. Sherif Green, CASE MANAGEMENT DCP- Discharge Planning Updated by [id number]: Sherif Green on 12/18/18 2:[address] Patient Name: CARLOS CULLEN Admission Status: ER Accout number: [id number] Admission Date: 12-16-2018 : 1950 Admission Diagnosis:SHORTNESS OF BREATH Attending: JENNIFER ROA Current LOS: 2 Anticipated DC Date: 12-19-2018 Planned Disposition: Home Primary Insurance: MEDICARE A & B Discharge Planning Comments: CM MET WITH PT IN ROOM TO DISCUSS DISCHARGE PLANNING AND NEEDS. PT REPORTS LIVING AT HOME INDEPENDENTLY WITH SON. PT HAS BIPAP AND HOME OXYGEN THAT HE USES AT NIGHT ONLY. PT'S MEDICAL EQUIPMENT PROVIDER IS [facility]. PT HAS NO OUTSIDE SERVICES ASSISTING IN THE HOME. CM DISCUSSED AVAILABILITY OF HOME HEALTH, REHAB SERVICES AND MEDICAL EQUIPMENT. PT DENIES DISCHARGE NEEDS, REPORTS HIS SON WILL PICK HIM UP FOR DISCHARGE HOME. CM ENCOURAGED PT TO ACCEPT HOME HEALTH, PT DENIES NEED AT THIS TIME. IMPORTANT MESSAGE FROM MEDICARE PROVIDED AND EXPLAINED. PT PLANS TO DISCHARGE HOME WITH SON, DENIES NEEDS; FAMILY TO TRANSPORT HOME AT DISCHARGE. CM TO CONTINUE TO FOLLOW AND ASSIST IF NEEDED. Library Helper: Sherif Green DCPIA - Discharge Planning Initial Assessment Updated by [id number]: Sherif Green on 12/18/18 3:28 pm * Is the patient Alert and Oriented? Yes * How many steps to enter\\exit or inside your home? 0--I * PCP DR. JOSHI * Pharmacy [facility] ([place]) * Preadmission Environment Home with Family * ADLs Independent * Equipment BIPAP Oxygen * Other Equipment OXYGEN AT NIGHT [facility] - MEDICAL EQUIPMENT PROVIDER * List name and contact numbers for known caregivers / representatives who currently or will assist patient after discharge: CARLOS CULLEN, SON, * Verbal permission to speak to the caregivers and representatives has been obtained from the patient. N/A * Community resources currently utilized None * Please name any agencies selected above. NONE * Additional services required to return to the preadmission environment? No * Can the patient safely return to the preadmission environment? Yes * Has this patient been hospitalized within the prior 30 days at any hospital? Yes Coverage Notice Reviewer: [id number] Boaz Green Notice Issued Date-Time: 12/18/2018 15:32 Notice Type: IM Discharge Notice Notice Delivered To: Patient Relationship to Patient: Credit Assistant Name: Delivery Method: HAND - Hand Delivered Stefani Days: Prior Verbal Notification: Recipient Understood Notice: Yes Recipient Signature: Yes Med Rec Note Co-signed by Attending: Coverage Notice Comment: Reviewer: [id number] Boaz Green Notice Issued Date-Time: 12/27/2018 11:00 Notice Type: IM Discharge Notice Notice Delivered To: Patient Relationship to Patient: Credit Assistant Name: Delivery Method: HAND - Hand Delivered Stefani Days: Prior Verbal Notification: Recipient Understood Notice: Yes Recipient Signature: Yes Med Rec Note Co-signed by Attending: Coverage Notice Comment: Last DP export: 12/29/18 11:07 a Patient Name: CARLOS CULLEN Page 31352 at 1740 All edits/amendments must be made on the electronic document DICTATION DATE: 12/29/181739 TARIFF PUBLISHING AGENT: BEAN 12/29/181739 RPT#: [id number] DC DATE:12/29/18 STATUS: DIS IN [facility] [address] [place] [address] END OF REPORT
--- NOTE | 2018-12-30 09:22 | MORECARE ---
CASE MANAGEMENT DISCHARGE SUMMARY PATIENT: CARLOS CULLEN UNIT: [id number] ADM DATE: 12/16/18 AGE: 68 : 54 SEX: M ROOM/BED: D.0483 AUTHOR: NOEMI,DOC PHYSICIAN: REFERRING PHYSICIAN: JENNIFER ROA MD DATE OF SERVICE: 12/30/18 Discharge Plan Patient Name: CARLOS CULLEN Facility: [facility]:[place] : 1950 Planned Disposition: Home Anticipated Discharge Date: 12/29/18 Discharge Date: 12/29/2018 Expected LOS: 13 Initial Reviewer: [id number] Initial Review Date: 12/18/2018 Generated: 12/30/18 10:21 am Comments DCP- Discharge Planning Updated by [id number]: Elsi Brody on 12/29/18 4:[address] LATE ENTRY- 1248 RECEIVED CALL BACK FROM RENÉ ANAYA. SHE CONFIRMS SHE HAD SPOKEN DIRECTLY TO THE PATIENT AND ADVISED HIM HE MUST BE DISCHARGED BY 12OON JUST THE PATIENT HAD REPORTED. DCP- Discharge Planning Updated by [id number]: Elsi Brody on 12/29/18 11:[address] 1100 CM RECEIVED A TELEPHONE CALL FROM THE NURSING EMERGENCY CARE TECH. SHE STATED THE PATIENT REPORTEDLY HAD RECEIVED A TELEPHONE CALL STATING HE MUST BE DISCHARGED BY 12 NOON. THE EMERGENCY CARE TECH CHECKED THE CASE MANGEMENT FAX FOR NOTIFICATION OF DECISION. NO NOTIFICATION PRESENT. [facility] AWAITED AN ANSWER ON HOLD. CM LEFT VOICE MAIL WITH REQUESTED INFORMATION TO CONFIRM PATIENT'S REPORTING. 1158- NO CALL AT THIS TIME. DCP- Discharge Planning Updated by [id number]: Lisandra Sapp on 12/27/18 12:[address] PATIENT HAS FILED AN APPEAL TO HIS DISCHARGE WITH MEDICARE. THE DETAILED NOTICE OF DISCHARGE HAS BEEN COMPLETED AND DELIVERED TO THE PATIENT. MEDICAL RECORDS BEING COPIED AND WILL BE FAXED REQUESTED. I HAVE MADE RADHA PRESSLEY WITH DR ROA AWARE OF WHY THE PATIENT IS NOT DISCHARGING WELL THE FLOOR STAFF. [facility]. DCP- Discharge Planning Updated by [id number]: Sherif Green on 12/27/18 10:[address] Patient Name: CARLOS CULLEN Encounter No: [id number] : 1950 Primary Insurance: MEDICARE A & B Anticipated DC Date: 12-19-2018 Planned Disposition: Home DCP follow-up note: CM RECEIVED DISCHARGE ORDER, MET WITH PT IN ROOM TO DISCUSS DICHARGE NEEDS AND PLANNING. PT IMMEDIATELY BECAME UPSET, PLACING HIS CELL PHONE DOWN HARD ON THE BEDSIDE TABLE, DROPPING HIS GLASSES AND STATING "I KNEW SOME KIND OF SHIT LIKE THIS WAS GOING TO HAPPEN." PT STATES THEY CHANGED IS MEDICATIONS UP AND NOW JUST WANT TO SEND HIM HOME WITHOUT KNOWING HOW THE MEDICATIONS WILL WORK AND THEY MAY MAKE HIS BLOOD PRESSURE JUST DROP. CM PROVIDED AND EXPLAINED IMPORTANT MESSAGE FROM MEDICARE. PT IS THINKING OF CALLING MEDICARE, OR MAY JUST GO HOME, HE IS NOT SURE. PT PLANS TO DISCHARGE HOME WITH HIS SON AND DENIES DISCHARGE NEEDS AND AGAIN STATES HE IS UNHAPPY ABOUT DISCHARGE. CM AGAIN POINTED OUT PT'S RIGHT OF APPEAL, ENSURED PT HAD CM AND HOSPITAL CONTACT NUMBER. CM NOTIFIED COIL ASSEMBLER NURSE AND RN CM HOUSE OF PT'S POSSIBLE APPEAL OF DISCHARGE TODAY. CM TO CONTINUE TO FOLLOW AND ASSIST IF NEEDED. Sherif Green, CASE MANAGEMENT DCP- Discharge Planning Updated by [email or web address]: Sherif Green on 12/18/18 2:[address] Patient Name: CARLOS CULLEN Admission Status: ER Accout number: [id number] Admission Date: 12-16-2018 : 1950 Admission Diagnosis:SHORTNESS OF BREATH Attending: JENNIFER ROA Current LOS: 2 Anticipated DC Date: 12-19-2018 Planned Disposition: Home Primary Insurance: MEDICARE A & B Discharge Planning Comments: CM MET WITH PT IN ROOM TO DISCUSS DISCHARGE PLANNING AND NEEDS. PT REPORTS LIVING AT HOME INDEPENDENTLY WITH SON. PT HAS BIPAP AND HOME OXYGEN THAT HE USES AT NIGHT ONLY. PT'S MEDICAL EQUIPMENT PROVIDER IS [facility]. PT HAS NO OUTSIDE SERVICES ASSISTING IN THE HOME. CM DISCUSSED AVAILABILITY OF HOME HEALTH, REHAB SERVICES AND MEDICAL EQUIPMENT. PT DENIES DISCHARGE NEEDS, REPORTS HIS SON WILL PICK HIM UP FOR DISCHARGE HOME. CM ENCOURAGED PT TO ACCEPT HOME HEALTH, PT DENIES NEED AT THIS TIME. IMPORTANT MESSAGE FROM MEDICARE PROVIDED AND EXPLAINED. PT PLANS TO DISCHARGE HOME WITH SON, DENIES NEEDS; FAMILY TO TRANSPORT HOME AT DISCHARGE. CM TO CONTINUE TO FOLLOW AND ASSIST IF NEEDED. Motor Vehicle Parts Interpreter: Sherif Green DCPIA - Discharge Planning Initial Assessment Updated by [id number]: Sherif Green on 12/18/18 3:28 pm * Is the patient Alert and Oriented? Yes * How many steps to enter\\exit or inside your home? 0--I * PCP DR. JOSHI * Pharmacy [facility] ([place]) * Preadmission Environment Home with Family * ADLs Independent * Equipment BIPAP Oxygen * Other Equipment OXYGEN AT NIGHT [facility] - MEDICAL EQUIPMENT PROVIDER * List name and contact numbers for known caregivers / representatives who currently or will assist patient after discharge: CARLOS CULLEN, SON, * Verbal permission to speak to the caregivers and representatives has been obtained from the patient. N/A * Community resources currently utilized None * Please name any agencies selected above. NONE * Additional services required to return to the preadmission environment? No * Can the patient safely return to the preadmission environment? Yes * Has this patient been hospitalized within the prior 30 days at any hospital? Yes Coverage Notice Reviewer: [id number] Boaz Green Notice Issued Date-Time: 12/18/2018 15:32 Notice Type: IM Discharge Notice Notice Delivered To: Patient Relationship to Patient: Metal Engraver Name: Delivery Method: HAND - Hand Delivered Stefani Days: Prior Verbal Notification: Recipient Understood Notice: Yes Recipient Signature: Yes Med Rec Note Co-signed by Attending: Coverage Notice Comment: Reviewer: [id number] Boaz Green Notice Issued Date-Time: 12/27/2018 11:00 Notice Type: IM Discharge Notice Notice Delivered To: Patient Relationship to Patient: Metal Engraver Name: Delivery Method: HAND - Hand Delivered Stefani Days: Prior Verbal Notification: Recipient Understood Notice: Yes Recipient Signature: Yes Med Rec Note Co-signed by Attending: Coverage Notice Comment: Last DP export: 12/29/18 4:40 p Patient Name: CARLOS CULLEN Page [phone] at 0922 All edits/amendments must be made on the electronic document DICTATION DATE: 12/30/18920 ADVERTISING DESIGNER: BEAN 12/30/18920 RPT#: [id number] DC DATE:12/29/18 STATUS: DIS IN [facility] [address] [place] [address] END OF REPORT
== END 2018-12-29 13:29 | disposition home or self-care (01) | DRG 291 ==
LOC: D.ER 23:53 → D.M3 12-16 00:41 → D.M2 12-16 00:41 → D.SDCHOLD 12-27 10:20 → D.M2 12-27 10:28
PROVIDERS: Emergency Medicine; Family Medicine; ADMIT Internal Medicine Nephrology; ATTEND Internal Medicine Nephrology
DX: I11.0 Hypertensive heart disease with heart failure (principal); J96.21 Acute and chronic respiratory failure with hypoxia; J44.1 Chronic obstructive pulmonary disease with (acute) exacerbation; I25.10 Atherosclerotic heart disease of native coronary artery without angina pectoris; E78.5 Hyperlipidemia, unspecified; E11.9 Type 2 diabetes mellitus without complications; K21.9 Gastro-esophageal reflux disease without esophagitis; I25.5 Ischemic cardiomyopathy; Z95.0 Presence of cardiac pacemaker; N40.0 Benign prostatic hyperplasia without lower urinary tract symptoms; I50.42 Chronic combined systolic (congestive) and diastolic (congestive) heart failure

== ENCOUNTER → 2019-01-08 08:24 | Outpatient (CLI) | payer MEDICARE ==
[~2019-01-08 08:24] MED LIST changes: +BUMEX2 MG PO; +CHLORTHALIDONE25 MG PO; +ENTRESTO 49 MG1 EACH PO; +TRAZODONE HCL150 MG PO
[2019-01-08 08:53] LABS: BASOPHILS 0.6 % (0-2); EOSINOPHILS 4.3 % (0-7); HEMATOCRIT 44.2 % (42.0-54.0); HEMOGLOBIN 15.4 g/dL (13.5-17.5); IMMATURE GRANULOCYTES 0.4 % (0-5); LYMPHOCYTES 17.2 % (15-50); MCH 30.3 pg (26.0-34.0); MCHC 34.8 g/dL (31.0-37.0); MEAN PLATELET VOLUME 9.2 fL (7.4-10.4); NEUTROPHILS 68.5 % (40-80); PLATELET COUNT 148 10x3/uL (130-400); RBC 5.08 10x6/uL (4.20-6.10); RDW 16.3 % (11.5-14.5); WBC 8.5 10x3/uL (4.8-10.8)
== END | disposition home or self-care (01) ==
LOC: D.LAB 08:24
PROVIDERS: Internal Medicine Gastroenterology
DX: K92.1 Melena (principal)

== ENCOUNTER 2019-01-09 19:02 | Observation (INO) | payer MEDICARE ==
[~2019-01-09] VITALS: Ht 172.7 cm; Wt 99.3 kg
--- NOTE | ~2019-01-09 | OP ---
PATIENT NAME: CARLOS CULLEN MEDICAL RECORD: [id number] :[birth year] LOCATION:D.M2 D.2124 ADMISSION DATE:01/09/19 SURGEON: CHANTALE STRICKLAND MD DATE OF OPERATION: 01/10/2019 PROCEDURES: 1. PTCA left circumflex. 2. Left heart catheterization. 3. Selective coronary angiography. 4. Vein graft angiography. 5. Left ventriculogram. INDICATION: Angina and coronary artery disease. PROCEDURE IN DETAIL: After informed consent was obtained and after a detailed description of risks, benefits as well as alternative therapies, the patient elected to proceed with angiogram and angioplasty. The right femoral area was prepped and draped in normal sterile fashion. Right femoral artery was cannulated via modified Seldinger technique with placement of 6-Tamazight sheath. All catheters exchanged through this sheath. FINDINGS: The left ventriculogram was performed in standard 30-degree BASHIR view, reveals global hypokinesis, ejection fraction is 20%. SELECTIVE CORONARY ANGIOGRAPHY: 1. Left main is with no significant angiographic disease. 2. Left anterior descending is totally occluded. 3. Left circumflex has previously placed stents with what appears to be either thrombus or in-stent restenosis in the mid vessel. 4. Right coronary is totally occluded. 5. Vein graft to the LAD is patent. PTCA STENT OF THE CIRCUMFLEX: 4-0 balloon was used for high pressure PTCA of the in stent area. Result was 0% residual hinduism TALI-3 flow. OVERALL IMPRESSION: Successful percutaneous transluminal coronary angioplasty for in-stent restenosis, thrombosis or in-stent restenosis unknown. This is going from greater than 70% residual stenosis to 0% residual. TRANSINT:[id number] Voice Confirmation ID: [id number] DOCUMENT ID: [id number] CHANTALE STRICKLAND MD CC: [id number] DICTATION DATE: 01/10/19 1631 ENVIRONMENTAL PROTECTION ECONOMIST: 01/10/19 1824 ADM IN [facility] [address] [place] [address]
--- NOTE | ~2019-01-09 | HEMODYNAMI ---
PATIENT:CARLOS CULLEN MEDICAL RECORD: [id number] : 54 LOCATION:[facility] D.2124 ADMISSION DATE: 01/09/19 Generatedon:01/10/201916:30 Patient name: CARLOS CULLEN Patient #: [id number] SSN: DO B: 1950 Date of study: 01/10/2019 Page: Of Hemodynamic Procedure Report Patient Data Patient Demographics Procedure consent was obtained First Name: CARLOS Gender: Male Last Name: SUBHASH : 1950 [facility] Initial: STELLA Age: 68 year(s) Patient #: [id number] Race: Unknown Additional ID: [id number] Contact details Address: [address] [place] [address] State: [place] City: [place] Zip code: [address] Past Medical History Allergies Allergen Reaction Date Comments Reported Other allergy 07/04/2018 spironolactone, ipratropium Other allergy 07/11/2018 Spironolactone, IPRATROPIUM Other allergy 01/10/2019 spironolactone, ipratropium, uvofloxacin Admission Admission Data Admission Date: 01/09/2019 Admission Time: 21:10 Room #: D2124 Height (in.): 67.72 BSA: 2.12 (m2) Height (cm.): 172 BMI: 33.8 (kg/m2) Weight (lbs.): 220.46 Weight (kg.): 100 Lab Results Lab Result Date: 01/10/2019 Lab Result Time: 0:00 Biochemistry Name Units Result Min Max BUN mg/dl 28 --(----)-* 7 18 Creatinine mg/dl 1.7 --(----)-* 0.6 1.3 CBC Name Units Result Min Max Hemoglobin g/dl 13.6 --(*---)-- 13.5 17.5 Procedure Procedure Types Cath Procedure Diagnostic Procedure LHC LHC w/Coronaries Sedation Charges Moderate Sedation up to 15 minutes PCI Procedure PTCA PTCA Initial Procedure Description Procedure Date Procedure Date: 01/10/2019 Procedure Start Time: 16:16 Procedure End Time: 16:27 Procedure Staff Name Function Dereje Sanders MD Performing Physician Nathalie Verdin RT Monitor Aaron Hernandez RN Nurse Erika Fierro RT Scrub Procedure Data Cath Procedure Fluoroscopy Diagnostic fluoroscopy Total fluoroscopy Time: 2.8 time: 2.8 min min Diagnostic fluoroscopy Total fluoroscopy dose: 402 dose: 402 mGy mGy Contrast Material Contrast Material Type Amount (ml) Isovue 300 82 Entry Location Entry Primary Successful Side Size Upsize Upsize Entry Closure Succes sful Closure Location (Fr) 1 (Fr) 2 (Fr) Remarks Device Remarks Femoral Right 5 Fr 6 Fr Exoseal artery Short Estimated blood loss: 10 ml Diagnostic catheters Device Type Used For End Catheter Placement MULTIPACK Pigtail 5 Fr Procedure catheter MULTIPACK JL 4.0 5Fr Procedure catheter MULTIPACK 3DRC 5Fr Procedure catheter Procedure Complications No complications Procedure Medications Medication Administration Route Dosage Oxygen etCO2 Nasal cannula 3 l/min Lidocaine 2% added to field 20 Heparin Flush Bag added to field 2 bags (1000units/500ml NS) 0.9% NaCl I.V. 100 ml/hr Plavix P.O. 75 mg Versed I.V. 1 mg Fentanyl I.V. 50 mcg Heparin Bolus I.V. 4000 units Versed I.V. 1 mg Fentanyl I.V. 50 mcg Hemodynamics Rest BSA: 2.12 (m2) HGB: 13.6 (g/dl) O2 Consumption: Estimated: 246.79 (ml/min) O2 Co nsumption indexed: Estimated:116.41 (ml/min/m) Heart Rate: 70 (bpm) Pressure Samples Time Site Value (mmHg) Purpose Heart Use Rate(bpm) 16:19 AO 69/34(40) Snapshot 70 16:23 AO 85/55(68) Snapshot 70 Snapshots Pre Cath Intra NCS Post Cath Vital Signs Time Heart Resp SPO2 etCO2 NIBP Rhythm Pain Sedation Rate (ipm) (%) (mmHg) (mmHg) Status Level (bpm) 15:22:30 68 21 93 0 No Cuff Paced 0 (11) 10(A) , No pain 15:34:01 69 25 94 0 106/72(86) Paced 0 (11) 10(A) , No pain 15:38:11 69 18 93 0 102/67(82) Paced 0 (11) 10(A) , No pain 15:42:18 69 40 92 0 97/65(75) Paced 0 (11) 10(A) , No pain 15:46:26 57 20 94 13.4 93/64(81) Paced 0 (11) 10(A) , No pain 15:50:32 68 35 92 13.4 98/65(81) Paced 0 (11) 10(A) , No pain 16:06:40 68 25 92 23.9 96/65(75) Paced 0 (11) 10(A) , No pain 15:58:39 70 23 91 17.1 No Cuff Paced 0 (11) 10(A) , No pain 16:02:39 69 40 91 14.9 No Cuff Paced 0 (11) 10(A) , No pain 16:13:46 68 32 93 24.6 89/57(0) Paced 0 (11) 10(A) , No pain 16:17:46 69 17 96 20.1 85/60(0) Paced 0 (11) 9(A) , No pain 16:22:00 68 19 93 18.6 100/68(83) Paced 0 (11) 9(A) , No pain 16:26:08 69 30 93 16.4 96/66(76) Paced 0 (11) 10(A) , No pain Medications Time Medication Route Dose Verified Delivered Reason Notes Effectiveness by by 15:25:11 Oxygen etCO2 3 Dereje Walker used for Nasal l/min Marilyn Hernandez RN procedure cannula 15:25:22 Lidocaine 2% added 20ml Dereje Reyez for local to vial Marilyn Sanders MD anesthetic field 15:25:29 Heparin Flush added 2 Dereje Reyez used for Bag to bags Marilyn Sanders MD procedure (1000units/500ml field NS) 15:25:38 0.9% NaCl I.V. 100 Dereje Walker Per physician ml/hr Marilyn Hernandez RN 15:25:51 Plavix P.O. 75 mg Dereje Walker for Marilyn Hernandez RN antiplatelet therapy 16:15:12 Versed I.V. 1 mg Dereje Walker for sedation Marilyn Hernandez RN 16:15:20 Fentanyl I.V. 50 Dereje Guyie for sedation mcg Marilyn Hernandez RN 16:19:37 Versed I.V. 1 mg Dereje Walker for sedation Marilyn Hernandez RN 16:19:41 Fentanyl I.V. 50 Dereje Walker for sedation mcg Marilyn Hernandez RN 16:23:23 Heparin Bolus I.V. 4000 Dereje Walker for verif ied units Marilyn Hernandez RN anticoagulation with dr sanders Procedure Log Time Note 14:48:05 Time tracking: Regular hours (M-F 7:00 - 5:00) 14:48:09 Plan of Care:Hemodynamics will remain stable., Cardiac rhythm will remain stable., Comfort level will be maintained., Respiratory function will remain adequate., Patient/ family verbilizes understanding of procedure., Procedure tolerated without complication., Recovers from procedure without complications.. 14:50:01 Aaron Hernandez RN sent for patient. Start room use. 14:55:29 Patient Weight : 220.46 lbs 14:55:32 Patient Height : 67.72 inches 14:56:03 Lab Result : Creatinine 1.7 mg/dl 14:56:03 Lab Result : BUN 28 mg/dl 14:56:03 Lab Result : Hemoglobin 13.6 g/dl 15:21:26 Patient received from Pre/Post Procedure Room to CCL 3 Alert and oriented. Tansferred to table in Supine position. 15:21:34 Warm blankets applied, and bhavani hugger turned on for patient comfort. 15:21:35 Correct patient and procedure confirmed by team. 15:21:36 Signed procedure consent form obtained from patient. 15:21:38 ECG and BP/O2 sat monitors applied to patient. 15:21:39 Vital chart was started 15:21:41 Baseline sample Acquired. 15:21:46 Rhythm: paced 15:21:48 Full Disclosure recording started 15:21:54 H&P Date Dictated: 01/09/2019 Within 30 days and on chart., H&P Addendum completed by physician on day of procedure. (MUST COMPLETE FOR ALL OUTPATIENTS). 15:21:56 Pre-procedure instructions explained to patient. 15:21:59 Family unavailable. 15:22:01 Patient NPO since Midnight. 15:22:34 Patient allergic to Other allergyspironolactone, ipratropium, uvofloxacin 15:22:37 Is the patient allergic to Iodine/contrast media? No. 15:22:38 Was the patient premedicated? Yes 15::39 Is patient on blood thinner?Yes 15::42 ACC The patient was administered the following blood thiners within the last 24 hours: ACCPlavix 15::46 Patient diabetic? No. 15::51 Snore? Yes 15::52 Sleep apnea? Yes 15::58 Airway obstruction? Yes COPD 15:23:04 Dentures? Yes tight 15::11 Oxygen 3 l/min etCO2 Nasal cannula was administered by Aaron Hernandez RN; used for procedure; 15:: Lidocaine 2% 20ml vial added to field was administered by Dereje Sanders MD; for local anesthetic; :: Heparin Flush Bag (1000units/500ml NS) 2 bags added to field was administered by Dereje Sanders MD; used for procedure; : 0.9% NaCl 100 ml/hr I.V. was administered by Aaron Hernandez RN; Per physician; :: Plavix 75 mg P.O. was administered by Aaron Hernandez RN; for antiplatelet therapy; 15::54 Patient pain scale 0/10 ?. 15:30:53 Lab results completed and on chart. 15:31:01 IV patent on arrival in left hand with 0.9% NaCl at [facility]. 15:31:05 Right groin area was prepped with chlora-prep and draped in sterile fashion 15:31:06 Alarms reviewed by R. N. 15::07 Sharps counted by scrub and verified by R.N. 15:31:08 Physician paged 16:03:55 Physician arrived 16::53 --------ALL STOP TIME OUT------ 16:14:54 Final Timeout: patient, procedure, and site verified with staff and physician. All members of the team are in agreement. 16::55 Right groin site verified by team. 16:15:02 Maximum allowable Isovue 300 dose 294ml. Physician notified. (300ml for normal creatinines. For patients with creatinine of 1.7 or higher multiply weight(kg) x 5 divided by creatinine.) 16:15:12 Versed 1 mg I.V. was administered by Buffie Hernandez RN; for sedation; 16:15:20 Fentanyl 50 mcg I.V. was administered by Aaron Hernandez RN; for sedation; 16:16:01 Fire Safety Assessment: A--An alcohol-based skin anteseptic being used preoperatively., C--Open oxygen or nitrous oxide is being used., D--An ESU, laser, or fiber-optic light is being used. 16:16:04 Physical assessment completed. ASA score P 2 - A patient with mild systemic disease as per Dereje Sanders MD. 16:16:08 Sedation plan: IV Moderate Sedation Medication:Versed, Fentanyl 16:16:12 Use device set Femoral Dx 16:16:15 Procedure started. 16:16:26 Local anesthetic to right femoral artery with Lidocaine 2% by Dereje Sanders MD.INITIAL ACCESS ONLY 16:16:35 A 5 Fr sheath was inserted into the Right Femoral artery 16:17:00 ACIST Syringe (80124) opened to sterile field. 16:17:01 Bag Decanter (2002S) opened to sterile field. 16:17:01 Medline Cath Pack ([id number]) opened to sterile field. 16:17:02 DIAGNOSTIC WIRE .035 260cm J wire (512570) opened to sterile field. 16:17:03 ACIST Hand Control (55727) opened to sterile field. 16:17:03 ACIST Manifold (61839) opened to sterile field. 16:17:07 DIAGNOSTIC Multipack 5Fr catheter set (BG8028) opened to sterile field. 16:17:07 Tegaderm 4 x 4 (1626W) opened to sterile field. 16:17:17 SHEATH 5FR [place] (IIR180) opened to sterile field. 16:17:59 A MULTIPACK Pigtail 5 Fr catheter was advanced over the wire and used for Procedure. 16:18:16 LV angiography performed. 16:18:32 EF : 20 % 16:18:38 Catheter removed. 16:18:46 A MULTIPACK JL 4.0 5Fr catheter was advanced over the wire and used for Procedure. 16:18:49 LCA angiography performed. 16:19:37 Versed 1 mg I.V. was administered by Aaron Hernandez RN; for sedation; 16:19:41 Fentanyl 50 mcg I.V. was administered by Aaron Hernandez RN; for sedation; 16:20:16 Catheter removed. 16:20:39 A MULTIPACK 3DRC 5Fr catheter was advanced over the wire and used for Procedure. 16:21:01 SVG to LAD angiography performed. 16:21:12 SVG to RCA occluded. 16:21:25 Proceeding to intervention. 16::37 Sheath upsized to a 6 Fr Short. 16:22:16 GUIDE 6FR XBLAD 3.5 catheter ([id number]) opened to sterile field. 16:22:16 CHOICE PT Extra Support 182cm wire ([id number]) opened to sterile field. 16:22:17 INFLATOR Merit BasixCompak (BZ0002) opened to sterile field. 16:22:18 SHEATH 6FR [place] (FFS785) opened to sterile field. 16:22:31 6 Fr XBLAD3.5 guide catheter was inserted over the wire 16::37 choice pt ex wire advanced. 16:23:23 Heparin Bolus 4000 units I.V. was administered by Aaron Hernandez RN; for anticoagulation; verified with dr sanders 16:24:07 Inflate balloon Inflation number: 1 A EUPHORA 4.0 x 30 Balloon ([id number]) was prepped and advanced across the Mid CX, then inflated to 13 UDAY for 0:07 (min:sec). 16:24:26 Inflation number: 2 The EUPHORA 4.0 x 30 Balloon ([id number]) was reinflated across the Mid CX, to 13 UDAY for 0:04 (min:sec). 16:25:52 Wire removed. 16:25:53 Guide catheter removed. 16:26:06 Sheath removed intact; hemostasis achieved with Exoseal to the Right Femoral artery. 16::22 Procedure ended.(Physican Out) 16:26:36 Fluoroscopy time 02.80 minutes. 16:26:40 Flurop Dose total: 402 16:26:40 Fluoroscopy dose: 402 mGy 16:26:45 Contrast amount:Isovue 300 82ml. 16:26:46 Sharps counted by scrub and verified by R.N. 16:26:50 Insertion/operative site no bleeding no hematoma. 16:26:54 Post-op/insertion site Right Femoral artery dressed using a 4 x 4 and Tegaderm. 16:26:56 Post Procedure Pulses reassessed and unchanged 16:26:59 Post procedure rhythm: sinus rhythm 16:27:02 Estimated blood loss: 10 ml 16:27:04 Post procedure instruction explained to patient.Patient verbalizes understanding. 16:27:20 Procedure type changed to Cath procedure, Diagnostic procedure, LHC, LHC w/Coronaries, Sedation Charges, Moderate Sedation up to 15 minutes, PCI procedure, PTCA, PTCA Initial 16:27:21 Procedure and supply charges have been captured, reviewed, submitted and are correct. 16:27:37 Procedure Complication : No complications 16:27:39 Vital chart was stopped 16:27:43 See physician's report for complete and final results. 16:27:47 Patient transfered to Pre/Post Procedure Room with Stretcher. 16:27:49 Procedure ended. 16:27:49 Full Disclosure recording stopped 16:27:54 End room use (Document Last) 16:28:00 ACC-PCI Only Patient was given prescriptions, or instructed by Dereje Sanders MD to start/continue the following medications upon discharge: Plavix Intervention Summary Intervention Notes Time ActionType Lesion and Equipment Action# Pressure Duration Attributes Used 16:24:07 Inflate Mid CX EUPHORA 1 13 00:07 balloon 4.0 x 30 Balloon ([id number]) 16:24:26 Reinflate Mid CX EUPHORA 2 13 00:04 balloon 4.0 x 30 Balloon ([id number]) Device Usage Item Name Manufacture Quantity Catalog Number Hospital Part Current Minim al Lot# / Charge Number Stock Stock Serial# Code ACIST Acist 1 97944 371986 228892 003113 20 Syringe Medical (34145) Systems Inc Bag Microtek 1 631059 82618 020614 5 Decanter Medical Inc. () Medline Medline 1 [id number] 196596 96329 339347 5 Cath Pack ([id number]) DIAGNOSTIC [place] 1 935051 754653 530130 989343 30 WIRE .035 260cm J wire (067277) ACIST Hand Acist 1 26489 143558 342223 784447 5 Control Medical (05632) Systems Inc ACIST Acist 1 79148 738744 560463 097742 5 Manifold Medical (18867) Systems Inc DIAGNOSTIC Cardinal 1 UN9648 519366 46423 637345 30 Adaptis Solutions Health 5Fr catheter set (UE4363) Tegaderm 4 3M 1 1626W 261182 670420 996409 5 x 4 (1626W) SHEATH 5FR Terumo 1 BZZ615 178577 924184 662283 5 [place] (LHZ378) MULTIPACK Cardinal 1 690883 5 Pigtail 5 Health Fr catheter MULTIPACK Cardinal 1 808761 5 JL 4.0 5Fr Health catheter MULTIPACK Cardinal 1 228504 5 3DRC 5Fr Health catheter GUIDE 6FR Cardinal 1 [id number] 224223 275008 887258 10 XBLAD 3.5 Health catheter ([id number]) CHOICE PT [place] 1 [id number] 011582 090776 283299 5 Extra Scientific Support 182cm wire ([id number]) INFLATOR Merit 1 RK8682 723775 248068 284729 15 [facility] Medical BasixCompak (OX4800) SHEATH 6FR Terumo 1 CBL831 665279 038429 725400 40 [place] (MNH561) EUPHORA 4.0 Medtronic 1 [id number] 280553 958595 659288 5 [id number] x 30 Balloon ([id number]) Signature Audit Anabel Stage Time Signature Unsigned Intra-Procedure 01/10/2019 Nathalie Verdin 4:30:33 PM RT(R) Signatures Monitor : Nathalie Verdin Signature : RT Date : Time : [id number] [place] [address]
[2019-01-09 19:53] LABS: BASOPHILS 0.5 % (0-2); EOSINOPHILS 6.1 % (0-7); HEMATOCRIT 44.1 % (42.0-54.0); IMMATURE GRANULOCYTES 0.7 % (0-5); LYMPHOCYTES 17.8 % (15-50); MCH 29.4 pg (26.0-34.0); MCV 86.5 fL (80.0-100.0); MEAN PLATELET VOLUME 8.8 fL (7.4-10.4); MONOCYTES 11.7 % (2-11); NEUTROPHILS 63.2 % (40-80); PLATELET COUNT 151 10x3/uL (130-400); RDW 16.4 % (11.5-14.5); WBC 7.5 10x3/uL (4.8-10.8)
[2019-01-09 20:00] LABS: APTT 24.6 SECONDS (22.8-39.4); INR 1.09 (0.85-1.17); PROTIME 13.6 SECONDS (11.6-15.0)
[2019-01-09 20:05] LABS: ALBUMIN 3.8 g/dL (3.4-5.0); ALKALINE PHOSPHATASE 68 U/L (46-116); ALT (SGPT) 67 U/L (10-68); BILIRUBIN - TOTAL 0.52 mg/dL (0.2-1.3); CALC OSMOLALITY 288 mosm/kg (275-300); CALCIUM 8.8 mg/dL (8.5-10.1); CARBON DIOXIDE 30.2 mmol/L (21.0-32.0); CHLORIDE - SERUM 100 mmol/L (98-107); CREATININE - SERUM 1.7 mg/dL (0.6-1.3); POTASSIUM - SERUM 3.9 mmol/L (3.5-5.1); PROTEIN - SERUM 7.7 g/dL (6.4-8.2); SODIUM 140 mmol/L (136-145); UREA NITROGEN 26 mg/dL (7-18); eGFR NON AFRICAN AMERICAN 43 mL/min (90-120)
[2019-01-09 20:06] LABS: GLUCOSE 182 mg/dL (74-106)
[2019-01-09 20:20] LABS: CKMB 2.1 U/L (0.0-3.6); CREATINE KINASE 131 UL (21-232); MAGNESIUM - SERUM 2.5 mg/dL (1.8-2.4)
[2019-01-09 20:37] LABS: TROPONIN-I 0.581 ng/mL (0.000-0.060)
[2019-01-10] VITALS (7 sets, daily range): BP systolic 90–109; BP diastolic 48–69; Ht 172.7 cm; Wt 99.3 kg
[2019-01-10 02:37] LABS: BASOPHILS 0.2 % (0-2); EOSINOPHILS 3.9 % (0-7); HEMATOCRIT 39.6 % (42.0-54.0); HEMOGLOBIN 13.6 g/dL (13.5-17.5); IMMATURE GRANULOCYTES 0.4 % (0-5); LYMPHOCYTES 11.2 % (15-50); MCH 29.7 pg (26.0-34.0); MCHC 34.3 g/dL (31.0-37.0); MCV 86.5 fL (80.0-100.0); MEAN PLATELET VOLUME 8.5 fL (7.4-10.4); MONOCYTES 9.9 % (2-11); NEUTROPHILS 74.4 % (40-80); PLATELET COUNT 127 10x3/uL (130-400); RBC 4.58 10x6/uL (4.20-6.10); RDW 16.5 % (11.5-14.5)
[2019-01-10 02:48] LABS: WBC 12.5 10x3/uL (4.8-10.8)
[2019-01-10 03:22] LABS: ALBUMIN 3.3 g/dL (3.4-5.0); ALKALINE PHOSPHATASE 60 U/L (46-116); ALT (SGPT) 51 U/L (10-68); CALC OSMOLALITY 285 mosm/kg (275-300); CALCIUM 8.5 mg/dL (8.5-10.1); CARBON DIOXIDE 27.1 mmol/L (21.0-32.0); CHLORIDE - SERUM 101 mmol/L (98-107); CKMB 1.5 U/L (0.0-3.6); CREATINE KINASE 104 UL (21-232); CREATININE - SERUM 1.7 mg/dL (0.6-1.3); GLUCOSE 140 mg/dL (74-106); POTASSIUM - SERUM 3.5 mmol/L (3.5-5.1); PROTEIN - SERUM 6.7 g/dL (6.4-8.2); SODIUM 139 mmol/L (136-145); UREA NITROGEN 28 mg/dL (7-18); eGFR NON AFRICAN AMERICAN 43 mL/min (90-120)
[2019-01-10 03:23] LABS: TROPONIN-I 0.515 ng/mL (0.000-0.060)
--- NOTE | 2019-01-10 07:37 | NUR ---
DR STRICKLAND IN TO SEE PATIENT.
--- NOTE | 2019-01-10 08:34 | NUR ---
0832-OP PERMITS SIGNED FOR [facility]. NPO AT THIS TIME.
[2019-01-10 08:55] LABS: CKMB 1.4 U/L (0.0-3.6); CREATINE KINASE 105 UL (21-232)
--- NOTE | 2019-01-10 09:00 | NUR ---
ERVIN WITH [employer] HERE FOR PACEMAKER.
--- NOTE | 2019-01-10 12:32 | NUR ---
STILL NPO AWAITING HEART CATH TODAY. DENIES NEEDS AT THIS TIME.
--- NOTE | 2019-01-10 15:13 | HP ---
PATIENT: CARLOS ANG MEDICAL RECORD: [id number] ACCOUNT: [id number] LOCATION:[address] : 54 ADMISSION DATE: 01/09/19 PCP: LIZETH JOSHI DO HISTORY AND PHYSICAL EXAMINATION DIAGNOSES: 1. Non-Q-wave myocardial infarction. 2. Coronary artery disease. 3. Previous percutaneous transluminal coronary angioplasty stent. 4. Cardiomyopathy. 5. Hyperlipidemia. 6. Hypertension. HISTORY OF PRESENT ILLNESS: Mr. Ang presents with severe chest pain that resulted in syncope. He has an elevated troponin. His chest pain came on him all of a sudden yesterday. It is like his previous cardiac pain. PHYSICAL EXAMINATION: GENERAL APPEARANCE: Well-nourished, well-developed, appears stated age. Level of distress, comfortable. PSYCHIATRIC: Mental status, alert, normal affect. Orientation, oriented to time, place and person. EYES: Lids and conjunctiva, noninjected. No discharge, no pallor. ENT: Lips, teeth, gums, normal dentition. Oropharynx, no cyanosis, no pallor. NECK: Carotid arteries, bilateral normal upstroke, no bruits, no thrills. JUGULAR VEINS: No jugular venous pressure or distention. CERVICAL LYMPH NODES: Nontender, nonenlarged. THYROID: Not enlarged. Nontender. No nodules. LUNGS: Respiratory effort, unlabored. CHEST: Normal curvature. No thoracic deformity. No chest wall tenderness. Percussion, resonant. Auscultation, clear. No wheezes, no rales, no rhonchi. CARDIOVASCULAR: Precordial exam, nondisplaced. No heaves or pericardial thrills. Rate and rhythm, regular. Heart sounds, normal S1, normal S2. No S3, no gallop, no rub. Systolic murmur, not heard. Diastolic murmur, not heard. EXTREMITIES: No cyanosis, no edema. Peripheral pulses, full and equal in all extremities, except as noted. No bruits appreciated. ABDOMEN: Soft, nondistended. Normal aorta. No bruit. Nontender. No masses. Liver, nontender, no hepatomegaly. Spleen, nontender, no splenomegaly. MUSCULOSKELETAL: No joint tenderness. No joint swelling. No erythema. NEUROLOGICAL: Normal gait, normal strength, normal tone. SKIN: Warm and dry. OVERALL IMPRESSION: Elevated troponin, chest pain, most likely his syncope was secondary to dysrhythmia. We will proceed with coronary angiography. Further care depends upon findings of the angiography. TRANSINT:[id number] Voice Confirmation ID: [id number] DOCUMENT ID: [id number] HISTORY AND PHYSICAL [id number] CARLOS ANG JEFFREY MD at 1513 CC: [id number] DICTATION DATE: 01/10/19 0736 SALES DEVELOPMENT SPECIALIST: 01/10/19 0853 ADM IN [address] [place] [address]
--- NOTE | 2019-01-10 15:13 | NUR ---
TO INGREDIENT SCALER HELPER PER BED
--- NOTE | 2019-01-10 16:48 | NUR ---
6319-RECEIVED BACK FROM STUDENT OFFICER TO LAY FLAT X 4 HOURS. DRESSING TO RIGHT GROIN C/D/I.
--- NOTE | 2019-01-10 17:06 | NUR ---
POC GLUCOSE IS 59. PATIENT KNOWS HIS BODY AND WANTED 2 CONTAINERS OF OJ. GIVEN WILL RE-CHECK BLOOD SUGAR IN 30 MIN.
--- NOTE | 2019-01-10 17:37 | NUR ---
RE-CHECK POC GLUCOSE AND IT IS NOW 79.
--- NOTE | 2019-01-10 18:33 | NUR ---
PATIENT TO COUGH UP A SMALL BLOODY MUSCOUS PLUG (?). RIGHT GROIN DRESSING IS NOW SLIGHTLY BLOODY, THIS DID NOT GO PAST THE OPSITE. PPP AND STRONG. WILL CONTINUE TO MONITOR.
--- NOTE | 2019-01-10 19:24 | NUR ---
EVENING ROUNDS COMPLETED. REPORT RECEIVED. PT SITTING UP IN BED WITH EYES OPEN, RR EVEN AND UNLABORED. BED IN LOW POSITION. 70 PACED ON TELEMETRY. INTRODUCED SELF TO PT. PT REQUESTED TO BE PLACED ON BED GARCIA, PT WAS INFORMED HE CAN COME OFF FROM BED REST AT 2100. RT GROIN SIGHT INSPECTED. MINIMAL BLEEDING, DOES NOT APPEAR TO BE ACTIVE. SIGHT IS WITHOUT BRUISING OR SWELLING NOTED. PT DENIES FURTHER NEEDS AT THIS TIME. CALL LIGHT IN REACH. WILL CTM.
--- NOTE | 2019-01-11 04:07 | NUR ---
I have reviewed this patient and I concur with the Shift Assessment completed by the Licensed Practical Nurse today this shift.
--- NOTE | 2019-01-11 07:21 | NUR ---
PT ASLEEP, DID NOT WAKE I ENTERED. CL INR EACH. SRX2. DID NOT FURTHER DISTURB AT THIS TIME.
[2019-01-11 08:14] VITALS: BP 88/54
--- NOTE | 2019-01-11 08:47 | NUR ---
PT REFUSES TO LEAVE. STATES HE WANTS TO SPEAK TO THE DR CORONEL
--- NOTE | 2019-01-11 09:06 | NUR ---
PT ONCE AGAIN CHANGED MIND. DECIDED HE WANTS TO LEAVE AND GO TO A HEART HOSPITAL IN WHERE HE CAN GET "REAL CARE". PT STATES HIS LEGS HURT AND IF HE WERE TO FALL IT WOULD BE ON US. TRIED TO ASSIST PT IN GETTING DRESSED BUT HE TOLD ME TO LEAVE ANGRLY AND SHUT HIS DOOR. WILL MONITOR. STATED SON WILL BE HERE SOON.
--- NOTE | 2019-01-11 10:24 | NUR ---
PT WAITING ON SON TO COME GET HIM.
--- NOTE | 2019-01-11 11:04 | NUR ---
PT STATES HIS SON IS RUNNING ERRANDS BUT WILL BE HERE TO GET HIM SHORTLY
--- NOTE | 2019-01-11 12:14 | NUR ---
PT ESCORTED OUT TO SONS CAR VIA WHEELCHAIR WITH TECH.
--- NOTE | 2019-01-13 08:23 | MORECARE ---
CASE MANAGEMENT DISCHARGE SUMMARY PATIENT: CARLOS CULLEN UNIT: [id number] ADM DATE: 01/09/19 AGE: 68 : 52 SEX: M ROOM/BED: D.2124 AUTHOR: JOSHUA FRANKLIN PHYSICIAN: REFERRING PHYSICIAN: CHANTALE STRICKLAND MD DATE OF SERVICE: 01/13/19 Discharge Plan Patient Name: [facility]ULLEN [facility] 1950 Planned Disposition: Home Anticipated Discharge Date: 01/10/19 Discharge Date: 01/11/2019 Expected LOS: 1 Initial Reviewer: [email or web address] Initial Review Date: 01/13/2019 Generated: 01/13/19 9:23 am Patient Name: CARLOS CULLEN Page 71123 at 0823 All edits/amendments must be made on the electronic document DICTATION DATE: 01/13/19821 WILDLIFE REMOVAL SPECIALIST: BEAN 01/13/19821 RPT#: [id number] DC DATE:01/11/19 STATUS: DIS IN [facility] [address] [facility] [place] [address] END OF REPORT
== END 2019-01-11 12:14 | disposition home or self-care (01) ==
LOC: D.ER 19:02 → D.EDHOLD 21:10 → OBSVTIME 21:10 → D.M2 22:04
PROVIDERS: Family Medicine; ADMIT Internal Medicine Interventional Cardiology; ATTEND Internal Medicine Interventional Cardiology
DX: I21.4 Non-ST elevation (NSTEMI) myocardial infarction (principal); I25.10 Atherosclerotic heart disease of native coronary artery without angina pectoris; I42.9 Cardiomyopathy, unspecified; E78.5 Hyperlipidemia, unspecified; R55 Syncope and collapse; I25.5 Ischemic cardiomyopathy; Z95.810 Presence of automatic (implantable) cardiac defibrillator; I11.0 Hypertensive heart disease with heart failure; I50.22 Chronic systolic (congestive) heart failure; T82.855A Stenosis of coronary artery stent, initial encounter; Y83.9 Surgical procedure, unspecified as the cause of abnormal reaction of the patient, or of later complication, without mention of misadventure at the time of the procedure

== ENCOUNTER 2019-01-11 20:20 | Emergency (ER) | payer MEDICARE ==
--- NOTE | 2019-01-15 14:39 | DS ---
PATIENT:CARLOS ANG :54 MEDICAL RECORD: [id number] DISCHARGE SUMMARY ADMISSION DATE: 01/11/19 DISCHARGE DATE: 01/11/19 DISCHARGE DIAGNOSES: 1. Angina. 2. Coronary artery disease. 3. Percutaneous transluminal coronary angioplasty of the left circumflex this admission. 4. Cardiomyopathy, ischemic. 5. Congestive heart failure, chronic systolic dysfunction. 6. Hypertension. 7. Hyperlipidemia. 8. Status post implantable cardioverter-defibrillator. HOSPITAL COURSE: Mr. Ang presents with severe chest discomfort, has previously placed stents in his left circumflex. He had either clot or re-stenosis of the circumflex and underwent high-pressure PTCA with resolution of the obstruction. He had no further symptomatology. ICD was interrogated. He had no dysrhythmias prior to the admission and he had no significant dysrhythmias during the admission. He also had no heart failure symptomatology. Discharged home with no change in his medications as he is already on Effient and aspirin. Will follow up with [facility] as previously scheduled. TRANSINT:[id number] Voice Confirmation ID: [id number] DOCUMENT ID: [id number] CHANTAEL STRICKLAND MD at 1439 CC: [id number] DICTATION DATE: 01/11/19 1049 PARTS ANALYST: 01/12/19 0108 DEP ER 01/11/[address] [address]
== END 2019-01-11 20:41 | disposition left against medical advice (07) ==
LOC: D.ER 20:20
DX: R06.02 Shortness of breath (principal)